=== PATIENT | male | born 1965 | race American Indian/Alaskan Native ===

== ENCOUNTER 2021-08-15 01:29 | Inpatient (IN) | payer SELFPAY ==
[2021-08-15] MEDS ORDERED: ASPIRIN 325 MG TAB PO ONE (03:58)
[2021-08-15 04:14] LABS: Platelet Count 115 K/mm3 (140-440)
--- NOTE | 2021-08-15 04:17 | XRay Report ---
CHEST 1 VIEW INDICATION / CLINICAL INFORMATION: Dyspnea. COMPARISON: None available. FINDINGS: SUPPORT DEVICES: None. HEART / MEDIASTINUM: Cardiac size is upper limits of normal to slightly enlarged. LUNGS / PLEURA: Probable mild interstitial pulmonary edema. No focal consolidation or significant ple ural effusion noted. No pneumothorax. ADDITIONAL FINDINGS: No significant additional findings. IMPRESSION: 1. Borderline to mild cardiomegaly with probable mild interstitial pulmonary edema. Signer Name: Whitney Rios MD Signed: 08/15/2021 4:13 AM Workstation Name: [id number]
[2021-08-15 04:23] LABS: Eosinophils % (Auto) 0.2 % (0.0-4.3); INR 1.59 (0.87-1.13); Mean Corpuscular HGB Conc 31 % (32-34); Monocytes % (Auto) 8.3 % (0.0-7.3); Red Blood Count 0.84 M/mm3 (3.65-5.03)
[2021-08-15 04:34] LABS: Hematocrit 11.3 % (35.5-45.6); Hemoglobin 3.5 gm/dl (11.8-15.2); Mean Corpuscular Volume 134 fl (84-94); Red Cell Distribution Width 30.4 % (13.2-15.2)
[2021-08-15 04:53] LABS: Albumin 3.7 g/dL (3.9-5); Blood Urea Nitrogen 40 mg/dL (9-20); Calcium 8.6 mg/dL (8.4-10.2); Hemolysis Index 19
[2021-08-15 04:55] LABS: BUN/Creatinine Ratio 57
[2021-08-15 05:06] LABS: Band Neutrophils # (Manual) 1.7 K/mm3; Basophils % (Manual) 0 % (0.0-1.8); Eosinophils % (Manual) 0 % (0.0-4.3); Monocytes % (Manual) 8.5 % (0.0-7.3); Total Cells Counted 200
[2021-08-15 05:07] LABS: Anisocytosis 3+; Hypochromasia 3+; Ovalocytes Few; Poikilocytosis Few; Stomatocytes Few
[2021-08-15 05:08] LABS: Platelet Estimate Appears Decreased
[2021-08-15 05:10] LABS: Alanine Aminotransferase 1615 units/L (7-56)
[2021-08-15] MEDS ORDERED: SODIUM CHLORIDE 0.9% 500 ML 500 ML IV ONE (05:19)
--- NOTE | 2021-08-15 05:43 | Emergency Department Report ---
ED Shortness of Breath HPI - General Chief Complaint: Dyspnea/Respdistress Stated Complaint: glen Time Seen by Provider: 08/15/21 02:43 Source: patient, EMS Mode of arrival: Stretcher Limitations: No Limitations - History of Present Illness Initial Comments: This patient presented to the emergency department for evaluation of shortness of breath which has been worsening over the past 3 to 4 weeks the patient denies a history of congestive heart failure or COPD states she does not smoke. The patient admits to slight lightheadedness and denies any episodes of syncope. He denies any vomiting or diarrhea and has not noticed any blood in his stool. The patient currently denies fever or chills and also denies cough. MD Complaint: shortness of breath, chest pain, pain with inspiration -: week(s) (3) Consistency: intermittent Improves With: rest, other ( ) Worsens With: exertion, movement, other (Talking) Associated Symptoms: chest pain, pain with inspiration, other (Jaundice and dark urine) Treatments Prior to Arrival: none - Related Data Home Oxygen Therapy: No Previous Rx's Medication Instructions Recorded Last Taken Type Cyclobenzaprine [Flexeril] 10 mg PO TID PRN #15 tablet 01/04/16 Unknown Rx Ibuprofen [Motrin 800 MG tab] 800 mg PO Q8HR PRN #30 tablet 01/04/16 Unknown Rx Allergies Allergy/AdvReac Type Severity Reaction Status Date / Time atenolol Allergy Unknown Verified 08/15/21 01:34 quetiapine fumarate AdvReac Unknown Verified 08/15/21 01:33 [From Seroquel] ED Review of Systems ROS: Stated complaint: glen Other details as noted in HPI Comment: All other systems reviewed and negative Constitutional: denies: chills, fever Eyes: other (Jaundice) ENT: denies: ear pain, throat pain Respiratory: SOB with exertion, SOB at rest Cardiovascular: chest pain (On deep breathing), edema (Bilateral lower extremities which is new) Endocrine: no symptoms reported Genitourinary: other (Dark urine). denies: urgency, dysuria Musculoskeletal: denies: back pain, joint swelling, arthralgia Skin: denies: rash, lesions Psychiatric: denies: anxiety, depression Hematological/Lymphatic: denies: easy bleeding, easy bruising ED Past Medical Hx - Past Medical History Previous Medical History?: Yes Hx Hypertension: Yes (no meds) Hx GERD: Yes Hx Psychiatric Treatment: Yes (depression) - Surgical History Past Surgical History?: Yes Additional Surgical History: hernia - Social History Smoking Status: Never Smoker Substance Use Type: None - Medications Home Medications: Home Medications Medication Instructions Recorded Confirmed Last Taken Type Cyclobenzaprine [Flexeril] 10 mg PO TID PRN #15 tablet 01/04/16 Unknown Rx Ibuprofen [Motrin 800 MG tab] 800 mg PO Q8HR PRN #30 tablet 01/04/16 Unknown Rx ED Physical Exam - General Limitations: No Limitations General appearance: alert, in distress - Head Head exam: Present: atraumatic, normocephalic - Eye Eye exam: Present: PERRL, scleral icterus - ENT ENT exam: Present: mucous membranes moist - Neck Neck exam: Present: normal inspection - Respiratory Respiratory exam: Present: normal lung sounds bilaterally. Absent: respiratory distress - Cardiovascular Cardiovascular Exam: Present: tachycardia - GI/Abdominal GI/Abdominal exam: Present: soft. Absent: distended, tenderness - Rectal Rectal exam: Present: other (The patient still appears to be normal in color however the sample was sent to the lab for evaluation) ED Course Vital Signs 08/15/21 08/15/21 08/15/21 01:50 02:00 02:15 Temperature Pulse Rate 103 H Respiratory 37 H Rate Blood Pressure 115/64 Blood Pressure [Right] O2 Sat by Pulse 99 95 96 Oximetry 08/15/21 08/15/21 08/15/21 02:17 02:31 02:45 Temperature 98.7 F Pulse Rate 102 H 94 H 96 H Respiratory 29 H 26 H 25 H Rate Blood Pressure 138/69 134/67 134/67 Blood Pressure 138/69 [Right] O2 Sat by Pulse 97 97 98 Oximetry 08/15/21 08/15/21 08/15/21 03:00 03:01 03:15 Temperature Pulse Rate 96 H 96 H 98 H Respiratory 26 H 26 H 24 Rate Blood Pressure 130/62 130/62 Blood Pressure 130/62 [Right] O2 Sat by Pulse 99 99 99 Oximetry 08/15/21 08/15/21 08/15/21 03:31 03:45 04:01 Temperature Pulse Rate 96 H 101 H 109 H Respiratory 24 31 H 40 H Rate Blood Pressure 138/62 138/62 146/54 Blood Pressure [Right] O2 Sat by Pulse 100 99 97 Oximetry 08/15/21 08/15/21 08/15/21 04:15 04:31 04:45 Temperature Pulse Rate 111 H 107 H 98 H Respiratory 41 H 30 H 26 H Rate Blood Pressure 146/54 120/65 120/65 Blood Pressure 146/54 [Right] O2 Sat by Pulse 96 100 96 Oximetry 08/15/21 08/15/21 08/15/21 05:08 05:16 05:30 Temperature Pulse Rate 98 H 105 H 109 H Respiratory 26 H 38 H 44 H Rate Blood Pressure 145/58 118/79 Blood Pressure 120/65 [Right] O2 Sat by Pulse 96 94 Oximetry 08/15/21 08/15/21 05:46 06:03 Temperature Pulse Rate 101 H 99 H Respiratory 37 H 33 H Rate Blood Pressure 118/79 Blood Pressure 140/64 [Right] O2 Sat by Pulse 99 Oximetry ED Medical Decision Making - Lab Data Result diagrams: 08/15/21 04:01 08/15/21 04:01 - EKG Data -: EKG Interpreted by Tn EKG shows normal: sinus rhythm, axis (Normal), QRS complexes (Normal) Rate: tachycardia - Radiology Data Radiology results: report reviewed Per the radiologic interpretation the patient was noted to have a normal heart size with no obvious evidence of pulmonary edema or pneumonia - Medical Decision Making On review of the patient's labs his H&H were noted to be significantly low with a hemoglobin of 3.5. He was subsequently typed and crossed for 2 units of packed red blood cells. Review of his liver functions showed marked elevation of his AST and ALT as well as bilirubin. The current plan is to transfuse the patient as soon as the blood becomes available. I spoke with the hospitalist who agreed to admit the patient for further work-up of his liver issues. Critical Care Time: Yes Critical care time in (mins) excluding proc time.: 48 Critical care attestation.: If time is entered above; I have spent that time in minutes in the direct care of this critically ill patient, excluding procedure time. ED Disposition Condition: Stable
[2021-08-15] MEDS ORDERED: ONDANSETRON 4 MG/2 ML INJ IV PRN (06:09)
[2021-08-15] MEDS ORDERED: ACETAMINOPHEN 650 MG RECT SUPP PR PRN (06:09)
[2021-08-15] MEDS ORDERED: MORPHINE 4 MG/1 ML INJ IV PRN (06:09)
--- NOTE | 2021-08-15 06:28 | History and Physical Report ---
History of Present Illness Date of examination: 08/15/21 Date of admission: 08/15/2021 Chief complaint: Shortness of breath Chest pain History of present illness: 55-year-old -[place]ian male with known history of hypertension and rheumatoid arthritis presenting to the emergency room today complaining of shortness of breath and chest pain. Symptoms has been ongoing for the past 3 weeks. Patient has been having increasing shortness of breath especially on minimal exertion. He also indicates that he has been having pleuritic chest pain. He denies any fever or chills, no headache, no nausea or vomiting and no abdominal pain. He however has noticed occasional distention of his abdomen, jaundice and unusually darker urine lately. Patient denies any sick contacts and no recent travel. Denies any contact with anyone with COVID-19. He states that he had a fall few days ago because he felt very weak and felt dizzy. On his forehead during the fall. He denies any loss of consciousness. Upon arrival in the emergency room, patient was quite tachypneic and tachycardic with an O2 saturation of 96% on room air. Work-up in the emergency room today, lab reveals significant for leukocytosis of 34.5, hemoglobin of 3.5 and hematocrit of 11.3. MCV of 134 and platelet count is 115. INR 1.59, PT 30.9, D-dimer greater than 234. Total bilirubin of 13.4, AST 1665, ALT 1615, alkaline phos 99 Chest x-ray shows borderline to mild cardiomegaly with probable mild interstitial pulmonary edema. Past History Past Medical History: arthritis (Rheumatoid arthritis), GERD, hypertension, other (Depression, hernia) Past Surgical History: No surgical history Social history: no significant social history Family history: no significant family history Medications and Allergies Allergies Allergy/AdvReac Type Severity Reaction Status Date / Time atenolol Allergy Unknown Verified 08/15/21 01:34 quetiapine fumarate AdvReac Unknown Verified 08/15/21 01:33 [From SeroColor Promosl] Home Medications Medication Instructions Recorded Confirmed Last Taken Type Esomeprazole Magnesium [Nexium 20 mg PO DAILY 08/15/21 08/15/21 Unknown History 24Hr] Sulindac 200 mg PO BID 08/15/21 08/15/21 08/14/21 History predniSONE [Deltasone] 5 mg PO TID 08/15/21 08/15/21 08/14/21 History 5 mg Active Meds: Active Medications Acetaminophen (Acetaminophen 650 Mg Rect Supp) 650 mg OR Q4H PRN PRN Reason: Pain MILD(1-3)/Fever >100.5/STEPHENSON Furosemide (Furosemide 40 Mg/4 Ml Inj) 40 mg IV ONCE ONE Stop: 08/15/21 06:20 Magnesium Hydroxide (Magnesium Hydroxide (Mom) Oral Liqd Udc) 30 ml PO Q4H PRN PRN Reason: Constipation Morphine Sulfate (Morphine 2 Mg/1 Ml Inj) 2 mg IV Q4H PRN PRN Reason: Pain, Moderate (4-6) Morphine Sulfate (Morphine 4 Mg/1 Ml Inj) 4 mg IV Q4H PRN PRN Reason: Pain , Severe (7-10) Ondansetron HCl (Ondansetron 4 Mg/2 Ml Inj) 4 mg IV Q8H PRN PRN Reason: Nausea And Vomiting Sodium Chloride (Sodium Chloride 0.9% 10 Ml Flush Syringe) 10 ml IV BID ROSINA Sodium Chloride (Sodium Chloride 0.9% 10 Ml Flush Syringe) 10 ml IV PRN PRN PRN Reason: LINE FLUSH Review of Systems Constitutional: fatigue, weakness, no fever, no chills Ears, nose, mouth and throat: no nasal congestion, no sore throat Cardiovascular: chest pain, palpitations, dyspnea on exertion Respiratory: cough, shortness of breath, no wheezing Gastrointestinal: jaundice, no abdominal pain, no nausea, no vomiting, no diarrhea, no BRBPR, no melena Genitourinary Male: no dysuria, no hematuria, no flank pain, no urinary frequency, no nocturia Musculoskeletal: no neck pain, no low back pain Integumentary: no rash, no pruritis Neurological: no headaches, no confusion Psychiatric: depression (History of depression), no anxiety Endocrine: no polyphagia, no polydipsia, no polyuria, no nocturia Exam - Constitutional Vitals: Temp Pulse Resp BP Pulse Ox 98.7 F 99 H 33 H 140/64 99 08/15/21 02:17 08/15/21 06:03 08/15/21 06:03 08/15/21 06:03 08/15/21 06:03 General appearance: Present: mild distress, well-nourished, other (Bruises on left side of forehead) - EENT Eyes: Present: PERRL, EOM intact, scleral icterus ENT: hearing intact, clear oral mucosa, dentition normal - Neck Neck: Present: supple, normal ROM - Respiratory Respiratory effort: labored Respiratory: bilateral: rales (Few rales in lung bases) - Cardiovascular Rhythm: regular Heart Sounds: Present: S1 & S2. Absent: systolic murmur, diastolic murmur, rub, click - Extremities Extremities: no ischemia, pulses intact, normal temperature, normal color, Full ROM Extremity abnormal: edema (1+ bilateral ankle edema) Peripheral Pulses: within normal limits - Abdominal General gastrointestinal: Present: soft, non-tender, distended (Mildly distended), normal bowel sounds. Absent: hepatomegaly, splenomegaly, mass - Integumentary Integumentary: Present: clear, warm, dry, normal turgor. Absent: rash - Musculoskeletal Musculoskeletal: strength equal bilaterally - Psychiatric Psychiatric: appropriate mood/affect, intact judgment & insight, memory intact, cooperative - Neurologic Neurologic: CNII-XII intact, no focal deficits, moves all extremities HEART Score - HEART Score Troponin: Troponin T < 0.010 ng/mL (0.00-0.029) 08/15/21 04:01 Results - Labs CBC & Chem 7: 08/15/21 04:01 08/15/21 04:01 Labs: Abnormal lab results 08/15/21 08/15/21 08/15/21 Range/Units 04:01 04:01 04:01 WBC 34.5 H (4.5-11.0) K/mm3 RBC 0.84 L (3.65-5.03) M/mm3 Hgb 3.5 L* (11.8-15.2) gm/dl Hct 11.3 L* (35.5-45.6) % MCV 134 H (84-94) fl MCH 41 H (28-32) pg MCHC 31 L (32-34) % RDW 30.4 H (13.2-15.2) % Plt Count 115 L (140-440) K/mm3 Newton % (Auto) 8.3 H (0.0-7.3) % Seg Neutrophils % 77.5 H (40.0-70.0) % Monocytes % (Manual) 8.5 H (0.0-7.3) % Nucleated RBC % 55.0 H (0.0-0.9) % Seg Neutrophils # Man 20.2 H (1.8-7.7) K/mm3 Lymphocytes # (Manual) 9.1 H (1.2-5.4) K/mm3 Monocytes # (Manual) 2.9 H (0.0-0.8) K/mm3 PT 20.9 H (12.2-14.9) Sec. INR 1.59 H (0.87-1.13) D-Dimer > 234 H (0-234) ng/mlDDU Carbon Dioxide 17 L (22-30) mmol/L BUN 40 H (9-20) mg/dL Creatinine 0.7 L (0.8-1.3) mg/dL Glucose 145 H (75-100) mg/dL Total Bilirubin 13.40 H (0.1-1.2) mg/dL AST 1665 H (5-40) units/L ALT 1615 H (7-56) units/L Total Protein 8.4 H (6.3-8.2) g/dL Albumin 3.7 L (3.9-5) g/dL Crossmatch 08/15/21 Range/Units 05:37 WBC (4.5-11.0) K/mm3 RBC (3.65-5.03) M/mm3 Hgb (11.8-15.2) gm/dl Hct (35.5-45.6) % MCV (84-94) fl MCH (28-32) pg MCHC (32-34) % RDW (13.2-15.2) % Plt Count (140-440) K/mm3 Newton % (Auto) (0.0-7.3) % Seg Neutrophils % (40.0-70.0) % Monocytes % (Manual) (0.0-7.3) % Nucleated RBC % (0.0-0.9) % Seg Neutrophils # Man (1.8-7.7) K/mm3 Lymphocytes # (Manual) (1.2-5.4) K/mm3 Monocytes # (Manual) (0.0-0.8) K/mm3 PT (12.2-14.9) Sec. INR (0.87-1.13) D-Dimer (0-234) ng/mlDDU Carbon Dioxide (22-30) mmol/L BUN (9-20) mg/dL Creatinine (0.8-1.3) mg/dL Glucose (75-100) mg/dL Total Bilirubin (0.1-1.2) mg/dL AST (5-40) units/L ALT (7-56) units/L Total Protein (6.3-8.2) g/dL Albumin (3.9-5) g/dL Crossmatch See Detail Assessment and Plan - Patient Problems (1) Symptomatic anemia Current Visit: Yes Status: Acute Plan to address problem: Etiology is unclear. Will rule out hemolysis versus malignancy. Patient being prepared for blood transfusion. Consult will be placed to yard hand/oncologist for evaluation and recommendation. (2) Pleuritic chest pain Current Visit: Yes Status: Acute Plan to address problem: Etiology unclear. Possibly related to the pulmonary edema. We will schedule for CT angiogram to rule out pulmonary embolism (3) Jaundice Current Visit: Yes Status: Acute Plan to address problem: We will check acute hepatitis profile. We will also check acetaminophen level We will monitor liver enzymes. Consult placed to gastroenterology for evaluation and recommendation. (4) History of rheumatoid arthritis Current Visit: Yes Status: Acute Plan to address problem: Patient has been on prednisone and sulindac at home. (5) History of depression Current Visit: Yes Status: Acute Plan to address problem: We will resume routine home medications. (6) Hypertension Current Visit: Yes Status: Acute Plan to address problem: Blood pressure stable. (7) DVT prophylaxis Current Visit: Yes Status: Acute Plan to address problem: Patient placed on sequential compression device. (8) Full code status Current Visit: Yes Status: Acute Plan to address problem: Patient is full code.
[2021-08-15] MEDS ORDERED: FUROSEMIDE 40 MG/4 ML INJ IV ONE (07:19)
[2021-08-15 07:33] LABS: Hepatitis B Surface Antigen Non-Reactive (Negative); Hepatitis C Virus Antibody Non-Reactive (NonReactive)
--- NOTE | 2021-08-15 08:39 | Cat Scan Report ---
CTA CHEST WITH CONTRAST INDICATION / CLINICAL INFORMATION: ABDOMINAL DISTENSION,ELEVATED LFT,JAUNDICE. TECHNIQUE: Axial CT images were obtained through the chest after injection of 95 mL's of Omnipaque 35 0 IV contrast. 3 plane MIP and/or 3D reconstructions were produced. All CT scans at this location are performed using CT dose reduction for ALARA by means of automated exposure control. COMPARISON: None available. FINDINGS: PULMONARY ARTERIES: No central pulmonary emboli. THORACIC AORTA: No significant abnormality. HEART: No significant abnormality. CORONARY ARTERY CALCIFICATION: None. MEDIASTINUM / FORTINO: No significant abnormality. PLEURA: No pleural effusion. No pneumothorax. LUNGS: No acute air space or interstitial disease. ADDITIONAL FINDINGS: None. SKELETAL STRUCTURES: No significant osseous abnormality. IMPRESSION: 1. No CT evidence for central pulmonary embolism. 2. No acute findings. CT ABDOMEN AND PELVIS WITH CONTRAST INDICATION / CLINICAL INFORMATION: ABDOMINAL DISTENSION,ELEVATED LFT,JAUNDICE. TECHNIQUE: Axial CT images were obtained through the abdomen and pelvis after 95 cc of Omnipaque [address] scans at this location are performed using CT dose reduction for ALARA by means of automated exposure control. COMPARISON: None available. FINDINGS: LOWER CHEST: No significant abnormality. AORTA / ARTERIES: No significant abnormality. IVC / VEINS: No significant abnormality. LYMPH NODES: No significant adenopathy. COLON: No significant abnormality. APPENDIX: No significant abnormality. STOMACH / SMALL BOWEL: No significant abnormality. PERITONEUM: No free fluid. No free air. No fluid collection. LIVER: No significant abnormality. GALLBLADDER: No significant abnormality. BILE DUCTS: No significant abnormality. PANCREAS: No significant abnormality. SPLEEN: No significant abnormality. ADRENALS: No significant abnormality. RIGHT KIDNEY / URETER: No significant abnormality. LEFT KIDNEY / URETER: No significant abnormality. URINARY BLADDER: No significant abnormality. REPRODUCTIVE ORGANS: No significant abnormality. SKELETAL SYSTEM: Increased trabeculation of the left iliac bone suggesting Paget's disease versus seq uela of prior trauma. ADDITIONAL FINDINGS: None. IMPRESSION: 1. No acute intra-abdominal or intrapelvic pathology. 2. Increased trabeculation of the left iliac bone suggesting Paget's disease versus sequela of prior trauma. Signer Name: Luis F Pandey DO Signed: 08/15/2021 8:35 AM Workstation Name: [id number]
[2021-08-15] MEDS ORDERED: LORazepam 2 MG/ML VIAL IV SCH ×2 (09:00→23:00)
[2021-08-15] MEDS ORDERED: SODIUM CHLORIDE 0.9% 500 ML 500 ML IV SCH (09:00)
[2021-08-15] MEDS: PANTOPRAZOLE 40 MG INJ IV SCH ×2 (09:22→22:35)
--- NOTE | 2021-08-15 09:55 | Gastroenterology Consultation ---
History of Present Illness - Reason for Consult Consult date: 08/15/21 abnormal liver enzymes/jaundice Requesting physician: SUSHIL AMARAL - History of Present Illness The patient is a 55 yo aam with h/o RA on prednisone, who presented with 3-4 weeks of progressive sob/fatigues and recent falls. Pt found to have severe leukocytosis, macrocytic anemia, and abnormal liver enzymes/jaundice on admission. He denies known h/o liver disease. denies alcohol intake. denies abd pain or new recent meds. he had a fall last week with head wound/bruise. tachypneic on exam. awake and alert. ct scan without acute findings or obvious liver abnormalities. tylenol level of 5, last known intake was a few weeks ago per pt. no known h/o cardiac issues. Past History Past Medical History: arthritis (Rheumatoid arthritis), GERD, hypertension, other (Depression, hernia) Past Surgical History: No surgical history Social history: no significant social history Family history: no significant family history Medications and Allergies Allergies Allergy/AdvReac Type Severity Reaction Status Date / Time atenolol Allergy Unknown Verified 08/15/21 01:34 quetiapine fumarate AdvReac Unknown Verified 08/15/21 01:33 [From Seroquel] Home Medications Medication Instructions Recorded Confirmed Last Taken Type Cyclobenzaprine [Flexeril] 10 mg PO TID PRN #15 tablet 01/04/16 Unknown Rx Ibuprofen [Motrin 800 MG tab] 800 mg PO Q8HR PRN #30 tablet 01/04/16 Unknown Rx Active Meds: Active Medications Sodium Chloride (Nacl 0.9% 500 Ml) 500 mls @ 0 mls/hr IV ONCE@0900 [facility] Stop: 08/15/21 19:00 Lorazepam (Lorazepam 2 Mg/Ml Vial) 2 mg IV ONCE@0900 [facility] Stop: 08/15/21 13:00 Magnesium Hydroxide (Magnesium Hydroxide (Mom) Oral Liqd Udc) 30 ml PO Q4H PRN PRN Reason: Constipation Morphine Sulfate (Morphine 2 Mg/1 Ml Inj) 2 mg IV Q4H PRN PRN Reason: Pain, Moderate (4-6) Morphine Sulfate (Morphine 4 Mg/1 Ml Inj) 4 mg IV Q4H PRN PRN Reason: Pain , Severe (7-10) Ondansetron HCl (Ondansetron 4 Mg/2 Ml Inj) 4 mg IV Q8H PRN PRN Reason: Nausea And Vomiting Pantoprazole Sodium (Pantoprazole 40 Mg Inj) 40 mg IV BID [facility] Last Admin: 08/15/21 09:22 Dose: 40 mg Sodium Chloride (Sodium Chloride 0.9% 10 Ml Flush Syringe) 10 ml IV BID [facility] Last Admin: 08/15/21 09:23 Dose: 10 ml Sodium Chloride (Sodium Chloride 0.9% 10 Ml Flush Syringe) 10 ml IV PRN PRN PRN Reason: LINE FLUSH Reviewed/updated patient's home and current medications Review of Systems - Review of Systems All systems: negative (per HPI, jaundice) Exam - Constitutional Vital Signs: Temp Pulse Resp BP Pulse Ox 98.7 F 99 H 28 H 140/64 97 08/15/21 09:00 08/15/21 08:29 08/15/21 08:29 08/15/21 08:29 08/15/21 09:36 General appearance: no acute distress, obese, other (convservational dyspnea) - EENT Eyes: scleral icterus - Respiratory Respiratory effort: labored Respiratory: bilateral: diminished - Cardiovascular Rhythm: regular Heart Sounds: Present: S1 & S2 - Gastrointestinal General gastrointestinal: Present: soft, non-distended - Musculoskeletal Musculoskeletal: deferred - Neurologic Neurological: alert and oriented x3 - Psychiatric Psychiatric: appropriate mood/affect - Labs CBC & Chem 7: 08/15/21 04:01 08/15/21 04:01 Lab Results: Laboratory Results - last 24 hr 08/15/21 08/15/21 08/15/21 04:01 04:01 04:01 WBC 34.5 H RBC 0.84 L Hgb 3.5 L* Hct 11.3 L* MCV 134 H MCH 41 H MCHC 31 L RDW 30.4 H Plt Count 115 L [place] % (Auto) 8.3 H Eos % (Auto) 0.2 Lymph # (Auto) Pediatric Assistant Add Manual Diff Complete Total Counted 200 Seg Neutrophils % 77.5 H Seg Neuts % (Manual) 58.5 Band Neutrophils % 5.0 Lymphocytes % (Manual) 26.5 Reactive Lymphs % (Man) 1.0 Monocytes % (Manual) 8.5 H Eosinophils % (Manual) 0 Basophils % (Manual) 0 Metamyelocytes % 0.5 Myelocytes % 0 Promyelocytes % 0 Blast Cells % 0 Nucleated RBC % 55.0 H Seg Neutrophils # Man 20.2 H Band Neutrophils # 1.7 Lymphocytes # (Manual) 9.1 H Abs React Lymphs (Man) 0.3 Monocytes # (Manual) 2.9 H Eosinophils # (Manual) 0.0 Basophils # (Manual) 0.0 Metamyelocytes # 0.2 Myelocytes # 0.0 Promyelocytes # 0.0 Blast Cells # 0.0 Hypersegmented Neuts Not Reportable Hyposegmented Neuts Not Reportable Hypogranular Neuts Not Reportable Smudge Cells Not Reportable Toxic Granulation Not Reportable Toxic Vacuolation Not Reportable Dohle Bodies Not Reportable Pelger-Huet Anomaly Not Reportable Elise Rods Not Reportable Platelet Estimate Appears decreased Clumped Platelets Not Reportable Plt Clumps, EDTA Not Reportable Large Platelets Not Reportable Giant Platelets Not Reportable Platelet Satelliting Not Reportable Plt Morphology Comment Not Reportable RBC Morphology Not Reportable Dimorphic RBCs Not Reportable Polychromasia Few Hypochromasia 3+ Poikilocytosis Few Anisocytosis 3+ Microcytosis 3+ Macrocytosis Few Spherocytes Rare Pappenheimer Bodies Not Reportable Sickle Cells Not Reportable Target Cells Not Reportable Tear Drop Cells Not Reportable Ovalocytes Few Stomatocytes Few Helmet Cells Not Reportable [place] Bodies Not Reportable [place] Rings Not Reportable [place] Cells Not Reportable Bite Cells Not Reportable Crenated Cell Not Reportable Elliptocytes Not Reportable Acanthocytes (Spur) Not Reportable Rouleaux Not Reportable Hemoglobin C Crystals Not Reportable Schistocytes Not Reportable Malaria parasites Not Reportable Yassine Bodies Not Reportable Hem Pathologist Commnt Sent to pathology PT 20.9 H INR 1.59 H D-Dimer > 234 H Sodium 141 Potassium 4.1 Chloride 103.1 Carbon Dioxide 17 L Anion Gap 25 BUN 40 H Creatinine 0.7 L Estimated GFR > 60 BUN/Creatinine Ratio 57 Glucose 145 H POC Glucose Lactic Acid Calcium 8.6 Total Bilirubin 13.40 H AST 1665 H ALT 1615 H Alkaline Phosphatase 99 Lactate Dehydrogenase Troponin T Total Protein 8.4 H Albumin 3.7 L Albumin/Globulin Ratio 0.8 Acetaminophen Hepatitis A IgM Ab Hep Bs Antigen Hep B Core IgM Ab Hepatitis C Antibody Blood Type Antibody Screen PARRISH Antibody Screen Crossmatch 0308/15/21 08/15/21 04:01 04:11 05:37 WBC RBC Hgb Hct MCV MCH MCHC RDW Plt Count [place] % (Auto) Eos % (Auto) Lymph # (Auto) Add Manual Diff Total Counted Seg Neutrophils % Seg Neuts % (Manual) Band Neutrophils % Lymphocytes % (Manual) Reactive Lymphs % (Man) Monocytes % (Manual) Eosinophils % (Manual) Basophils % (Manual) Metamyelocytes % Myelocytes % Promyelocytes % Blast Cells % Nucleated RBC % Seg Neutrophils # Man Band Neutrophils # Lymphocytes # (Manual) Abs React Lymphs (Man) Monocytes # (Manual) Eosinophils # (Manual) Basophils # (Manual) Metamyelocytes # Myelocytes # Promyelocytes # Blast Cells # Hypersegmented Neuts Hyposegmented Neuts Hypogranular Neuts Smudge Cells Toxic Granulation Toxic Vacuolation Dohle Bodies Pelger-Huet Anomaly Elise Rods Platelet Estimate Clumped Platelets Plt Clumps, EDTA Large Platelets Giant Platelets Platelet Satelliting Plt Morphology Comment RBC Morphology Dimorphic RBCs Polychromasia Hypochromasia Poikilocytosis Anisocytosis Microcytosis Macrocytosis Spherocytes Pappenheimer Bodies Sickle Cells Target Cells Tear Drop Cells Ovalocytes Stomatocytes Helmet Cells [place] Bodies [place] Rings [place] Cells Bite Cells Crenated Cell Elliptocytes Acanthocytes (Spur) Rouleaux Hemoglobin C Crystals Schistocytes Malaria parasites Yassine Bodies Hem Pathologist Commnt PT INR D-Dimer Sodium Potassium Chloride Carbon Dioxide Anion Gap BUN Creatinine Estimated GFR BUN/Creatinine Ratio Glucose POC Glucose 104 Lactic Acid Calcium Total Bilirubin AST ALT Alkaline Phosphatase Lactate Dehydrogenase Troponin T < 0.010 Total Protein Albumin Albumin/Globulin Ratio Acetaminophen Hepatitis A IgM Ab Hep Bs Antigen Hep B Core IgM Ab Hepatitis C Antibody Blood Type O POSITIVE Antibody Screen TNR PARRISH Antibody Screen Negative Crossmatch See Detail 08/15/21 08/15/21 08/15/21 06:00 06:44 06:44 WBC RBC Hgb Hct MCV MCH MCHC RDW Plt Count [place] % (Auto) Eos % (Auto) Lymph # (Auto) Add Manual Diff Total Counted Seg Neutrophils % Seg Neuts % (Manual) Band Neutrophils % Lymphocytes % (Manual) Reactive Lymphs % (Man) Monocytes % (Manual) Eosinophils % (Manual) Basophils % (Manual) Metamyelocytes % Myelocytes % Promyelocytes % Blast Cells % Nucleated RBC % Seg Neutrophils # Man Band Neutrophils # Lymphocytes # (Manual) Abs React Lymphs (Man) Monocytes # (Manual) Eosinophils # (Manual) Basophils # (Manual) Metamyelocytes # Myelocytes # Promyelocytes # Blast Cells # Hypersegmented Neuts Hyposegmented Neuts Hypogranular Neuts Smudge Cells Toxic Granulation Toxic Vacuolation Dohle Bodies Pelger-Huet Anomaly Elise Rods Platelet Estimate Clumped Platelets Plt Clumps, EDTA Large Platelets Giant Platelets Platelet Satelliting Plt Morphology Comment RBC Morphology Dimorphic RBCs Polychromasia Hypochromasia Poikilocytosis Anisocytosis Microcytosis Macrocytosis Spherocytes Pappenheimer Bodies Sickle Cells Target Cells Tear Drop Cells Ovalocytes Stomatocytes Helmet Cells [place] Bodies [place] Rings [place] Cells Bite Cells Crenated Cell Elliptocytes Acanthocytes (Spur) Rouleaux Hemoglobin C Crystals Schistocytes Malaria parasites Yassine Bodies Hem Pathologist Commnt PT INR D-Dimer Sodium Potassium Chloride Carbon Dioxide Anion Gap BUN Creatinine Estimated GFR BUN/Creatinine Ratio Glucose POC Glucose Lactic Acid 7.30 H* Calcium Total Bilirubin AST ALT Alkaline Phosphatase Lactate Dehydrogenase Troponin T 0.016 Total Protein Albumin Albumin/Globulin Ratio Acetaminophen Hepatitis A IgM Ab Non-reactive Hep Bs Antigen Non-reactive Hep B Core IgM Ab Non-reactive Hepatitis C Antibody Non-reactive Blood Type Antibody Screen PARRISH Antibody Screen Crossmatch 08/15/21 08/15/21 06:44 07:00 WBC RBC Hgb Hct MCV MCH MCHC RDW Plt Count [place] % (Auto) Eos % (Auto) Lymph # (Auto) Add Manual Diff Total Counted Seg Neutrophils % Seg Neuts % (Manual) Band Neutrophils % Lymphocytes % (Manual) Reactive Lymphs % (Man) Monocytes % (Manual) Eosinophils % (Manual) Basophils % (Manual) Metamyelocytes % Myelocytes % Promyelocytes % Blast Cells % Nucleated RBC % Seg Neutrophils # Man Band Neutrophils # Lymphocytes # (Manual) Abs React Lymphs (Man) Monocytes # (Manual) Eosinophils # (Manual) Basophils # (Manual) Metamyelocytes # Myelocytes # Promyelocytes # Blast Cells # Hypersegmented Neuts Hyposegmented Neuts Hypogranular Neuts Smudge Cells Toxic Granulation Toxic Vacuolation Dohle Bodies Pelger-Huet Anomaly Elise Rods Platelet Estimate Clumped Platelets Plt Clumps, EDTA Large Platelets Giant Platelets Platelet Satelliting Plt Morphology Comment RBC Morphology Dimorphic RBCs Polychromasia Hypochromasia Poikilocytosis Anisocytosis Microcytosis Macrocytosis Spherocytes Pappenheimer Bodies Sickle Cells Target Cells Tear Drop Cells Ovalocytes Stomatocytes Helmet Cells [place] Bodies [place] Rings [place] Cells Bite Cells Crenated Cell Elliptocytes Acanthocytes (Spur) Rouleaux Hemoglobin C Crystals Schistocytes Malaria parasites Yassine Bodies Hem Pathologist Commnt PT INR D-Dimer Sodium Potassium Chloride Carbon Dioxide Anion Gap BUN Creatinine Estimated GFR BUN/Creatinine Ratio Glucose POC Glucose Lactic Acid Calcium Total Bilirubin AST ALT Alkaline Phosphatase Lactate Dehydrogenase 4126 H Troponin T Total Protein Albumin Albumin/Globulin Ratio Acetaminophen 5.0 L Hepatitis A IgM Ab Hep Bs Antigen Hep B Core IgM Ab Hepatitis C Antibody Blood Type Antibody Screen PARRISH Antibody Screen Crossmatch - Imaging CT Scan: report reviewed Assessment and Plan 1. Acute liver injury - unclear etiology, mixed pattern of elevation, ddx includies ischemic hepatitis/shock liver, DILI, AIH, sepsis, etc. no overt HE. trend liver enzymes/coags closely. will obtain US with doppler. consider starting NAC (detectable tylenol level, although low but last known intake per pt was weeks ago??). 2. Severe macrocytic anemia - denies overt gi bleeding. monitor/trend levels, further work-up per primary
--- NOTE | 2021-08-15 11:18 | Consultation ---
History of Present Illness - Reason for Consult Consult date: 08/15/21 SIRS/lactic acidosis Requesting physician: SUSHIL AMARAL - History of Present Illness The patient is a 54-year-old female with hypertension, rheumatoid arthritis, GERD was admitted with shortness of breath and chest pain. Upon work-up, found to have significant leukocytosis and severe anemia. WBC was 34.5, hemoglobin 3.5. Also found to have lactic acidosis and elevated LFTs. Bilirubin 13.4, AST 1665, ALT 1615. LDH 4126. CT chest revealed no PE, no evidence of pneumonia. CT abdomen and pelvis revealed no acute intra-abdominal or intrapelvic pathology. Review of Systems: Per HPI Past History Past Medical History: arthritis (Rheumatoid arthritis), GERD, hypertension, other (Depression, hernia) Past Surgical History: No surgical history Social history: no significant social history Family history: no significant family history Medications and Allergies Allergies Allergy/AdvReac Type Severity Reaction Status Date / Time atenolol Allergy Unknown Verified 08/15/21 01:34 quetiapine fumarate AdvReac Unknown Verified 08/15/21 01:33 [From Seroquel] Home Medications Medication Instructions Recorded Confirmed Last Taken Type Esomeprazole Magnesium [Nexium 20 mg PO DAILY 08/15/21 08/15/21 Unknown History 24Hr] Sulindac 200 mg PO BID 08/15/21 08/15/21 08/14/21 History predniSONE [Deltasone] 5 mg PO TID 08/15/21 08/15/21 08/14/21 History 5 mg Active Meds: Active Medications Sodium Chloride (Nacl 0.9% 500 Ml) 500 mls @ 0 mls/hr IV ONCE@0900 [facility] Stop: 08/15/21 19:00 Last Admin: 08/15/21 10:54 Dose: 20 mls/hr Lorazepam (Lorazepam 2 Mg/Ml Vial) 2 mg IV ONCE@0900 [facility] Stop: 08/15/21 13:00 Magnesium Hydroxide (Magnesium Hydroxide (Mom) Oral Liqd Udc) 30 ml PO Q4H PRN PRN Reason: Constipation Morphine Sulfate (Morphine 2 Mg/1 Ml Inj) 2 mg IV Q4H PRN PRN Reason: Pain, Moderate (4-6) Morphine Sulfate (Morphine 4 Mg/1 Ml Inj) 4 mg IV Q4H PRN PRN Reason: Pain , Severe (7-10) Ondansetron HCl (Ondansetron 4 Mg/2 Ml Inj) 4 mg IV Q8H PRN PRN Reason: Nausea And Vomiting Pantoprazole Sodium (Pantoprazole 40 Mg Inj) 40 mg IV BID [facility] Last Admin: 08/15/21 09:22 Dose: 40 mg Sodium Chloride (Sodium Chloride 0.9% 10 Ml Flush Syringe) 10 ml IV BID [facility] Last Admin: 08/15/21 09:23 Dose: 10 ml Sodium Chloride (Sodium Chloride 0.9% 10 Ml Flush Syringe) 10 ml IV PRN PRN PRN Reason: LINE FLUSH Physical Examination - Physical Exam Narrative exam: Physical Exam: Constitutional: Alert, cooperative. No acute distress Head, Ears, Nose: Normocephalic, atraumatic. External ears, nose normal Eyes: Conjunctivae/corneas clear. + icterus. No ptosis. Neck: Supple, no meningeal signs Cardiovascular: S1, S2 + Respiratory: Good air entry, clear to auscultation bilaterally GI: Soft, non-tender; bowel sounds normal. No peritoneal signs Musculoskeletal: No pedal edema, no cyanosis. Skin: No rash or abscess Hem/Lymphatic: No palpable cervical or supraclavicular nodes. No lymphangitis Psych: Mood ok. Affect normal Neurological: Awake, alert, oriented. No gross abnormality - Constitutional Vitals: Vital Signs Temp Pulse Resp BP Pulse Ox 97.9 F 95 H 38 H 122/51 100 08/15/21 11:02 08/15/21 11:02 08/15/21 11:02 08/15/21 11:02 08/15/21 11:02 Temperature -Last 24 Hours Temperature 97.9 F Temperature 97.6 F Temperature 97.6 F Temperature 98.7 F Temperature 98.1 F Temperature 98.7 F Temperature 98.7 F Results - Labs CBC & Chem 7: 08/15/21 04:01 08/15/21 04:01 Labs: Abnormal lab results 08/15/21 08/15/21 08/15/21 Range/Units 04:01 04:01 04:01 WBC 34.5 H (4.5-11.0) K/mm3 RBC 0.84 L (3.65-5.03) M/mm3 Hgb 3.5 L* (11.8-15.2) gm/dl Hct 11.3 L* (35.5-45.6) % MCV 134 H (84-94) fl MCH 41 H (28-32) pg MCHC 31 L (32-34) % RDW 30.4 H (13.2-15.2) % Plt Count 115 L (140-440) K/mm3 [place] % (Auto) 8.3 H (0.0-7.3) % Seg Neutrophils % 77.5 H (40.0-70.0) % Monocytes % (Manual) 8.5 H (0.0-7.3) % Nucleated RBC % 55.0 H (0.0-0.9) % Seg Neutrophils # Man 20.2 H (1.8-7.7) K/mm3 Lymphocytes # (Manual) 9.1 H (1.2-5.4) K/mm3 Monocytes # (Manual) 2.9 H (0.0-0.8) K/mm3 PT 20.9 H (12.2-14.9) Sec. INR 1.59 H (0.87-1.13) D-Dimer > 234 H (0-234) ng/mlDDU Carbon Dioxide 17 L (22-30) mmol/L BUN 40 H (9-20) mg/dL Creatinine 0.7 L (0.8-1.3) mg/dL Glucose 145 H (75-100) mg/dL Lactic Acid (0.7-2.0) mmol/L Total Bilirubin 13.40 H (0.1-1.2) mg/dL AST 1665 H (5-40) units/L ALT 1615 H (7-56) units/L Lactate Dehydrogenase (91-180) units/L Total Protein 8.4 H (6.3-8.2) g/dL Albumin 3.7 L (3.9-5) g/dL Acetaminophen (10.0-30.0) ug/mL Crossmatch 08/15/21 08/15/21 08/15/21 Range/Units 05:37 06:44 06:44 WBC (4.5-11.0) K/mm3 RBC (3.65-5.03) M/mm3 Hgb (11.8-15.2) gm/dl Hct (35.5-45.6) % MCV (84-94) fl MCH (28-32) pg MCHC (32-34) % RDW (13.2-15.2) % Plt Count (140-440) K/mm3 [place] % (Auto) (0.0-7.3) % Seg Neutrophils % (40.0-70.0) % Monocytes % (Manual) (0.0-7.3) % Nucleated RBC % (0.0-0.9) % Seg Neutrophils # Man (1.8-7.7) K/mm3 Lymphocytes # (Manual) (1.2-5.4) K/mm3 Monocytes # (Manual) (0.0-0.8) K/mm3 PT (12.2-14.9) Sec. INR (0.87-1.13) D-Dimer (0-234) ng/mlDDU Carbon Dioxide (22-30) mmol/L BUN (9-20) mg/dL Creatinine (0.8-1.3) mg/dL Glucose (75-100) mg/dL Lactic Acid 7.30 H* (0.7-2.0) mmol/L Total Bilirubin (0.1-1.2) mg/dL AST (5-40) units/L ALT (7-56) units/L Lactate Dehydrogenase 4126 H (91-180) units/L Total Protein (6.3-8.2) g/dL Albumin (3.9-5) g/dL Acetaminophen (10.0-30.0) ug/mL Crossmatch See Detail 08/15/21 08/15/21 Range/Units 07:00 09:29 WBC (4.5-11.0) K/mm3 RBC (3.65-5.03) M/mm3 Hgb (11.8-15.2) gm/dl Hct (35.5-45.6) % MCV (84-94) fl MCH (28-32) pg MCHC (32-34) % RDW (13.2-15.2) % Plt Count (140-440) K/mm3 [place] % (Auto) (0.0-7.3) % Seg Neutrophils % (40.0-70.0) % Monocytes % (Manual) (0.0-7.3) % Nucleated RBC % (0.0-0.9) % Seg Neutrophils # Man (1.8-7.7) K/mm3 Lymphocytes # (Manual) (1.2-5.4) K/mm3 Monocytes # (Manual) (0.0-0.8) K/mm3 PT (12.2-14.9) Sec. INR (0.87-1.13) D-Dimer (0-234) ng/mlDDU Carbon Dioxide (22-30) mmol/L BUN (9-20) mg/dL Creatinine (0.8-1.3) mg/dL Glucose (75-100) mg/dL Lactic Acid 8.70 H* (0.7-2.0) mmol/L Total Bilirubin (0.1-1.2) mg/dL AST (5-40) units/L ALT (7-56) units/L Lactate Dehydrogenase (91-180) units/L Total Protein (6.3-8.2) g/dL Albumin (3.9-5) g/dL Acetaminophen 5.0 L (10.0-30.0) ug/mL Crossmatch - Imaging and Cardiology Chest x-ray: report reviewed, image reviewed (no pneumonia. ) CT scan - abdomen: report reviewed CT scan - chest: report reviewed, image reviewed Assessment and Plan Cultures: Acute hepatitis panel negative A/P: 54-year-old female with hypertension, rheumatoid arthritis, GERD was admitted with shortness of breath and chest pain. Upon work-up, found to have significant leukocytosis and severe anemia: #Leukemoid reaction, severe anemia: suspect underlying hematologic disorder, ?m alignancy. LDH also high. CT chest revealed no PE, no evidence of pneumonia. CT abdomen and pelvis revealed no acute intra-abdominal or intrapelvic pathology. Afebrile. #Elevated LFTs: CT abdomen without any acute abnormality. Acute hepatitis panel negative. ?Toxin/medication related versus autoimmune. Denies alcohol intake. GI on board #Lactic acidosis #Rheumatoid arthritis: Patient takes prednisone 5 mg 3 times daily. Denies being on any methotrexate or other immunosuppression. He follows up with rheumatology via telemedicine. Recs: -Acute bacterial infection seems less likely at this time, hold off on antibiotics -Follow-up hematology consultation Alejandra Pop MD, FACP, [facility] O: [phone] F: [phone] C: [phone]
--- NOTE | 2021-08-15 12:53 | Consultation ---
History of Present Illness Consult date: 08/15/21 Requesting physician: SUSHIL AMARAL History of present illness: This is a 55-year-old AA male with known past medical history of HTN, GERD, and RA on prednisone at home admitted for severe anemia, leukocytosis, and acute liver injury Hospital Course to Date: 08/15: Patient is on HHFL 40%, 25L. SPO2 above 95. With severe anemia, no s/s of any acute bleeding, administered 2units of PRBCs for now, serial H&H ordered. HEME/ONC consult pending. Worsening lactic acid noted most likely due to acute liver disease, Acetylcysteine gtt intiated per GI recommendation. Will continue to monitor LFTs and coags. Patient remains afebrile and hemodynamically stable. per ID leukocytosi is unlikely related to an infectious process and IV abx were discontinued Review of Systems Constitutional: fatigue, weakness, no fever, no chills Ears, nose, mouth and throat: no nasal congestion, no sore throat Cardiovascular: chest pain, palpitations, dyspnea on exertion Respiratory: cough, shortness of breath, no wheezing Gastrointestinal: jaundice, no abdominal pain, no nausea, no vomiting, no diarrhea, no BRBPR, no melena Genitourinary Male: no dysuria, no hematuria, no flank pain, no urinary frequency, no nocturia Musculoskeletal: no neck pain, no low back pain Integumentary: no rash, no pruritis Neurological: no headaches, no confusion Psychiatric: depression (History of depression), no anxiety Endocrine: no polyphagia, no polydipsia, no polyuria, no nocturia Past History Past Medical History: arthritis (Rheumatoid arthritis), GERD, hypertension, other (Depression, hernia) Past Surgical History: No surgical history Social history: no significant social history Family history: no significant family history Medications and Allergies Allergies Allergy/AdvReac Type Severity Reaction Status Date / Time atenolol Allergy Unknown Verified 08/15/21 01:34 quetiapine fumarate AdvReac Unknown Verified 08/15/21 01:33 [From Seroquel] Home Medications Medication Instructions Recorded Confirmed Last Taken Type Esomeprazole Magnesium [Nexium 20 mg PO DAILY 08/15/21 08/15/21 Unknown History 24Hr] Sulindac 200 mg PO BID 08/15/21 08/15/21 08/14/21 History predniSONE [Deltasone] 5 mg PO TID 08/15/21 08/15/21 08/14/21 History 5 mg Active Meds: Active Medications Sodium Chloride (Nacl 0.9% 500 Ml) 500 mls @ 0 mls/hr IV ONCE@0900 REPLACED BY [facility] Stop: 08/15/21 19:00 Last Admin: 08/15/21 10:54 Dose: 20 mls/hr Lorazepam (Lorazepam 2 Mg/Ml Vial) 2 mg IV ONCE@0900 REPLACED BY [facility] Stop: 08/15/21 13:00 Magnesium Hydroxide (Magnesium Hydroxide (Mom) Oral Liqd Udc) 30 ml PO Q4H PRN PRN Reason: Constipation Morphine Sulfate (Morphine 2 Mg/1 Ml Inj) 2 mg IV Q4H PRN PRN Reason: Pain, Moderate (4-6) Morphine Sulfate (Morphine 4 Mg/1 Ml Inj) 4 mg IV Q4H PRN PRN Reason: Pain , Severe (7-10) Ondansetron HCl (Ondansetron 4 Mg/2 Ml Inj) 4 mg IV Q8H PRN PRN Reason: Nausea And Vomiting Pantoprazole Sodium (Pantoprazole 40 Mg Inj) 40 mg IV BID REPLACED BY [facility] Last Admin: 08/15/21 09:22 Dose: 40 mg Sodium Chloride (Sodium Chloride 0.9% 10 Ml Flush Syringe) 10 ml IV BID REPLACED BY [facility] Last Admin: 08/15/21 09:23 Dose: 10 ml Sodium Chloride (Sodium Chloride 0.9% 10 Ml Flush Syringe) 10 ml IV PRN PRN PRN Reason: LINE FLUSH Physical Examination Vital signs: Vital Signs Pulse Ox 99 08/15/21 01:50 General appearance: Present: no acute distress, chronically ill looking, icteric, obese - EENT Eyes: Present: PERRL, EOM intact ENT: hearing intact - Neck Neck: Present: normal ROM - Respiratory Respiratory effort: normal Respiratory: bilateral: diminished - Cardiovascular Rhythm: regular Heart Sounds: Present: S1 & S2 - Extremities Extremities: no ischemia, pulses intact, pulses symmetrical Extremity abnormal: edema - Peripheral Assessment Generalized Edema Type: Non-pitting Edema Degree: 3+ Capillary Refill: < 3 seconds Skin Temperature: Warm Peripheral Pulses: within normal limits - Abdominal General gastrointestinal: soft, non-distended, normal bowel sounds - Integumentary Integumentary: Present: warm, dry - Psychiatric Psychiatric: appropriate mood/affect, cooperative - Neurologic Neurologic: CNII-XII intact, moves all extremities Results - Laboratory Findings CBC and BMP: 08/23/21 05:00 08/23/21 05:00 PT/INR, D-dimer PT 20.9 Sec. (12.2-14.9) H 08/15/21 04:01 INR 1.59 (0.87-1.13) H 08/15/21 04:01 D-Dimer > 234 ng/mlDDU (0-234) H 08/15/21 04:01 Abnormal lab findings: Abnormal Labs 08/15/21 08/15/21 08/15/21 04:01 04:01 04:01 WBC 34.5 H RBC 0.84 L Hgb 3.5 L* Hct 11.3 L* MCV 134 H MCH 41 H MCHC 31 L RDW 30.4 H Plt Count 115 L Cameron % (Auto) 8.3 H Seg Neutrophils % 77.5 H Monocytes % (Manual) 8.5 H Nucleated RBC % 55.0 H Seg Neutrophils # Man 20.2 H Lymphocytes # (Manual) 9.1 H Monocytes # (Manual) 2.9 H PT 20.9 H INR 1.59 H D-Dimer > 234 H Carbon Dioxide 17 L BUN 40 H Creatinine 0.7 L Glucose 145 H Lactic Acid Total Bilirubin 13.40 H AST 1665 H ALT 1615 H Lactate Dehydrogenase Total Protein 8.4 H Albumin 3.7 L Acetaminophen Crossmatch 08/15/21 08/15/21 08/15/21 05:37 06:44 06:44 WBC RBC Hgb Hct MCV MCH MCHC RDW Plt Count Cameron % (Auto) Seg Neutrophils % Monocytes % (Manual) Nucleated RBC % Seg Neutrophils # Man Lymphocytes # (Manual) Monocytes # (Manual) PT INR D-Dimer Carbon Dioxide BUN Creatinine Glucose Lactic Acid 7.30 H* Total Bilirubin AST ALT Lactate Dehydrogenase 4126 H Total Protein Albumin Acetaminophen Crossmatch See Detail 08/15/21 08/15/21 07:00 09:29 WBC RBC Hgb Hct MCV MCH MCHC RDW Plt Count Cameron % (Auto) Seg Neutrophils % Monocytes % (Manual) Nucleated RBC % Seg Neutrophils # Man Lymphocytes # (Manual) Monocytes # (Manual) PT INR D-Dimer Carbon Dioxide BUN Creatinine Glucose Lactic Acid 8.70 H* Total Bilirubin AST ALT Lactate Dehydrogenase Total Protein Albumin Acetaminophen 5.0 L Crossmatch Assessment and Plan #Acute Liver Injury #Jaundice - Presented with elevated LFTs and jaundice in appearance - No history of ETOH abuse, hepatic panel unremarkable - Tylenol level is 5 - Acetylcysteine gtt intiated per GI - Continue to trend LFTs and coags - Check UDS and alcohol level #Severe Macrocytic Anemia - Presented with hgb of 3.5 - Possible hemolysis versus malignancy - no s/s of any active bleeding - Plan to administer 2units of PRBCs - Serial H&H ordered - Check Vitamin B12 and Folate - Transfuse for hgb less than 7 #Acute Hypoxemic Respiratory Failure 2/ #Pulmonary Edema - Per patient he does not use any O2 at home - Currently on HHFL at 40%, 25L, SPO2 above 95% - Patient remains with significant dyspnea - Chest x-ray shows probable mild interstitial pulmonary edema - CT chest revealed no PE, no evidence of pneumonia. - Continue Nebs per CCM - Aspiration precaution HOB above 30 - Continue O2 supplementation and wean as tolerated - Continue SPO2 monitoring for SPO2 goal above 92% #Leukocytosis #Lactic Acidosis - Presented with tachycardia, leukocytosis, and elevated lactic - Possible hemolysis versus malignancy - remains afebrile - CT chest revealed no PE, no evidence of pneumonia. - CT abdomen and pelvis revealed no acute intra-abdominal or intrapelvic pathol ogy - Blood culture pending, HIV testing - ID Consulted, appreciate recommendations - Per ID- bacterial infection is unlikely - Empiric IV Abx discontinued #Hypertension - BP stable - Continue Blood pressure monitor per protocol - Maintain SBP less than 160 #History of Rheumatoid Arthritis - denied any pain at this time - Continue supportive care - Patient has been on prednisone and sulindac at home. The high probability of a clinically significant, sudden or life threatening deterioration of the [multiple] system(s) required my full and direct attention, intervention and personal management. The aggregate critical care time was [33] minutes. This time is in addition to time spent performing reported procedures but includes the following: [x] Data Review and interpretation [x] Patient assessment and monitoring of vital signs [x] Documentation [x] Medication orders and management
--- NOTE | 2021-08-15 13:50 | Progress Note ---
<EDGAR VIVAS - Last Filed: 08/15/21 18:53> Assessment and Plan Assessment and plan: This is a 55-year-old AA male with known past medical history of HTN, GERD, and RA on prednisone at home admitted for severe anemia, leukocytosis, and acute liver injury Hospital Course to Date: 08/15: Patient is on HHFL 40%, 25L. SPO2 above 95. With severe anemia, no s/s of any acute bleeding, administered 2units of PRBCs for now, serial H&H ordered. HEME/ONC consult pending. Worsening lactic acid noted most likely due to acute liver disease, Acetylcysteine gtt intiated per GI recommendation. Will continue to monitor LFTs and coags. Orders placed for UDS and alcohol leve;. Will also check Vitamin B12, folate, and HIV. Patient remains afebrile and hemodynamically stable. per ID leukocytosi is unlikely related to an infectious process and IV abx were discontinued. Assessment and Plan #Acute Liver Injury #Jaundice - Presented with elevated LFTs and jaundice in appearance - No history of ETOH abuse, hepatic panel unremarkable - Tylenol level is 5 - GI consulted, appreciate recommendations - Acetylcysteine gtt intiated per GI - Continue to trend LFTs and coags - Check UDS and alcohol level #Severe Macrocytic Anemia - Presented with hgb of 3.5 - Possible hemolysis versus malignancy - no s/s of any active bleeding - Plan to administer 2units of PRBCs - Serial H&H ordered - Check Vitamin B12 and Folate - Transfuse for hgb less than 7 - HEME/ONC consulted #Acute Hypoxemic Respiratory Failure 2/ #Pulmonary Edema - Per patient he does not use any O2 at home - Currently on HHFL at 40%, 25L, SPO2 above 95% - Patient remains with significant dyspnea - Chest x-ray shows probable mild interstitial pulmonary edema - CT chest revealed no PE, no evidence of pneumonia. - CCM consulted, appreciate recommendations - Continue Nebs per CCM - Aspiration precaution HOB above 30 - Continue O2 supplementation and wean as tolerated - Continue SPO2 monitoring for SPO2 goal above 92% #Leukocytosis #Lactic Acidosis - Presented with tachycardia, leukocytosis, and elevated lactic - Possible hemolysis versus malignancy - remains afebrile - CT chest revealed no PE, no evidence of pneumonia. - CT abdomen and pelvis revealed no acute intra-abdominal or intrapelvic pathology - Blood culture pending, HIV testing - ID Consulted, appreciate recommendations - Per ID- bacterial infection is unlikely - Emperic IV Abx discontinued #Hypertension - BP stable - Continue Blood pressure monitor per protocol - Maintain SBP less than 160 #History of Rheumatoid Arthritis - denied any pain at this time - Continue supportive care - Patient has been on prednisone and sulindac at home. #GI/DVT prophylaxis - PPI- Protonix - SCDs to bilateral lower extremities while in bed History Interval history: patient seen and examined at the bedside. Fully AAO, on HHFL at 40% and 25L with significant dyspnea. Patient is jaundice in appearance. C/o of felling fatique, tired, and uncomfortable but denied any pain. Hospitalist Physical - Constitutional Vitals: Temp Pulse Resp BP Pulse Ox 97.9 F 86 24 121/62 99 08/15/21 12:47 08/15/21 13:00 08/15/21 13:00 08/15/21 13:00 08/15/21 13:00 General appearance: Present: mild distress, well-nourished, other (Bruises on left side of forehead) HEART Score - HEART Score Troponin: Troponin T 0.016 ng/mL (0.00-0.029) 08/15/21 06:00 Results - Labs CBC & Chem 7: 08/15/21 04:01 08/15/21 04:01 Labs: Laboratory Last Values WBC 34.5 K/mm3 (4.5-11.0) H 08/15/21 04:01 RBC 0.84 M/mm3 (3.65-5.03) L 08/15/21 04:01 Hgb 3.5 gm/dl (11.8-15.2) L* 08/15/21 04:01 Hct 11.3 % (35.5-45.6) L* 08/15/21 04:01 MCV 134 fl (84-94) H 08/15/21 04:01 MCH 41 pg (28-32) H 08/15/21 04:01 MCHC 31 % (32-34) L 08/15/21 04:01 RDW 30.4 % (13.2-15.2) H 08/15/21 04:01 Plt Count 115 K/mm3 (140-440) L 08/15/21 04:01 [place] % (Auto) 8.3 % (0.0-7.3) H 08/15/21 04:01 Eos % (Auto) 0.2 % (0.0-4.3) 08/15/21 04:01 Lymph # (Auto) Jd Edwards Developer 08/15/21 04:01 Add Manual Diff Complete 08/15/21 04:01 Total Counted 200 08/15/21 04:01 Seg Neutrophils % 77.5 % (40.0-70.0) H 08/15/21 04:01 Seg Neuts % (Manual) 58.5 % (40.0-70.0) 08/15/21 04:01 Band Neutrophils % 5.0 % 08/15/21 04:01 Lymphocytes % (Manual) 26.5 % (13.4-35.0) 08/15/21 04:01 Reactive Lymphs % (Man) 1.0 % 08/15/21 04:01 Monocytes % (Manual) 8.5 % (0.0-7.3) H 08/15/21 04:01 Eosinophils % (Manual) 0 % (0.0-4.3) 08/15/21 04:01 Basophils % (Manual) 0 % (0.0-1.8) 08/15/21 04:01 Metamyelocytes % 0.5 % 08/15/21 04:01 Myelocytes % 0 % 08/15/21 04:01 Promyelocytes % 0 % 08/15/21 04:01 Blast Cells % 0 % 08/15/21 04:01 Nucleated RBC % 55.0 % (0.0-0.9) H 08/15/21 04:01 Seg Neutrophils # Man 20.2 K/mm3 (1.8-7.7) H 08/15/21 04:01 Band Neutrophils # 1.7 K/mm3 08/15/21 04:01 Lymphocytes # (Manual) 9.1 K/mm3 (1.2-5.4) H 08/15/21 04:01 Abs React Lymphs (Man) 0.3 K/mm3 08/15/21 04:01 Monocytes # (Manual) 2.9 K/mm3 (0.0-0.8) H 08/15/21 04:01 Eosinophils # (Manual) 0.0 K/mm3 (0.0-0.4) 08/15/21 04:01 Basophils # (Manual) 0.0 K/mm3 (0.0-0.1) 08/15/21 04:01 Metamyelocytes # 0.2 K/mm3 08/15/21 04:01 Myelocytes # 0.0 K/mm3 08/15/21 04:01 Promyelocytes # 0.0 K/mm3 08/15/21 04:01 Blast Cells # 0.0 K/mm3 08/15/21 04:01 Hypersegmented Neuts Not Reportable 08/15/21 04:01 Hyposegmented Neuts Not Reportable 08/15/21 04:01 Hypogranular Neuts Not Reportable 08/15/21 04:01 Smudge Cells Not Reportable 08/15/21 04:01 Toxic Granulation Not Reportable 08/15/21 04:01 Toxic Vacuolation Not Reportable 08/15/21 04:01 Dohle Bodies Not Reportable 08/15/21 04:01 Pelger-Huet Anomaly Not Reportable 08/15/21 04:01 Elise Rods Not Reportable 08/15/21 04:01 Platelet Estimate Appears decreased 08/15/21 04:01 Clumped Platelets Not Reportable 08/15/21 04:01 Plt Clumps, EDTA Not Reportable 08/15/21 04:01 Large Platelets Not Reportable 08/15/21 04:01 Giant Platelets Not Reportable 08/15/21 04:01 Platelet Satelliting Not Reportable 08/15/21 04:01 Plt Morphology Comment Not Reportable 08/15/21 04:01 RBC Morphology Not Reportable 08/15/21 04:01 Dimorphic RBCs Not Reportable 08/15/21 04:01 Polychromasia Few 08/15/21 04:01 Hypochromasia 3+ 08/15/21 04:01 Poikilocytosis Few 08/15/21 04:01 Anisocytosis 3+ 08/15/21 04:01 Microcytosis 3+ 08/15/21 04:01 Macrocytosis Few 08/15/21 04:01 Spherocytes Rare 08/15/21 04:01 Pappenheimer Bodies Not Reportable 08/15/21 04:01 Sickle Cells Not Reportable 08/15/21 04:01 Target Cells Not Reportable 08/15/21 04:01 Tear Drop Cells Not Reportable 08/15/21 04:01 Ovalocytes Few 08/15/21 04:01 Stomatocytes Few 08/15/21 04:01 Helmet Cells Not Reportable 08/15/21 04:01 [place] Bodies Not Reportable 08/15/21 04:01 [place] Rings Not Reportable 08/15/21 04:01 [place] Cells Not Reportable 08/15/21 04:01 Bite Cells Not Reportable 08/15/21 04:01 Crenated Cell Not Reportable 08/15/21 04:01 Elliptocytes Not Reportable 08/15/21 04:01 Acanthocytes (Spur) Not Reportable 08/15/21 04:01 Rouleaux Not Reportable 08/15/21 04:01 Hemoglobin C Crystals Not Reportable 08/15/21 04:01 Schistocytes Not Reportable 08/15/21 04:01 Malaria parasites Not Reportable 08/15/21 04:01 Yassine Bodies Not Reportable 08/15/21 04:01 Hem Pathologist Commnt Sent to pathology 08/15/21 04:01 PT 20.9 Sec. (12.2-14.9) H 08/15/21 04:01 INR 1.59 (0.87-1.13) H 08/15/21 04:01 D-Dimer > 234 ng/mlDDU (0-234) H 08/15/21 04:01 Sodium 141 mmol/L (137-145) 08/15/21 04:01 Potassium 4.1 mmol/L (3.6-5.0) 08/15/21 04:01 Chloride 103.1 mmol/L (98-107) 08/15/21 04:01 Carbon Dioxide 17 mmol/L (22-30) L 08/15/21 04:01 Anion Gap 25 mmol/L 08/15/21 04:01 BUN 40 mg/dL (9-20) H 08/15/21 04:01 Creatinine 0.7 mg/dL (0.8-1.3) L 08/15/21 04:01 Estimated GFR > 60 ml/min 08/15/21 04:01 BUN/Creatinine Ratio 57 % 08/15/21 04:01 Glucose 145 mg/dL (75-100) H 08/15/21 04:01 POC Glucose 104 mg/dL (70-105) 08/15/21 04:11 Lactic Acid 8.70 mmol/L (0.7-2.0) H* 08/15/21 09:29 Calcium 8.6 mg/dL (8.4-10.2) 08/15/21 04:01 Total Bilirubin 13.40 mg/dL (0.1-1.2) H 08/15/21 04:01 AST 1665 units/L (5-40) H 08/15/21 04:01 ALT 1615 units/L (7-56) H 08/15/21 04:01 Alkaline Phosphatase 99 units/L (35-129) 08/15/21 04:01 Lactate Dehydrogenase 4126 units/L (91-180) H 08/15/21 06:44 Troponin T 0.016 ng/mL (0.00-0.029) 08/15/21 06:00 Total Protein 8.4 g/dL (6.3-8.2) H 08/15/21 04:01 Albumin 3.7 g/dL (3.9-5) L 08/15/21 04:01 Albumin/Globulin Ratio 0.8 % 08/15/21 04:01 Acetaminophen 5.0 ug/mL (10.0-30.0) L 08/15/21 07:00 Hepatitis A IgM Ab Non-reactive (NonReactive) 08/15/21 06:44 Hep Bs Antigen Non-reactive (Negative) 08/15/21 06:44 Hep B Core IgM Ab Non-reactive (NonReactive) 08/15/21 06:44 Hepatitis C Antibody Non-reactive (NonReactive) 08/15/21 06:44 Blood Type O POSITIVE 08/15/21 05:37 Antibody Screen TNR 08/15/21 05:37 PARRISH Antibody Screen Negative 08/15/21 05:37 Crossmatch See Detail 08/15/21 05:37 Microbiology: Microbiology 08/15/21 Unknown Stool Stool Occult Blood (RAMILA) - Final Active Medications - Current Medications Current Medications: Generic Name Dose Route Start Last Admin Trade Name Freq PRN Reason Stop Dose Admin Sodium Chloride 500 mls @ 0 mls/hr 08/15/21 09:00 08/15/21 10:54 Nacl 0.9% 500 Ml IV 08/15/21 19:00 20 mls/hr ONCE@0900 ROSINA Administration As Directed Acetylcysteine 15,000 mg/ 275 mls @ 200 mls/hr 08/15/21 14:00 Dextrose IV 08/15/21 15:00 ONCE@1400 ROSINA Acetylcysteine 5,000 mg/ 525 mls @ 125 mls/hr 08/15/21 15:30 Dextrose IV 08/15/21 19:30 ONCE@1530 ROSINA Acetylcysteine 10,000 mg/ 1,050 mls @ 62.5 mls/hr 08/15/21 20:00 Dextrose IV 08/16/21 12:47 ONCE@2000 ROSINA Magnesium Hydroxide 30 ml 08/15/21 06:09 Magnesium Hydroxide (Mom) Oral Liqd Udc PO Q4H PRN Constipation Morphine Sulfate 2 mg 08/15/21 06:09 Morphine 2 Mg/1 Ml Inj IV Q4H PRN Pain, Moderate (4-6) Morphine Sulfate 4 mg 08/15/21 06:09 Morphine 4 Mg/1 Ml Inj IV Q4H PRN Pain , Severe (7-10) Ondansetron HCl 4 mg 08/15/21 06:09 Ondansetron 4 Mg/2 Ml Inj IV Q8H PRN Nausea And Vomiting Pantoprazole Sodium 40 mg 08/15/21 10:00 08/15/21 09:22 Pantoprazole 40 Mg Inj IV 40 mg BID ROSINA Administration Sodium Chloride 10 ml 08/15/21 10:00 08/15/21 09:23 Sodium Chloride 0.9% 10 Ml Flush Syringe IV 10 ml BID ROSINA Administration Sodium Chloride 10 ml 08/15/21 06:09 Sodium Chloride 0.9% 10 Ml Flush Syringe IV PRN PRN LINE FLUSH <SUSHIL AMARAL - Last Filed: 08/16/21 07:04> Assessment and Plan Assessment and plan: I saw and evaluated the patient. I agree with the findings and the plan of care as documented in the Nurse Practitioner's~note, with the following corrections and additions. Hospitalist Physical - Constitutional Vitals: Temp Pulse Resp BP Pulse Ox 98.1 F 99 H 24 159/95 97 08/16/21 05:27 08/16/21 06:00 08/16/21 06:00 08/16/21 06:00 08/16/21 07:00 HEART Score - HEART Score Troponin: Troponin T 0.016 ng/mL (0.00-0.029) 08/15/21 06:00 Results - Labs CBC & Chem 7: 08/16/21 04:30 08/16/21 04:30 Labs: Laboratory Last Values WBC 30.7 K/mm3 (4.5-11.0) H 08/16/21 04:30 RBC 1.86 M/mm3 (3.65-5.03) L 08/16/21 04:30 Hgb 6.3 gm/dl (11.8-15.2) L 08/16/21 04:30 Hct 19.2 % (35.5-45.6) L* 08/16/21 04:30 MCV 103 fl (84-94) H 08/16/21 04:30 MCH 34 pg (28-32) H 08/16/21 04:30 MCHC 33 % (32-34) 08/16/21 04:30 RDW 24.8 % (13.2-15.2) H 08/16/21 04:30 Plt Count 77 K/mm3 (140-440) L 08/16/21 04:30 [place] % (Auto) 8.3 % (0.0-7.3) H 08/15/21 04:01 Eos % (Auto) 0.2 % (0.0-4.3) 08/15/21 04:01 Lymph # (Auto) Jd Edwards Developer 08/15/21 04:01 Add Manual Diff Complete 08/15/21 04:01 Total Counted 200 08/15/21 04:01 Seg Neutrophils % 77.5 % (40.0-70.0) H 08/15/21 04:01 Seg Neuts % (Manual) 58.5 % (40.0-70.0) 08/15/21 04:01 Band Neutrophils % 5.0 % 08/15/21 04:01 Lymphocytes % (Manual) 26.5 % (13.4-35.0) 08/15/21 04:01 Reactive Lymphs % (Man) 1.0 % 08/15/21 04:01 Monocytes % (Manual) 8.5 % (0.0-7.3) H 08/15/21 04:01 Eosinophils % (Manual) 0 % (0.0-4.3) 08/15/21 04:01 Basophils % (Manual) 0 % (0.0-1.8) 08/15/21 04:01 Metamyelocytes % 0.5 % 08/15/21 04:01 Myelocytes % 0 % 08/15/21 04:01 Promyelocytes % 0 % 08/15/21 04:01 Blast Cells % 0 % 08/15/21 04:01 Nucleated RBC % 55.0 % (0.0-0.9) H 08/15/21 04:01 Seg Neutrophils # Man 20.2 K/mm3 (1.8-7.7) H 08/15/21 04:01 Band Neutrophils # 1.7 K/mm3 08/15/21 04:01 Lymphocytes # (Manual) 9.1 K/mm3 (1.2-5.4) H 08/15/21 04:01 Abs React Lymphs (Man) 0.3 K/mm3 08/15/21 04:01 Monocytes # (Manual) 2.9 K/mm3 (0.0-0.8) H 08/15/21 04:01 Eosinophils # (Manual) 0.0 K/mm3 (0.0-0.4) 08/15/21 04:01 Basophils # (Manual) 0.0 K/mm3 (0.0-0.1) 08/15/21 04:01 Metamyelocytes # 0.2 K/mm3 08/15/21 04:01 Myelocytes # 0.0 K/mm3 08/15/21 04:01 Promyelocytes # 0.0 K/mm3 08/15/21 04:01 Blast Cells # 0.0 K/mm3 08/15/21 04:01 Hypersegmented Neuts Not Reportable 08/15/21 04:01 Hyposegmented Neuts Not Reportable 08/15/21 04:01 Hypogranular Neuts Not Reportable 08/15/21 04:01 Smudge Cells Not Reportable 08/15/21 04:01 Toxic Granulation Not Reportable 08/15/21 04:01 Toxic Vacuolation Not Reportable 08/15/21 04:01 Dohle Bodies Not Reportable 08/15/21 04:01 [place] Anomaly Not Reportable 08/15/21 04:01 Elise Rods Not Reportable 08/15/21 04:01 Platelet Estimate Appears decreased 08/15/21 04:01 Clumped Platelets Not Reportable 08/15/21 04:01 Plt Clumps, EDTA Not Reportable 08/15/21 04:01 Large Platelets Not Reportable 08/15/21 04:01 Giant Platelets Not Reportable 08/15/21 04:01 Platelet Satelliting Not Reportable 08/15/21 04:01 Plt Morphology Comment Not Reportable 08/15/21 04:01 RBC Morphology Not Reportable 08/15/21 04:01 Dimorphic RBCs Not Reportable 08/15/21 04:01 Polychromasia Few 08/15/21 04:01 Hypochromasia 3+ 08/15/21 04:01 Poikilocytosis Few 08/15/21 04:01 Anisocytosis 3+ 08/15/21 04:01 Microcytosis 3+ 08/15/21 04:01 Macrocytosis Few 08/15/21 04:01 Spherocytes Rare 08/15/21 04:01 Pappenheimer Bodies Not Reportable 08/15/21 04:01 Sickle Cells Not Reportable 08/15/21 04:01 Target Cells Not Reportable 08/15/21 04:01 Tear Drop Cells Not Reportable 08/15/21 04:01 Ovalocytes Few 08/15/21 04:01 Stomatocytes Few 08/15/21 04:01 Helmet Cells Not Reportable 08/15/21 04:01 [place] Bodies Not Reportable 08/15/21 04:01 [place] Rings Not Reportable 08/15/21 04:01 [place] Cells Not Reportable 08/15/21 04:01 Bite Cells Not Reportable 08/15/21 04:01 Crenated Cell Not Reportable 08/15/21 04:01 Elliptocytes Not Reportable 08/15/21 04:01 Acanthocytes (Spur) Not Reportable 08/15/21 04:01 Rouleaux Not Reportable 08/15/21 04:01 Hemoglobin C Crystals Not Reportable 08/15/21 04:01 Schistocytes Not Reportable 08/15/21 04:01 [place] parasites Not Reportable 08/15/21 04:01 Yassine Bodies Not Reportable 08/15/21 04:01 Hem Pathologist Commnt Sent to pathology 08/15/21 04:01 PT 19.5 Sec. (12.2-14.9) H 08/16/21 04:30 INR 1.46 (0.87-1.13) H 08/16/21 04:30 APTT 27.3 Sec. (24.2-36.6) 08/16/21 04:30 D-Dimer > 234 ng/mlDDU (0-234) H 08/15/21 04:01 Sodium 137 mmol/L (137-145) 08/16/21 04:30 Potassium 3.0 mmol/L (3.6-5.0) L D 08/16/21 04:30 Chloride 100.2 mmol/L (98-107) 08/16/21 04:30 Carbon Dioxide 19 mmol/L (22-30) L 08/16/21 04:30 Anion Gap 21 mmol/L 08/16/21 04:30 BUN 55 mg/dL (9-20) H 08/16/21 04:30 Creatinine 1.0 mg/dL (0.8-1.3) 08/16/21 04:30 Estimated GFR > 60 ml/min 08/16/21 04:30 BUN/Creatinine Ratio 55 % 08/16/21 04:30 Glucose 167 mg/dL (75-100) H 08/16/21 04:30 POC Glucose 144 mg/dL (70-105) H 08/16/21 00:08 Lactic Acid 2.10 mmol/L (0.7-2.0) H* 08/16/21 04:30 Calcium 8.1 mg/dL (8.4-10.2) L 08/16/21 04:30 Total Bilirubin 10.20 mg/dL (0.1-1.2) H 08/16/21 04:30 Direct Bilirubin 2.6 mg/dL (0-0.2) H 08/16/21 04:30 Indirect Bilirubin 7.6 mg/dL 08/16/21 04:30 AST 958 units/L (5-40) H 08/16/21 04:30 ALT 1328 units/L (7-56) H 08/16/21 04:30 Alkaline Phosphatase 99 units/L (35-129) 08/16/21 04:30 Lactate Dehydrogenase 4126 units/L (91-180) H 08/15/21 06:44 Troponin T 0.016 ng/mL (0.00-0.029) 08/15/21 06:00 Total Protein 7.6 g/dL (6.3-8.2) 08/16/21 04:30 Albumin 3.3 g/dL (3.9-5) L 08/16/21 04:30 Albumin/Globulin Ratio 0.8 % 08/16/21 04:30 Vitamin B12 > 2000 pg/mL (211-911) H 08/15/21 22:34 Folate 17.11 ng/mL (7.3-26.0) 08/15/21 22:34 Urine Opiates Screen Negative 08/15/21 12:30 Urine Methadone Screen Negative 08/15/21 12:30 Acetaminophen 5.0 ug/mL (10.0-30.0) L 08/15/21 07:00 Ur Barbiturates Screen Negative 08/15/21 12:30 Ur Phencyclidine Scrn Negative 08/15/21 12:30 Ur Amphetamines Screen Negative 08/15/21 12:30 U Benzodiazepines Scrn Negative 08/15/21 12:30 Urine Cocaine Screen Negative 08/15/21 12:30 U Marijuana (THC) Screen Negative 08/15/21 12:30 Drugs of Abuse Note Disclamer 08/15/21 12:30 Plasma/Serum Alcohol < 0.01 % (0-0.07) 08/15/21 22:34 Coronavirus (PCR) Negative (Negative) 08/15/21 Unknown Hepatitis A IgM Ab Non-reactive (NonReactive) 08/15/21 06:44 Hep Bs Antigen Non-reactive (Negative) 08/15/21 06:44 Hep B Core IgM Ab Non-reactive (NonReactive) 08/15/21 06:44 Hepatitis C Antibody Non-reactive (NonReactive) 08/15/21 06:44 HIV 1&2 Antibody Rapid Non react (Non React) 08/15/21 22:34 HIV P24 Antigen Non react (Non React) 08/15/21 22:34 Blood Type O POSITIVE 08/15/21 05:37 Antibody Screen TNR 08/15/21 05:37 PARRISH Antibody Screen Negative 08/15/21 05:37 Crossmatch See Detail 08/15/21 05:37 Microbiology: Microbiology 08/15/21 09:29 Peripheral/Venous Blood Culture - Preliminary Culture in Progress 08/15/21 09:29 Peripheral/Venous Blood Culture - Preliminary Culture in Progress 08/15/21 Unknown Stool Stool Occult Blood (RAMILA) - Final Active Medications - Current Medications Current Medications: Generic Name Dose Route Start Last Admin Trade Name Freq PRN Reason Stop Dose Admin Acetylcysteine 10,000 mg/ 1,050 mls @ 62.5 mls/hr 08/15/21 20:00 08/15/21 21:31 Dextrose IV 08/16/21 12:47 62.5 mls/hr ONCE@2000 ROSINA Administration Sodium Chloride 500 mls @ 5 mls/hr 08/16/21 04:39 Nacl 0.9% 500 Ml IV 08/20/21 08:38 ONCE ONE Lorazepam 2 mg 08/15/21 23:00 08/15/21 23:02 Lorazepam 2 Mg/Ml Vial IV 2 mg ONCE@0900 ROSINA Administration Magnesium Hydroxide 30 ml 08/15/21 06:09 Magnesium Hydroxide (Mom) Oral Liqd Udc PO Q4H PRN Constipation Morphine Sulfate 2 mg 08/15/21 06:09 Morphine 2 Mg/1 Ml Inj IV Q4H PRN Pain, Moderate (4-6) Morphine Sulfate 4 mg 08/15/21 06:09 Morphine 4 Mg/1 Ml Inj IV Q4H PRN Pain , Severe (7-10) Ondansetron HCl 4 mg 08/15/21 06:09 Ondansetron 4 Mg/2 Ml Inj IV Q8H PRN Nausea And Vomiting Pantoprazole Sodium 40 mg 08/15/21 10:00 08/15/21 22:35 Pantoprazole 40 Mg Inj IV 40 mg BID ROSINA Administration Sodium Chloride 10 ml 08/15/21 10:00 08/15/21 22:35 Sodium Chloride 0.9% 10 Ml Flush Syringe IV 10 ml BID ROSINA Administration Sodium Chloride 10 ml 08/15/21 06:09 Sodium Chloride 0.9% 10 Ml Flush Syringe IV PRN PRN LINE FLUSH
[2021-08-15 13:51] LABS: Amphetamine Screen,Urine Negative; Benzodiazepines Screen,Urine Negative; Cannabinoid Screen,Urine Negative; Cocaine Screen,Urine Negative; Methadone Screen,Urine Negative; Opiate Screen,Urine Negative
[2021-08-15] MEDS ORDERED: ACETADOTE (ACETYLCYSTEINE IV) 15,000 MG in DEXTROSE 5% IN WATER 200 ML IV SCH (14:00)
[2021-08-15] MEDS ORDERED: ACETADOTE(ACETYLCYSTEINE IV) 5,000 MG in DEXTROSE 5% IN WATER 500 ML IV SCH (15:30)
--- NOTE | 2021-08-15 16:33 | Ultrasound Report ---
ULTRASOUND ABDOMEN, COMPLETE INDICATION: liver failure. COMPARISON: No relevant prior imaging study available. FINDINGS: Pancreas: Poorly visualized from overlying bowel gas. Abdominal Aorta: No significant abnormality. IVC: No significant abnormality. Liver: Heterogeneous in echogenicity.. Normal hepatopedal blood flow in the main portal vein. Gallbladder: No significant abnormality. Bile ducts: No significant abnormality. Common bile duct measures 5 mm. Kidneys: Right: No significant abnormality. Left: No significant abnormality. Spleen: No significant abnormality. Free fluid: None. Additional Findings: None. IMPRESSION: Heterogeneous echogenicity of the liver which is difficult to penetrate which can sometimes be seen w ith hepatitis or severe fatty liver disease. Signer Name: Tai Chambers MD Signed: 08/15/2021 4:29 PM Workstation Name: [id number]
[2021-08-15] MEDS ORDERED: ACETADOTE(ACETYLCYSTEINE IV) 10,000 MG in DEXTROSE 5% IN WATER 1,000 ML IV SCH (20:00)
[2021-08-15 23:54] LABS: Hematocrit 17.3 % (35.5-45.6)
[2021-08-16] MEDS ORDERED: SODIUM CHLORIDE 0.9% 500 ML 500 ML ONE (02:00)
[2021-08-16] MEDS ORDERED: SODIUM CHLORIDE 0.9% 500 ML 500 ML IV ONE (04:39)
[2021-08-16 04:52] LABS: Hemoglobin 6.3 gm/dl (11.8-15.2); Mean Corpuscular HGB Conc 33 % (32-34); Mean Corpuscular Volume 103 fl (84-94); Red Blood Count 1.86 M/mm3 (3.65-5.03)
[2021-08-16 04:57] LABS: Platelet Count 77 K/mm3 (140-440); Red Cell Distribution Width 24.8 % (13.2-15.2)
[2021-08-16 05:00] LABS: Hematocrit 19.2 % (35.5-45.6)
[2021-08-16 05:02] LABS: INR 1.46 (0.87-1.13); Partial Thromboplastin Time 27.3 Sec. (24.2-36.6)
[2021-08-16 05:10] LABS: BUN/Creatinine Ratio 55; Blood Urea Nitrogen 55 mg/dL (9-20); Calcium 8.1 mg/dL (8.4-10.2); Hemolysis Index 18
[2021-08-16 05:12] LABS: Albumin 3.3 g/dL (3.9-5); Bilirubin,Direct 2.6 mg/dL (0-0.2)
[2021-08-16] MEDS ORDERED: POTASSIUM CHLORIDE ER 20 MEQ TAB PO SCH (09:00)
[2021-08-16] MEDS ORDERED: SODIUM CHLORIDE 0.9% 500 ML 500 ML IV SCH (09:00)
--- NOTE | 2021-08-16 09:46 | XRay Report ---
A CHEST 1 VIEW INDICATION / CLINICAL INFORMATION: Dyspnea. FINDINGS: SUPPORT DEVICES: None. HEART / MEDIASTINUM: No significant abnormality. LUNGS / PLEURA: No significant pulmonary or pleural abnormality. No pneumothorax. ADDITIONAL FINDINGS: No significant additional findings. IMPRESSION: 1. No acute findings. Signer Name: Tai Chambers MD Signed: 08/16/2021 9:42 AM Workstation Name: [id number]
[2021-08-16] MEDS: PANTOPRAZOLE 40 MG INJ IV SCH (09:53)
--- NOTE | 2021-08-16 11:26 | Progress Note ---
<EDGAR VIVAS - Last Filed: 08/16/21 19:14> Assessment and Plan Assessment and plan: This is a 55-year-old AA male with known past medical history of HTN, GERD, and RA on prednisone at home admitted for severe anemia, leukocytosis, and acute liver injury Hospital Course to Date: 08/15: Patient is on HHFL 40%, 25L. SPO2 above 95. With severe anemia, no s/s of any acute bleeding, administered 2units of PRBCs for now, serial H&H ordered. HEME/ONC consult pending. Worsening lactic acid noted most likely due to acute liver disease, Acetylcysteine gtt intiated per GI recommendation. Will continue to monitor LFTs and coags. Orders placed for UDS and alcohol leve;. Will also check Vitamin B12, folate, and HIV. Patient remains afebrile and hemodynamically stable. per ID leukocytosi is unlikely related to an infectious process and IV abx were discontinued. 08/16: Patient is doing much better this am. Stable on 3L NC this am, no respiratory distress noted, this am CXR improved. LFTs with mild improvement this am, d/w GI give another dose off Acetylcysteine. S/p 4units of PRBCs repeat CBC pending, transfuse if hbg less than 7. Continue to trend LFTs, electrolytes repleted. Assessment and Plan #Acute Liver Injury #Jaundice - Presented with elevated LFTs and jaundice in appearance - No history of ETOH abuse, hepatic panel unremarkable - Tylenol level is 5 - UDS and alcohol level are unremarkable - GI consulted, appreciate recommendations - Continue Acetylcysteine per GI - Continue to trend LFTs and coags #Severe Macrocytic Anemia #Thrombocytopenia - Presented with hgb of 3.5 - Possible hemolysis versus malignancy - Vitamin B12 high and Folate is normal - HEME/ONC consulted - no s/s of any active bleeding - s/p 4units of PRBCS - Serial H&H ordered - Transfuse for hgb less than 7 #Acute Hypoxemic Respiratory Failure 2/2 #Pulmonary Edema - Per patient he does not use any O2 at home - initial Chest x-ray shows probable mild interstitial pulmonary edema - CT chest revealed no PE, no evidence of pneumonia. - s/p X1 dose IV lasix, This am CXR improved - Weaned down to 3L NC - CCM consulted, appreciate recommendations - Continue Nebs per CCM - Aspiration precaution HOB above 30 - Continue O2 supplementation and wean as tolerated - Continue SPO2 monitoring for SPO2 goal above 92% #Hypokalemia - K repleted - Monitor and replace electrolytes as needed - Trend BMP, mag and phosp ordered #Leukocytosis #Lactic Acidosis-improving - Presented with tachycardia, leukocytosis, and elevated lactic - Possible hemolysis versus malignancy - remains afebrile - CT chest revealed no PE, no evidence of pneumonia. - CT abdomen and pelvis revealed no acute intra-abdominal or intrapelvic pathology - Blood culture NGTD, HIV not detected - ID Consulted, appreciate recommendations - Per ID- bacterial infection is unlikely - Emperic IV Abx discontinued #Hypertension - BP stable - Continue Blood pressure monitor per protocol - Maintain SBP less than 160 #History of Rheumatoid Arthritis - denied any pain at this time - Continue supportive care - Patient has been on prednisone and sulindac at home. #GI/DVT prophylaxis - PPI- Protonix - SCDs to bilateral lower extremities while in bed The high probability of a clinically significant, sudden or life threatening deterioration of the [multiple] system(s) required my full and direct attention, intervention and personal management. The aggregate critical care time was [60] minutes. This time is in addition to time spent performing reported procedures but includes the following: [x] Data Review and interpretation [x] Patient assessment and monitoring of vital signs [x] Documentation [x] Medication orders and management Disposition Plan: ICU Total Time Spent with Patient (Minutes): 60 History Interval history: patient seen and examined at the bedside. Appear a lot better this am. Patient denied any SOB nor any discomfort at this time. Was weaned down to 3L NC, SPO2 at 100%. DAMIEN overnight. Hospitalist Physical - Constitutional Vitals: Temp Pulse Resp BP Pulse Ox 98.3 F 102 H 22 131/82 94 08/16/21 08:00 08/16/21 10:00 08/16/21 10:00 08/16/21 10:00 08/16/21 08:46 General appearance: Present: no acute distress, well-nourished, obese - EENT Eyes: Present: PERRL, EOM intact ENT: hearing intact - Neck Neck: Present: normal ROM - Respiratory Respiratory effort: normal Respiratory: bilateral: diminished - Cardiovascular Rhythm: regular Heart Sounds: Present: S1 & S2 - Extremities Extremities: no ischemia, pulses intact, pulses symmetrical Extremity abnormal: edema - Peripheral Assessment Generalized Edema Type: Non-pitting Edema Degree: 3+ Capillary Refill: < 3 seconds Skin Temperature: Warm Peripheral Pulses: within normal limits - Abdominal General gastrointestinal: soft, non-distended, normal bowel sounds - Integumentary Integumentary: Present: warm, dry - Psychiatric Psychiatric: appropriate mood/affect, cooperative - Neurologic Neurologic: CNII-XII intact, moves all extremities - Allied Health Allied health notes reviewed: nursing HEART Score - HEART Score Troponin: Troponin T 0.016 ng/mL (0.00-0.029) 08/15/21 06:00 Results - Labs CBC & Chem 7: 08/16/21 04:30 08/16/21 04:30 Labs: Laboratory Last Values WBC 30.7 K/mm3 (4.5-11.0) H 08/16/21 04:30 RBC 1.86 M/mm3 (3.65-5.03) L 08/16/21 04:30 Hgb 6.3 gm/dl (11.8-15.2) L 08/16/21 04:30 Hct 19.2 % (35.5-45.6) L* 08/16/21 04:30 MCV 103 fl (84-94) H 08/16/21 04:30 MCH 34 pg (28-32) H 08/16/21 04:30 MCHC 33 % (32-34) 08/16/21 04:30 RDW 24.8 % (13.2-15.2) H 08/16/21 04:30 Plt Count 77 K/mm3 (140-440) L 08/16/21 04:30 [place] % (Auto) 8.3 % (0.0-7.3) H 08/15/21 04:01 Eos % (Auto) 0.2 % (0.0-4.3) 08/15/21 04:01 Lymph # (Auto) Organ Tuner Electronic 08/15/21 04:01 Add Manual Diff Complete 08/15/21 04:01 Total Counted 200 08/15/21 04:01 Seg Neutrophils % 77.5 % (40.0-70.0) H 08/15/21 04:01 Seg Neuts % (Manual) 58.5 % (40.0-70.0) 08/15/21 04:01 Band Neutrophils % 5.0 % 08/15/21 04:01 Lymphocytes % (Manual) 26.5 % (13.4-35.0) 08/15/21 04:01 Reactive Lymphs % (Man) 1.0 % 08/15/21 04:01 Monocytes % (Manual) 8.5 % (0.0-7.3) H 08/15/21 04:01 Eosinophils % (Manual) 0 % (0.0-4.3) 08/15/21 04:01 Basophils % (Manual) 0 % (0.0-1.8) 08/15/21 04:01 Metamyelocytes % 0.5 % 08/15/21 04:01 Myelocytes % 0 % 08/15/21 04:01 Promyelocytes % 0 % 08/15/21 04:01 Blast Cells % 0 % 08/15/21 04:01 Nucleated RBC % 55.0 % (0.0-0.9) H 08/15/21 04:01 Seg Neutrophils # Man 20.2 K/mm3 (1.8-7.7) H 08/15/21 04:01 Band Neutrophils # 1.7 K/mm3 08/15/21 04:01 Lymphocytes # (Manual) 9.1 K/mm3 (1.2-5.4) H 08/15/21 04:01 Abs React Lymphs (Man) 0.3 K/mm3 08/15/21 04:01 Monocytes # (Manual) 2.9 K/mm3 (0.0-0.8) H 08/15/21 04:01 Eosinophils # (Manual) 0.0 K/mm3 (0.0-0.4) 08/15/21 04:01 Basophils # (Manual) 0.0 K/mm3 (0.0-0.1) 08/15/21 04:01 Metamyelocytes # 0.2 K/mm3 08/15/21 04:01 Myelocytes # 0.0 K/mm3 08/15/21 04:01 Promyelocytes # 0.0 K/mm3 08/15/21 04:01 Blast Cells # 0.0 K/mm3 08/15/21 04:01 Hypersegmented Neuts Not Reportable 08/15/21 04:01 Hyposegmented Neuts Not Reportable 08/15/21 04:01 Hypogranular Neuts Not Reportable 08/15/21 04:01 Smudge Cells Not Reportable 08/15/21 04:01 Toxic Granulation Not Reportable 08/15/21 04:01 Toxic Vacuolation Not Reportable 08/15/21 04:01 Dohle Bodies Not Reportable 08/15/21 04:01 Pelger-Huet Anomaly Not Reportable 08/15/21 04:01 Elise Rods Not Reportable 08/15/21 04:01 Platelet Estimate Appears decreased 08/15/21 04:01 Clumped Platelets Not Reportable 08/15/21 04:01 Plt Clumps, EDTA Not Reportable 08/15/21 04:01 Large Platelets Not Reportable 08/15/21 04:01 Giant Platelets Not Reportable 08/15/21 04:01 Platelet Satelliting Not Reportable 08/15/21 04:01 Plt Morphology Comment Not Reportable 08/15/21 04:01 RBC Morphology Not Reportable 08/15/21 04:01 Dimorphic RBCs Not Reportable 08/15/21 04:01 Polychromasia Few 08/15/21 04:01 Hypochromasia 3+ 08/15/21 04:01 Poikilocytosis Few 08/15/21 04:01 Anisocytosis 3+ 08/15/21 04:01 Microcytosis 3+ 08/15/21 04:01 Macrocytosis Few 08/15/21 04:01 Spherocytes Rare 08/15/21 04:01 Pappenheimer Bodies Not Reportable 08/15/21 04:01 Sickle Cells Not Reportable 08/15/21 04:01 Target Cells Not Reportable 08/15/21 04:01 Tear Drop Cells Not Reportable 08/15/21 04:01 Ovalocytes Few 08/15/21 04:01 Stomatocytes Few 08/15/21 04:01 Helmet Cells Not Reportable 08/15/21 04:01 [place] Bodies Not Reportable 08/15/21 04:01 [place] Rings Not Reportable 08/15/21 04:01 [place] Cells Not Reportable 08/15/21 04:01 Bite Cells Not Reportable 08/15/21 04:01 Crenated Cell Not Reportable 08/15/21 04:01 Elliptocytes Not Reportable 08/15/21 04:01 Acanthocytes (Spur) Not Reportable 08/15/21 04:01 Rouleaux Not Reportable 08/15/21 04:01 Hemoglobin C Crystals Not Reportable 08/15/21 04:01 Schistocytes Not Reportable 08/15/21 04:01 Malaria parasites Not Reportable 08/15/21 04:01 Yassine Bodies Not Reportable 08/15/21 04:01 Hem Pathologist Commnt Sent to pathology 08/15/21 04:01 PT 19.5 Sec. (12.2-14.9) H 08/16/21 04:30 INR 1.46 (0.87-1.13) H 08/16/21 04:30 APTT 27.3 Sec. (24.2-36.6) 08/16/21 04:30 D-Dimer > 234 ng/mlDDU (0-234) H 08/15/21 04:01 Sodium 137 mmol/L (137-145) 08/16/21 04:30 Potassium 3.0 mmol/L (3.6-5.0) L D 08/16/21 04:30 Chloride 100.2 mmol/L (98-107) 08/16/21 04:30 Carbon Dioxide 19 mmol/L (22-30) L 08/16/21 04:30 Anion Gap 21 mmol/L 08/16/21 04:30 BUN 55 mg/dL (9-20) H 08/16/21 04:30 Creatinine 1.0 mg/dL (0.8-1.3) 08/16/21 04:30 Estimated GFR > 60 ml/min 08/16/21 04:30 BUN/Creatinine Ratio 55 % 08/16/21 04:30 Glucose 167 mg/dL (75-100) H 08/16/21 04:30 POC Glucose 144 mg/dL (70-105) H 08/16/21 00:08 Lactic Acid 2.10 mmol/L (0.7-2.0) H* 08/16/21 04:30 Calcium 8.1 mg/dL (8.4-10.2) L 08/16/21 04:30 Total Bilirubin 10.20 mg/dL (0.1-1.2) H 08/16/21 04:30 Direct Bilirubin 2.6 mg/dL (0-0.2) H 08/16/21 04:30 Indirect Bilirubin 7.6 mg/dL 08/16/21 04:30 AST 958 units/L (5-40) H 08/16/21 04:30 ALT 1328 units/L (7-56) H 08/16/21 04:30 Alkaline Phosphatase 99 units/L (35-129) 08/16/21 04:30 Lactate Dehydrogenase 4126 units/L (91-180) H 08/15/21 06:44 Troponin T 0.016 ng/mL (0.00-0.029) 08/15/21 06:00 Total Protein 7.6 g/dL (6.3-8.2) 08/16/21 04:30 Albumin 3.3 g/dL (3.9-5) L 08/16/21 04:30 Albumin/Globulin Ratio 0.8 % 08/16/21 04:30 Vitamin B12 > 2000 pg/mL (211-911) H 08/15/21 22:34 Folate 17.11 ng/mL (7.3-26.0) 08/15/21 22:34 Urine Opiates Screen Negative 08/15/21 12:30 Urine Methadone Screen Negative 08/15/21 12:30 Acetaminophen 5.0 ug/mL (10.0-30.0) L 08/15/21 07:00 Ur Barbiturates Screen Negative 08/15/21 12:30 Ur Phencyclidine Scrn Negative 08/15/21 12:30 Ur Amphetamines Screen Negative 08/15/21 12:30 U Benzodiazepines Scrn Negative 08/15/21 12:30 Urine Cocaine Screen Negative 08/15/21 12:30 U Marijuana (THC) Screen Negative 08/15/21 12:30 Drugs of Abuse Note Disclamer 08/15/21 12:30 Plasma/Serum Alcohol < 0.01 % (0-0.07) 08/15/21 22:34 Coronavirus (PCR) Negative (Negative) 08/15/21 Unknown Hepatitis A IgM Ab Non-reactive (NonReactive) 08/15/21 06:44 Hep Bs Antigen Non-reactive (Negative) 08/15/21 06:44 Hep B Core IgM Ab Non-reactive (NonReactive) 08/15/21 06:44 Hepatitis C Antibody Non-reactive (NonReactive) 08/15/21 06:44 HIV 1&2 Antibody Rapid Non react (Non React) 08/15/21 22:34 HIV P24 Antigen Non react (Non React) 08/15/21 22:34 Blood Type O POSITIVE 08/15/21 05:37 Antibody Screen TNR 08/15/21 05:37 PARRISH Antibody Screen Negative 08/15/21 05:37 Crossmatch See Detail 08/15/21 05:37 Microbiology: Microbiology 08/15/21 09:29 Peripheral/Venous Blood Culture - Preliminary Culture in Progress 08/15/21 09:29 Peripheral/Venous Blood Culture - Preliminary Culture in Progress Active Medications - Current Medications Current Medications: Generic Name Dose Route Start Last Admin Trade Name Freq PRN Reason Stop Dose Admin Acetylcysteine 10,000 mg/ 1,050 mls @ 62.5 mls/hr 08/15/21 20:00 08/15/21 21:31 Dextrose IV 08/16/21 12:47 62.5 mls/hr ONCE@2000 ROSINA Administration Sodium Chloride 500 mls @ 5 mls/hr 08/16/21 04:39 Nacl 0.9% 500 Ml IV 08/20/21 08:38 ONCE ONE Sodium Chloride 500 mls @ 0 mls/hr 08/16/21 09:00 Nacl 0.9% 500 Ml IV 08/16/21 19:00 ONCE@0900 ROSINA As Directed Acetylcysteine 10,000 mg/ 1,050 mls @ 62.5 mls/hr 08/16/21 12:00 Dextrose IV 08/17/21 04:47 ONCE@1200 ROSINA Magnesium Hydroxide 30 ml 08/15/21 06:09 Magnesium Hydroxide (Mom) Oral Liqd Udc PO Q4H PRN Constipation Morphine Sulfate 2 mg 08/15/21 06:09 Morphine 2 Mg/1 Ml Inj IV Q4H PRN Pain, Moderate (4-6) Morphine Sulfate 4 mg 08/15/21 06:09 Morphine 4 Mg/1 Ml Inj IV Q4H PRN Pain , Severe (7-10) Ondansetron HCl 4 mg 08/15/21 06:09 Ondansetron 4 Mg/2 Ml Inj IV Q8H PRN Nausea And Vomiting Pantoprazole Sodium 40 mg 08/16/21 10:00 08/16/21 09:53 Pantoprazole 40 Mg Inj IV 40 mg QDAY ROSINA Administration Potassium Chloride 40 meq 08/16/21 09:00 08/16/21 09:54 Potassium Chloride Er 20 Meq Tab PO 08/16/21 13:00 40 meq ONCE@0900 ROSINA Administration Sodium Chloride 10 ml 08/15/21 10:00 08/16/21 09:54 Sodium Chloride 0.9% 10 Ml Flush Syringe IV 10 ml BID ROSINA Administration Sodium Chloride 10 ml 08/15/21 06:09 Sodium Chloride 0.9% 10 Ml Flush Syringe IV PRN PRN LINE FLUSH <SUSHIL AMARAL - Last Filed: 08/17/21 07:26> Assessment and Plan Assessment and plan: I saw and evaluated the patient. I agree with the findings and the plan of care as documented in the Nurse Practitioner's~note, with the following corrections and additions. Hospitalist Physical - Constitutional Vitals: Temp Pulse Resp BP Pulse Ox 100.6 F H 86 20 127/79 97 08/17/21 04:00 08/17/21 06:31 08/17/21 06:31 08/17/21 06:31 08/17/21 06:31 HEART Score - HEART Score Troponin: Troponin T 0.016 ng/mL (0.00-0.029) 08/15/21 06:00 Results - Labs CBC & Chem 7: 08/17/21 04:47 08/17/21 04:47 Labs: Laboratory Last Values WBC 24.3 K/mm3 (4.5-11.0) H 08/17/21 04:47 RBC 2.05 M/mm3 (3.65-5.03) L 08/17/21 04:47 Hgb 6.6 gm/dl (11.8-15.2) L 08/17/21 04:47 Hct 20.5 % (35.5-45.6) L 08/17/21 04:47 MCV 100 fl (84-94) H 08/17/21 04:47 MCH 32 pg (28-32) 08/17/21 04:47 MCHC 32 % (32-34) 08/17/21 04:47 RDW 22.8 % (13.2-15.2) H 08/17/21 04:47 Plt Count 46 K/mm3 (140-440) L 08/17/21 04:47 [place] % (Auto) 8.3 % (0.0-7.3) H 08/15/21 04:01 Eos % (Auto) 0.2 % (0.0-4.3) 08/15/21 04:01 Lymph # (Auto) Organ Tuner Electronic 08/15/21 04:01 Add Manual Diff Complete 08/15/21 04:01 Total Counted 200 08/15/21 04:01 Seg Neutrophils % 77.5 % (40.0-70.0) H 08/15/21 04:01 Seg Neuts % (Manual) 58.5 % (40.0-70.0) 08/15/21 04:01 Band Neutrophils % 5.0 % 08/15/21 04:01 Lymphocytes % (Manual) 26.5 % (13.4-35.0) 08/15/21 04:01 Reactive Lymphs % (Man) 1.0 % 08/15/21 04:01 Monocytes % (Manual) 8.5 % (0.0-7.3) H 08/15/21 04:01 Eosinophils % (Manual) 0 % (0.0-4.3) 08/15/21 04:01 Basophils % (Manual) 0 % (0.0-1.8) 08/15/21 04:01 Metamyelocytes % 0.5 % 08/15/21 04:01 Myelocytes % 0 % 08/15/21 04:01 Promyelocytes % 0 % 08/15/21 04:01 Blast Cells % 0 % 08/15/21 04:01 Nucleated RBC % 55.0 % (0.0-0.9) H 08/15/21 04:01 Seg Neutrophils # Man 20.2 K/mm3 (1.8-7.7) H 08/15/21 04:01 Band Neutrophils # 1.7 K/mm3 08/15/21 04:01 Lymphocytes # (Manual) 9.1 K/mm3 (1.2-5.4) H 08/15/21 04:01 Abs React Lymphs (Man) 0.3 K/mm3 08/15/21 04:01 Monocytes # (Manual) 2.9 K/mm3 (0.0-0.8) H 08/15/21 04:01 Eosinophils # (Manual) 0.0 K/mm3 (0.0-0.4) 08/15/21 04:01 Basophils # (Manual) 0.0 K/mm3 (0.0-0.1) 08/15/21 04:01 Metamyelocytes # 0.2 K/mm3 08/15/21 04:01 Myelocytes # 0.0 K/mm3 08/15/21 04:01 Promyelocytes # 0.0 K/mm3 08/15/21 04:01 Blast Cells # 0.0 K/mm3 08/15/21 04:01 Hypersegmented Neuts Not Reportable 08/15/21 04:01 Hyposegmented Neuts Not Reportable 08/15/21 04:01 Hypogranular Neuts Not Reportable 08/15/21 04:01 Smudge Cells Not Reportable 08/15/21 04:01 Toxic Granulation Not Reportable 08/15/21 04:01 Toxic Vacuolation Not Reportable 08/15/21 04:01 Dohle Bodies Not Reportable 08/15/21 04:01 Pelger-Huet Anomaly Not Reportable 08/15/21 04:01 Elise Rods Not Reportable 08/15/21 04:01 Platelet Estimate Appears decreased 08/15/21 04:01 Clumped Platelets Not Reportable 08/15/21 04:01 Plt Clumps, EDTA Not Reportable 08/15/21 04:01 Large Platelets Not Reportable 08/15/21 04:01 Giant Platelets Not Reportable 08/15/21 04:01 Platelet Satelliting Not Reportable 08/15/21 04:01 Plt Morphology Comment Not Reportable 08/15/21 04:01 RBC Morphology Not Reportable 08/15/21 04:01 Dimorphic RBCs Not Reportable 08/15/21 04:01 Polychromasia Few 08/15/21 04:01 Hypochromasia 3+ 08/15/21 04:01 Poikilocytosis Few 08/15/21 04:01 Anisocytosis 3+ 08/15/21 04:01 Microcytosis 3+ 08/15/21 04:01 Macrocytosis Few 08/15/21 04:01 Spherocytes Rare 08/15/21 04:01 Pappenheimer Bodies Not Reportable 08/15/21 04:01 Sickle Cells Not Reportable 08/15/21 04:01 Target Cells Not Reportable 08/15/21 04:01 Tear Drop Cells Not Reportable 08/15/21 04:01 Ovalocytes Few 08/15/21 04:01 Stomatocytes Few 08/15/21 04:01 Helmet Cells Not Reportable 08/15/21 04:01 [place] Bodies Not Reportable 08/15/21 04:01 [place] Rings Not Reportable 08/15/21 04:01 [place] Cells Not Reportable 08/15/21 04:01 Bite Cells Not Reportable 08/15/21 04:01 Crenated Cell Not Reportable 08/15/21 04:01 Elliptocytes Not Reportable 08/15/21 04:01 Acanthocytes (Spur) Not Reportable 08/15/21 04:01 Rouleaux Not Reportable 08/15/21 04:01 Hemoglobin C Crystals Not Reportable 08/15/21 04:01 Schistocytes Not Reportable 08/15/21 04:01 Malaria parasites Not Reportable 08/15/21 04:01 Yassine Bodies Not Reportable 08/15/21 04:01 Hem Pathologist Commnt Sent to pathology 08/15/21 04:01 PT 17.8 Sec. (12.2-14.9) H 08/17/21 04:47 INR 1.31 (0.87-1.13) H 08/17/21 04:47 APTT 27.6 Sec. (24.2-36.6) 08/17/21 04:47 D-Dimer > 234 ng/mlDDU (0-234) H 08/15/21 04:01 Sodium 138 mmol/L (137-145) 08/17/21 04:47 Potassium 3.4 mmol/L (3.6-5.0) L 08/17/21 04:47 Chloride 106.4 mmol/L (98-107) 08/17/21 04:47 Carbon Dioxide 18 mmol/L (22-30) L 08/17/21 04:47 Anion Gap 17 mmol/L 08/17/21 04:47 BUN 32 mg/dL (9-20) H 08/17/21 04:47 Creatinine 0.7 mg/dL (0.8-1.3) L 08/17/21 04:47 Estimated GFR > 60 ml/min 08/17/21 04:47 BUN/Creatinine Ratio 46 % 08/17/21 04:47 Glucose 150 mg/dL (75-100) H 08/17/21 04:47 POC Glucose 127 mg/dL (70-105) H 08/17/21 00:06 Lactic Acid 2.10 mmol/L (0.7-2.0) H* 08/16/21 12:09 Calcium 7.8 mg/dL (8.4-10.2) L 08/17/21 04:47 Phosphorus 3.00 mg/dL (2.5-4.5) 08/17/21 04:47 Magnesium 3.10 mg/dL (1.7-2.3) H 08/17/21 04:47 Total Bilirubin 7.70 mg/dL (0.1-1.2) H 08/17/21 04:47 Direct Bilirubin 1.9 mg/dL (0-0.2) H 08/17/21 04:47 Indirect Bilirubin 5.8 mg/dL 08/17/21 04:47 AST 410 units/L (5-40) H 08/17/21 04:47 ALT 937 units/L (7-56) H 08/17/21 04:47 Alkaline Phosphatase 91 units/L (35-129) 08/17/21 04:47 Lactate Dehydrogenase 4126 units/L (91-180) H 08/15/21 06:44 Troponin T 0.016 ng/mL (0.00-0.029) 08/15/21 06:00 Total Protein 7.4 g/dL (6.3-8.2) 08/17/21 04:47 Albumin 3.1 g/dL (3.9-5) L 08/17/21 04:47 Albumin/Globulin Ratio 0.7 % 08/17/21 04:47 Vitamin B12 > 2000 pg/mL (211-911) H 08/15/21 22:34 Folate 17.11 ng/mL (7.3-26.0) 08/15/21 22:34 Urine Opiates Screen Negative 08/15/21 12:30 Urine Methadone Screen Negative 08/15/21 12:30 Acetaminophen 5.0 ug/mL (10.0-30.0) L 08/15/21 07:00 Ur Barbiturates Screen Negative 08/15/21 12:30 Ur Phencyclidine Scrn Negative 08/15/21 12:30 Ur Amphetamines Screen Negative 08/15/21 12:30 U Benzodiazepines Scrn Negative 08/15/21 12:30 Urine Cocaine Screen Negative 08/15/21 12:30 U Marijuana (THC) Screen Negative 08/15/21 12:30 Drugs of Abuse Note Disclamer 08/15/21 12:30 Plasma/Serum Alcohol < 0.01 % (0-0.07) 08/15/21 22:34 Coronavirus (PCR) Negative (Negative) 08/15/21 Unknown Hepatitis A IgM Ab Non-reactive (NonReactive) 08/15/21 06:44 Hep Bs Antigen Non-reactive (Negative) 08/15/21 06:44 Hep B Core IgM Ab Non-reactive (NonReactive) 08/15/21 06:44 Hepatitis C Antibody Non-reactive (NonReactive) 08/15/21 06:44 HIV 1&2 Antibody Rapid Non react (Non React) 08/15/21 22:34 HIV P24 Antigen Non react (Non React) 08/15/21 22:34 Blood Type O POSITIVE 08/15/21 05:37 Antibody Screen TNR 08/15/21 05:37 PARRISH Antibody Screen Negative 08/15/21 05:37 Crossmatch See Detail 08/15/21 05:37 Microbiology: Microbiology 08/15/21 09:29 Peripheral/Venous Blood Culture - Preliminary NO GROWTH AFTER 24 HOURS 08/15/21 09:29 Peripheral/Venous Blood Culture - Preliminary NO GROWTH AFTER 24 HOURS Active Medications - Current Medications Current Medications: Generic Name Dose Route Start Last Admin Trade Name Freq PRN Reason Stop Dose Admin Sodium Chloride 500 mls @ 5 mls/hr 08/16/21 04:39 08/16/21 19:37 Nacl 0.9% 500 Ml IV 08/20/21 08:38 Not Given ONCE ONE Magnesium Hydroxide 30 ml 08/15/21 06:09 Magnesium Hydroxide (Mom) Oral Liqd Udc PO Q4H PRN Constipation Morphine Sulfate 2 mg 08/15/21 06:09 08/17/21 05:34 Morphine 2 Mg/1 Ml Inj IV 2 mg Q4H PRN Administration Pain, Moderate (4-6) Morphine Sulfate 4 mg 08/15/21 06:09 Morphine 4 Mg/1 Ml Inj IV Q4H PRN Pain , Severe (7-10) Ondansetron HCl 4 mg 08/15/21 06:09 Ondansetron 4 Mg/2 Ml Inj IV Q8H PRN Nausea And Vomiting Pantoprazole Sodium 40 mg 08/16/21 10:00 08/16/21 09:53 Pantoprazole 40 Mg Inj IV 40 mg QDAY ROSINA Administration Sodium Chloride 10 ml 08/15/21 10:00 08/16/21 21:38 Sodium Chloride 0.9% 10 Ml Flush Syringe IV 10 ml BID ROSINA Administration Sodium Chloride 10 ml 08/15/21 06:09 Sodium Chloride 0.9% 10 Ml Flush Syringe IV PRN PRN LINE FLUSH
[2021-08-16] MEDS ORDERED: ACETADOTE(ACETYLCYSTEINE IV) 10,000 MG in DEXTROSE 5% IN WATER 1,000 ML IV SCH (12:00)
[2021-08-16 12:58] LABS: Hematocrit 21.8 % (35.5-45.6); Hemoglobin 7.1 gm/dl (11.8-15.2); Mean Corpuscular HGB Conc 33 % (32-34); Mean Corpuscular Volume 103 fl (84-94); Red Blood Count 2.11 M/mm3 (3.65-5.03)
[2021-08-16 13:22] LABS: Platelet Count 66 K/mm3 (140-440); Red Cell Distribution Width 22.9 % (13.2-15.2)
[2021-08-16] MEDS ORDERED: hydrALAZINE 20 MG/1 ML INJ IV PRN (13:24)
--- NOTE | 2021-08-16 16:57 | Progress Note ---
Assessment and Plan Acute Liver Injury (? Tylenol OD vs AIH vs Ischemic Hepatitis) Jaundice Acute DVT Severe Macrocytic Anemia Thrombocytopenia Acute Hypoxemic Respiratory Failure Acute Pulmonary Edema vs Aspiration Pneumonia Hypokalemia Leukocytosis Lactic Acidosis Hypertension History of Rheumatoid Arthritis - replace electrolytes as clinically indicated - DVT treatment per hematology team (Hold full anticoagulation in light of Anemia and thrombocytopenia) - follow autoimmune serologies re: AIH - PRBC transfusions, to keep HgB >7g/dL - empiric Mucomyst course for possible tylenol OD, complete course - continue accuchecks with glycemic control per SSI (While critically ill target blood glucose of 140-180 mg/dL; avoid hypoglycemia) - avoid nephrotoxins, renally dose all medications - avoid benzodiazepines, reduce the possibility of delirium - continue to monitor off antibiotics, trend temperature and WBC - prn analgesia per pain score - Maintenance of sleep-wake cycle, avoid delirium - G.I. & VTE prophylaxis (Pantoprazole and SCDs) - PT/OT/ROM exercises - off loading, frequent turning and off loading per facility protocol to prevent presure ulcers - Monitor hemodynamics closely - continue other care per attending / other consultants - discharge planning ongoing concurrently CONDITION: CRITICAL PROGNOSIS: GUARDED CODE STATUS: FULL CODE The high probability of a clinically significant, sudden or life-threatening deterioration of the [respiratory, cardiovascular, GI & neurologic] system(s) required my full and direct attention, intervention and personal management. The aggregate critical care time was [34] minutes without overlap. Time includes spent on; [x] Data Review and interpretation [x] Patient assessment and monitoring of vital signs [x] Documentation [x] Medication orders and management Subjective Date of service: 08/16/21 Interval history: Patient is seen today for: Acute Liver Injury; Jaundice; Anemia; Thrombocyt openia; Acute Hypoxemic Respiratory Failure; Pulm Edema vs Aspiration Pneumonia; Lactic Acidosis; Hypertension; History of Rheumatoid Arthritis Seen and examined at bedside; 24hour events reviewed; nursing and respiratory care staff consulted; no adverse overnight events reported to me; resting in bed;s/p PRBC , feels a little better but still weak all over; denies N/V/F/C; denies gross bleeding; His brother is visiting Objective - Exam Narrative Exam: General appearance: Present: no acute distress, chronically ill looking, icteric, obese - EENT Eyes: Present: PERRL, EOM intact ENT: hearing intact - Neck Neck: Present: normal ROM - Respiratory Respiratory effort: normal Respiratory: bilateral: CTA, diminished - Cardiovascular Rhythm: regular Heart Sounds: Present: S1 & S2. Absent: systolic murmur, diastolic murmur - Extremities Extremities: no ischemia, pulses intact, pulses symmetrical, No edema, normal temperature, normal color Peripheral Pulses: within normal limits - Abdominal General gastrointestinal: soft, non-tender, non-distended, normal bowel sounds - Integumentary Integumentary: Present: warm, dry - Psychiatric Psychiatric: cooperative - Neurologic Neurologic: CNII-XII intact, moves all extremities - Allied Health Allied health notes reviewed: nursing, Vital Signs - 12hr 08/16/21 08/16/21 08/16/21 05:00 05:10 05:20 Temperature Pulse Rate 101 H 101 H 99 H Respiratory 22 22 21 Rate Blood Pressure 147/87 147/87 147/87 O2 Sat by Pulse 96 98 98 Oximetry 08/16/21 08/16/21 08/16/21 05:27 06:00 07:00 Temperature 98.1 F 98 F Pulse Rate 88 99 H 100 H Respiratory 21 24 23 Rate Blood Pressure 147/87 159/95 153/93 O2 Sat by Pulse 98 88 97 Oximetry 08/16/21 08/16/21 08/16/21 08:00 08:20 08:46 Temperature 98.3 F Pulse Rate 101 H Respiratory 26 H Rate Blood Pressure 167/74 O2 Sat by Pulse 100 98 94 Oximetry 08/16/21 08/16/21 08/16/21 09:00 10:00 11:00 Temperature Pulse Rate 98 H 102 H 100 H Respiratory 25 H 22 22 Rate Blood Pressure 131/82 131/82 143/87 O2 Sat by Pulse 100 Oximetry 08/16/21 08/16/21 08/16/21 12:00 12:05 13:00 Temperature Pulse Rate 105 H 98 H Respiratory 30 H 23 Rate Blood Pressure 152/86 171/101 O2 Sat by Pulse 99 96 Oximetry 08/16/21 13:35 Temperature 97.7 F Pulse Rate Respiratory Rate Blood Pressure O2 Sat by Pulse Oximetry CBC and BMP: 08/23/21 05:00 08/23/21 05:00 ABG, PT/INR, D-dimer: PT/INR, D-dimer PT 19.5 Sec. (12.2-14.9) H 08/16/21 04:30 INR 1.46 (0.87-1.13) H 08/16/21 04:30 D-Dimer > 234 ng/mlDDU (0-234) H 08/15/21 04:01 Abnormal lab findings: Abnormal Labs 08/15/21 08/15/21 08/15/21 04:01 04:01 04:01 WBC 34.5 H RBC 0.84 L Hgb 3.5 L* Hct 11.3 L* MCV 134 H MCH 41 H MCHC 31 L RDW 30.4 H Plt Count 115 L [place] % (Auto) 8.3 H Seg Neutrophils % 77.5 H Monocytes % (Manual) 8.5 H Nucleated RBC % 55.0 H Seg Neutrophils # Man 20.2 H Lymphocytes # (Manual) 9.1 H Monocytes # (Manual) 2.9 H PT 20.9 H INR 1.59 H D-Dimer > 234 H Potassium Carbon Dioxide 17 L BUN 40 H Creatinine 0.7 L Glucose 145 H POC Glucose Lactic Acid Calcium Total Bilirubin 13.40 H Direct Bilirubin AST 1665 H ALT 1615 H Lactate Dehydrogenase Total Protein 8.4 H Albumin 3.7 L Vitamin B12 Acetaminophen Crossmatch 08/15/21 08/15/21 08/15/21 05:37 06:44 06:44 WBC RBC Hgb Hct MCV MCH MCHC RDW Plt Count [place] % (Auto) Seg Neutrophils % Monocytes % (Manual) Nucleated RBC % Seg Neutrophils # Man Lymphocytes # (Manual) Monocytes # (Manual) PT INR D-Dimer Potassium Carbon Dioxide BUN Creatinine Glucose POC Glucose Lactic Acid 7.30 H* Calcium Total Bilirubin Direct Bilirubin AST ALT Lactate Dehydrogenase 4126 H Total Protein Albumin Vitamin B12 Acetaminophen Crossmatch See Detail 08/15/21 08/15/21 08/15/21 07:00 09:29 22:34 WBC RBC Hgb Hct MCV MCH MCHC RDW Plt Count [place] % (Auto) Seg Neutrophils % Monocytes % (Manual) Nucleated RBC % Seg Neutrophils # Man Lymphocytes # (Manual) Monocytes # (Manual) PT INR D-Dimer Potassium Carbon Dioxide BUN Creatinine Glucose POC Glucose Lactic Acid 8.70 H* 2.30 H* Calcium Total Bilirubin Direct Bilirubin AST ALT Lactate Dehydrogenase Total Protein Albumin Vitamin B12 Acetaminophen 5.0 L Crossmatch 08/15/21 08/15/21 08/16/21 22:34 22:34 00:08 WBC RBC Hgb 6.0 L Hct 17.3 L* D MCV MCH MCHC RDW Plt Count [place] % (Auto) Seg Neutrophils % Monocytes % (Manual) Nucleated RBC % Seg Neutrophils # Man Lymphocytes # (Manual) Monocytes # (Manual) PT INR D-Dimer Potassium Carbon Dioxide BUN Creatinine Glucose POC Glucose 144 H Lactic Acid Calcium Total Bilirubin Direct Bilirubin AST ALT Lactate Dehydrogenase Total Protein Albumin Vitamin B12 > 2000 H Acetaminophen Crossmatch 08/16/21 08/16/21 08/16/21 04:30 04:30 04:30 WBC 30.7 H RBC 1.86 L Hgb 6.3 L Hct 19.2 L* MCV 103 H MCH 34 H MCHC RDW 24.8 H Plt Count 77 L [place] % (Auto) Seg Neutrophils % Monocytes % (Manual) Nucleated RBC % Seg Neutrophils # Man Lymphocytes # (Manual) Monocytes # (Manual) PT INR D-Dimer Potassium 3.0 L D Carbon Dioxide 19 L BUN 55 H Creatinine Glucose 167 H POC Glucose Lactic Acid Calcium 8.1 L Total Bilirubin 10.20 H Direct Bilirubin 2.6 H AST 958 H ALT 1328 H Lactate Dehydrogenase Total Protein Albumin 3.3 L Vitamin B12 Acetaminophen Crossmatch 08/16/21 08/16/21 08/16/21 04:30 04:30 12:09 WBC RBC Hgb Hct MCV MCH MCHC RDW Plt Count [place] % (Auto) Seg Neutrophils % Monocytes % (Manual) Nucleated RBC % Seg Neutrophils # Man Lymphocytes # (Manual) Monocytes # (Manual) PT 19.5 H INR 1.46 H D-Dimer Potassium Carbon Dioxide BUN Creatinine Glucose POC Glucose Lactic Acid 2.10 H* 2.10 H* Calcium Total Bilirubin Direct Bilirubin AST ALT Lactate Dehydrogenase Total Protein Albumin Vitamin B12 Acetaminophen Crossmatch 08/16/21 08/16/21 12:09 14:49 WBC 26.2 H RBC 2.11 L Hgb 7.1 L Hct 21.8 L MCV 103 H MCH 34 H MCHC RDW 22.9 H Plt Count 66 L [place] % (Auto) Seg Neutrophils % Monocytes % (Manual) Nucleated RBC % Seg Neutrophils # Man Lymphocytes # (Manual) Monocytes # (Manual) PT INR D-Dimer Potassium 3.4 L Carbon Dioxide BUN Creatinine Glucose POC Glucose Lactic Acid Calcium Total Bilirubin Direct Bilirubin AST ALT Lactate Dehydrogenase Total Protein Albumin Vitamin B12 Acetaminophen Crossmatch
--- NOTE | 2021-08-16 19:40 | Gastroenterology Progress Note ---
Assessment and Plan 1. Acute liver injury - coags and mental status remains stable. acute viral hep negative. ddx includes AIH (h/o RA, checking serologies), ischemic hepatitis, DILI, etc. cont to trend levels, monitor coags and f/u serologies Subjective Date of service: 08/16/21 Principal diagnosis: acute liver injury Interval history: appears more comfortable today. denies abd pain. complains of weakness Objective - Constitutional Vitals: Temp Pulse Resp BP Pulse Ox 97.8 F 102 H 26 H 139/79 95 08/16/21 16:00 08/16/21 17:01 08/16/21 17:01 08/16/21 18:01 08/16/21 16:15 General appearance: no acute distress, obese - EENT Eyes: scleral icterus - Respiratory Respiratory effort: normal Respiratory: bilateral: CTA - Gastrointestinal General gastrointestinal: Present: soft, non-tender - Neurologic Neurological: alert and oriented x3 - Labs CBC & Chem 7: 08/16/21 12:09 08/16/21 14:49 Labs: Laboratory Results - last 24 hr 08/15/21 08/15/21 08/15/21 05:37 22:34 22:34 WBC RBC Hgb Hct MCV MCH MCHC RDW Plt Count PT INR APTT Sodium Potassium Chloride Carbon Dioxide Anion Gap BUN Creatinine Estimated GFR BUN/Creatinine Ratio Glucose POC Glucose Lactic Acid 2.30 H* Calcium Total Bilirubin Direct Bilirubin Indirect Bilirubin AST ALT Alkaline Phosphatase Total Protein Albumin Albumin/Globulin Ratio Vitamin B12 Folate Plasma/Serum Alcohol < 0.01 HIV 1&2 Antibody Rapid HIV P24 Antigen Blood Type O POSITIVE Antibody Screen TNR PARRISH Antibody Screen Negative Crossmatch See Detail 08/15/21 08/15/21 08/15/21 22:34 22:34 22:34 WBC RBC Hgb Hct MCV MCH MCHC RDW Plt Count PT INR APTT Sodium Potassium Chloride Carbon Dioxide Anion Gap BUN Creatinine Estimated GFR BUN/Creatinine Ratio Glucose POC Glucose Lactic Acid Calcium Total Bilirubin Direct Bilirubin Indirect Bilirubin AST ALT Alkaline Phosphatase Total Protein Albumin Albumin/Globulin Ratio Vitamin B12 > 2000 H Folate 17.11 Plasma/Serum Alcohol HIV 1&2 Antibody Rapid Non react HIV P24 Antigen Non react Blood Type Antibody Screen PARRISH Antibody Screen Crossmatch 08/15/21 08/16/21 08/16/21 22:34 00:08 04:30 WBC RBC Hgb 6.0 L Hct 17.3 L* D MCV MCH MCHC RDW Plt Count PT INR APTT Sodium 137 Potassium 3.0 L D Chloride 100.2 Carbon Dioxide 19 L Anion Gap 21 BUN 55 H Creatinine 1.0 Estimated GFR > 60 BUN/Creatinine Ratio 55 Glucose 167 H POC Glucose 144 H Lactic Acid Calcium 8.1 L Total Bilirubin Direct Bilirubin Indirect Bilirubin AST ALT Alkaline Phosphatase Total Protein Albumin Albumin/Globulin Ratio Vitamin B12 Folate Plasma/Serum Alcohol HIV 1&2 Antibody Rapid HIV P24 Antigen Blood Type Antibody Screen PARRISH Antibody Screen Crossmatch 08/16/21 08/16/21 08/16/21 04:30 04:30 04:30 WBC 30.7 H RBC 1.86 L Hgb 6.3 L Hct 19.2 L* MCV 103 H MCH 34 H MCHC 33 RDW 24.8 H Plt Count 77 L PT 19.5 H INR 1.46 H APTT 27.3 Sodium Potassium Chloride Carbon Dioxide Anion Gap BUN Creatinine Estimated GFR BUN/Creatinine Ratio Glucose POC Glucose Lactic Acid Calcium Total Bilirubin 10.20 H Direct Bilirubin 2.6 H Indirect Bilirubin 7.6 AST 958 H ALT 1328 H Alkaline Phosphatase 99 Total Protein 7.6 Albumin 3.3 L Albumin/Globulin Ratio 0.8 Vitamin B12 Folate Plasma/Serum Alcohol HIV 1&2 Antibody Rapid HIV P24 Antigen Blood Type Antibody Screen PARRISH Antibody Screen Crossmatch 08/16/21 08/16/21 08/16/21 04:30 12:09 12:09 WBC 26.2 H RBC 2.11 L Hgb 7.1 L Hct 21.8 L MCV 103 H MCH 34 H MCHC 33 RDW 22.9 H Plt Count 66 L PT INR APTT Sodium Potassium Chloride Carbon Dioxide Anion Gap BUN Creatinine Estimated GFR BUN/Creatinine Ratio Glucose POC Glucose Lactic Acid 2.10 H* 2.10 H* Calcium Total Bilirubin Direct Bilirubin Indirect Bilirubin AST ALT Alkaline Phosphatase Total Protein Albumin Albumin/Globulin Ratio Vitamin B12 Folate Plasma/Serum Alcohol HIV 1&2 Antibody Rapid HIV P24 Antigen Blood Type Antibody Screen PARRISH Antibody Screen Crossmatch 08/16/21 14:49 WBC RBC Hgb Hct MCV MCH MCHC RDW Plt Count PT INR APTT Sodium Potassium 3.4 L Chloride Carbon Dioxide Anion Gap BUN Creatinine Estimated GFR BUN/Creatinine Ratio Glucose POC Glucose Lactic Acid Calcium Total Bilirubin Direct Bilirubin Indirect Bilirubin AST ALT Alkaline Phosphatase Total Protein Albumin Albumin/Globulin Ratio Vitamin B12 Folate Plasma/Serum Alcohol HIV 1&2 Antibody Rapid HIV P24 Antigen Blood Type Antibody Screen PARRISH Antibody Screen Crossmatch
[2021-08-16] MEDS ORDERED: POTASSIUM CHLORIDE ER 20 MEQ TAB PO ONE (20:00)
[2021-08-16 21:12] LABS: Hematocrit 20.2 % (35.5-45.6); Hemoglobin 6.6 gm/dl (11.8-15.2)
[2021-08-17 05:29] LABS: Hematocrit 20.5 % (35.5-45.6); Hemoglobin 6.6 gm/dl (11.8-15.2); Mean Corpuscular HGB Conc 32 % (32-34); Mean Corpuscular Volume 100 fl (84-94); Red Blood Count 2.05 M/mm3 (3.65-5.03)
[2021-08-17 05:31] LABS: Platelet Count 46 K/mm3 (140-440); Red Cell Distribution Width 22.8 % (13.2-15.2)
[2021-08-17 05:32] LABS: INR 1.31 (0.87-1.13); Partial Thromboplastin Time 27.6 Sec. (24.2-36.6)
[2021-08-17] MEDS: MORPHINE 2 MG/1 ML INJ IV PRN (05:34)
[2021-08-17] MEDS ORDERED: SODIUM CHLORIDE 0.9% 500 ML 500 ML IV ONE (05:41)
[2021-08-17 05:48] LABS: Albumin 3.1 g/dL (3.9-5); Bilirubin,Direct 1.9 mg/dL (0-0.2); Blood Urea Nitrogen 32 mg/dL (9-20); Calcium 7.8 mg/dL (8.4-10.2); Hemolysis Index 14
[2021-08-17 05:54] LABS: BUN/Creatinine Ratio 46
[2021-08-17 06:06] LABS: Alanine Aminotransferase 937 units/L (7-56)
[2021-08-17] MEDS ORDERED: POTASSIUM CHLORIDE ER 20 MEQ TAB PO ONE (07:14)
--- NOTE | 2021-08-17 08:53 | Electrocardiograph Report ---
[facility] Test Date: 2021-08-15 Test Time: 04:32:34 Pat Name: MING MCGEE Department: Room: A262 Gender: M Insole Beveler: EDMOND : 1965 Requested By: LAYNE CONTI Order Number: [id number] Reading MD: Sylvia Shukla Measurements Intervals [place] Rate: 103 P: 59 [place]: 135 QRS: 42 QRSD: 88 T: 20 QT: 353 QTc: 464 Interpretive Statements Sinus tachycardia No previous ECG available for comparison Electronically Signed On 08-17-2021 8:53:46 EDT by Sylvia Shukla
[2021-08-17] MEDS: PANTOPRAZOLE 40 MG INJ IV SCH (09:15)
--- NOTE | 2021-08-17 09:18 | Gastroenterology Progress Note ---
Assessment and Plan 1. Acute liver injury - improving enzymes last couple days. suspect ischemic hepatitis vs AIH vs DILI. autoimmune serologies pending. trend liver enzymes and coagns, and cont supportive care -worsening thrombocytopenia as well. consider hematology consult. will follow Subjective Date of service: 08/17/21 Principal diagnosis: acute liver injury Interval history: pt sleeping/arousable, no new gi complaints Objective - Constitutional Vitals: Temp Pulse Resp BP Pulse Ox 100.6 F H 93 H 26 H 137/88 93 08/17/21 08:00 08/17/21 08:00 08/17/21 08:00 08/17/21 08:00 08/17/21 08:00 General appearance: no acute distress, obese - EENT Eyes: scleral icterus - Respiratory Respiratory effort: normal Respiratory: bilateral: CTA - Cardiovascular Rhythm: regular Heart Sounds: Present: S1 & S2 - Gastrointestinal General gastrointestinal: Present: soft, non-tender - Neurologic Neurological: alert and oriented x3 - Labs CBC & Chem 7: 08/17/21 04:47 08/17/21 04:47 Labs: Laboratory Results - last 24 hr 08/15/21 08/16/21 08/16/21 05:37 12:09 12:09 WBC 26.2 H RBC 2.11 L Hgb 7.1 L Hct 21.8 L MCV 103 H MCH 34 H MCHC 33 RDW 22.9 H Plt Count 66 L PT INR APTT Sodium Potassium Chloride Carbon Dioxide Anion Gap BUN Creatinine Estimated GFR BUN/Creatinine Ratio Glucose POC Glucose Lactic Acid 2.10 H* Calcium Phosphorus Magnesium Total Bilirubin Direct Bilirubin Indirect Bilirubin AST ALT Alkaline Phosphatase Total Protein Albumin Albumin/Globulin Ratio Blood Type O POSITIVE Antibody Screen TNR PARRISH Antibody Screen Negative Crossmatch See Detail 08/16/21 08/16/21 08/17/21 14:49 20:10 00:06 WBC RBC Hgb 6.6 L Hct 20.2 L MCV MCH MCHC RDW Plt Count PT INR APTT Sodium Potassium 3.4 L Chloride Carbon Dioxide Anion Gap BUN Creatinine Estimated GFR BUN/Creatinine Ratio Glucose POC Glucose 127 H Lactic Acid Calcium Phosphorus Magnesium Total Bilirubin Direct Bilirubin Indirect Bilirubin AST ALT Alkaline Phosphatase Total Protein Albumin Albumin/Globulin Ratio Blood Type Antibody Screen PARRISH Antibody Screen Crossmatch 08/17/21 08/17/21 08/17/21 04:47 04:47 04:47 WBC 24.3 H RBC 2.05 L Hgb 6.6 L Hct 20.5 L MCV 100 H MCH 32 MCHC 32 RDW 22.8 H Plt Count 46 L PT 17.8 H INR 1.31 H APTT 27.6 Sodium 138 Potassium 3.4 L Chloride 106.4 Carbon Dioxide 18 L Anion Gap 17 BUN 32 H Creatinine 0.7 L Estimated GFR > 60 BUN/Creatinine Ratio 46 Glucose 150 H POC Glucose Lactic Acid Calcium 7.8 L Phosphorus 3.00 Magnesium 3.10 H Total Bilirubin 7.70 H Direct Bilirubin 1.9 H Indirect Bilirubin 5.8 AST 410 H ALT 937 H Alkaline Phosphatase 91 Total Protein 7.4 Albumin 3.1 L Albumin/Globulin Ratio 0.7 Blood Type Antibody Screen PARRISH Antibody Screen Crossmatch 08/17/21 05:50 WBC RBC Hgb Hct MCV MCH MCHC RDW Plt Count PT INR APTT Sodium Potassium Chloride Carbon Dioxide Anion Gap BUN Creatinine Estimated GFR BUN/Creatinine Ratio Glucose POC Glucose 90 Lactic Acid Calcium Phosphorus Magnesium Total Bilirubin Direct Bilirubin Indirect Bilirubin AST ALT Alkaline Phosphatase Total Protein Albumin Albumin/Globulin Ratio Blood Type Antibody Screen PARRISH Antibody Screen Crossmatch
[2021-08-17] MEDS ORDERED: ALBUTEROL 2.5 MG/3 ML NEBU IH PRN (09:42)
--- NOTE | 2021-08-17 10:36 | Hem/Onc Consultation ---
History of Present Illness - Reason for Consult Consult date: 08/17/21 Anemia - History of Present Illness Heme consult note Televisit via [facility] CPT 60825 Dx Anemia This is a 55yo AA male with past medical h/o of hypertension and rheumatoid arthritis presenting to the emergency room with complaints of shortness of breath and chest pain x 3 weeks. He also indicates that he has been having pleuritic chest pain --> chest CTA negative for PE Distention of his abdomen, jaundice and unusually darker urine lately He states that he had a fall few days ago because he felt very weak and felt dizzy. Hit his forehead during the fall. He denies any loss of consciousness. Work-up in the emergency room, lab reveals significant for leukocytosis of 34.5, hemoglobin of 3.5 and hematocrit of 11.3. MCV of 134 and platelet count is 115. INR 1.59, PT 30.9, D-dimer greater than 234. Total bilirubin of 13.4, AST 1665, ALT 1615, alkaline phos 99 Chest x-ray shows borderline to mild cardiomegaly with probable mild interstitial pulmonary edema Abd u/s consistent with hepatitis vs fatty liver Reports at home Prednisone and Sulindac use for RA DATA REVIEW BELOW Hct 20.5 Plts 46 LDH 4126 IMP: Autoimmune hemolytic anemia is presumed Elevated LDH, likely related to liver injury Heme malignancy is possible with low plt count/high LDH PLAN: BM biopsy due to low plt, high LDH Labs to include LDH, retic, SPEP, electrophoresis, fibrinogen, donovan If donovan positive, then plan for solumedrol 1mg/kg BID If donovan negative then anemia likely related to cirrhosis Transfuse 1 unit RBC whenever hct<23 Laboratory Last Values WBC 24.3 K/mm3 (4.5-11.0) H 08/17/21 04:47 RBC 2.05 M/mm3 (3.65-5.03) L 08/17/21 04:47 Hgb 6.6 gm/dl (11.8-15.2) L 08/17/21 04:47 Hct 20.5 % (35.5-45.6) L 08/17/21 04:47 MCV 100 fl (84-94) H 08/17/21 04:47 MCH 32 pg (28-32) 08/17/21 04:47 MCHC 32 % (32-34) 08/17/21 04:47 RDW 22.8 % (13.2-15.2) H 08/17/21 04:47 Plt Count 46 K/mm3 (140-440) L 08/17/21 04:47 [place] % (Auto) 8.3 % (0.0-7.3) H 08/15/21 04:01 Eos % (Auto) 0.2 % (0.0-4.3) 08/15/21 04:01 Lymph # (Auto) Form Tamper 08/15/21 04:01 Add Manual Diff Complete 08/15/21 04:01 Total Counted 200 08/15/21 04:01 Seg Neutrophils % 77.5 % (40.0-70.0) H 08/15/21 04:01 Seg Neuts % (Manual) 58.5 % (40.0-70.0) 08/15/21 04:01 Band Neutrophils % 5.0 % 08/15/21 04:01 Lymphocytes % (Manual) 26.5 % (13.4-35.0) 08/15/21 04:01 Reactive Lymphs % (Man) 1.0 % 08/15/21 04:01 Monocytes % (Manual) 8.5 % (0.0-7.3) H 08/15/21 04:01 Eosinophils % (Manual) 0 % (0.0-4.3) 08/15/21 04:01 Basophils % (Manual) 0 % (0.0-1.8) 08/15/21 04:01 Metamyelocytes % 0.5 % 08/15/21 04:01 Myelocytes % 0 % 08/15/21 04:01 Promyelocytes % 0 % 08/15/21 04:01 Blast Cells % 0 % 08/15/21 04:01 Nucleated RBC % 55.0 % (0.0-0.9) H 08/15/21 04:01 Seg Neutrophils # Man 20.2 K/mm3 (1.8-7.7) H 08/15/21 04:01 Band Neutrophils # 1.7 K/mm3 08/15/21 04:01 Lymphocytes # (Manual) 9.1 K/mm3 (1.2-5.4) H 08/15/21 04:01 Abs React Lymphs (Man) 0.3 K/mm3 08/15/21 04:01 Monocytes # (Manual) 2.9 K/mm3 (0.0-0.8) H 08/15/21 04:01 Eosinophils # (Manual) 0.0 K/mm3 (0.0-0.4) 08/15/21 04:01 Basophils # (Manual) 0.0 K/mm3 (0.0-0.1) 08/15/21 04:01 Metamyelocytes # 0.2 K/mm3 08/15/21 04:01 Myelocytes # 0.0 K/mm3 08/15/21 04:01 Promyelocytes # 0.0 K/mm3 08/15/21 04:01 Blast Cells # 0.0 K/mm3 08/15/21 04:01 Hypersegmented Neuts Not Reportable 08/15/21 04:01 Hyposegmented Neuts Not Reportable 08/15/21 04:01 Hypogranular Neuts Not Reportable 08/15/21 04:01 Smudge Cells Not Reportable 08/15/21 04:01 Toxic Granulation Not Reportable 08/15/21 04:01 Toxic Vacuolation Not Reportable 08/15/21 04:01 Dohle Bodies Not Reportable 08/15/21 04:01 Pelger-Huet Anomaly Not Reportable 08/15/21 04:01 Elise Rods Not Reportable 08/15/21 04:01 Platelet Estimate Appears decreased 08/15/21 04:01 Clumped Platelets Not Reportable 08/15/21 04:01 Plt Clumps, EDTA Not Reportable 08/15/21 04:01 Large Platelets Not Reportable 08/15/21 04:01 Giant Platelets Not Reportable 08/15/21 04:01 Platelet Satelliting Not Reportable 08/15/21 04:01 Plt Morphology Comment Not Reportable 08/15/21 04:01 RBC Morphology Not Reportable 08/15/21 04:01 Dimorphic RBCs Not Reportable 08/15/21 04:01 Polychromasia Few 08/15/21 04:01 Hypochromasia 3+ 08/15/21 04:01 Poikilocytosis Few 08/15/21 04:01 Anisocytosis 3+ 08/15/21 04:01 Microcytosis 3+ 08/15/21 04:01 Macrocytosis Few 08/15/21 04:01 Spherocytes Rare 08/15/21 04:01 Pappenheimer Bodies Not Reportable 08/15/21 04:01 Sickle Cells Not Reportable 08/15/21 04:01 Target Cells Not Reportable 08/15/21 04:01 Tear Drop Cells Not Reportable 08/15/21 04:01 Ovalocytes Few 08/15/21 04:01 Stomatocytes Few 08/15/21 04:01 Helmet Cells Not Reportable 08/15/21 04:01 [place] Bodies Not Reportable 08/15/21 04:01 [place] Rings Not Reportable 08/15/21 04:01 [place] Cells Not Reportable 08/15/21 04:01 Bite Cells Not Reportable 08/15/21 04:01 Crenated Cell Not Reportable 08/15/21 04:01 Elliptocytes Not Reportable 08/15/21 04:01 Acanthocytes (Spur) Not Reportable 08/15/21 04:01 Rouleaux Not Reportable 08/15/21 04:01 Hemoglobin C Crystals Not Reportable 08/15/21 04:01 Schistocytes Not Reportable 08/15/21 04:01 Malaria parasites Not Reportable 08/15/21 04:01 Yassine Bodies Not Reportable 08/15/21 04:01 Hem Pathologist Commnt Sent to pathology 08/15/21 04:01 PT 17.8 Sec. (12.2-14.9) H 08/17/21 04:47 INR 1.31 (0.87-1.13) H 08/17/21 04:47 APTT 27.6 Sec. (24.2-36.6) 08/17/21 04:47 D-Dimer > 234 ng/mlDDU (0-234) H 08/15/21 04:01 Sodium 138 mmol/L (137-145) 08/17/21 04:47 Potassium 3.4 mmol/L (3.6-5.0) L 08/17/21 04:47 Chloride 106.4 mmol/L (98-107) 08/17/21 04:47 Carbon Dioxide 18 mmol/L (22-30) L 08/17/21 04:47 Anion Gap 17 mmol/L 08/17/21 04:47 BUN 32 mg/dL (9-20) H 08/17/21 04:47 Creatinine 0.7 mg/dL (0.8-1.3) L 08/17/21 04:47 Estimated GFR > 60 ml/min 08/17/21 04:47 BUN/Creatinine Ratio 46 % 08/17/21 04:47 Glucose 150 mg/dL (75-100) H 08/17/21 04:47 POC Glucose 90 mg/dL (70-105) 08/17/21 05:50 Lactic Acid 2.10 mmol/L (0.7-2.0) H* 08/16/21 12:09 Calcium 7.8 mg/dL (8.4-10.2) L 08/17/21 04:47 Phosphorus 3.00 mg/dL (2.5-4.5) 08/17/21 04:47 Magnesium 3.10 mg/dL (1.7-2.3) H 08/17/21 04:47 Total Bilirubin 7.70 mg/dL (0.1-1.2) H 08/17/21 04:47 Direct Bilirubin 1.9 mg/dL (0-0.2) H 08/17/21 04:47 Indirect Bilirubin 5.8 mg/dL 08/17/21 04:47 AST 410 units/L (5-40) H 08/17/21 04:47 ALT 937 units/L (7-56) H 08/17/21 04:47 Alkaline Phosphatase 91 units/L (35-129) 08/17/21 04:47 Lactate Dehydrogenase 4126 units/L (91-180) H 08/15/21 06:44 Troponin T 0.016 ng/mL (0.00-0.029) 08/15/21 06:00 Total Protein 7.4 g/dL (6.3-8.2) 08/17/21 04:47 Albumin 3.1 g/dL (3.9-5) L 08/17/21 04:47 Albumin/Globulin Ratio 0.7 % 08/17/21 04:47 Vitamin B12 > 2000 pg/mL (211-911) H 08/15/21 22:34 Folate 17.11 ng/mL (7.3-26.0) 08/15/21 22:34 Urine Opiates Screen Negative 08/15/21 12:30 Urine Methadone Screen Negative 08/15/21 12:30 Acetaminophen 5.0 ug/mL (10.0-30.0) L 08/15/21 07:00 Ur Barbiturates Screen Negative 08/15/21 12:30 Ur Phencyclidine Scrn Negative 08/15/21 12:30 Ur Amphetamines Screen Negative 08/15/21 12:30 U Benzodiazepines Scrn Negative 08/15/21 12:30 Urine Cocaine Screen Negative 08/15/21 12:30 U Marijuana (THC) Screen Negative 08/15/21 12:30 Drugs of Abuse Note Disclamer 08/15/21 12:30 Plasma/Serum Alcohol < 0.01 % (0-0.07) 08/15/21 22:34 Coronavirus (PCR) Negative (Negative) 08/15/21 Unknown Hepatitis A IgM Ab Non-reactive (NonReactive) 08/15/21 06:44 Hep Bs Antigen Non-reactive (Negative) 08/15/21 06:44 Hep B Core IgM Ab Non-reactive (NonReactive) 08/15/21 06:44 Hepatitis C Antibody Non-reactive (NonReactive) 08/15/21 06:44 HIV 1&2 Antibody Rapid Non react (Non React) 08/15/21 22:34 HIV P24 Antigen Non react (Non React) 08/15/21 22:34 Blood Type O POSITIVE 08/15/21 05:37 Antibody Screen TNR 08/15/21 05:37 PARRISH Antibody Screen Negative 08/15/21 05:37 Crossmatch See Detail 08/15/21 05:37 Past History Past Medical History: arthritis (Rheumatoid arthritis), GERD, hypertension, other (Depression, hernia) Past Surgical History: No surgical history Social history: no significant social history Family history: no significant family history Medications and Allergies Allergies Allergy/AdvReac Type Severity Reaction Status Date / Time atenolol Allergy Unknown Verified 08/15/21 01:34 quetiapine fumarate AdvReac Unknown Verified 08/15/21 01:33 [From Seroquel] Home Medications Medication Instructions Recorded Confirmed Last Taken Type Esomeprazole Magnesium [Nexium 20 mg PO DAILY 08/15/21 08/15/21 Unknown History 24Hr] Sulindac 200 mg PO BID 08/15/21 08/15/21 08/14/21 History predniSONE [Deltasone] 5 mg PO TID 08/15/21 08/15/21 08/14/21 History 5 mg Active Meds: Active Medications Albuterol (Albuterol 2.5 Mg/3 Ml Nebu) 2.5 mg IH Q4HRT PRN PRN Reason: Shortness Of Breath Last Admin: 08/17/21 10:06 Dose: 2.5 mg Sodium Chloride (Nacl 0.9% 500 Ml) 500 mls @ 5 mls/hr IV ONCE ONE Stop: 08/20/21 08:38 Last Admin: 08/16/21 19:37 Dose: Not Given Magnesium Hydroxide (Magnesium Hydroxide (Mom) Oral Liqd Udc) 30 ml PO Q4H PRN PRN Reason: Constipation Morphine Sulfate (Morphine 2 Mg/1 Ml Inj) 2 mg IV Q4H PRN PRN Reason: Pain, Moderate (4-6) Last Admin: 08/17/21 05:34 Dose: 2 mg Morphine Sulfate (Morphine 4 Mg/1 Ml Inj) 4 mg IV Q4H PRN PRN Reason: Pain , Severe (7-10) Ondansetron HCl (Ondansetron 4 Mg/2 Ml Inj) 4 mg IV Q8H PRN PRN Reason: Nausea And Vomiting Pantoprazole Sodium (Pantoprazole 40 Mg Tab) 40 mg PO QDAC ROSINA Sodium Chloride (Sodium Chloride 0.9% 10 Ml Flush Syringe) 10 ml IV BID ROSINA Last Admin: 08/17/21 09:16 Dose: 10 ml Sodium Chloride (Sodium Chloride 0.9% 10 Ml Flush Syringe) 10 ml IV PRN PRN PRN Reason: LINE FLUSH Exam - Constitutional Vitals: Last Vital Signs Temp 100.6 F H 08/17/21 08:00 Pulse 89 08/17/21 10:06 Resp 18 08/17/21 10:06 BP 142/87 08/17/21 09:00 Pulse Ox 93 08/17/21 08:00 Results - Labs lab Results: Laboratory Results - last 24 hr 08/15/21 08/16/21 08/16/21 05:37 12:09 12:09 WBC 26.2 H RBC 2.11 L Hgb 7.1 L Hct 21.8 L MCV 103 H MCH 34 H MCHC 33 RDW 22.9 H Plt Count 66 L PT INR APTT Sodium Potassium Chloride Carbon Dioxide Anion Gap BUN Creatinine Estimated GFR BUN/Creatinine Ratio Glucose POC Glucose Lactic Acid 2.10 H* Calcium Phosphorus Magnesium Total Bilirubin Direct Bilirubin Indirect Bilirubin AST ALT Alkaline Phosphatase Total Protein Albumin Albumin/Globulin Ratio Blood Type O POSITIVE Antibody Screen TNR PARRISH Antibody Screen Negative Crossmatch See Detail 08/16/21 08/16/21 08/17/21 14:49 20:10 00:06 WBC RBC Hgb 6.6 L Hct 20.2 L MCV MCH MCHC RDW Plt Count PT INR APTT Sodium Potassium 3.4 L Chloride Carbon Dioxide Anion Gap BUN Creatinine Estimated GFR BUN/Creatinine Ratio Glucose POC Glucose 127 H Lactic Acid Calcium Phosphorus Magnesium Total Bilirubin Direct Bilirubin Indirect Bilirubin AST ALT Alkaline Phosphatase Total Protein Albumin Albumin/Globulin Ratio Blood Type Antibody Screen PARRISH Antibody Screen Crossmatch 08/17/21 08/17/21 08/17/21 04:47 04:47 04:47 WBC 24.3 H RBC 2.05 L Hgb 6.6 L Hct 20.5 L MCV 100 H MCH 32 MCHC 32 RDW 22.8 H Plt Count 46 L PT 17.8 H INR 1.31 H APTT 27.6 Sodium 138 Potassium 3.4 L Chloride 106.4 Carbon Dioxide 18 L Anion Gap 17 BUN 32 H Creatinine 0.7 L Estimated GFR > 60 BUN/Creatinine Ratio 46 Glucose 150 H POC Glucose Lactic Acid Calcium 7.8 L Phosphorus 3.00 Magnesium 3.10 H Total Bilirubin 7.70 H Direct Bilirubin 1.9 H Indirect Bilirubin 5.8 AST 410 H ALT 937 H Alkaline Phosphatase 91 Total Protein 7.4 Albumin 3.1 L Albumin/Globulin Ratio 0.7 Blood Type Antibody Screen PARRISH Antibody Screen Crossmatch 08/17/21 05:50 WBC RBC Hgb Hct MCV MCH MCHC RDW Plt Count PT INR APTT Sodium Potassium Chloride Carbon Dioxide Anion Gap BUN Creatinine Estimated GFR BUN/Creatinine Ratio Glucose POC Glucose 90 Lactic Acid Calcium Phosphorus Magnesium Total Bilirubin Direct Bilirubin Indirect Bilirubin AST ALT Alkaline Phosphatase Total Protein Albumin Albumin/Globulin Ratio Blood Type Antibody Screen PARRISH Antibody Screen Crossmatch
[2021-08-17 11:14] LABS: Macrocytosis 3+
[2021-08-17 11:15] LABS: Spherocytes 3+
--- NOTE | 2021-08-17 11:17 | Progress Note ---
Assessment and Plan Cultures: Acute hepatitis panel negative 08/15/2021 Blood culture: no growth A/P: 54-year-old female with hypertension, rheumatoid arthritis, GERD was admitted with shortness of breath and chest pain. Upon work-up, found to have significant leukocytosis and severe anemia: #Leukemoid reaction, severe anemia: suspected underlying hematologic disorder, Hematology on board. ?hemolytic anemia. LDH also high. CT chest revealed no PE, no evidence of pneumonia. CT abdomen and pelvis revealed no acute intra- abdominal or intrapelvic pathology. #Acute thrombocytopenia #Elevated LFTs: CT abdomen without any acute abnormality. Acute hepatitis panel negative. ?Toxin/medication related versus autoimmune. Denies alcohol intake. GI on board. Also indirect hyperbilirubinemia. #Lactic acidosis #Rheumatoid arthritis: Patient takes prednisone 5 mg 3 times daily. Denies being on any methotrexate or other immunosuppression. He follows up with rheumatology via telemedicine. Recs: -continue off abx at this time Alejandra Pop MD, FACP, [facility] O: [phone] F: [phone] C: [phone] Subjective Date of service: 08/17/21 Principal diagnosis: acute liver injury Interval history: Low grade temps +. States he is feeling well. Breathing is fair. Complains of b/l leg pain. Objective - Exam Narrative Exam: Physical Exam: Constitutional: Alert, cooperative. No acute distress Head, Ears, Nose: Normocephalic, atraumatic. External ears, nose normal Eyes: Conjunctivae/corneas clear. + icterus. No ptosis. Neck: Supple, no meningeal signs Cardiovascular: S1, S2 + Respiratory: Good air entry, clear to auscultation bilaterally GI: Soft, non-tender; bowel sounds normal. No peritoneal signs Musculoskeletal: + pedal edema, no cyanosis. Skin: No rash or abscess Hem/Lymphatic: No palpable cervical or supraclavicular nodes. No lymphangitis Psych: Mood ok. Affect normal Neurological: Awake, alert, oriented. No gross abnormality - Constitutional Vitals: Vital Signs Temp Pulse Resp BP Pulse Ox 100.6 F H 89 18 144/81 100 08/17/21 08:00 08/17/21 10:06 08/17/21 10:06 08/17/21 10:00 08/17/21 10:00 Temperature -Last 24 Hours Temperature 100.6 F Temperature 100.6 F Temperature 98.8 F Temperature 100.3 F Temperature 97.8 F Temperature 97.7 F - Labs CBC & Chem 7: 08/17/21 04:47 08/17/21 04:47 Labs: Abnormal lab results 08/15/21 08/16/21 08/16/21 Range/Units 05:37 12:09 12:09 WBC 26.2 H (4.5-11.0) K/mm3 RBC 2.11 L (3.65-5.03) M/mm3 Hgb 7.1 L (11.8-15.2) gm/dl Hct 21.8 L (35.5-45.6) % MCV 103 H (84-94) fl MCH 34 H (28-32) pg RDW 22.9 H (13.2-15.2) % Plt Count 66 L (140-440) K/mm3 PT (12.2-14.9) Sec. INR (0.87-1.13) Potassium (3.6-5.0) mmol/L Carbon Dioxide (22-30) mmol/L BUN (9-20) mg/dL Creatinine (0.8-1.3) mg/dL Glucose (75-100) mg/dL POC Glucose (70-105) mg/dL Lactic Acid 2.10 H* (0.7-2.0) mmol/L Calcium (8.4-10.2) mg/dL Magnesium (1.7-2.3) mg/dL Total Bilirubin (0.1-1.2) mg/dL Direct Bilirubin (0-0.2) mg/dL AST (5-40) units/L ALT (7-56) units/L Albumin (3.9-5) g/dL Crossmatch See Detail 08/16/21 08/16/21 08/17/21 Range/Units 14:49 20:10 00:06 WBC (4.5-11.0) K/mm3 RBC (3.65-5.03) M/mm3 Hgb 6.6 L (11.8-15.2) gm/dl Hct 20.2 L (35.5-45.6) % MCV (84-94) fl MCH (28-32) pg RDW (13.2-15.2) % Plt Count (140-440) K/mm3 PT (12.2-14.9) Sec. INR (0.87-1.13) Potassium 3.4 L (3.6-5.0) mmol/L Carbon Dioxide (22-30) mmol/L BUN (9-20) mg/dL Creatinine (0.8-1.3) mg/dL Glucose (75-100) mg/dL POC Glucose 127 H (70-105) mg/dL Lactic Acid (0.7-2.0) mmol/L Calcium (8.4-10.2) mg/dL Magnesium (1.7-2.3) mg/dL Total Bilirubin (0.1-1.2) mg/dL Direct Bilirubin (0-0.2) mg/dL AST (5-40) units/L ALT (7-56) units/L Albumin (3.9-5) g/dL Crossmatch 08/17/21 08/17/21 08/17/21 Range/Units 04:47 04:47 04:47 WBC 24.3 H (4.5-11.0) K/mm3 RBC 2.05 L (3.65-5.03) M/mm3 Hgb 6.6 L (11.8-15.2) gm/dl Hct 20.5 L (35.5-45.6) % MCV 100 H (84-94) fl MCH (28-32) pg RDW 22.8 H (13.2-15.2) % Plt Count 46 L (140-440) K/mm3 PT 17.8 H (12.2-14.9) Sec. INR 1.31 H (0.87-1.13) Potassium 3.4 L (3.6-5.0) mmol/L Carbon Dioxide 18 L (22-30) mmol/L BUN 32 H (9-20) mg/dL Creatinine 0.7 L (0.8-1.3) mg/dL Glucose 150 H (75-100) mg/dL POC Glucose (70-105) mg/dL Lactic Acid (0.7-2.0) mmol/L Calcium 7.8 L (8.4-10.2) mg/dL Magnesium 3.10 H (1.7-2.3) mg/dL Total Bilirubin 7.70 H (0.1-1.2) mg/dL Direct Bilirubin 1.9 H (0-0.2) mg/dL AST 410 H (5-40) units/L ALT 937 H (7-56) units/L Albumin 3.1 L (3.9-5) g/dL Crossmatch
[2021-08-17] MEDS ORDERED: HYDROmorphone 1 MG/1 ML INJ IV PRN (11:47)
[2021-08-17 12:34] LABS: Hematocrit 22.8 % (35.5-45.6); Hemoglobin 7.4 gm/dl (11.8-15.2)
--- NOTE | 2021-08-17 12:36 | Progress Note ---
Assessment and Plan Acute Liver Injury (? Tylenol OD vs AIH vs Ischemic Hepatitis) Jaundice Acute DVT Severe Macrocytic Anemia Thrombocytopenia Acute Hypoxemic Respiratory Failure Acute Pulmonary Edema vs Aspiration Pneumonia Hypokalemia Leukocytosis Lactic Acidosis Hypertension History of Rheumatoid Arthritis - replace electrolytes - begin Solumedrol re: thrombocytopenia (1mg/kg q12h) - get baseline Procalcitonin level in lieu of tentative leucocytosis - DVT treatment per hematology team (Hold full anticoagulation in light of Anemia and thrombocytopenia) - follow autoimmune serologies re: AIH - PRBC transfusion for serum Hb of 6.6 - Hematology input appreciated - s/p empiric Mucomyst course for possible tylenol OD - continue accuchecks with glycemic control per SSI (While critically ill target blood glucose of 140-180 mg/dL; avoid hypoglycemia) - supplemental oxygen for target O2 sat's > 90% acutely - Aspiration precautions - bronchodilators with pulmonary hygiene per RT - fall precautions - avoid nephrotoxins, renally dose all medications - avoid benzodiazepine's, reduce the possibility of delirium - AB's per ID rec's (none acutely and follow clinically / WBC) - prn analgesia per pain score - Maintenance of sleep-wake cycle, avoid delirium - G.I. & VTE prophylaxis (Pantoprazole and SCD's) - PT/OT/ROM exercises - continue mobility protocols for pressure ulcer prophylaxis - Monitor hemodynamics closely - continue other care per attending / other consultants - discharge planning ongoing concurrently COVID SPECIFIC INTERVENTIONS - COVID-19 PCR negative .... Re-evaluate in am & prn CONDITION: CRITICAL PROGNOSIS: GUARDED CODE STATUS: FULL CODE The high probability of a clinically significant, sudden or life-threatening deterioration of the [respiratory, cardiovascular, GI & neurologic] system(s) required my full and direct attention, intervention and personal management. The aggregate critical care time was [34] minutes without overlap. Time includes spent on; [x] Data Review and interpretation [x] Patient assessment and monitoring of vital signs [x] Documentation [x] Medication orders and management Subjective Date of service: 08/17/21 Principal diagnosis: Ac. Liver Injury; Anemia; Thrombocytopenia; AHRF; Pulm Edema; Met. Acidosis Interval history: Patient is seen today for: Acute Liver Injury; Jaundice; Anemia; Thrombocytopenia; Acute Hypoxemic Respiratory Failure; Pulm Edema vs Aspiration Pneumonia; Lactic Acidosis; Hypertension; History of Rheumatoid Arthritis Seen and examined at bedside; 24hour events reviewed; nursing and respiratory care staff consulted; no adverse overnight events reported to me; resting in bed; feels a little better but still weak all over; denies N/V/F/C; denies gross bleeding; thrombocytopenia is worse Objective Vital Signs - 12hr 08/17/21 08/17/21 08/17/21 01:00 02:00 03:00 Temperature Pulse Rate 96 H 95 H 95 H Pulse Rate [ Anterior Bilateral] Pulse Rate [ From Monitor] Respiratory 26 H 25 H 26 H Rate Respiratory Rate [Anterior Bilateral] Blood Pressure 156/96 140/76 164/91 O2 Sat by Pulse 93 95 Oximetry 08/17/21 08/17/21 08/17/21 04:00 05:01 05:11 Temperature 100.6 F H Pulse Rate 95 H 95 H 89 Pulse Rate [ Anterior Bilateral] Pulse Rate [ From Monitor] Respiratory 26 H 20 24 Rate Respiratory Rate [Anterior Bilateral] Blood Pressure 177/87 128/68 128/68 O2 Sat by Pulse 95 Oximetry 08/17/21 08/17/21 08/17/21 05:21 05:31 05:41 Temperature Pulse Rate 92 H 93 H 91 H Pulse Rate [ Anterior Bilateral] Pulse Rate [ From Monitor] Respiratory 24 16 27 H Rate Respiratory Rate [Anterior Bilateral] Blood Pressure 128/68 128/68 128/68 O2 Sat by Pulse Oximetry 08/17/21 08/17/21 08/17/21 05:51 06:00 06:11 Temperature Pulse Rate 92 H 92 H 87 Pulse Rate [ Anterior Bilateral] Pulse Rate [ From Monitor] Respiratory 25 H 20 20 Rate Respiratory Rate [Anterior Bilateral] Blood Pressure 128/68 127/79 127/79 O2 Sat by Pulse Oximetry 08/17/21 08/17/21 08/17/21 06:21 06:31 07:00 Temperature Pulse Rate 89 86 84 Pulse Rate [ Anterior Bilateral] Pulse Rate [ From Monitor] Respiratory 20 20 18 Rate Respiratory Rate [Anterior Bilateral] Blood Pressure 127/79 127/79 129/81 O2 Sat by Pulse 97 Oximetry 08/17/21 08/17/21 08/17/21 07:39 08:00 09:00 Temperature 100.6 F H Pulse Rate 93 H 94 H Pulse Rate [ Anterior Bilateral] Pulse Rate [ 99 H From Monitor] Respiratory 26 H 17 Rate Respiratory Rate [Anterior Bilateral] Blood Pressure 137/88 142/87 O2 Sat by Pulse 96 95 Oximetry 08/17/21 08/17/21 08/17/21 10:00 10:06 11:00 Temperature Pulse Rate 89 96 H Pulse Rate [ 89 Anterior Bilateral] Pulse Rate [ From Monitor] Respiratory 21 21 Rate Respiratory 18 Rate [Anterior Bilateral] Blood Pressure 144/81 159/80 O2 Sat by Pulse 100 96 Oximetry 08/17/21 08/17/21 12:00 12:01 Temperature 100.9 F H Pulse Rate 95 H Pulse Rate [ Anterior Bilateral] Pulse Rate [ From Monitor] Respiratory 15 Rate Respiratory Rate [Anterior Bilateral] Blood Pressure 164/92 O2 Sat by Pulse 82 L Oximetry Constitutional: no acute distress, appears uncomfortable Eyes: non-icteric ENT: oropharynx moist Neck: supple, other (large circumference) Effort: mildly labored Ascultation: Bilateral: clear, diminished breath sounds Percussion: Bilateral: not dull Cardiovascular: regular rate and rhythm Gastrointestinal: normoactive bowel sounds, soft, non-tender, non-distended (protuberant) Integumentary: normal, other (no ecchymosis noted) Extremities: no cyanosis, no edema, pulses normal, no ischemia or petechiae Neurologic: non-focal exam (grossly), pupils equal and round, CN II-XII normal, motor strength normal and Psychiatric: mood appropriate, anxious (somewhat) CBC and BMP: 08/17/21 11:57 08/17/21 04:47 ABG, PT/INR, D-dimer: PT/INR, D-dimer PT 17.8 Sec. (12.2-14.9) H 08/17/21 04:47 INR 1.31 (0.87-1.13) H 08/17/21 04:47 D-Dimer > 234 ng/mlDDU (0-234) H 08/15/21 04:01 Abnormal lab findings: Abnormal Labs 08/15/21 08/15/21 08/15/21 04:01 04:01 04:01 WBC 34.5 H RBC 0.84 L Hgb 3.5 L* Hct 11.3 L* MCV 134 H MCH 41 H MCHC 31 L RDW 30.4 H Plt Count 115 L Calloway % (Auto) 8.3 H Seg Neutrophils % 77.5 H Monocytes % (Manual) 8.5 H Nucleated RBC % 55.0 H Seg Neutrophils # Man 20.2 H Lymphocytes # (Manual) 9.1 H Monocytes # (Manual) 2.9 H PT 20.9 H INR 1.59 H D-Dimer > 234 H Potassium Carbon Dioxide 17 L BUN 40 H Creatinine 0.7 L Glucose 145 H POC Glucose Lactic Acid Calcium Magnesium Total Bilirubin 13.40 H Direct Bilirubin AST 1665 H ALT 1615 H Lactate Dehydrogenase Total Protein 8.4 H Albumin 3.7 L Vitamin B12 Acetaminophen Crossmatch 08/15/21 08/15/21 08/15/21 05:37 06:44 06:44 WBC RBC Hgb Hct MCV MCH MCHC RDW Plt Count [place] % (Auto) Seg Neutrophils % Monocytes % (Manual) Nucleated RBC % Seg Neutrophils # Man Lymphocytes # (Manual) Monocytes # (Manual) PT INR D-Dimer Potassium Carbon Dioxide BUN Creatinine Glucose POC Glucose Lactic Acid 7.30 H* Calcium Magnesium Total Bilirubin Direct Bilirubin AST ALT Lactate Dehydrogenase 4126 H Total Protein Albumin Vitamin B12 Acetaminophen Crossmatch See Detail 08/15/21 08/15/21 08/15/21 07:00 09:29 22:34 WBC RBC Hgb Hct MCV MCH MCHC RDW Plt Count [place] % (Auto) Seg Neutrophils % Monocytes % (Manual) Nucleated RBC % Seg Neutrophils # Man Lymphocytes # (Manual) Monocytes # (Manual) PT INR D-Dimer Potassium Carbon Dioxide BUN Creatinine Glucose POC Glucose Lactic Acid 8.70 H* 2.30 H* Calcium Magnesium Total Bilirubin Direct Bilirubin AST ALT Lactate Dehydrogenase Total Protein Albumin Vitamin B12 Acetaminophen 5.0 L Crossmatch 08/15/21 08/15/21 08/16/21 22:34 22:34 00:08 WBC RBC Hgb 6.0 L Hct 17.3 L* D MCV MCH MCHC RDW Plt Count [place] % (Auto) Seg Neutrophils % Monocytes % (Manual) Nucleated RBC % Seg Neutrophils # Man Lymphocytes # (Manual) Monocytes # (Manual) PT INR D-Dimer Potassium Carbon Dioxide BUN Creatinine Glucose POC Glucose 144 H Lactic Acid Calcium Magnesium Total Bilirubin Direct Bilirubin AST ALT Lactate Dehydrogenase Total Protein Albumin Vitamin B12 > 2000 H Acetaminophen Crossmatch 08/16/21 08/16/21 08/16/21 04:30 04:30 04:30 WBC 30.7 H RBC 1.86 L Hgb 6.3 L Hct 19.2 L* MCV 103 H MCH 34 H MCHC RDW 24.8 H Plt Count 77 L C[place] % (Auto) Seg Neutrophils % Monocytes % (Manual) Nucleated RBC % Seg Neutrophils # Man Lymphocytes # (Manual) Monocytes # (Manual) PT INR D-Dimer Potassium 3.0 L D Carbon Dioxide 19 L BUN 55 H Creatinine Glucose 167 H POC Glucose Lactic Acid Calcium 8.1 L Magnesium Total Bilirubin 10.20 H Direct Bilirubin 2.6 H AST 958 H ALT 1328 H Lactate Dehydrogenase Total Protein Albumin 3.3 L Vitamin B12 Acetaminophen Crossmatch 08/16/21 08/16/21 08/16/21 04:30 04:30 12:09 WBC RBC Hgb Hct MCV MCH MCHC RDW Plt Count [place] % (Auto) Seg Neutrophils % Monocytes % (Manual) Nucleated RBC % Seg Neutrophils # Man Lymphocytes # (Manual) Monocytes # (Manual) PT 19.5 H INR 1.46 H D-Dimer Potassium Carbon Dioxide BUN Creatinine Glucose POC Glucose Lactic Acid 2.10 H* 2.10 H* Calcium Magnesium Total Bilirubin Direct Bilirubin AST ALT Lactate Dehydrogenase Total Protein Albumin Vitamin B12 Acetaminophen Crossmatch 08/16/21 08/16/21 08/16/21 12:09 14:49 20:10 WBC 26.2 H RBC 2.11 L Hgb 7.1 L 6.6 L Hct 21.8 L 20.2 L MCV 103 H MCH 34 H MCHC RDW 22.9 H Plt Count 66 L [place] % (Auto) Seg Neutrophils % Monocytes % (Manual) Nucleated RBC % Seg Neutrophils # Man Lymphocytes # (Manual) Monocytes # (Manual) PT INR D-Dimer Potassium 3.4 L Carbon Dioxide BUN Creatinine Glucose POC Glucose Lactic Acid Calcium Magnesium Total Bilirubin Direct Bilirubin AST ALT Lactate Dehydrogenase Total Protein Albumin Vitamin B12 Acetaminophen Crossmatch 08/17/21 08/17/21 08/17/21 00:06 04:47 04:47 WBC RBC Hgb Hct MCV MCH MCHC RDW Plt Count [place] % (Auto) Seg Neutrophils % Monocytes % (Manual) Nucleated RBC % Seg Neutrophils # Man Lymphocytes # (Manual) Monocytes # (Manual) PT 17.8 H INR 1.31 H D-Dimer Potassium 3.4 L Carbon Dioxide 18 L BUN 32 H Creatinine 0.7 L Glucose 150 H POC Glucose 127 H Lactic Acid Calcium 7.8 L Magnesium 3.10 H Total Bilirubin 7.70 H Direct Bilirubin 1.9 H AST 410 H ALT 937 H Lactate Dehydrogenase Total Protein Albumin 3.1 L Vitamin B12 Acetaminophen Crossmatch 08/17/21 04:47 WBC 24.3 H RBC 2.05 L Hgb 6.6 L Hct 20.5 L MCV 100 H MCH MCHC RDW 22.8 H Plt Count 46 L [place] % (Auto) Seg Neutrophils % Monocytes % (Manual) Nucleated RBC % Seg Neutrophils # Man Lymphocytes # (Manual) Monocytes # (Manual) PT INR D-Dimer Potassium Carbon Dioxide BUN Creatinine Glucose POC Glucose Lactic Acid Calcium Magnesium Total Bilirubin Direct Bilirubin AST ALT Lactate Dehydrogenase Total Protein Albumin Vitamin B12 Acetaminophen Crossmatch Allied health notes reviewed: nursing
[2021-08-17] MEDS ORDERED: ONDANSETRON 4 MG/2 ML INJ IV SCH (13:00)
--- NOTE | 2021-08-17 13:03 | Vascular Lab Report ---
DUPLEX DOPPLER LOWER EXTREMITY VEINS, BILATERAL INDICATION / CLINICAL INFORMATION: calf pain. TECHNIQUE: Duplex doppler imaging was performed through the veins of both lower extremities using venous kenyetta clyde and other maneuvers. COMPARISON: None available. FINDINGS: RIGHT COMMON FEMORAL VEIN: Negative. RIGHT FEMORAL VEIN: Negative. RIGHT POPLITEAL VEIN: Negative. RIGHT CALF VEINS: Negative. LEFT COMMON FEMORAL VEIN: Negative. LEFT FEMORAL VEIN: Negative. LEFT POPLITEAL VEIN: Negative. LEFT CALF VEINS: Acute thrombus. ADDITIONAL FINDINGS: None. IMPRESSION: 1. Acute DVT within the left peroneal vein. Signer Name: Robert Galeano MD Signed: 08/17/2021 12:59 PM Workstation Name: [id number]
[2021-08-17] MEDS ORDERED: POTASSIUM CHLORIDE ER 20 MEQ TAB PO SCH (14:00)
--- NOTE | 2021-08-17 14:09 | Cat Scan Report ---
CT-GUIDED BONE MARROW ASPIRATION AND BIOPSY INDICATION : Lymphoma, rule out malignancy PROCEDURE: The risks (including but not limited to bleeding and infection) and benefits were explain ed to the patient and informed consent was obtained. All CT examinations performed at this facility utilize dose modulation, iterative reconstruction or weight-based dosing, when appropriate, to reduce radiation dose to as low as reasonably achievable. A time out procedure was performed. The procedu re site was prepped and draped in the usual sterile fashion and lidocaine was used for local anesthes ia. Under CT guidance, the right posterior iliac wing was selected for biopsy. An 11 gauge needle was ad vanced to the posterior margin of the iliac wing, cortex breached, and 4.5 mL bone marrow aspirate ob tained. The needle was then advanced and a bone marrow biopsy was obtained. Samples were given dire ctly to the water supply technician who was present during the exam. The patient tolerated the procedure well with no complications. IMPRESSION: Technically successful bone marrow aspirate and biopsy. Signer Name: Venancio Werner Jr, MD Signed: 08/17/2021 2:05 PM Workstation Name: [id number]
[2021-08-17] MEDS: methylPREDNISolone Sod Succinate 125 MG/2 ML INJ IV SCH ×2 (14:13→21:14)
[2021-08-17 16:57] LABS: Basophils % (Manual) 0 % (0.0-1.8); Eosinophils % (Manual) 0 % (0.0-4.3); Myelocytes # (Manual) 0.5 K/mm3; Total Cells Counted 100
[2021-08-17 16:58] LABS: Large Platelets Few
[2021-08-17 17:00] LABS: Anisocytosis 1+
--- NOTE | 2021-08-17 17:43 | Progress Note ---
<INDIGO ALARCONMary - Last Filed: 08/17/21 17:43> Assessment and Plan Assessment and plan: This is a 55-year-old male with HTN, RA, GERD, depression, hernia admitted with severe anemia, leukocytosis and acute liver injury Neuro: NAD, h/o depression -Avoid delirium -Reorientation as needed -Maintain sleep-wake cycle -No antidepressants noted on home medication profile -As needed analgesia Cardiac: h/o HTN -Cardiology consulted, appreciate recommendations -Blood pressure monitoring per protocol Respiratory: Acute hypoxic/hypercapnic respiratory failure -CCM consulted, appreciate recommendations -Vent Settings: -See RT notes for titration -A.m. ABG and CXR noted -VAP bundle -SPO2 monitoring GI: Acute liver injury, h/o GERD -Presented with transaminitis and jaundice -GI consulted, appreciate recommendations -Per GI: Suspect ischemic hepatitis versus AIH versus Dili -CT abdomen without any acute abnormality -Hepatic panel negative -24 hours -840 mL -Protonix -S/p acetylcysteine -Trend LFTs -cardiac diet : Hypokalemia -Strict intake and output -Renally dose medications -Avoid nephrotoxic medications -Replete potassium -Trend BMP ID: Leukemoid reaction, lactic acidosis -Infectious disease consulted, appreciate recommendation -COVID-19 PCR negative -f/u blood culture -Monitor WBC and temperature curve -CT chest revealed no PE, no evidence of pneumonia. -CT abdomen and pelvis revealed no acute intra-abdominal or intrapelvic pathology. Endo: NAD -Avoid hypoglycemia Heme: Severe microcytic anemia, thrombocytopenia, left lower extremity peroneal DVT, autoimmune hemolytic anemia, leukocytosis -Presented with a hemoglobin of 3.5 -Vitamin B12 high, folate normal -Otology/oncology consulted -Positive Briseida test -Solu-Medrol 1 mg/kg twice daily -Trend CBC -S/p 6 units PRBC -Transfuse hemoglobin less than 7 -Serial H/H -Bone marrow biopsy -Monitor for signs of bleeding -SCDs to BLE while in bed -Hemoccult positive -Avoid chemical anticoagulation in setting of severe anemia -CT chest revealed no PE, no evidence of pneumonia. -CT abdomen and pelvis revealed no acute intra-abdominal or intrapelvic pathology. The high probability of a clinically significant, sudden or life threatening deterioration of the [multiple] system(s) required my full and direct attention, intervention and personal management. The aggregate critical care time was [60] minutes. This time is in addition to time spent performing reported procedures but includes the following: [x] Data Review and interpretation [x] Patient assessment and monitoring of vital signs [x] Documentation [x] Medication orders and management Disposition Plan: icu Total Time Spent with Patient (Minutes): 60 History Interval history: This is a 55-year-old male with HTN, rheumatoid arthritis, GERD, depression, and hernia who presented to emergency department on 08/15 with complaints of shortness of breath and chest pain with symptoms ongoing for the past 3 weeks, increasing shortness of breath with exertion and pleuritic chest pain, occasional distention of the abdomen, jaundice and dark urine. Patient stated that he had a fall on his forehead a few days prior to admission feeling weak and dizzy however did not lose consciousness. Upon arrival to the emergency department patient was tachypneic and tachycardic oxygen saturation of 96% on room air. Work-up in the emergency department revealed leukocytosis, severe anemia with a H/H of 3.5/11.3, thrombocytopenia, elevated INR and transaminitis. CXR showed borderline cardiomegaly with possible interstitial pulmonary edema. Patient was admitted to the hospitalist service with severe anemia, leukocytosis and acute liver injury with consults to GI, ID and pulmonology. Hospital Course to Date: 08/15: Patient is on HHFL 40%, 25L. SPO2 above 95. With severe anemia, no s/s of any acute bleeding, administered 2units of PRBCs for now, serial H&H ordered. HEME/ONC consult pending. Worsening lactic acid noted most likely due to acute liver disease, Acetylcysteine gtt intiated per GI recommendation. Will continue to monitor LFTs and coags. Orders placed for UDS and alcohol leve;. Will also check Vitamin B12, folate, and HIV. Patient remains afebrile and hemodynamically stable. per ID leukocytosi is unlikely related to an infectious process and IV abx were discontinued. 08/16: Patient is doing much better this am. Stable on 3L NC this am, no respiratory distress noted, this am CXR improved. LFTs with mild improvement this am, d/w GI give another dose off Acetylcysteine. S/p 4units of PRBCs repeat CBC pending, transfuse if hbg less than 7. Continue to trend LFTs, electrolytes repleted. 08/17: Patient started on Solu-Medrol as his Briseida test was positive, patient complaining of calf pain which is bilateral feet warm to touch and Doppler ultrasound was ordered which revealed acute peroneal DVT. Hypokalemia repleted. Hospitalist Physical - Constitutional Vitals: Temp Pulse Resp BP Pulse Ox 100.3 F H 95 H 19 110/83 100 08/17/21 16:11 08/17/21 15:00 08/17/21 15:00 08/17/21 15:00 08/17/21 15:00 General appearance: Present: no acute distress, well-nourished, obese - EENT Eyes: Present: PERRL, EOM intact ENT: hearing intact, clear oral mucosa, dentition normal - Neck Neck: Present: normal ROM - Respiratory Respiratory effort: normal Respiratory: bilateral: diminished - Cardiovascular Rhythm: regular Heart Sounds: Present: S1 & S2. Absent: systolic murmur, diastolic murmur - Extremities Extremities: no ischemia, pulses intact, pulses symmetrical, No edema, normal temperature, normal color Peripheral Pulses: within normal limits - Abdominal General gastrointestinal: soft, non-tender, non-distended, normal bowel sounds - Integumentary Integumentary: Present: warm, dry - Psychiatric Psychiatric: cooperative - Neurologic Neurologic: CNII-XII intact, no focal deficits, moves all extremities - Allied Health Allied health notes reviewed: nursing, RT, social work HEART Score - HEART Score Troponin: Troponin T 0.016 ng/mL (0.00-0.029) 08/15/21 06:00 Results - Labs CBC & Chem 7: 08/17/21 11:57 08/17/21 04:47 Labs: Laboratory Last Values WBC 24.3 K/mm3 (4.5-11.0) H 08/17/21 04:47 RBC 2.05 M/mm3 (3.65-5.03) L 08/17/21 04:47 Hgb 7.4 gm/dl (11.8-15.2) L 08/17/21 11:57 Hct 22.8 % (35.5-45.6) L 08/17/21 11:57 MCV 100 fl (84-94) H 08/17/21 04:47 MCH 32 pg (28-32) 08/17/21 04:47 MCHC 32 % (32-34) 08/17/21 04:47 RDW 22.8 % (13.2-15.2) H 08/17/21 04:47 Plt Count 46 K/mm3 (140-440) L 08/17/21 04:47 [place] % (Auto) 8.3 % (0.0-7.3) H 08/15/21 04:01 Eos % (Auto) 0.2 % (0.0-4.3) 08/15/21 04:01 Lymph # (Auto) Variety Saw Operator 08/15/21 04:01 Add Manual Diff Complete 08/15/21 04:01 Total Counted 100 08/17/21 04:47 Seg Neutrophils % 77.5 % (40.0-70.0) H 08/15/21 04:01 Seg Neuts % (Manual) 62.0 % (40.0-70.0) 08/17/21 04:47 Band Neutrophils % 0 % 08/17/21 04:47 Lymphocytes % (Manual) 25.0 % (13.4-35.0) 08/17/21 04:47 Reactive Lymphs % (Man) 0 % 08/17/21 04:47 Monocytes % (Manual) 8.0 % (0.0-7.3) H 08/17/21 04:47 Eosinophils % (Manual) 0 % (0.0-4.3) 08/17/21 04:47 Basophils % (Manual) 0 % (0.0-1.8) 08/17/21 04:47 Metamyelocytes % 3.0 % 08/17/21 04:47 Myelocytes % 2.0 % 08/17/21 04:47 Promyelocytes % 0 % 08/17/21 04:47 Blast Cells % 0 % 08/17/21 04:47 Nucleated RBC % 136.0 % (0.0-0.9) H 08/17/21 04:47 Seg Neutrophils # Man 15.1 K/mm3 (1.8-7.7) H 08/17/21 04:47 Band Neutrophils # 0.0 K/mm3 08/17/21 04:47 Lymphocytes # (Manual) 6.1 K/mm3 (1.2-5.4) H 08/17/21 04:47 Abs React Lymphs (Man) 0.0 K/mm3 08/17/21 04:47 Monocytes # (Manual) 1.9 K/mm3 (0.0-0.8) H 08/17/21 04:47 Eosinophils # (Manual) 0.0 K/mm3 (0.0-0.4) 08/17/21 04:47 Basophils # (Manual) 0.0 K/mm3 (0.0-0.1) 08/17/21 04:47 Metamyelocytes # 0.7 K/mm3 08/17/21 04:47 Myelocytes # 0.5 K/mm3 08/17/21 04:47 Promyelocytes # 0.0 K/mm3 08/17/21 04:47 Blast Cells # 0.0 K/mm3 08/17/21 04:47 Pathologist Review 08/15/21 04:01 WBC Morphology Not Reportable 08/17/21 04:47 Hypersegmented Neuts Not Reportable 08/17/21 04:47 Hyposegmented Neuts Not Reportable 08/17/21 04:47 Hypogranular Neuts Not Reportable 08/17/21 04:47 Smudge Cells Not Reportable 08/17/21 04:47 Toxic Granulation Not Reportable 08/17/21 04:47 Toxic Vacuolation Not Reportable 08/17/21 04:47 Dohle Bodies Not Reportable 08/17/21 04:47 Pelger-Huet Anomaly Not Reportable 08/17/21 04:47 Elise Rods Not Reportable 08/17/21 04:47 Platelet Estimate Appears normal 08/17/21 04:47 Clumped Platelets Not Reportable 08/17/21 04:47 Plt Clumps, EDTA Not Reportable 08/17/21 04:47 Large Platelets Few 08/17/21 04:47 Giant Platelets Not Reportable 08/17/21 04:47 Platelet Satelliting Not Reportable 08/17/21 04:47 Plt Morphology Comment Not Reportable 08/17/21 04:47 RBC Morphology Not Reportable 08/17/21 04:47 Dimorphic RBCs Not Reportable 08/17/21 04:47 Polychromasia 1+ 08/17/21 04:47 Hypochromasia Not Reportable 08/17/21 04:47 Poikilocytosis Not Reportable 08/17/21 04:47 Anisocytosis 1+ 08/17/21 04:47 Microcytosis Not Reportable 08/17/21 04:47 Macrocytosis Not Reportable 08/17/21 04:47 Spherocytes Not Reportable 08/17/21 04:47 Pappenheimer Bodies Not Reportable 08/17/21 04:47 Sickle Cells Not Reportable 08/17/21 04:47 Target Cells Not Reportable 08/17/21 04:47 Tear Drop Cells Not Reportable 08/17/21 04:47 Ovalocytes Not Reportable 08/17/21 04:47 Stomatocytes Few 08/15/21 04:01 Helmet Cells Not Reportable 08/17/21 04:47 [place] Bodies Not Reportable 08/17/21 04:47 [place] Rings Not Reportable 08/17/21 04:47 [place] Cells Not Reportable 08/17/21 04:47 Bite Cells Not Reportable 08/17/21 04:47 Crenated Cell Not Reportable 08/17/21 04:47 Elliptocytes Not Reportable 08/17/21 04:47 Acanthocytes (Spur) Not Reportable 08/17/21 04:47 Rouleaux Not Reportable 08/17/21 04:47 Hemoglobin C Crystals Not Reportable 08/17/21 04:47 Schistocytes Not Reportable 08/17/21 04:47 Malaria parasites Not Reportable 08/17/21 04:47 Yassine Bodies Not Reportable 08/17/21 04:47 Hem Pathologist Commnt No 08/17/21 04:47 PT 17.8 Sec. (12.2-14.9) H 08/17/21 04:47 INR 1.31 (0.87-1.13) H 08/17/21 04:47 APTT 27.6 Sec. (24.2-36.6) 08/17/21 04:47 D-Dimer > 234 ng/mlDDU (0-234) H 08/15/21 04:01 Sodium 138 mmol/L (137-145) 08/17/21 04:47 Potassium 3.4 mmol/L (3.6-5.0) L 08/17/21 04:47 Chloride 106.4 mmol/L (98-107) 08/17/21 04:47 Carbon Dioxide 18 mmol/L (22-30) L 08/17/21 04:47 Anion Gap 17 mmol/L 08/17/21 04:47 BUN 32 mg/dL (9-20) H 08/17/21 04:47 Creatinine 0.7 mg/dL (0.8-1.3) L 08/17/21 04:47 Estimated GFR > 60 ml/min 08/17/21 04:47 BUN/Creatinine Ratio 46 % 08/17/21 04:47 Glucose 150 mg/dL (75-100) H 08/17/21 04:47 POC Glucose 101 mg/dL (70-105) 08/17/21 11:38 Lactic Acid 2.10 mmol/L (0.7-2.0) H* 08/16/21 12:09 Calcium 7.8 mg/dL (8.4-10.2) L 08/17/21 04:47 Phosphorus 3.00 mg/dL (2.5-4.5) 08/17/21 04:47 Magnesium 3.10 mg/dL (1.7-2.3) H 08/17/21 04:47 Total Bilirubin 7.70 mg/dL (0.1-1.2) H 08/17/21 04:47 Direct Bilirubin 1.9 mg/dL (0-0.2) H 08/17/21 04:47 Indirect Bilirubin 5.8 mg/dL 08/17/21 04:47 AST 410 units/L (5-40) H 08/17/21 04:47 ALT 937 units/L (7-56) H 08/17/21 04:47 Alkaline Phosphatase 91 units/L (35-129) 08/17/21 04:47 Lactate Dehydrogenase 4126 units/L (91-180) H 08/15/21 06:44 Troponin T 0.016 ng/mL (0.00-0.029) 08/15/21 06:00 Total Protein 7.4 g/dL (6.3-8.2) 08/17/21 04:47 Albumin 3.1 g/dL (3.9-5) L 08/17/21 04:47 Albumin/Globulin Ratio 0.7 % 08/17/21 04:47 Vitamin B12 > 2000 pg/mL (211-911) H 08/15/21 22:34 Folate 17.11 ng/mL (7.3-26.0) 08/15/21 22:34 Urine Opiates Screen Negative 08/15/21 12:30 Urine Methadone Screen Negative 08/15/21 12:30 Acetaminophen 5.0 ug/mL (10.0-30.0) L 08/15/21 07:00 Ur Barbiturates Screen Negative 08/15/21 12:30 Ur Phencyclidine Scrn Negative 08/15/21 12:30 Ur Amphetamines Screen Negative 08/15/21 12:30 U Benzodiazepines Scrn Negative 08/15/21 12:30 Urine Cocaine Screen Negative 08/15/21 12:30 U Marijuana (THC) Screen Negative 08/15/21 12:30 Drugs of Abuse Note Disclamer 08/15/21 12:30 Plasma/Serum Alcohol < 0.01 % (0-0.07) 08/15/21 22:34 Coronavirus (PCR) Negative (Negative) 08/15/21 Unknown Hepatitis A IgM Ab Non-reactive (NonReactive) 08/15/21 06:44 Hep Bs Antigen Non-reactive (Negative) 08/15/21 06:44 Hep B Core IgM Ab Non-reactive (NonReactive) 08/15/21 06:44 Hepatitis C Antibody Non-reactive (NonReactive) 08/15/21 06:44 HIV 1&2 Antibody Rapid Non react (Non React) 08/15/21 22:34 HIV P24 Antigen Non react (Non React) 08/15/21 22:34 Blood Type O POSITIVE 08/15/21 05:37 Antibody Screen TNR 08/15/21 05:37 PARRISH Antibody Screen Negative 08/15/21 05:37 Direct Antiglob Test Positive 08/17/21 12:00 GIO (IgG-AHG) Positive 08/17/21 12:00 GIO, Poly Interpret Positive 08/17/21 12:00 GIO, Anti-C3 Negative 08/17/21 12:00 Crossmatch See Detail 08/15/21 05:37 Microbiology: Microbiology 08/15/21 09:29 Peripheral/Venous Blood Culture - Preliminary NO GROWTH AFTER 48 HOURS 08/15/21 09:29 Peripheral/Venous Blood Culture - Preliminary NO GROWTH AFTER 48 HOURS Active Medications - Current Medications Current Medications: Generic Name Dose Route Start Last Admin Trade Name Freq PRN Reason Stop Dose Admin Albuterol 2.5 mg 08/17/21 09:42 08/17/21 10:06 Albuterol 2.5 Mg/3 Ml Nebu IH 2.5 mg Q4HRT PRN Administration Shortness Of Breath Hydromorphone HCl 1 mg 08/17/21 11:47 08/17/21 13:00 Hydromorphone 1 Mg/1 Ml Inj IV 1 mg Q2H PRN Administration Pain , Severe (7-10) Sodium Chloride 500 mls @ 5 mls/hr 08/16/21 04:39 08/16/21 19:37 Nacl 0.9% 500 Ml IV 08/20/21 08:38 Not Given ONCE ONE Magnesium Hydroxide 30 ml 08/15/21 06:09 Magnesium Hydroxide (Mom) Oral Liqd Udc PO Q4H PRN Constipation Methylprednisolone Sodium Succinate 125 mg 08/17/21 14:00 08/17/21 14:13 Methylprednisolone Sod Succinate 125 Mg/2 Ml Inj IV 125 mg Q12HR ROSINA Administration Morphine Sulfate 2 mg 08/15/21 06:09 08/17/21 05:34 Morphine 2 Mg/1 Ml Inj IV 2 mg Q4H PRN Administration Pain, Moderate (4-6) Morphine Sulfate 4 mg 08/15/21 06:09 Morphine 4 Mg/1 Ml Inj IV Q4H PRN Pain , Severe (7-10) Ondansetron HCl 4 mg 08/15/21 06:09 Ondansetron 4 Mg/2 Ml Inj IV Q8H PRN Nausea And Vomiting Ondansetron HCl 4 mg 08/17/21 13:00 08/17/21 13:00 Ondansetron 4 Mg/2 Ml Inj IV 08/17/21 23:59 2 mg ONCE ROSINA Administration Pantoprazole Sodium 40 mg 08/18/21 07:30 Pantoprazole 40 Mg Tab PO QDAC ROSINA Sodium Chloride 10 ml 08/15/21 10:00 08/17/21 09:16 Sodium Chloride 0.9% 10 Ml Flush Syringe IV 10 ml BID ROSINA Administration Sodium Chloride 10 ml 08/15/21 06:09 Sodium Chloride 0.9% 10 Ml Flush Syringe IV PRN PRN LINE FLUSH <SUSHIL AMARAL - Last Filed: 08/18/21 08:15> Assessment and Plan Assessment and plan: I saw and evaluated the patient. I agree with the findings and the plan of care as documented in the Nurse Practitioner's~note, with the following corrections and additions. Hospitalist Physical - Constitutional Vitals: Temp Pulse Resp BP Pulse Ox 100.0 F H 87 21 115/67 97 08/18/21 08:08 08/18/21 06:00 08/18/21 06:00 08/18/21 06:00 08/18/21 04:00 HEART Score - HEART Score Troponin: Troponin T 0.016 ng/mL (0.00-0.029) 08/15/21 06:00 Results - Labs CBC & Chem 7: 08/18/21 04:20 08/18/21 04:20 Labs: Laboratory Last Values WBC 23.6 K/mm3 (4.5-11.0) H 08/18/21 04:20 RBC 2.21 M/mm3 (3.65-5.03) L 08/18/21 04:20 Hgb 7.1 gm/dl (11.8-15.2) L 08/18/21 04:20 Hct 22.0 % (35.5-45.6) L 08/18/21 04:20 MCV 100 fl (84-94) H 08/18/21 04:20 MCH 32 pg (28-32) 08/18/21 04:20 MCHC 32 % (32-34) 08/18/21 04:20 RDW 19.3 % (13.2-15.2) H 08/18/21 04:20 Plt Count 44 K/mm3 (140-440) L 08/18/21 04:20 [place] % (Auto) 8.3 % (0.0-7.3) H 08/15/21 04:01 Eos % (Auto) 0.2 % (0.0-4.3) 08/15/21 04:01 Lymph # (Auto) Variety Saw Operator 08/15/21 04:01 Add Manual Diff Complete 08/18/21 04:20 Total Counted 100 08/18/21 04:20 Seg Neutrophils % 77.5 % (40.0-70.0) H 08/15/21 04:01 Seg Neuts % (Manual) 74.0 % (40.0-70.0) H 08/18/21 04:20 Band Neutrophils % 2.0 % 08/18/21 04:20 Lymphocytes % (Manual) 17.0 % (13.4-35.0) 08/18/21 04:20 Reactive Lymphs % (Man) 0 % 08/18/21 04:20 Monocytes % (Manual) 7.0 % (0.0-7.3) 08/18/21 04:20 Eosinophils % (Manual) 0 % (0.0-4.3) 08/18/21 04:20 Basophils % (Manual) 0 % (0.0-1.8) 08/18/21 04:20 Metamyelocytes % 0 % 08/18/21 04:20 Myelocytes % 0 % 08/18/21 04:20 Promyelocytes % 0 % 08/18/21 04:20 Blast Cells % 0 % 08/18/21 04:20 Nucleated RBC % 237.0 % (0.0-0.9) H 08/18/21 04:20 Seg Neutrophils # Man 17.5 K/mm3 (1.8-7.7) H 08/18/21 04:20 Band Neutrophils # 0.5 K/mm3 08/18/21 04:20 Lymphocytes # (Manual) 4.0 K/mm3 (1.2-5.4) 08/18/21 04:20 Abs React Lymphs (Man) 0.0 K/mm3 08/18/21 04:20 Monocytes # (Manual) 1.7 K/mm3 (0.0-0.8) H 08/18/21 04:20 Eosinophils # (Manual) 0.0 K/mm3 (0.0-0.4) 08/18/21 04:20 Basophils # (Manual) 0.0 K/mm3 (0.0-0.1) 08/18/21 04:20 Metamyelocytes # 0.0 K/mm3 08/18/21 04:20 Myelocytes # 0.0 K/mm3 08/18/21 04:20 Promyelocytes # 0.0 K/mm3 08/18/21 04:20 Blast Cells # 0.0 K/mm3 08/18/21 04:20 Pathologist Review 08/15/21 04:01 WBC Morphology Not Reportable 08/18/21 04:20 Hypersegmented Neuts Not Reportable 08/18/21 04:20 Hyposegmented Neuts Not Reportable 08/18/21 04:20 Hypogranular Neuts Not Reportable 08/18/21 04:20 Smudge Cells Not Reportable 08/18/21 04:20 Toxic Granulation Not Reportable 08/18/21 04:20 Toxic Vacuolation Not Reportable 08/18/21 04:20 Dohle Bodies Not Reportable 08/18/21 04:20 [place] Anomaly Not Reportable 08/18/21 04:20 Elise Rods Not Reportable 08/18/21 04:20 Platelet Estimate Appears decreased 08/18/21 04:20 Clumped Platelets Not Reportable 08/18/21 04:20 Plt Clumps, EDTA Not Reportable 08/18/21 04:20 Large Platelets Not Reportable 08/18/21 04:20 Giant Platelets Not Reportable 08/18/21 04:20 Platelet Satelliting Not Reportable 08/18/21 04:20 Plt Morphology Comment Not Reportable 08/18/21 04:20 RBC Morphology Not Reportable 08/18/21 04:20 Dimorphic RBCs Not Reportable 08/18/21 04:20 Polychromasia 1+ 08/18/21 04:20 Hypochromasia Not Reportable 08/18/21 04:20 Poikilocytosis Not Reportable 08/18/21 04:20 Anisocytosis 1+ 08/18/21 04:20 Microcytosis Not Reportable 08/18/21 04:20 Macrocytosis Few 08/18/21 04:20 Spherocytes Not Reportable 08/18/21 04:20 Pappenheimer Bodies Not Reportable 08/18/21 04:20 Sickle Cells Not Reportable 08/18/21 04:20 Target Cells Not Reportable 08/18/21 04:20 Tear Drop Cells Not Reportable 08/18/21 04:20 Ovalocytes Not Reportable 08/18/21 04:20 Stomatocytes Few 08/15/21 04:01 Helmet Cells Not Reportable 08/18/21 04:20 [place] Bodies Not Reportable 08/18/21 04:20 [place] Rings Not Reportable 08/18/21 04:20 [place] Cells Not Reportable 08/18/21 04:20 Bite Cells Not Reportable 08/18/21 04:20 Crenated Cell Not Reportable 08/18/21 04:20 Elliptocytes Not Reportable 08/18/21 04:20 Acanthocytes (Spur) Not Reportable 08/18/21 04:20 Rouleaux Not Reportable 08/18/21 04:20 Hemoglobin C Crystals Not Reportable 08/18/21 04:20 Schistocytes Not Reportable 08/18/21 04:20 [place]aria parasites Not Reportable 08/18/21 04:20 Percent Retic 9.38 % (0.78-2.58) H 08/18/21 04:20 Yassine Bodies Not Reportable 08/18/21 04:20 Hem Pathologist Commnt No 08/18/21 04:20 PT 17.8 Sec. (12.2-14.9) H 08/17/21 04:47 INR 1.31 (0.87-1.13) H 08/17/21 04:47 APTT 27.6 Sec. (24.2-36.6) 08/17/21 04:47 Fibrinogen 446 mg/dl (211-480) 08/18/21 04:20 D-Dimer > 234 ng/mlDDU (0-234) H 08/15/21 04:01 Sodium 137 mmol/L (137-145) 08/18/21 04:20 Potassium 4.7 mmol/L (3.6-5.0) D 08/18/21 04:20 Chloride 105.2 mmol/L (98-107) 08/18/21 04:20 Carbon Dioxide 19 mmol/L (22-30) L 08/18/21 04:20 Anion Gap 18 mmol/L 08/18/21 04:20 BUN 26 mg/dL (9-20) H 08/18/21 04:20 Creatinine 0.7 mg/dL (0.8-1.3) L 08/18/21 04:20 Estimated GFR > 60 ml/min 08/18/21 04:20 BUN/Creatinine Ratio 37 % 08/18/21 04:20 Glucose 141 mg/dL (75-100) H 08/18/21 04:20 POC Glucose 214 mg/dL (70-105) H 08/17/21 23:22 Lactic Acid 2.10 mmol/L (0.7-2.0) H* 08/16/21 12:09 Calcium 8.1 mg/dL (8.4-10.2) L 08/18/21 04:20 Phosphorus 3.00 mg/dL (2.5-4.5) 08/17/21 04:47 Magnesium 3.10 mg/dL (1.7-2.3) H 08/17/21 04:47 Total Bilirubin 7.50 mg/dL (0.1-1.2) H 08/18/21 04:20 Direct Bilirubin 2.3 mg/dL (0-0.2) H 08/18/21 04:20 Indirect Bilirubin 5.2 mg/dL 08/18/21 04:20 AST 216 units/L (5-40) H 08/18/21 04:20 ALT 685 units/L (7-56) H 08/18/21 04:20 Alkaline Phosphatase 85 units/L (35-129) 08/18/21 04:20 Lactate Dehydrogenase 3057 units/L (91-180) H 08/18/21 04:20 Troponin T 0.016 ng/mL (0.00-0.029) 08/15/21 06:00 Total Protein 7.8 g/dL (6.3-8.2) 08/18/21 04:20 Albumin 3.3 g/dL (3.9-5) L 08/18/21 04:20 Albumin/Globulin Ratio 0.7 % 08/18/21 04:20 Vitamin B12 > 2000 pg/mL (211-911) H 08/15/21 22:34 Folate 17.11 ng/mL (7.3-26.0) 08/15/21 22:34 Urine Opiates Screen Negative 08/15/21 12:30 Urine Methadone Screen Negative 08/15/21 12:30 Acetaminophen 5.0 ug/mL (10.0-30.0) L 08/15/21 07:00 Ur Barbiturates Screen Negative 08/15/21 12:30 Ur Phencyclidine Scrn Negative 08/15/21 12:30 Ur Amphetamines Screen Negative 08/15/21 12:30 U Benzodiazepines Scrn Negative 08/15/21 12:30 Urine Cocaine Screen Negative 08/15/21 12:30 U Marijuana (THC) Screen Negative 08/15/21 12:30 Drugs of Abuse Note Disclamer 08/15/21 12:30 Plasma/Serum Alcohol < 0.01 % (0-0.07) 08/15/21 22:34 Coronavirus (PCR) Negative (Negative) 08/15/21 Unknown Hepatitis A IgM Ab Non-reactive (NonReactive) 08/15/21 06:44 Hep Bs Antigen Non-reactive (Negative) 08/15/21 06:44 Hep B Core IgM Ab Non-reactive (NonReactive) 08/15/21 06:44 Hepatitis C Antibody Non-reactive (NonReactive) 08/15/21 06:44 HIV 1&2 Antibody Rapid Non react (Non React) 08/15/21 22:34 HIV P24 Antigen Non react (Non React) 08/15/21 22:34 Blood Type O POSITIVE 08/15/21 05:37 Antibody Screen TNR 08/15/21 05:37 PARRISH Antibody Screen Negative 08/15/21 05:37 Direct Antiglob Test Positive 08/17/21 12:00 GIO (IgG-AHG) Positive 08/17/21 12:00 GIO, Poly Interpret Positive 08/17/21 12:00 GIO, Anti-C3 Negative 08/17/21 12:00 Crossmatch See Detail 08/15/21 05:37 Microbiology: Microbiology 08/15/21 09:29 Peripheral/Venous Blood Culture - Preliminary NO GROWTH AFTER 48 HOURS 08/15/21 09:29 Peripheral/Venous Blood Culture - Preliminary NO GROWTH AFTER 48 HOURS Active Medications - Current Medications Current Medications: Generic Name Dose Route Start Last Admin Trade Name Freq PRN Reason Stop Dose Admin Albuterol 2.5 mg 08/17/21 09:42 08/17/21 10:06 Albuterol 2.5 Mg/3 Ml Nebu IH 2.5 mg Q4HRT PRN Administration Shortness Of Breath Hydromorphone HCl 1 mg 08/17/21 11:47 08/17/21 13:00 Hydromorphone 1 Mg/1 Ml Inj IV 1 mg Q2H PRN Administration Pain , Severe (7-10) Sodium Chloride 500 mls @ 5 mls/hr 08/16/21 04:39 08/16/21 19:37 Nacl 0.9% 500 Ml IV 08/20/21 08:38 Not Given ONCE ONE Magnesium Hydroxide 30 ml 08/15/21 06:09 Magnesium Hydroxide (Mom) Oral Liqd Udc PO Q4H PRN Constipation Methylprednisolone Sodium Succinate 125 mg 08/17/21 14:00 08/17/21 21:14 Methylprednisolone Sod Succinate 125 Mg/2 Ml Inj IV 125 mg Q12HR ROSINA Administration Morphine Sulfate 2 mg 08/15/21 06:09 08/17/21 05:34 Morphine 2 Mg/1 Ml Inj IV 2 mg Q4H PRN Administration Pain, Moderate (4-6) Morphine Sulfate 4 mg 08/15/21 06:09 Morphine 4 Mg/1 Ml Inj IV Q4H PRN Pain , Severe (7-10) Ondansetron HCl 4 mg 08/15/21 06:09 Ondansetron 4 Mg/2 Ml Inj IV Q8H PRN Nausea And Vomiting Pantoprazole Sodium 40 mg 08/18/21 07:30 Pantoprazole 40 Mg Tab PO QDAC ROSINA Sodium Chloride 10 ml 08/15/21 10:00 08/17/21 21:13 Sodium Chloride 0.9% 10 Ml Flush Syringe IV 10 ml BID ROSINA Administration Sodium Chloride 10 ml 08/15/21 06:09 Sodium Chloride 0.9% 10 Ml Flush Syringe IV PRN PRN LINE FLUSH
[2021-08-18 04:44] LABS: Hemoglobin 7.1 gm/dl (11.8-15.2); Mean Corpuscular HGB Conc 32 % (32-34); Mean Corpuscular Volume 100 fl (84-94); Red Blood Count 2.21 M/mm3 (3.65-5.03); Red Cell Distribution Width 19.3 % (13.2-15.2)
[2021-08-18 04:45] LABS: Platelet Count 44 K/mm3 (140-440)
[2021-08-18 05:06] LABS: Alanine Aminotransferase 685 units/L (7-56); Albumin 3.3 g/dL (3.9-5); Bilirubin,Direct 2.3 mg/dL (0-0.2); Blood Urea Nitrogen 26 mg/dL (9-20); Calcium 8.1 mg/dL (8.4-10.2); Hemolysis Index 4
[2021-08-18 05:17] LABS: BUN/Creatinine Ratio 37
[2021-08-18 05:31] LABS: Band Neutrophils # (Manual) 0.5 K/mm3; Basophils % (Manual) 0 % (0.0-1.8); Eosinophils % (Manual) 0 % (0.0-4.3); Total Cells Counted 100
[2021-08-18 05:32] LABS: Anisocytosis 1+; Macrocytosis Few; Platelet Estimate Appears Decreased
[2021-08-18] MEDS: PANTOPRAZOLE 40 MG TAB PO SCH (09:28)
[2021-08-18] MEDS: methylPREDNISolone Sod Succinate 125 MG/2 ML INJ IV SCH ×2 (09:28→21:01)
--- NOTE | 2021-08-18 10:46 | Progress Note ---
Assessment and Plan Cultures: Acute hepatitis panel negative HIV negative 08/15/2021 Blood culture: no growth A/P: 54-year-old female with hypertension, rheumatoid arthritis, GERD was admitted with shortness of breath and chest pain. Upon work-up, found to have significant leukocytosis and severe anemia: #Leukemoid reaction, severe anemia: suspected underlying hematologic disorder, Hematology on board. ?hemolytic anemia. LDH also high. CT chest revealed no PE, no evidence of pneumonia. CT abdomen and pelvis revealed no acute intra- abdominal or intrapelvic pathology. #Acute anemia: hemolytic anemia, Briseida positive, on steroids. Hematology following. S/P bone marrow biopsy. #Acute DVT in the left peroneal vein #Acute thrombocytopenia #Elevated LFTs: CT abdomen without any acute abnormality. Acute hepatitis panel negative. ?Toxin/medication related versus autoimmune. Denies alcohol intake. GI on board. Also indirect hyperbilirubinemia. #Lactic acidosis #Rheumatoid arthritis: Patient takes prednisone 5 mg 3 times daily. Denies being on any methotrexate or other immunosuppression. He follows up with rheumatology via telemedicine. Recs: -low grade fever could be from DVT -now on steroids for hemolytic anemia -remains off abx ID will sign off. Please call with questions. Alejandra Pop MD, FACP, [facility] ([facility] O: [phone] F: [phone] C: [phone] Subjective Date of service: 08/18/21 Principal diagnosis: Ac. Liver Injury; Anemia; Thrombocytopenia; AHRF; Pulm Edema; Met. Acidosis Interval history: Low-grade fevers. Was found to have a DVT in the left peroneal vein. Patient denies any complaints apart from pain in his feet. Underwent bone marrow biopsy yesterday. Objective - Exam Narrative Exam: Physical Exam: Constitutional: Alert, cooperative. No acute distress Head, Ears, Nose: Normocephalic, atraumatic. External ears, nose normal Eyes: Conjunctivae/corneas clear. + icterus. No ptosis. Neck: Supple, no meningeal signs Cardiovascular: S1, S2 + Respiratory: Good air entry, clear to auscultation bilaterally GI: Soft, non-tender; bowel sounds normal. No peritoneal signs Musculoskeletal: + pedal edema, no cyanosis. Skin: No rash or abscess Hem/Lymphatic: No palpable cervical or supraclavicular nodes. No lymphangitis Psych: Mood ok. Affect normal Neurological: Awake, alert, oriented. No gross abnormality - Constitutional Vitals: Vital Signs Temp Pulse Resp BP Pulse Ox 100.0 F H 89 22 101/65 99 08/18/21 08:08 08/18/21 09:00 08/18/21 09:00 08/18/21 09:00 08/18/21 08:44 Temperature -Last 24 Hours Temperature 100.0 F Temperature 100.3 F Temperature 100.4 F Temperature 98.8 F Temperature 100.3 F Temperature 100.9 F - Labs CBC & Chem 7: 08/18/21 04:20 08/18/21 04:20 Labs: Abnormal lab results 08/15/21 08/17/21 08/17/21 Range/Units 05:37 04:47 11:57 WBC 24.3 H (4.5-11.0) K/mm3 RBC 2.05 L (3.65-5.03) M/mm3 Hgb 6.6 L 7.4 L (11.8-15.2) gm/dl Hct 20.5 L 22.8 L (35.5-45.6) % MCV 100 H (84-94) fl RDW 22.8 H (13.2-15.2) % Plt Count 46 L (140-440) K/mm3 Seg Neuts % (Manual) (40.0-70.0) % Monocytes % (Manual) 8.0 H (0.0-7.3) % Nucleated RBC % 136.0 H (0.0-0.9) % Seg Neutrophils # Man 15.1 H (1.8-7.7) K/mm3 Lymphocytes # (Manual) 6.1 H (1.2-5.4) K/mm3 Monocytes # (Manual) 1.9 H (0.0-0.8) K/mm3 Percent Retic (0.78-2.58) % Carbon Dioxide (22-30) mmol/L BUN (9-20) mg/dL Creatinine (0.8-1.3) mg/dL Glucose (75-100) mg/dL POC Glucose (70-105) mg/dL Calcium (8.4-10.2) mg/dL Total Bilirubin (0.1-1.2) mg/dL Direct Bilirubin (0-0.2) mg/dL AST (5-40) units/L ALT (7-56) units/L Lactate Dehydrogenase (91-180) units/L Albumin (3.9-5) g/dL Crossmatch See Detail 08/17/21 08/17/21 08/18/21 Range/Units 17:15 23:22 04:20 WBC (4.5-11.0) K/mm3 RBC (3.65-5.03) M/mm3 Hgb (11.8-15.2) gm/dl Hct (35.5-45.6) % MCV (84-94) fl RDW (13.2-15.2) % Plt Count (140-440) K/mm3 Seg Neuts % (Manual) (40.0-70.0) % Monocytes % (Manual) (0.0-7.3) % Nucleated RBC % (0.0-0.9) % Seg Neutrophils # Man (1.8-7.7) K/mm3 Lymphocytes # (Manual) (1.2-5.4) K/mm3 Monocytes # (Manual) (0.0-0.8) K/mm3 Percent Retic (0.78-2.58) % Carbon Dioxide 19 L (22-30) mmol/L BUN 26 H (9-20) mg/dL Creatinine 0.7 L (0.8-1.3) mg/dL Glucose 141 H (75-100) mg/dL POC Glucose 275 H 214 H (70-105) mg/dL Calcium 8.1 L (8.4-10.2) mg/dL Total Bilirubin 7.50 H (0.1-1.2) mg/dL Direct Bilirubin 2.3 H (0-0.2) mg/dL AST 216 H (5-40) units/L ALT 685 H (7-56) units/L Lactate Dehydrogenase (91-180) units/L Albumin 3.3 L (3.9-5) g/dL Crossmatch 08/18/21 08/18/21 Range/Units 04:20 04:20 WBC 23.6 H (4.5-11.0) K/mm3 RBC 2.21 L (3.65-5.03) M/mm3 Hgb 7.1 L (11.8-15.2) gm/dl Hct 22.0 L (35.5-45.6) % MCV 100 H (84-94) fl RDW 19.3 H (13.2-15.2) % Plt Count 44 L (140-440) K/mm3 Seg Neuts % (Manual) 74.0 H (40.0-70.0) % Monocytes % (Manual) (0.0-7.3) % Nucleated RBC % 237.0 H (0.0-0.9) % Seg Neutrophils # Man 17.5 H (1.8-7.7) K/mm3 Lymphocytes # (Manual) (1.2-5.4) K/mm3 Monocytes # (Manual) 1.7 H (0.0-0.8) K/mm3 Percent Retic 9.38 H (0.78-2.58) % Carbon Dioxide (22-30) mmol/L BUN (9-20) mg/dL Creatinine (0.8-1.3) mg/dL Glucose (75-100) mg/dL POC Glucose (70-105) mg/dL Calcium (8.4-10.2) mg/dL Total Bilirubin (0.1-1.2) mg/dL Direct Bilirubin (0-0.2) mg/dL AST (5-40) units/L ALT (7-56) units/L Lactate Dehydrogenase 3057 H (91-180) units/L Albumin (3.9-5) g/dL Crossmatch
--- NOTE | 2021-08-18 11:48 | Progress Note ---
Assessment and Plan Acute Liver Injury (? Tylenol OD vs AIH vs Ischemic Hepatitis) Jaundice Acute DVT Severe Macrocytic Anemia Thrombocytopenia Acute Hypoxemic Respiratory Failure Acute Pulmonary Edema vs Aspiration Pneumonia Hypokalemia Leukocytosis Lactic Acidosis Hypertension History of Rheumatoid Arthritis - follow bone marrow aspirate Pathology - Vascular surgery consult re: Left Peroneal vein DVT - follow Procalcitonin level - to receive 1 unit PRBC re: Hct < 23 and sub-optimal rise in serum Hb post transfusion yesterday - continue Solumedrol re: thrombocytopenia - continue care as below otherwise; - DVT treatment per vascular / hematology team (Holding full anticoagulation in light of Anemia and thrombocytopenia / coagulopathy) - follow autoimmune serologies re: AIH - s/p empiric Mucomyst course for possible tylenol OD - continue accuchecks with glycemic control per SSI for target blood glucose < 180 mg/dL - supplemental oxygen for target O2 sat's > 90% acutely - Aspiration precautions - bronchodilators with pulmonary hygiene per RT - fall precautions - avoid nephrotoxins, renally dose all medications - avoid benzodiazepine's, reduce the possibility of delirium - AB's per ID rec's (none acutely and follow clinically / WBC) - prn analgesia per pain score - Maintenance of sleep-wake cycle, avoid delirium - G.I. & VTE prophylaxis (Pantoprazole and SCD's) - PT/OT/ROM exercises - continue mobility protocols for pressure ulcer prophylaxis - Monitor hemodynamics closely - continue other care per attending / other consultants - discharge planning ongoing concurrently COVID SPECIFIC INTERVENTIONS - COVID-19 PCR negative .... Re-evaluate in am & prn ...... transfer to telemetry floor Subjective Date of service: 08/18/21 Principal diagnosis: Ac. Liver Injury; Anemia; Thrombocytopenia; AHRF; Pulm Edema; Met. Acidosis Interval history: Patient is seen today for: Acute Liver Injury; Jaundice; Anemia; Thrombocytopenia; Acute Hypoxemic Respiratory Failure; Pulm Edema vs Aspiration Pneumonia; Lactic Acidosis; Hypertension; History of Rheumatoid Arthritis Seen and examined at bedside; 24hour events reviewed; nursing and respiratory care staff consulted; no adverse overnight events reported to me; resting in bed; deniesd gross bleeding or melena; no chest pain or palpitations; feels a little better Objective Vital Signs - 12hr 08/18/21 08/18/21 08/18/21 00:00 00:08 01:00 Temperature Pulse Rate 97 H 96 H 90 Pulse Rate [ From Monitor] Respiratory 21 24 21 Rate Blood Pressure 134/78 134/78 134/78 O2 Sat by Pulse 97 Oximetry 08/18/21 08/18/21 08/18/21 02:00 03:00 04:00 Temperature Pulse Rate 90 88 95 H Pulse Rate [ From Monitor] Respiratory 32 H 29 H 16 Rate Blood Pressure 119/50 129/51 133/53 O2 Sat by Pulse 97 Oximetry 08/18/21 08/18/21 08/18/21 04:21 05:00 06:00 Temperature 100.3 F H Pulse Rate 75 87 Pulse Rate [ From Monitor] Respiratory 26 H 21 Rate Blood Pressure 133/53 115/67 O2 Sat by Pulse Oximetry 08/18/21 08/18/21 08/18/21 07:00 08:00 08:08 Temperature 100.0 F H Pulse Rate 74 82 Pulse Rate [ 74 From Monitor] Respiratory 23 20 Rate Blood Pressure 109/69 101/65 O2 Sat by Pulse 99 97 Oximetry 08/18/21 08/18/21 08:44 09:00 Temperature Pulse Rate 89 Pulse Rate [ From Monitor] Respiratory 22 Rate Blood Pressure 101/65 O2 Sat by Pulse 99 Oximetry Constitutional: no acute distress, other (middle aged obese male with normal respiratory effort at rest) Eyes: non-icteric ENT: oropharynx moist Neck: supple, other (large circumference) Effort: normal Ascultation: Bilateral: clear, diminished breath sounds Percussion: Bilateral: not dull Cardiovascular: regular rate and rhythm Gastrointestinal: normoactive bowel sounds, soft, non-tender, non-distended (protuberant) Integumentary: normal, other (no ecchymosis noted) Extremities: no cyanosis, no edema, pulses normal, no ischemia or petechiae Neurologic: non-focal exam (grossly), pupils equal and round, CN II-XII normal, motor strength normal and Psychiatric: mood appropriate, affect normal CBC and BMP: 08/18/21 04:20 08/18/21 04:20 ABG, PT/INR, D-dimer: PT/INR, D-dimer PT 17.8 Sec. (12.2-14.9) H 08/17/21 04:47 INR 1.31 (0.87-1.13) H 08/17/21 04:47 D-Dimer > 234 ng/mlDDU (0-234) H 08/15/21 04:01 Abnormal lab findings: Abnormal Labs 08/15/21 08/15/21 08/15/21 04:01 04:01 04:01 WBC 34.5 H RBC 0.84 L Hgb 3.5 L* Hct 11.3 L* MCV 134 H MCH 41 H MCHC 31 L RDW 30.4 H Plt Count 115 L [place] % (Auto) 8.3 H Seg Neutrophils % 77.5 H Seg Neuts % (Manual) Monocytes % (Manual) 8.5 H Nucleated RBC % 55.0 H Seg Neutrophils # Man 20.2 H Lymphocytes # (Manual) 9.1 H Monocytes # (Manual) 2.9 H Percent Retic PT 20.9 H INR 1.59 H D-Dimer > 234 H Potassium Carbon Dioxide 17 L BUN 40 H Creatinine 0.7 L Glucose 145 H POC Glucose Lactic Acid Calcium Magnesium Total Bilirubin 13.40 H Direct Bilirubin AST 1665 H ALT 1615 H Lactate Dehydrogenase Total Protein 8.4 H Albumin 3.7 L Vitamin B12 Acetaminophen Crossmatch 08/15/21 08/15/21 08/15/21 05:37 06:44 06:44 WBC RBC Hgb Hct MCV MCH MCHC RDW Plt Count [place] % (Auto) Seg Neutrophils % Seg Neuts % (Manual) Monocytes % (Manual) Nucleated RBC % Seg Neutrophils # Man Lymphocytes # (Manual) Monocytes # (Manual) Percent Retic PT INR D-Dimer Potassium Carbon Dioxide BUN Creatinine Glucose POC Glucose Lactic Acid 7.30 H* Calcium Magnesium Total Bilirubin Direct Bilirubin AST ALT Lactate Dehydrogenase 4126 H Total Protein Albumin Vitamin B12 Acetaminophen Crossmatch See Detail 08/15/21 08/15/21 08/15/21 07:00 09:29 22:34 WBC RBC Hgb Hct MCV MCH MCHC RDW Plt Count [place] % (Auto) Seg Neutrophils % Seg Neuts % (Manual) Monocytes % (Manual) Nucleated RBC % Seg Neutrophils # Man Lymphocytes # (Manual) Monocytes # (Manual) Percent Retic PT INR D-Dimer Potassium Carbon Dioxide BUN Creatinine Glucose POC Glucose Lactic Acid 8.70 H* 2.30 H* Calcium Magnesium Total Bilirubin Direct Bilirubin AST ALT Lactate Dehydrogenase Total Protein Albumin Vitamin B12 Acetaminophen 5.0 L Crossmatch 08/15/21 08/15/21 08/16/21 22:34 22:34 00:08 WBC RBC Hgb 6.0 L Hct 17.3 L* D MCV MCH MCHC RDW Plt Count [place] % (Auto) Seg Neutrophils % Seg Neuts % (Manual) Monocytes % (Manual) Nucleated RBC % Seg Neutrophils # Man Lymphocytes # (Manual) Monocytes # (Manual) Percent Retic PT INR D-Dimer Potassium Carbon Dioxide BUN Creatinine Glucose POC Glucose 144 H Lactic Acid Calcium Magnesium Total Bilirubin Direct Bilirubin AST ALT Lactate Dehydrogenase Total Protein Albumin Vitamin B12 > 2000 H Acetaminophen Crossmatch 08/16/21 08/16/21 08/16/21 04:30 04:30 04:30 WBC 30.7 H RBC 1.86 L Hgb 6.3 L Hct 19.2 L* MCV 103 H MCH 34 H MCHC RDW 24.8 H Plt Count 77 L [place] % (Auto) Seg Neutrophils % Seg Neuts % (Manual) Monocytes % (Manual) Nucleated RBC % Seg Neutrophils # Man Lymphocytes # (Manual) Monocytes # (Manual) Percent Retic PT INR D-Dimer Potassium 3.0 L D Carbon Dioxide 19 L BUN 55 H Creatinine Glucose 167 H POC Glucose Lactic Acid Calcium 8.1 L Magnesium Total Bilirubin 10.20 H Direct Bilirubin 2.6 H AST 958 H ALT 1328 H Lactate Dehydrogenase Total Protein Albumin 3.3 L Vitamin B12 Acetaminophen Crossmatch 08/16/21 08/16/21 08/16/21 04:30 04:30 12:09 WBC RBC Hgb Hct MCV MCH MCHC RDW Plt Count [place] % (Auto) Seg Neutrophils % Seg Neuts % (Manual) Monocytes % (Manual) Nucleated RBC % Seg Neutrophils # Man Lymphocytes # (Manual) Monocytes # (Manual) Percent Retic PT 19.5 H INR 1.46 H D-Dimer Potassium Carbon Dioxide BUN Creatinine Glucose POC Glucose Lactic Acid 2.10 H* 2.10 H* Calcium Magnesium Total Bilirubin Direct Bilirubin AST ALT Lactate Dehydrogenase Total Protein Albumin Vitamin B12 Acetaminophen Crossmatch 08/16/21 08/16/21 08/16/21 12:09 14:49 20:10 WBC 26.2 H RBC 2.11 L Hgb 7.1 L 6.6 L Hct 21.8 L 20.2 L MCV 103 H MCH 34 H MCHC RDW 22.9 H Plt Count 66 L [place] % (Auto) Seg Neutrophils % Seg Neuts % (Manual) Monocytes % (Manual) Nucleated RBC % Seg Neutrophils # Man Lymphocytes # (Manual) Monocytes # (Manual) Percent Retic PT INR D-Dimer Potassium 3.4 L Carbon Dioxide BUN Creatinine Glucose POC Glucose Lactic Acid Calcium Magnesium Total Bilirubin Direct Bilirubin AST ALT Lactate Dehydrogenase Total Protein Albumin Vitamin B12 Acetaminophen Crossmatch 08/17/21 08/17/21 08/17/21 00:06 04:47 04:47 WBC RBC Hgb Hct MCV MCH MCHC RDW Plt Count [place] % (Auto) Seg Neutrophils % Seg Neuts % (Manual) Monocytes % (Manual) Nucleated RBC % Seg Neutrophils # Man Lymphocytes # (Manual) Monocytes # (Manual) Percent Retic PT 17.8 H INR 1.31 H D-Dimer Potassium 3.4 L Carbon Dioxide 18 L BUN 32 H Creatinine 0.7 L Glucose 150 H POC Glucose 127 H Lactic Acid Calcium 7.8 L Magnesium 3.10 H Total Bilirubin 7.70 H Direct Bilirubin 1.9 H AST 410 H ALT 937 H Lactate Dehydrogenase Total Protein Albumin 3.1 L Vitamin B12 Acetaminophen Crossmatch 08/17/21 08/17/21 08/17/21 04:47 11:57 17:15 WBC 24.3 H RBC 2.05 L Hgb 6.6 L 7.4 L Hct 20.5 L 22.8 L MCV 100 H MCH MCHC RDW 22.8 H Plt Count 46 L [place] % (Auto) Seg Neutrophils % Seg Neuts % (Manual) Monocytes % (Manual) 8.0 H Nucleated RBC % 136.0 H Seg Neutrophils # Man 15.1 H Lymphocytes # (Manual) 6.1 H Monocytes # (Manual) 1.9 H Percent Retic PT INR D-Dimer Potassium Carbon Dioxide BUN Creatinine Glucose POC Glucose 275 H Lactic Acid Calcium Magnesium Total Bilirubin Direct Bilirubin AST ALT Lactate Dehydrogenase Total Protein Albumin Vitamin B12 Acetaminophen Crossmatch 08/17/21 08/18/21 08/18/21 23:22 04:20 04:20 WBC 23.6 H RBC 2.21 L Hgb 7.1 L Hct 22.0 L MCV 100 H MCH MCHC RDW 19.3 H Plt Count 44 L [place] % (Auto) Seg Neutrophils % Seg Neuts % (Manual) 74.0 H Monocytes % (Manual) Nucleated RBC % 237.0 H Seg Neutrophils # Man 17.5 H Lymphocytes # (Manual) Monocytes # (Manual) 1.7 H Percent Retic 9.38 H PT INR D-Dimer Potassium Carbon Dioxide 19 L BUN 26 H Creatinine 0.7 L Glucose 141 H POC Glucose 214 H Lactic Acid Calcium 8.1 L Magnesium Total Bilirubin 7.50 H Direct Bilirubin 2.3 H AST 216 H ALT 685 H Lactate Dehydrogenase Total Protein Albumin 3.3 L Vitamin B12 Acetaminophen Crossmatch 08/18/21 04:20 WBC RBC Hgb Hct MCV MCH MCHC RDW Plt Count [place] % (Auto) Seg Neutrophils % Seg Neuts % (Manual) Monocytes % (Manual) Nucleated RBC % Seg Neutrophils # Man Lymphocytes # (Manual) Monocytes # (Manual) Percent Retic PT INR D-Dimer Potassium Carbon Dioxide BUN Creatinine Glucose POC Glucose Lactic Acid Calcium Magnesium Total Bilirubin Direct Bilirubin AST ALT Lactate Dehydrogenase 3057 H Total Protein Albumin Vitamin B12 Acetaminophen Crossmatch Allied health notes reviewed: nursing
--- NOTE | 2021-08-18 13:53 | Event Note ---
Date: 08/18/21 55-year-old male with acute liver injury who was found to have left peroneal vein DVT with inability to anticoagulate. Since this is an infrapopliteal DVT, recommend JUAN hose, and SCD placement while resting in bed. Recommend patient walk at least 3 times a day if possible. Ordered close interval surveillance with q. weekly DVT studies x2. If there is propagation and patient cannot be anticoagulated at that time, then IVC filter would be appropriate. We will see patient later.
[2021-08-18] MEDS ORDERED: SODIUM CHLORIDE 0.9% 500 ML 500 ML IV SCH (14:00)
--- NOTE | 2021-08-18 15:43 | Hem/Onc Progress Note ---
Subjective Date of service: 08/18/21 Interval history: Heme progress note Televisit via [facility] CPT 87086 Dx Anemia Abdominal distention, jaundice and unusually darker urine Abd u/s consistent with hepatitis vs fatty liver Continues with bilateral lower extremity pain --> Positive DVT BMBx completed yesterday 08/17 Denies bleeding, no overt bleeding noted. Reports feeling better today DATA REVIEW BELOW IMP: AIHA, donovan positive Elevated LDH, likely related to liver injury Heme malignancy is possible with low plt count/high LDH Thrombocytopenia, likely ITP vs liver dysfunction DVT, clotting tendency PLAN: Continue solumedrol 1mg/kg IV BID Monitor CBC daily No AC due to tpenia and anemia Pending bmbx results Follow SPEP, electrophoresis Transfuse 1 unit RBC whenever hct<23 Laboratory Last Values WBC 23.6 K/mm3 (4.5-11.0) H 08/18/21 04:20 RBC 2.21 M/mm3 (3.65-5.03) L 08/18/21 04:20 Hgb 7.1 gm/dl (11.8-15.2) L 08/18/21 04:20 Hct 22.0 % (35.5-45.6) L 08/18/21 04:20 MCV 100 fl (84-94) H 08/18/21 04:20 MCH 32 pg (28-32) 08/18/21 04:20 MCHC 32 % (32-34) 08/18/21 04:20 RDW 19.3 % (13.2-15.2) H 08/18/21 04:20 Plt Count 44 K/mm3 (140-440) L 08/18/21 04:20 [place] % (Auto) 8.3 % (0.0-7.3) H 08/15/21 04:01 Eos % (Auto) 0.2 % (0.0-4.3) 08/15/21 04:01 Lymph # (Auto) Design Dra[employer] Chief 08/15/21 04:01 Add Manual Diff Complete 08/18/21 04:20 Total Counted 100 08/18/21 04:20 Seg Neutrophils % 77.5 % (40.0-70.0) H 08/15/21 04:01 Seg Neuts % (Manual) 74.0 % (40.0-70.0) H 08/18/21 04:20 Band Neutrophils % 2.0 % 08/18/21 04:20 Lymphocytes % (Manual) 17.0 % (13.4-35.0) 08/18/21 04:20 Reactive Lymphs % (Man) 0 % 08/18/21 04:20 Monocytes % (Manual) 7.0 % (0.0-7.3) 08/18/21 04:20 Eosinophils % (Manual) 0 % (0.0-4.3) 08/18/21 04:20 Basophils % (Manual) 0 % (0.0-1.8) 08/18/21 04:20 Metamyelocytes % 0 % 08/18/21 04:20 Myelocytes % 0 % 08/18/21 04:20 Promyelocytes % 0 % 08/18/21 04:20 Blast Cells % 0 % 08/18/21 04:20 Nucleated RBC % 237.0 % (0.0-0.9) H 08/18/21 04:20 Seg Neutrophils # Man 17.5 K/mm3 (1.8-7.7) H 08/18/21 04:20 Band Neutrophils # 0.5 K/mm3 08/18/21 04:20 Lymphocytes # (Manual) 4.0 K/mm3 (1.2-5.4) 08/18/21 04:20 Abs React Lymphs (Man) 0.0 K/mm3 08/18/21 04:20 Monocytes # (Manual) 1.7 K/mm3 (0.0-0.8) H 08/18/21 04:20 Eosinophils # (Manual) 0.0 K/mm3 (0.0-0.4) 08/18/21 04:20 Basophils # (Manual) 0.0 K/mm3 (0.0-0.1) 08/18/21 04:20 Metamyelocytes # 0.0 K/mm3 08/18/21 04:20 Myelocytes # 0.0 K/mm3 08/18/21 04:20 Promyelocytes # 0.0 K/mm3 08/18/21 04:20 Blast Cells # 0.0 K/mm3 08/18/21 04:20 Pathologist Review 08/15/21 04:01 WBC Morphology Not Reportable 08/18/21 04:20 Hypersegmented Neuts Not Reportable 08/18/21 04:20 Hyposegmented Neuts Not Reportable 08/18/21 04:20 Hypogranular Neuts Not Reportable 08/18/21 04:20 Smudge Cells Not Reportable 08/18/21 04:20 Toxic Granulation Not Reportable 08/18/21 04:20 Toxic Vacuolation Not Reportable 08/18/21 04:20 Dohle Bodies Not Reportable 08/18/21 04:20 Pelger-Huet Anomaly Not Reportable 08/18/21 04:20 Elise Rods Not Reportable 08/18/21 04:20 Platelet Estimate Appears decreased 08/18/21 04:20 Clumped Platelets Not Reportable 08/18/21 04:20 Plt Clumps, EDTA Not Reportable 08/18/21 04:20 Large Platelets Not Reportable 08/18/21 04:20 Giant Platelets Not Reportable 08/18/21 04:20 Platelet Satelliting Not Reportable 08/18/21 04:20 Plt Morphology Comment Not Reportable 08/18/21 04:20 RBC Morphology Not Reportable 08/18/21 04:20 Dimorphic RBCs Not Reportable 08/18/21 04:20 Polychromasia 1+ 08/18/21 04:20 Hypochromasia Not Reportable 08/18/21 04:20 Poikilocytosis Not Reportable 08/18/21 04:20 Anisocytosis 1+ 08/18/21 04:20 Microcytosis Not Reportable 08/18/21 04:20 Macrocytosis Few 08/18/21 04:20 Spherocytes Not Reportable 08/18/21 04:20 Pappenheimer Bodies Not Reportable 08/18/21 04:20 Sickle Cells Not Reportable 08/18/21 04:20 Target Cells Not Reportable 08/18/21 04:20 Tear Drop Cells Not Reportable 08/18/21 04:20 Ovalocytes Not Reportable 08/18/21 04:20 Stomatocytes Few 08/15/21 04:01 Helmet Cells Not Reportable 08/18/21 04:20 [place] Bodies Not Reportable 08/18/21 04:20 [place] Rings Not Reportable 08/18/21 04:20 [place] Cells Not Reportable 08/18/21 04:20 Bite Cells Not Reportable 08/18/21 04:20 Crenated Cell Not Reportable 08/18/21 04:20 Elliptocytes Not Reportable 08/18/21 04:20 Acanthocytes (Spur) Not Reportable 08/18/21 04:20 Rouleaux Not Reportable 08/18/21 04:20 Hemoglobin C Crystals Not Reportable 08/18/21 04:20 Schistocytes Not Reportable 08/18/21 04:20 Malaria parasites Not Reportable 08/18/21 04:20 Percent Retic 9.38 % (0.78-2.58) H 08/18/21 04:20 Yassine Bodies Not Reportable 08/18/21 04:20 Hem Pathologist Commnt No 08/18/21 04:20 PT 17.8 Sec. (12.2-14.9) H 08/17/21 04:47 INR 1.31 (0.87-1.13) H 08/17/21 04:47 APTT 27.6 Sec. (24.2-36.6) 08/17/21 04:47 Fibrinogen 446 mg/dl (211-480) 08/18/21 04:20 D-Dimer > 234 ng/mlDDU (0-234) H 08/15/21 04:01 Sodium 137 mmol/L (137-145) 08/18/21 04:20 Potassium 4.7 mmol/L (3.6-5.0) D 08/18/21 04:20 Chloride 105.2 mmol/L (98-107) 08/18/21 04:20 Carbon Dioxide 19 mmol/L (22-30) L 08/18/21 04:20 Anion Gap 18 mmol/L 08/18/21 04:20 BUN 26 mg/dL (9-20) H 08/18/21 04:20 Creatinine 0.7 mg/dL (0.8-1.3) L 08/18/21 04:20 Estimated GFR > 60 ml/min 08/18/21 04:20 BUN/Creatinine Ratio 37 % 08/18/21 04:20 Glucose 141 mg/dL (75-100) H 08/18/21 04:20 POC Glucose 210 mg/dL (70-105) H 08/18/21 12:11 Lactic Acid 3.60 mmol/L (0.7-2.0) H* 08/18/21 12:49 Calcium 8.1 mg/dL (8.4-10.2) L 08/18/21 04:20 Phosphorus 3.00 mg/dL (2.5-4.5) 08/17/21 04:47 Magnesium 3.10 mg/dL (1.7-2.3) H 08/17/21 04:47 Total Bilirubin 7.50 mg/dL (0.1-1.2) H 08/18/21 04:20 Direct Bilirubin 2.3 mg/dL (0-0.2) H 08/18/21 04:20 Indirect Bilirubin 5.2 mg/dL 08/18/21 04:20 AST 216 units/L (5-40) H 08/18/21 04:20 ALT 685 units/L (7-56) H 08/18/21 04:20 Alkaline Phosphatase 85 units/L (35-129) 08/18/21 04:20 Lactate Dehydrogenase 3057 units/L (91-180) H 08/18/21 04:20 Troponin T 0.016 ng/mL (0.00-0.029) 08/15/21 06:00 Total Protein 7.8 g/dL (6.3-8.2) 08/18/21 04:20 Albumin 3.3 g/dL (3.9-5) L 08/18/21 04:20 Albumin/Globulin Ratio 0.7 % 08/18/21 04:20 Vitamin B12 > 2000 pg/mL (211-911) H 08/15/21 22:34 Folate 17.11 ng/mL (7.3-26.0) 08/15/21 22:34 Urine Opiates Screen Negative 08/15/21 12:30 Urine Methadone Screen Negative 08/15/21 12:30 Acetaminophen 5.0 ug/mL (10.0-30.0) L 08/15/21 07:00 Ur Barbiturates Screen Negative 08/15/21 12:30 Ur Phencyclidine Scrn Negative 08/15/21 12:30 Ur Amphetamines Screen Negative 08/15/21 12:30 U Benzodiazepines Scrn Negative 08/15/21 12:30 Urine Cocaine Screen Negative 08/15/21 12:30 U Marijuana (THC) Screen Negative 08/15/21 12:30 Drugs of Abuse Note Disclamer 08/15/21 12:30 Plasma/Serum Alcohol < 0.01 % (0-0.07) 08/15/21 22:34 Coronavirus (PCR) Negative (Negative) 08/15/21 Unknown Hepatitis A IgM Ab Non-reactive (NonReactive) 08/15/21 06:44 Hep Bs Antigen Non-reactive (Negative) 08/15/21 06:44 Hep B Core IgM Ab Non-reactive (NonReactive) 08/15/21 06:44 Hepatitis C Antibody Non-reactive (NonReactive) 08/15/21 06:44 HIV 1&2 Antibody Rapid Non react (Non React) 08/15/21 22:34 HIV P24 Antigen Non react (Non React) 08/15/21 22:34 Blood Type O POSITIVE 08/18/21 13:06 Antibody Screen Negative 08/18/21 13:06 PARRISH Antibody Screen Negative 08/15/21 05:37 Direct Antiglob Test Positive 08/17/21 12:00 GIO (IgG-AHG) Positive 08/17/21 12:00 GIO, Poly Interpret Positive 08/17/21 12:00 GIO, Anti-C3 Negative 08/17/21 12:00 Crossmatch See Detail 08/18/21 13:06 Objective - Constitutional Vitals: Last Vital Signs Temp 98.2 F 08/18/21 15:34 Pulse 93 H 08/18/21 15:34 Resp 28 H 08/18/21 15:34 BP 119/69 08/18/21 15:34 Pulse Ox 100 08/18/21 15:34 - Labs Lab Results: Laboratory Results - last 24 hr 08/15/21 08/17/21 08/17/21 05:37 04:47 17:15 WBC RBC Hgb Hct MCV MCH MCHC RDW Plt Count Add Manual Diff Total Counted 100 Seg Neuts % (Manual) 62.0 Band Neutrophils % 0 Lymphocytes % (Manual) 25.0 Reactive Lymphs % (Man) 0 Monocytes % (Manual) 8.0 H Eosinophils % (Manual) 0 Basophils % (Manual) 0 Metamyelocytes % 3.0 Myelocytes % 2.0 Promyelocytes % 0 Blast Cells % 0 Nucleated RBC % 136.0 H Seg Neutrophils # Man 15.1 H Band Neutrophils # 0.0 Lymphocytes # (Manual) 6.1 H Abs React Lymphs (Man) 0.0 Monocytes # (Manual) 1.9 H Eosinophils # (Manual) 0.0 Basophils # (Manual) 0.0 Metamyelocytes # 0.7 Myelocytes # 0.5 Promyelocytes # 0.0 Blast Cells # 0.0 WBC Morphology Not Reportable Hypersegmented Neuts Not Reportable Hyposegmented Neuts Not Reportable Hypogranular Neuts Not Reportable Smudge Cells Not Reportable Toxic Granulation Not Reportable Toxic Vacuolation Not Reportable Dohle Bodies Not Reportable Pelger-Huet Anomaly Not Reportable Elise Rods Not Reportable Platelet Estimate Appears normal Clumped Platelets Not Reportable Plt Clumps, EDTA Not Reportable Large Platelets Few Giant Platelets Not Reportable Platelet Satelliting Not Reportable Plt Morphology Comment Not Reportable RBC Morphology Not Reportable Dimorphic RBCs Not Reportable Polychromasia 1+ Hypochromasia Not Reportable Poikilocytosis Not Reportable Anisocytosis 1+ Microcytosis Not Reportable Macrocytosis Not Reportable Spherocytes Not Reportable Pappenheimer Bodies Not Reportable Sickle Cells Not Reportable Target Cells Not Reportable Tear Drop Cells Not Reportable Ovalocytes Not Reportable Helmet Cells Not Reportable [place] Bodies Not Reportable [place] Rings Not Reportable [place] Cells Not Reportable Bite Cells Not Reportable Crenated Cell Not Reportable Elliptocytes Not Reportable Acanthocytes (Spur) Not Reportable Rouleaux Not Reportable Hemoglobin C Crystals Not Reportable Schistocytes Not Reportable Malaria parasites Not Reportable Percent Retic Yassine Bodies Not Reportable Hem Pathologist Commnt No Fibrinogen Sodium Potassium Chloride Carbon Dioxide Anion Gap BUN Creatinine Estimated GFR BUN/Creatinine Ratio Glucose POC Glucose 275 H Lactic Acid Calcium Total Bilirubin Direct Bilirubin Indirect Bilirubin AST ALT Alkaline Phosphatase Lactate Dehydrogenase Total Protein Albumin Albumin/Globulin Ratio Blood Type Antibody Screen Crossmatch See Detail 08/17/21 08/18/21 08/18/21 23:22 04:20 04:20 WBC 23.6 H RBC 2.21 L Hgb 7.1 L Hct 22.0 L MCV 100 H MCH 32 MCHC 32 RDW 19.3 H Plt Count 44 L Add Manual Diff Complete Total Counted 100 Seg Neuts % (Manual) 74.0 H Band Neutrophils % 2.0 Lymphocytes % (Manual) 17.0 Reactive Lymphs % (Man) 0 Monocytes % (Manual) 7.0 Eosinophils % (Manual) 0 Basophils % (Manual) 0 Metamyelocytes % 0 Myelocytes % 0 Promyelocytes % 0 Blast Cells % 0 Nucleated RBC % 237.0 H Seg Neutrophils # Man 17.5 H Band Neutrophils # 0.5 Lymphocytes # (Manual) 4.0 Abs React Lymphs (Man) 0.0 Monocytes # (Manual) 1.7 H Eosinophils # (Manual) 0.0 Basophils # (Manual) 0.0 Metamyelocytes # 0.0 Myelocytes # 0.0 Promyelocytes # 0.0 Blast Cells # 0.0 WBC Morphology Not Reportable Hypersegmented Neuts Not Reportable Hyposegmented Neuts Not Reportable Hypogranular Neuts Not Reportable Smudge Cells Not Reportable Toxic Granulation Not Reportable Toxic Vacuolation Not Reportable Dohle Bodies Not Reportable Pelger-Huet Anomaly Not Reportable Elise Rods Not Reportable Platelet Estimate Appears decreased Clumped Platelets Not Reportable Plt Clumps, EDTA Not Reportable Large Platelets Not Reportable Giant Platelets Not Reportable Platelet Satelliting Not Reportable Plt Morphology Comment Not Reportable RBC Morphology Not Reportable Dimorphic RBCs Not Reportable Polychromasia 1+ Hypochromasia Not Reportable Poikilocytosis Not Reportable Anisocytosis 1+ Microcytosis Not Reportable Macrocytosis Few Spherocytes Not Reportable Pappenheimer Bodies Not Reportable Sickle Cells Not Reportable Target Cells Not Reportable Tear Drop Cells Not Reportable Ovalocytes Not Reportable Helmet Cells Not Reportable [place] Bodies Not Reportable [place] Rings Not Reportable [place] Cells Not Reportable Bite Cells Not Reportable Crenated Cell Not Reportable Elliptocytes Not Reportable Acanthocytes (Spur) Not Reportable Rouleaux Not Reportable Hemoglobin C Crystals Not Reportable Schistocytes Not Reportable Malaria parasites Not Reportable Percent Retic 9.38 H Yassine Bodies Not Reportable Hem Pathologist Commnt No Fibrinogen Sodium 137 Potassium 4.7 D Chloride 105.2 Carbon Dioxide 19 L Anion Gap 18 BUN 26 H Creatinine 0.7 L Estimated GFR > 60 BUN/Creatinine Ratio 37 Glucose 141 H POC Glucose 214 H Lactic Acid Calcium 8.1 L Total Bilirubin 7.50 H Direct Bilirubin 2.3 H Indirect Bilirubin 5.2 AST 216 H ALT 685 H Alkaline Phosphatase 85 Lactate Dehydrogenase Total Protein 7.8 Albumin 3.3 L Albumin/Globulin Ratio 0.7 Blood Type Antibody Screen Crossmatch 08/18/21 08/18/21 08/18/21 04:20 04:20 05:54 WBC RBC Hgb Hct MCV MCH MCHC RDW Plt Count Add Manual Diff Total Counted Seg Neuts % (Manual) Band Neutrophils % Lymphocytes % (Manual) Reactive Lymphs % (Man) Monocytes % (Manual) Eosinophils % (Manual) Basophils % (Manual) Metamyelocytes % Myelocytes % Promyelocytes % Blast Cells % Nucleated RBC % Seg Neutrophils # Man Band Neutrophils # Lymphocytes # (Manual) Abs React Lymphs (Man) Monocytes # (Manual) Eosinophils # (Manual) Basophils # (Manual) Metamyelocytes # Myelocytes # Promyelocytes # Blast Cells # WBC Morphology Hypersegmented Neuts Hyposegmented Neuts Hypogranular Neuts Smudge Cells Toxic Granulation Toxic Vacuolation Dohle Bodies Pelger-Huet Anomaly Elise Rods Platelet Estimate Clumped Platelets Plt Clumps, EDTA Large Platelets Giant Platelets Platelet Satelliting Plt Morphology Comment RBC Morphology Dimorphic RBCs Polychromasia Hypochromasia Poikilocytosis Anisocytosis Microcytosis Macrocytosis Spherocytes Pappenheimer Bodies Sickle Cells Target Cells Tear Drop Cells Ovalocytes Helmet Cells [place] Bodies [place] Cells Bite Cells Crenated Cell Elliptocytes Acanthocytes (Spur) Rouleaux Hemoglobin C Crystals Schistocytes Malaria parasites Percent Retic Yassine Bodies Hem Pathologist Commnt Fibrinogen 446 Sodium Potassium Chloride Carbon Dioxide Anion Gap BUN Creatinine Estimated GFR BUN/Creatinine Ratio Glucose POC Glucose 158 H Lactic Acid Calcium Total Bilirubin Direct Bilirubin Indirect Bilirubin AST ALT Alkaline Phosphatase Lactate Dehydrogenase 3057 H Total Protein Albumin Albumin/Globulin Ratio Blood Type Antibody Screen Crossmatch 08/18/21 08/18/21 08/18/21 12:11 12:49 13:06 WBC RBC Hgb Hct MCV MCH MCHC RDW Plt Count Add Manual Diff Total Counted Seg Neuts % (Manual) Band Neutrophils % Lymphocytes % (Manual) Reactive Lymphs % (Man) Monocytes % (Manual) Eosinophils % (Manual) Basophils % (Manual) Metamyelocytes % Myelocytes % Promyelocytes % Blast Cells % Nucleated RBC % Seg Neutrophils # Man Band Neutrophils # Lymphocytes # (Manual) Abs React Lymphs (Man) Monocytes # (Manual) Eosinophils # (Manual) Basophils # (Manual) Metamyelocytes # Myelocytes # Promyelocytes # Blast Cells # WBC Morphology Hypersegmented Neuts Hyposegmented Neuts Hypogranular Neuts Smudge Cells Toxic Granulation Toxic Vacuolation Dohle Bodies Pelger-Huet Anomaly Elise Rods Platelet Estimate Clumped Platelets Plt Clumps, EDTA Large Platelets Giant Platelets Platelet Satelliting Plt Morphology Comment RBC Morphology Dimorphic RBCs Polychromasia Hypochromasia Poikilocytosis Anisocytosis Microcytosis Macrocytosis Spherocytes Pappenheimer Bodies Sickle Cells Target Cells Tear Drop Cells Ovalocytes Helmet Cells [place] Bodies [place] Rings [place] Cells Bite Cells Crenated Cell Elliptocytes Acanthocytes (Spur) Rouleaux Hemoglobin C Crystals Schistocytes [place] parasites Percent Retic Yassine Bodies Hem Pathologist Commnt Fibrinogen Sodium Potassium Chloride Carbon Dioxide Anion Gap BUN Creatinine Estimated GFR BUN/Creatinine Ratio Glucose POC Glucose 210 H Lactic Acid 3.60 H* Calcium Total Bilirubin Direct Bilirubin Indirect Bilirubin AST ALT Alkaline Phosphatase Lactate Dehydrogenase Total Protein Albumin Albumin/Globulin Ratio Blood Type O POSITIVE Antibody Screen Negative Crossmatch See Detail Medications & Allergies - Medications Allergies/Adverse Reactions: Allergies atenolol Allergy (Verified 08/15/21 01:34) Unknown quetiapine fumarate [From Seroquel] Adverse Reaction (Verified 08/15/21 01:33) Unknown Home Medications: Home Medications Medication Instructions Recorded Confirmed Last Taken Type Esomeprazole Magnesium [Nexium 20 mg PO DAILY 08/15/21 08/15/21 Unknown History 24Hr] Sulindac 200 mg PO BID 08/15/21 08/15/21 08/14/21 History predniSONE [Deltasone] 5 mg PO TID 08/15/21 08/15/21 08/14/21 History 5 mg Active Medications: Generic Name Dose Route Start Last Admin Trade Name Liangq PRN Reason Stop Dose Admin Albuterol 2.5 mg 08/17/21 09:42 08/17/21 10:06 Albuterol 2.5 Mg/3 Ml Nebu IH 2.5 mg Q4HRT PRN Administration Shortness Of Breath Sodium Chloride 500 mls @ 5 mls/hr 08/16/21 04:39 08/16/21 19:37 Nacl 0.9% 500 Ml IV 08/20/21 08:38 Not Given ONCE ONE Sodium Chloride 500 mls @ 0 mls/hr 08/18/21 14:00 Nacl 0.9% 500 Ml IV 08/18/21 23:59 ONCE ROSINA As Directed Magnesium Hydroxide 30 ml 08/15/21 06:09 Magnesium Hydroxide (Mom) Oral Liqd Udc PO Q4H PRN Constipation Methylprednisolone Sodium Succinate 125 mg 08/17/21 14:00 08/18/21 09:28 Methylprednisolone Sod Succinate 125 Mg/2 Ml Inj IV 125 mg Q12HR ROSINA Administration Morphine Sulfate 2 mg 08/15/21 06:09 08/17/21 05:34 Morphine 2 Mg/1 Ml Inj IV 2 mg Q4H PRN Administration Pain, Moderate (4-6) Morphine Sulfate 4 mg 08/15/21 06:09 Morphine 4 Mg/1 Ml Inj IV Q4H PRN Pain , Severe (7-10) Ondansetron HCl 4 mg 08/15/21 06:09 Ondansetron 4 Mg/2 Ml Inj IV Q8H PRN Nausea And Vomiting Pantoprazole Sodium 40 mg 08/18/21 07:30 08/18/21 09:28 Pantoprazole 40 Mg Tab PO 40 mg QDAC ROSINA Administration Sodium Chloride 10 ml 08/15/21 10:00 08/18/21 09:28 Sodium Chloride 0.9% 10 Ml Flush Syringe IV 10 ml BID ROSINA Administration Sodium Chloride 10 ml 08/15/21 06:09 Sodium Chloride 0.9% 10 Ml Flush Syringe IV PRN PRN LINE FLUSH
--- NOTE | 2021-08-18 17:44 | Gastroenterology Progress Note ---
Assessment and Plan 1. acute liver injury - labs improving, no overt HE, suspect ischemic hepatitis given degree of elevation and quick improvement. cont trend liver enzymes. noted pt also dx with AIHA and on solumedrol, heme following Subjective Date of service: 08/18/21 Principal diagnosis: Ac. Liver Injury; Anemia; Thrombocytopenia; AHRF; Pulm Edema; Met. Acidosis Interval history: pt sitting in chair at bedside, no events overnight Objective - Constitutional Vitals: Temp Pulse Resp BP Pulse Ox 98.2 F 74 25 H 119/69 97 08/18/21 15:34 08/18/21 16:00 08/18/21 16:00 08/18/21 16:00 08/18/21 16:00 General appearance: no acute distress - Respiratory Respiratory effort: normal Respiratory: bilateral: CTA - Cardiovascular Rhythm: regular Heart Sounds: Present: S1 & S2 - Gastrointestinal General gastrointestinal: Present: soft, non-tender - Labs CBC & Chem 7: 08/18/21 04:20 08/18/21 04:20 Labs: Laboratory Results - last 24 hr 08/15/21 08/17/21 08/17/21 05:37 17:15 23:22 WBC RBC Hgb Hct MCV MCH MCHC RDW Plt Count Add Manual Diff Total Counted Seg Neuts % (Manual) Band Neutrophils % Lymphocytes % (Manual) Reactive Lymphs % (Man) Monocytes % (Manual) Eosinophils % (Manual) Basophils % (Manual) Metamyelocytes % Myelocytes % Promyelocytes % Blast Cells % Nucleated RBC % Seg Neutrophils # Man Band Neutrophils # Lymphocytes # (Manual) Abs React Lymphs (Man) Monocytes # (Manual) Eosinophils # (Manual) Basophils # (Manual) Metamyelocytes # Myelocytes # Promyelocytes # Blast Cells # WBC Morphology Hypersegmented Neuts Hyposegmented Neuts Hypogranular Neuts Smudge Cells Toxic Granulation Toxic Vacuolation Dohle Bodies Pelger-Huet Anomaly Elise Rods Platelet Estimate Clumped Platelets Plt Clumps, EDTA Large Platelets Giant Platelets Platelet Satelliting Plt Morphology Comment RBC Morphology Dimorphic RBCs Polychromasia Hypochromasia Poikilocytosis Anisocytosis Microcytosis Macrocytosis Spherocytes Pappenheimer Bodies Sickle Cells Target Cells Tear Drop Cells Ovalocytes Helmet Cells [place] Bodies [place] Rings [place] Cells Bite Cells Crenated Cell Elliptocytes Acanthocytes (Spur) Rouleaux Hemoglobin C Crystals Schistocytes Malaria parasites Percent Retic Yassine Bodies Hem Pathologist Commnt Fibrinogen Sodium Potassium Chloride Carbon Dioxide Anion Gap BUN Creatinine Estimated GFR BUN/Creatinine Ratio Glucose POC Glucose 275 H 214 H Lactic Acid Calcium Total Bilirubin Direct Bilirubin Indirect Bilirubin AST ALT Alkaline Phosphatase Lactate Dehydrogenase Total Protein Albumin Albumin/Globulin Ratio Procalcitonin Blood Type Antibody Screen Crossmatch See Detail 08/18/21 08/18/21 08/18/21 04:20 04:20 04:20 WBC 23.6 H RBC 2.21 L Hgb 7.1 L Hct 22.0 L MCV 100 H MCH 32 MCHC 32 RDW 19.3 H Plt Count 44 L Add Manual Diff Complete Total Counted 100 Seg Neuts % (Manual) 74.0 H Band Neutrophils % 2.0 Lymphocytes % (Manual) 17.0 Reactive Lymphs % (Man) 0 Monocytes % (Manual) 7.0 Eosinophils % (Manual) 0 Basophils % (Manual) 0 Metamyelocytes % 0 Myelocytes % 0 Promyelocytes % 0 Blast Cells % 0 Nucleated RBC % 237.0 H Seg Neutrophils # Man 17.5 H Band Neutrophils # 0.5 Lymphocytes # (Manual) 4.0 Abs React Lymphs (Man) 0.0 Monocytes # (Manual) 1.7 H Eosinophils # (Manual) 0.0 Basophils # (Manual) 0.0 Metamyelocytes # 0.0 Myelocytes # 0.0 Promyelocytes # 0.0 Blast Cells # 0.0 WBC Morphology Not Reportable Hypersegmented Neuts Not Reportable Hyposegmented Neuts Not Reportable Hypogranular Neuts Not Reportable Smudge Cells Not Reportable Toxic Granulation Not Reportable Toxic Vacuolation Not Reportable Dohle Bodies Not Reportable Pelger-Huet Anomaly Not Reportable Elise Rods Not Reportable Platelet Estimate Appears decreased Clumped Platelets Not Reportable Plt Clumps, EDTA Not Reportable Large Platelets Not Reportable Giant Platelets Not Reportable Platelet Satelliting Not Reportable Plt Morphology Comment Not Reportable RBC Morphology Not Reportable Dimorphic RBCs Not Reportable Polychromasia 1+ Hypochromasia Not Reportable Poikilocytosis Not Reportable Anisocytosis 1+ Microcytosis Not Reportable Macrocytosis Few Spherocytes Not Reportable Pappenheimer Bodies Not Reportable Sickle Cells Not Reportable Target Cells Not Reportable Tear Drop Cells Not Reportable Ovalocytes Not Reportable Helmet Cells Not Reportable [place] Bodies Not Reportable [place] Rings Not Reportable [place] Cells Not Reportable Bite Cells Not Reportable Crenated Cell Not Reportable Elliptocytes Not Reportable Acanthocytes (Spur) Not Reportable Rouleaux Not Reportable Hemoglobin C Crystals Not Reportable Schistocytes Not Reportable Malaria parasites Not Reportable Percent Retic 9.38 H Yassine Bodies Not Reportable Hem Pathologist Commnt No Fibrinogen 446 Sodium 137 Potassium 4.7 D Chloride 105.2 Carbon Dioxide 19 L Anion Gap 18 BUN 26 H Creatinine 0.7 L Estimated GFR > 60 BUN/Creatinine Ratio 37 Glucose 141 H POC Glucose Lactic Acid Calcium 8.1 L Total Bilirubin 7.50 H Direct Bilirubin 2.3 H Indirect Bilirubin 5.2 AST 216 H ALT 685 H Alkaline Phosphatase 85 Lactate Dehydrogenase Total Protein 7.8 Albumin 3.3 L Albumin/Globulin Ratio 0.7 Procalcitonin Blood Type Antibody Screen Crossmatch 08/18/21 08/18/21 08/18/21 04:20 05:54 12:11 WBC RBC Hgb Hct MCV MCH MCHC RDW Plt Count Add Manual Diff Total Counted Seg Neuts % (Manual) Band Neutrophils % Lymphocytes % (Manual) Reactive Lymphs % (Man) Monocytes % (Manual) Eosinophils % (Manual) Basophils % (Manual) Metamyelocytes % Myelocytes % Promyelocytes % Blast Cells % Nucleated RBC % Seg Neutrophils # Man Band Neutrophils # Lymphocytes # (Manual) Abs React Lymphs (Man) Monocytes # (Manual) Eosinophils # (Manual) Basophils # (Manual) Metamyelocytes # Myelocytes # Promyelocytes # Blast Cells # WBC Morphology Hypersegmented Neuts Hyposegmented Neuts Hypogranular Neuts Smudge Cells Toxic Granulation Toxic Vacuolation Dohle Bodies Pelger-Huet Anomaly Elise Rods Platelet Estimate Clumped Platelets Plt Clumps, EDTA Large Platelets Giant Platelets Platelet Satelliting Plt Morphology Comment RBC Morphology Dimorphic RBCs Polychromasia Hypochromasia Poikilocytosis Anisocytosis Microcytosis Macrocytosis Spherocytes Pappenheimer Bodies Sickle Cells Target Cells Tear Drop Cells Ovalocytes Helmet Cells [place] Bodies [place] Cells Bite Cells Crenated Cell Elliptocytes Acanthocytes (Spur) Rouleaux Hemoglobin C Crystals Schistocytes Malaria parasites Percent Retic Yassine Bodies Hem Pathologist Commnt Fibrinogen Sodium Potassium Chloride Carbon Dioxide Anion Gap BUN Creatinine Estimated GFR BUN/Creatinine Ratio Glucose POC Glucose 158 H 210 H Lactic Acid Calcium Total Bilirubin Direct Bilirubin Indirect Bilirubin AST ALT Alkaline Phosphatase Lactate Dehydrogenase 3057 H Total Protein Albumin Albumin/Globulin Ratio Procalcitonin Blood Type Antibody Screen Crossmatch 08/18/21 08/18/21 08/18/21 12:49 12:49 13:06 WBC RBC Hgb Hct MCV MCH MCHC RDW Plt Count Add Manual Diff Total Counted Seg Neuts % (Manual) Band Neutrophils % Lymphocytes % (Manual) Reactive Lymphs % (Man) Monocytes % (Manual) Eosinophils % (Manual) Basophils % (Manual) Metamyelocytes % Myelocytes % Promyelocytes % Blast Cells % Nucleated RBC % Seg Neutrophils # Man Band Neutrophils # Lymphocytes # (Manual) Abs React Lymphs (Man) Monocytes # (Manual) Eosinophils # (Manual) Basophils # (Manual) Metamyelocytes # Myelocytes # Promyelocytes # Blast Cells # WBC Morphology Hypersegmented Neuts Hyposegmented Neuts Hypogranular Neuts Smudge Cells Toxic Granulation Toxic Vacuolation Dohle Bodies Pelger-Huet Anomaly Elise Rods Platelet Estimate Clumped Platelets Plt Clumps, EDTA Large Platelets Giant Platelets Platelet Satelliting Plt Morphology Comment RBC Morphology Dimorphic RBCs Polychromasia Hypochromasia Poikilocytosis Anisocytosis Microcytosis Macrocytosis Spherocytes Pappenheimer Bodies Sickle Cells Target Cells Tear Drop Cells Ovalocytes Helmet Cells [place] Bodies [place] Rings [place] Cells Bite Cells Crenated Cell Elliptocytes Acanthocytes (Spur) Rouleaux Hemoglobin C Crystals Schistocytes Malaria parasites Percent Retic Yassine Bodies Hem Pathologist Commnt Fibrinogen Sodium Potassium Chloride Carbon Dioxide Anion Gap BUN Creatinine Estimated GFR BUN/Creatinine Ratio Glucose POC Glucose Lactic Acid 3.60 H* Calcium Total Bilirubin Direct Bilirubin Indirect Bilirubin AST ALT Alkaline Phosphatase Lactate Dehydrogenase Total Protein Albumin Albumin/Globulin Ratio Procalcitonin 1.15 Blood Type O POSITIVE Antibody Screen Negative Crossmatch See Detail 08/18/21 17:03 WBC RBC Hgb Hct MCV MCH MCHC RDW Plt Count Add Manual Diff Total Counted Seg Neuts % (Manual) Band Neutrophils % Lymphocytes % (Manual) Reactive Lymphs % (Man) Monocytes % (Manual) Eosinophils % (Manual) Basophils % (Manual) Metamyelocytes % Myelocytes % Promyelocytes % Blast Cells % Nucleated RBC % Seg Neutrophils # Man Band Neutrophils # Lymphocytes # (Manual) Abs React Lymphs (Man) Monocytes # (Manual) Eosinophils # (Manual) Basophils # (Manual) Metamyelocytes # Myelocytes # Promyelocytes # Blast Cells # WBC Morphology Hypersegmented Neuts Hyposegmented Neuts Hypogranular Neuts Smudge Cells Toxic Granulation Toxic Vacuolation Dohle Bodies Pelger-Huet Anomaly Elise Rods Platelet Estimate Clumped Platelets Plt Clumps, EDTA Large Platelets Giant Platelets Platelet Satelliting Plt Morphology Comment RBC Morphology Dimorphic RBCs Polychromasia Hypochromasia Poikilocytosis Anisocytosis Microcytosis Macrocytosis Spherocytes Pappenheimer Bodies Sickle Cells Target Cells Tear Drop Cells Ovalocytes Helmet Cells [place] Bodies [place] Rings [place] Cells Bite Cells Crenated Cell Elliptocytes Acanthocytes (Spur) Rouleaux Hemoglobin C Crystals Schistocytes Malaria parasites Percent Retic Yassine Bodies Hem Pathologist Commnt Fibrinogen Sodium Potassium Chloride Carbon Dioxide Anion Gap BUN Creatinine Estimated GFR BUN/Creatinine Ratio Glucose POC Glucose 200 H Lactic Acid Calcium Total Bilirubin Direct Bilirubin Indirect Bilirubin AST ALT Alkaline Phosphatase Lactate Dehydrogenase Total Protein Albumin Albumin/Globulin Ratio Procalcitonin Blood Type Antibody Screen Crossmatch
--- NOTE | 2021-08-18 17:55 | Progress Note ---
Assessment and Plan Assessment and plan: This is a 55-year-old male with HTN, RA, GERD, depression, hernia admitted with severe anemia, leukocytosis and acute liver injury Neuro: NAD, h/o depression -Avoid delirium -Reorientation as needed -Maintain sleep-wake cycle -No antidepressants noted on home medication profile -As needed analgesia Cardiac: h/o HTN -Cardiology consulted, appreciate recommendations -Blood pressure monitoring per protocol Respiratory: Acute hypoxic respiratory failure -Supplemental oxygen as needed -SPO2 monitoring -Pulmonary hygiene GI: Acute liver injury, h/o GERD -Presented with transaminitis and jaundice -GI consulted, appreciate recommendations -Per GI: suspect ischemic hepatitis given degree of elevation and quick improvement -CCM consulted, appreciate recommendations -CT abdomen without any acute abnormality -Hepatic panel negative -24 hours -840 mL -Protonix -S/p acetylcysteine -Trend LFTs -cardiac diet : Hypokalemia -Strict intake and output -Renally dose medications -Avoid nephrotoxic medications -Replete potassium -Trend BMP ID: Leukemoid reaction, lactic acidosis -Infectious disease consulted, appreciate recommendation -COVID-19 PCR negative -f/u blood culture -Monitor WBC and temperature curve -CT chest revealed no PE, no evidence of pneumonia. -CT abdomen and pelvis revealed no acute intra-abdominal or intrapelvic pathology. -monitor off abx Endo: NAD -Avoid hypoglycemia Heme: Severe microcytic anemia, thrombocytopenia, left lower extremity peroneal DVT, autoimmune hemolytic anemia, leukocytosis -Presented with a hemoglobin of 3.5 -Vitamin B12 high, folate normal -Otology/oncology consulted -Positive Briseida test -Solu-Medrol 1 mg/kg twice daily -Trend CBC -S/p 6 units PRBC -Transfuse hemoglobin less than 7 -hct < 23->one unit prbc given today -Bone marrow biopsy -Monitor for signs of bleeding -SCDs to BLE while in bed -Hemoccult positive -Avoid chemical anticoagulation in setting of severe anemia -CT chest revealed no PE, no evidence of pneumonia. -CT abdomen and pelvis revealed no acute intra-abdominal or intrapelvic pathology. -Per vascular surgery: JUAN/SCD with weekly dopplar The high probability of a clinically significant, sudden or life threatening deterioration of the [multiple] system(s) required my full and direct attention, intervention and personal management. The aggregate critical care time was [60] minutes. This time is in addition to time spent performing reported procedures but includes the following: [x] Data Review and interpretation [x] Patient assessment and monitoring of vital signs [x] Documentation [x] Medication orders and management Disposition Plan: icu Total Time Spent with Patient (Minutes): 60 History Interval history: This is a 55-year-old male with HTN, rheumatoid arthritis, GERD, depression, and hernia who presented to emergency department on 08/15 with complaints of shortness of breath and chest pain with symptoms ongoing for the past 3 weeks, increasing shortness of breath with exertion and pleuritic chest pain, occasional distention of the abdomen, jaundice and dark urine. Patient stated that he had a fall on his forehead a few days prior to admission feeling weak and dizzy however did not lose consciousness. Upon arrival to the emergency department patient was tachypneic and tachycardic oxygen saturation of 96% on room air. Work-up in the emergency department revealed leukocytosis, severe an emia with a H/H of 3.5/11.3, thrombocytopenia, elevated INR and transaminitis. CXR showed borderline cardiomegaly with possible interstitial pulmonary edema. Patient was admitted to the hospitalist service with severe anemia, leukocytosis and acute liver injury with consults to GI, ID and pulmonology. Hospital Course to Date: 08/15: Patient is on HHFL 40%, 25L. SPO2 above 95. With severe anemia, no s/s of any acute bleeding, administered 2units of PRBCs for now, serial H&H ordered. HEME/ONC consult pending. Worsening lactic acid noted most likely due to acute liver disease, Acetylcysteine gtt intiated per GI recommendation. Will continue to monitor LFTs and coags. Orders placed for UDS and alcohol leve;. Will also check Vitamin B12, folate, and HIV. Patient remains afebrile and hemodynamically stable. per ID leukocytosi is unlikely related to an infectious process and IV abx were discontinued. 08/16: Patient is doing much better this am. Stable on 3L NC this am, no respiratory distress noted, this am CXR improved. LFTs with mild improvement this am, d/w GI give another dose off Acetylcysteine. S/p 4units of PRBCs repeat CBC pending, transfuse if hbg less than 7. Continue to trend LFTs, electrolytes repleted. 08/17: Patient started on Solu-Medrol as his Briseida test was positive, patient complaining of calf pain which is bilateral feet warm to touch and Doppler ultrasound was ordered which revealed acute peroneal DVT. Hypokalemia repleted. 08/24: We will transfuse 1 unit PRBC per heme-onc orders as hematocrit is less than 23. LFTs have much improved. will transfer to the floor. Dr. Bird placed orders re juan hose and scd. will perform weekly surveillance US Hospitalist Physical - Constitutional Vitals: Temp Pulse Resp BP Pulse Ox 98.2 F 74 25 H 119/69 97 08/18/21 15:34 08/18/21 16:00 08/18/21 16:00 08/18/21 16:00 08/18/21 16:00 General appearance: Present: no acute distress, well-nourished, obese - EENT Eyes: Present: PERRL, EOM intact ENT: hearing intact - Neck Neck: Present: normal ROM - Respiratory Respiratory effort: normal Respiratory: bilateral: CTA, diminished - Cardiovascular Rhythm: regular Heart Sounds: Present: S1 & S2. Absent: systolic murmur, diastolic murmur - Extremities Extremities: no ischemia, pulses intact, pulses symmetrical, No edema, normal temperature, normal color Peripheral Pulses: within normal limits - Abdominal General gastrointestinal: soft, non-tender, non-distended, normal bowel sounds - Integumentary Integumentary: Present: warm, dry - Psychiatric Psychiatric: cooperative - Neurologic Neurologic: CNII-XII intact, moves all extremities - Allied Health Allied health notes reviewed: nursing, RT HEART Score - HEART Score Troponin: Troponin T 0.016 ng/mL (0.00-0.029) 08/15/21 06:00 Results - Labs CBC & Chem 7: 08/18/21 04:20 08/18/21 04:20 Labs: Laboratory Last Values WBC 23.6 K/mm3 (4.5-11.0) H 08/18/21 04:20 RBC 2.21 M/mm3 (3.65-5.03) L 08/18/21 04:20 Hgb 7.1 gm/dl (11.8-15.2) L 08/18/21 04:20 Hct 22.0 % (35.5-45.6) L 08/18/21 04:20 MCV 100 fl (84-94) H 08/18/21 04:20 MCH 32 pg (28-32) 08/18/21 04:20 MCHC 32 % (32-34) 08/18/21 04:20 RDW 19.3 % (13.2-15.2) H 08/18/21 04:20 Plt Count 44 K/mm3 (140-440) L 08/18/21 04:20 Faulk % (Auto) 8.3 % (0.0-7.3) H 08/15/21 04:01 Eos % (Auto) 0.2 % (0.0-4.3) 08/15/21 04:01 Lymph # (Auto) Production Cost Estimator 08/15/21 04:01 Add Manual Diff Complete 08/18/21 04:20 Total Counted 100 08/18/21 04:20 Seg Neutrophils % 77.5 % (40.0-70.0) H 08/15/21 04:01 Seg Neuts % (Manual) 74.0 % (40.0-70.0) H 08/18/21 04:20 Band Neutrophils % 2.0 % 08/18/21 04:20 Lymphocytes % (Manual) 17.0 % (13.4-35.0) 08/18/21 04:20 Reactive Lymphs % (Man) 0 % 08/18/21 04:20 Monocytes % (Manual) 7.0 % (0.0-7.3) 08/18/21 04:20 Eosinophils % (Manual) 0 % (0.0-4.3) 08/18/21 04:20 Basophils % (Manual) 0 % (0.0-1.8) 08/18/21 04:20 Metamyelocytes % 0 % 08/18/21 04:20 Myelocytes % 0 % 08/18/21 04:20 Promyelocytes % 0 % 08/18/21 04:20 Blast Cells % 0 % 08/18/21 04:20 Nucleated RBC % 237.0 % (0.0-0.9) H 08/18/21 04:20 Seg Neutrophils # Man 17.5 K/mm3 (1.8-7.7) H 08/18/21 04:20 Band Neutrophils # 0.5 K/mm3 08/18/21 04:20 Lymphocytes # (Manual) 4.0 K/mm3 (1.2-5.4) 08/18/21 04:20 Abs React Lymphs (Man) 0.0 K/mm3 08/18/21 04:20 Monocytes # (Manual) 1.7 K/mm3 (0.0-0.8) H 08/18/21 04:20 Eosinophils # (Manual) 0.0 K/mm3 (0.0-0.4) 08/18/21 04:20 Basophils # (Manual) 0.0 K/mm3 (0.0-0.1) 08/18/21 04:20 Metamyelocytes # 0.0 K/mm3 08/18/21 04:20 Myelocytes # 0.0 K/mm3 08/18/21 04:20 Promyelocytes # 0.0 K/mm3 08/18/21 04:20 Blast Cells # 0.0 K/mm3 08/18/21 04:20 Pathologist Review 08/15/21 04:01 WBC Morphology Not Reportable 08/18/21 04:20 Hypersegmented Neuts Not Reportable 08/18/21 04:20 Hyposegmented Neuts Not Reportable 08/18/21 04:20 Hypogranular Neuts Not Reportable 08/18/21 04:20 Smudge Cells Not Reportable 08/18/21 04:20 Toxic Granulation Not Reportable 08/18/21 04:20 Toxic Vacuolation Not Reportable 08/18/21 04:20 Dohle Bodies Not Reportable 08/18/21 04:20 Pelger-Huet Anomaly Not Reportable 08/18/21 04:20 Elise Rods Not Reportable 08/18/21 04:20 Platelet Estimate Appears decreased 08/18/21 04:20 Clumped Platelets Not Reportable 08/18/21 04:20 Plt Clumps, EDTA Not Reportable 08/18/21 04:20 Large Platelets Not Reportable 08/18/21 04:20 Giant Platelets Not Reportable 08/18/21 04:20 Platelet Satelliting Not Reportable 08/18/21 04:20 Plt Morphology Comment Not Reportable 08/18/21 04:20 RBC Morphology Not Reportable 08/18/21 04:20 Dimorphic RBCs Not Reportable 08/18/21 04:20 Polychromasia 1+ 08/18/21 04:20 Hypochromasia Not Reportable 08/18/21 04:20 Poikilocytosis Not Reportable 08/18/21 04:20 Anisocytosis 1+ 08/18/21 04:20 Microcytosis Not Reportable 08/18/21 04:20 Macrocytosis Few 08/18/21 04:20 Spherocytes Not Reportable 08/18/21 04:20 Pappenheimer Bodies Not Reportable 08/18/21 04:20 Sickle Cells Not Reportable 08/18/21 04:20 Target Cells Not Reportable 08/18/21 04:20 Tear Drop Cells Not Reportable 08/18/21 04:20 Ovalocytes Not Reportable 08/18/21 04:20 Stomatocytes Few 08/15/21 04:01 Helmet Cells Not Reportable 08/18/21 04:20 [place] Bodies Not Reportable 08/18/21 04:20 [place] Rings Not Reportable 08/18/21 04:20 [place] Cells Not Reportable 08/18/21 04:20 Bite Cells Not Reportable 08/18/21 04:20 Crenated Cell Not Reportable 08/18/21 04:20 Elliptocytes Not Reportable 08/18/21 04:20 Acanthocytes (Spur) Not Reportable 08/18/21 04:20 Rouleaux Not Reportable 08/18/21 04:20 Hemoglobin C Crystals Not Reportable 08/18/21 04:20 Schistocytes Not Reportable 08/18/21 04:20 Malaria parasites Not Reportable 08/18/21 04:20 Percent Retic 9.38 % (0.78-2.58) H 08/18/21 04:20 Yassine Bodies Not Reportable 08/18/21 04:20 Hem Pathologist Commnt No 08/18/21 04:20 PT 17.8 Sec. (12.2-14.9) H 08/17/21 04:47 INR 1.31 (0.87-1.13) H 08/17/21 04:47 APTT 27.6 Sec. (24.2-36.6) 08/17/21 04:47 Fibrinogen 446 mg/dl (211-480) 08/18/21 04:20 D-Dimer > 234 ng/mlDDU (0-234) H 08/15/21 04:01 Sodium 137 mmol/L (137-145) 08/18/21 04:20 Potassium 4.7 mmol/L (3.6-5.0) D 08/18/21 04:20 Chloride 105.2 mmol/L (98-107) 08/18/21 04:20 Carbon Dioxide 19 mmol/L (22-30) L 08/18/21 04:20 Anion Gap 18 mmol/L 08/18/21 04:20 BUN 26 mg/dL (9-20) H 08/18/21 04:20 Creatinine 0.7 mg/dL (0.8-1.3) L 08/18/21 04:20 Estimated GFR > 60 ml/min 08/18/21 04:20 BUN/Creatinine Ratio 37 % 08/18/21 04:20 Glucose 141 mg/dL (75-100) H 08/18/21 04:20 POC Glucose 200 mg/dL (70-105) H 08/18/21 17:03 Lactic Acid 3.60 mmol/L (0.7-2.0) H* 08/18/21 12:49 Calcium 8.1 mg/dL (8.4-10.2) L 08/18/21 04:20 Phosphorus 3.00 mg/dL (2.5-4.5) 08/17/21 04:47 Magnesium 3.10 mg/dL (1.7-2.3) H 08/17/21 04:47 Total Bilirubin 7.50 mg/dL (0.1-1.2) H 08/18/21 04:20 Direct Bilirubin 2.3 mg/dL (0-0.2) H 08/18/21 04:20 Indirect Bilirubin 5.2 mg/dL 08/18/21 04:20 AST 216 units/L (5-40) H 08/18/21 04:20 ALT 685 units/L (7-56) H 08/18/21 04:20 Alkaline Phosphatase 85 units/L (35-129) 08/18/21 04:20 Lactate Dehydrogenase 3057 units/L (91-180) H 08/18/21 04:20 Troponin T 0.016 ng/mL (0.00-0.029) 08/15/21 06:00 Total Protein 7.8 g/dL (6.3-8.2) 08/18/21 04:20 Albumin 3.3 g/dL (3.9-5) L 08/18/21 04:20 Albumin/Globulin Ratio 0.7 % 08/18/21 04:20 Vitamin B12 > 2000 pg/mL (211-911) H 08/15/21 22:34 Folate 17.11 ng/mL (7.3-26.0) 08/15/21 22:34 Procalcitonin 1.15 ng/mL (<0.15) 08/18/21 12:49 Urine Opiates Screen Negative 08/15/21 12:30 Urine Methadone Screen Negative 08/15/21 12:30 Acetaminophen 5.0 ug/mL (10.0-30.0) L 08/15/21 07:00 Ur Barbiturates Screen Negative 08/15/21 12:30 Ur Phencyclidine Scrn Negative 08/15/21 12:30 Ur Amphetamines Screen Negative 08/15/21 12:30 U Benzodiazepines Scrn Negative 08/15/21 12:30 Urine Cocaine Screen Negative 08/15/21 12:30 U Marijuana (THC) Screen Negative 08/15/21 12:30 Drugs of Abuse Note Disclamer 08/15/21 12:30 Plasma/Serum Alcohol < 0.01 % (0-0.07) 08/15/21 22:34 Coronavirus (PCR) Negative (Negative) 08/15/21 Unknown Hepatitis A IgM Ab Non-reactive (NonReactive) 08/15/21 06:44 Hep Bs Antigen Non-reactive (Negative) 08/15/21 06:44 Hep B Core IgM Ab Non-reactive (NonReactive) 08/15/21 06:44 Hepatitis C Antibody Non-reactive (NonReactive) 08/15/21 06:44 HIV 1&2 Antibody Rapid Non react (Non React) 08/15/21 22:34 HIV P24 Antigen Non react (Non React) 08/15/21 22:34 Blood Type O POSITIVE 08/18/21 13:06 Antibody Screen Negative 08/18/21 13:06 PARRISH Antibody Screen Negative 08/15/21 05:37 Direct Antiglob Test Positive 08/17/21 12:00 GIO (IgG-AHG) Positive 08/17/21 12:00 GIO, Poly Interpret Positive 08/17/21 12:00 GIO, Anti-C3 Negative 08/17/21 12:00 Crossmatch See Detail 08/18/21 13:06 Microbiology: Microbiology 08/15/21 09:29 Peripheral/Venous Blood Culture - Preliminary NO GROWTH AFTER 72 HOURS 08/15/21 09:29 Peripheral/Venous Blood Culture - Preliminary NO GROWTH AFTER 72 HOURS Active Medications - Current Medications Current Medications: Generic Name Dose Route Start Last Admin Trade Name Freq PRN Reason Stop Dose Admin Albuterol 2.5 mg 08/17/21 09:42 08/17/21 10:06 Albuterol 2.5 Mg/3 Ml Nebu IH 2.5 mg Q4HRT PRN Administration Shortness Of Breath Sodium Chloride 500 mls @ 5 mls/hr 08/16/21 04:39 08/16/21 19:37 Nacl 0.9% 500 Ml IV 08/20/21 08:38 Not Given ONCE ONE Sodium Chloride 500 mls @ 0 mls/hr 08/18/21 14:00 Nacl 0.9% 500 Ml IV 08/18/21 23:59 ONCE ROSINA As Directed Magnesium Hydroxide 30 ml 08/15/21 06:09 Magnesium Hydroxide (Mom) Oral Liqd Udc PO Q4H PRN Constipation Methylprednisolone Sodium Succinate 125 mg 08/17/21 14:00 08/18/21 09:28 Methylprednisolone Sod Succinate 125 Mg/2 Ml Inj IV 125 mg Q12HR ROSINA Administration Morphine Sulfate 2 mg 08/15/21 06:09 08/17/21 05:34 Morphine 2 Mg/1 Ml Inj IV 2 mg Q4H PRN Administration Pain, Moderate (4-6) Morphine Sulfate 4 mg 08/15/21 06:09 Morphine 4 Mg/1 Ml Inj IV Q4H PRN Pain , Severe (7-10) Ondansetron HCl 4 mg 08/15/21 06:09 Ondansetron 4 Mg/2 Ml Inj IV Q8H PRN Nausea And Vomiting Pantoprazole Sodium 40 mg 08/18/21 07:30 08/18/21 09:28 Pantoprazole 40 Mg Tab PO 40 mg QDAC ROSINA Administration Sodium Chloride 10 ml 08/15/21 10:00 08/18/21 09:28 Sodium Chloride 0.9% 10 Ml Flush Syringe IV 10 ml BID ROSINA Administration Sodium Chloride 10 ml 08/15/21 06:09 Sodium Chloride 0.9% 10 Ml Flush Syringe IV PRN PRN LINE FLUSH
[2021-08-18] MEDS ORDERED: DEXTROSE 50% IN WATER (25GM) 50 ML SYRINGE IV PRN (18:18)
[2021-08-18] MEDS: INSULIN LISPRO 100 UNIT/ML SUB-Q SCH (21:37)
[2021-08-19 08:03] LABS: Hematocrit 23.9 % (35.5-45.6); Mean Corpuscular HGB Conc 33 % (32-34); Mean Corpuscular Volume 96 fl (84-94); Platelet Count 66 K/mm3 (140-440); Red Blood Count 2.48 M/mm3 (3.65-5.03)
--- NOTE | 2021-08-19 08:06 | Progress Note ---
Assessment and Plan Assessment and plan: History Interval history: This is a 55-year-old male with HTN, rheumatoid arthritis, GERD, depression, and hernia who presented to emergency department on 08/15 with complaints of shortness of breath and chest pain with symptoms ongoing for the past 3 weeks, increasing shortness of breath with exertion and pleuritic chest pain, occasional distention of the abdomen, jaundice and dark urine. Patient stated that he had a fall on his forehead a few days prior to admission feeling weak and dizzy however did not lose consciousness. Upon arrival to the emergency department patient was tachypneic and tachycardic oxygen saturation of 96% on room air. Work-up in the emergency department revealed leukocytosis, severe anemia with a H/H of 3.5/11.3, thrombocytopenia, elevated INR and transaminitis. CXR showed borderline cardiomegaly with possible interstitial pulmonary edema. Patient was admitted to the hospitalist service with severe anemia, leukocytosis and acute liver injury with consults to GI, ID and pulmonology. Hospital Course to Date: 08/15: Patient is on HHFL 40%, 25L. SPO2 above 95. With severe anemia, no s/s of any acute bleeding, administered 2units of PRBCs for now, serial H&H ordered. HEME/ONC consult pending. Worsening lactic acid noted most likely due to acute liver disease, Acetylcysteine gtt intiated per GI recommendation. Will continue to monitor LFTs and coags. Orders placed for UDS and alcohol leve;. Will also check Vitamin B12, folate, and HIV. Patient remains afebrile and hemodynamically stable. per ID leukocytosi is unlikely related to an infectious process and IV abx were discontinued. 08/16: Patient is doing much better this am. Stable on 3L NC this am, no respiratory distress noted, this am CXR improved. LFTs with mild improvement this am, d/w GI give another dose off Acetylcysteine. S/p 4units of PRBCs repeat CBC pending, transfuse if hbg less than 7. Continue to trend LFTs, electrolytes repleted. 08/17: Patient started on Solu-Medrol as his Briseida test was positive, patient complaining of calf pain which is bilateral feet warm to touch and Doppler ultrasound was ordered which revealed acute peroneal DVT. Hypokalemia repleted. 08/24: We will transfuse 1 unit PRBC per heme-onc orders as hematocrit is less than 23. LFTs have much improved. will transfer to the floor. Dr. Bird placed orders re juan archibald and scd. will perform weekly surveillance US 08/25: H/H stable, improvement in symptomology this AM. AOx3. F/u bm aspirate pathology. Heme recs noted will continue solumedrol 1mg/kg bid. Vascular recommendations noted re: peroneal dvt. JUAN cristela/scd for now, Will continue to monitor with serial US qweekly for dvt propagation. Assessment and plan: This is a 55-year-old male with HTN, RA, GERD, depression, hernia admitted with severe anemia, leukocytosis and acute liver injury Neuro: NAD, h/o depression -Avoid delirium -Reorientation as needed -Maintain sleep-wake cycle -No antidepressants noted on home medication profile -As needed analgesia Cardiac: h/o HTN -Cardiology consulted, appreciate recommendations -Blood pressure monitoring per protocol Respiratory: Acute hypoxic respiratory failure -Supplemental oxygen as needed -SPO2 monitoring -Pulmonary hygiene GI: Acute liver injury, h/o GERD -Presented with transaminitis and jaundice -GI consulted, appreciate recommendations -Per GI: suspect ischemic hepatitis given degree of elevation and quick improvement -CCM consulted, appreciate recommendations -CT abdomen without any acute abnormality -Hepatic panel negative -24 hours -840 mL -Protonix -S/p acetylcysteine -Trend LFTs -cardiac diet : Hypokalemia -Strict intake and output -Renally dose medications -Avoid nephrotoxic medications -Replete potassium -Trend BMP ID: Leukemoid reaction, lactic acidosis -Infectious disease consulted, appreciate recommendation -COVID-19 PCR negative -f/u blood culture -Monitor WBC and temperature curve -CT chest revealed no PE, no evidence of pneumonia. -CT abdomen and pelvis revealed no acute intra-abdominal or intrapelvic pathology. -monitor off abx Endo: NAD -Avoid hypoglycemia Heme: Severe microcytic anemia, thrombocytopenia, left lower extremity peroneal DVT, autoimmune hemolytic anemia, leukocytosis -Presented with a hemoglobin of 3.5 -Vitamin B12 high, folate normal -Otology/oncology consulted -Positive Briseida test -Solu-Medrol 1 mg/kg twice daily -Trend CBC -S/p 6 units PRBC -Transfuse hemoglobin less than 7 -hct < 23->one unit prbc given today -Bone marrow biopsy -Monitor for signs of bleeding -SCDs to BLE while in bed -Hemoccult positive -Avoid chemical anticoagulation in setting of severe anemia -CT chest revealed no PE, no evidence of pneumonia. -CT abdomen and pelvis revealed no acute intra-abdominal or intrapelvic pathology. -Per vascular surgery: JUAN/SCD with weekly dopplar History Interval history: Patient seen and examined. No acute complaints on encounter. All questions answered to patient satisfaction. Hospitalist Physical - Physical exam Narrative exam: General appearance: Present: no acute distress, well-nourished, obese - EENT Eyes: Present: PERRL, EOM intact ENT: hearing intact - Neck Neck: Present: normal ROM - Respiratory Respiratory effort: normal Respiratory: bilateral: CTA, diminished - Cardiovascular Rhythm: regular Heart Sounds: Present: S1 & S2. Absent: systolic murmur, diastolic murmur - Extremities Extremities: no ischemia, pulses intact, pulses symmetrical, No edema, normal temperature, normal color Peripheral Pulses: within normal limits - Abdominal General gastrointestinal: soft, non-tender, non-distended, normal bowel sounds - Integumentary Integumentary: Present: warm, dry - Psychiatric Psychiatric: cooperative - Neurologic Neurologic: CNII-XII intact, moves all extremities - Allied Health Allied health notes reviewed: nursing, RT - Constitutional Vitals: Temp Pulse Resp BP Pulse Ox 97.9 F 84 19 141/79 96 08/19/21 04:07 08/19/21 04:07 08/19/21 04:07 08/19/21 04:07 08/19/21 04:08 General appearance: Present: no acute distress, well-nourished, obese HEART Score - HEART Score Troponin: Troponin T 0.016 ng/mL (0.00-0.029) 08/15/21 06:00 Results - Labs CBC & Chem 7: 08/19/21 07:19 08/19/21 07:19 Labs: Laboratory Last Values WBC 22.3 K/mm3 (4.5-11.0) H 08/19/21 07:19 RBC 2.48 M/mm3 (3.65-5.03) L 08/19/21 07:19 Hgb 8.0 gm/dl (11.8-15.2) L 08/19/21 07:19 Hct 23.9 % (35.5-45.6) L 08/19/21 07:19 MCV 96 fl (84-94) H 08/19/21 07:19 MCH 32 pg (28-32) 08/19/21 07:19 MCHC 33 % (32-34) 08/19/21 07:19 RDW 18.0 % (13.2-15.2) H 08/19/21 07:19 Plt Count 66 K/mm3 (140-440) L 08/19/21 07:19 [place] % (Auto) 8.3 % (0.0-7.3) H 08/15/21 04:01 Eos % (Auto) 0.2 % (0.0-4.3) 08/15/21 04:01 Lymph # (Auto) B2B Account Executive 08/15/21 04:01 Add Manual Diff Complete 08/18/21 04:20 Total Counted 100 08/18/21 04:20 Seg Neutrophils % 77.5 % (40.0-70.0) H 08/15/21 04:01 Seg Neuts % (Manual) 74.0 % (40.0-70.0) H 08/18/21 04:20 Band Neutrophils % 2.0 % 08/18/21 04:20 Lymphocytes % (Manual) 17.0 % (13.4-35.0) 08/18/21 04:20 Reactive Lymphs % (Man) 0 % 08/18/21 04:20 Monocytes % (Manual) 7.0 % (0.0-7.3) 08/18/21 04:20 Eosinophils % (Manual) 0 % (0.0-4.3) 08/18/21 04:20 Basophils % (Manual) 0 % (0.0-1.8) 08/18/21 04:20 Metamyelocytes % 0 % 08/18/21 04:20 Myelocytes % 0 % 08/18/21 04:20 Promyelocytes % 0 % 08/18/21 04:20 Blast Cells % 0 % 08/18/21 04:20 Nucleated RBC % 237.0 % (0.0-0.9) H 08/18/21 04:20 Seg Neutrophils # Man 17.5 K/mm3 (1.8-7.7) H 08/18/21 04:20 Band Neutrophils # 0.5 K/mm3 08/18/21 04:20 Lymphocytes # (Manual) 4.0 K/mm3 (1.2-5.4) 08/18/21 04:20 Abs React Lymphs (Man) 0.0 K/mm3 08/18/21 04:20 Monocytes # (Manual) 1.7 K/mm3 (0.0-0.8) H 08/18/21 04:20 Eosinophils # (Manual) 0.0 K/mm3 (0.0-0.4) 08/18/21 04:20 Basophils # (Manual) 0.0 K/mm3 (0.0-0.1) 08/18/21 04:20 Metamyelocytes # 0.0 K/mm3 08/18/21 04:20 Myelocytes # 0.0 K/mm3 08/18/21 04:20 Promyelocytes # 0.0 K/mm3 08/18/21 04:20 Blast Cells # 0.0 K/mm3 08/18/21 04:20 Pathologist Review 08/15/21 04:01 WBC Morphology Not Reportable 08/18/21 04:20 Hypersegmented Neuts Not Reportable 08/18/21 04:20 Hyposegmented Neuts Not Reportable 08/18/21 04:20 Hypogranular Neuts Not Reportable 08/18/21 04:20 Smudge Cells Not Reportable 08/18/21 04:20 Toxic Granulation Not Reportable 08/18/21 04:20 Toxic Vacuolation Not Reportable 08/18/21 04:20 Dohle Bodies Not Reportable 08/18/21 04:20 Pelger-Huet Anomaly Not Reportable 08/18/21 04:20 Elise Rods Not Reportable 08/18/21 04:20 Platelet Estimate Appears decreased 08/18/21 04:20 Clumped Platelets Not Reportable 08/18/21 04:20 Plt Clumps, EDTA Not Reportable 08/18/21 04:20 Large Platelets Not Reportable 08/18/21 04:20 Giant Platelets Not Reportable 08/18/21 04:20 Platelet Satelliting Not Reportable 08/18/21 04:20 Plt Morphology Comment Not Reportable 08/18/21 04:20 RBC Morphology Not Reportable 08/18/21 04:20 Dimorphic RBCs Not Reportable 08/18/21 04:20 Polychromasia 1+ 08/18/21 04:20 Hypochromasia Not Reportable 08/18/21 04:20 Poikilocytosis Not Reportable 08/18/21 04:20 Anisocytosis 1+ 08/18/21 04:20 Microcytosis Not Reportable 08/18/21 04:20 Macrocytosis Few 08/18/21 04:20 Spherocytes Not Reportable 08/18/21 04:20 Pappenheimer Bodies Not Reportable 08/18/21 04:20 Sickle Cells Not Reportable 08/18/21 04:20 Target Cells Not Reportable 08/18/21 04:20 Tear Drop Cells Not Reportable 08/18/21 04:20 Ovalocytes Not Reportable 08/18/21 04:20 Stomatocytes Few 08/15/21 04:01 Helmet Cells Not Reportable 08/18/21 04:20 [place] Bodies Not Reportable 08/18/21 04:20 Sunspot Rings Not Reportable 08/18/21 04:20 [place] Cells Not Reportable 08/18/21 04:20 Bite Cells Not Reportable 08/18/21 04:20 Crenated Cell Not Reportable 08/18/21 04:20 Elliptocytes Not Reportable 08/18/21 04:20 Acanthocytes (Spur) Not Reportable 08/18/21 04:20 Rouleaux Not Reportable 08/18/21 04:20 Hemoglobin C Crystals Not Reportable 08/18/21 04:20 Schistocytes Not Reportable 08/18/21 04:20 Malaria parasites Not Reportable 08/18/21 04:20 Percent Retic 9.38 % (0.78-2.58) H 08/18/21 04:20 Yassine Bodies Not Reportable 08/18/21 04:20 Hem Pathologist Commnt No 08/18/21 04:20 PT 17.8 Sec. (12.2-14.9) H 08/17/21 04:47 INR 1.31 (0.87-1.13) H 08/17/21 04:47 APTT 27.6 Sec. (24.2-36.6) 08/17/21 04:47 Fibrinogen 446 mg/dl (211-480) 08/18/21 04:20 D-Dimer > 234 ng/mlDDU (0-234) H 08/15/21 04:01 Sodium 137 mmol/L (137-145) 08/18/21 04:20 Potassium 4.7 mmol/L (3.6-5.0) D 08/18/21 04:20 Chloride 105.2 mmol/L (98-107) 08/18/21 04:20 Carbon Dioxide 19 mmol/L (22-30) L 08/18/21 04:20 Anion Gap 18 mmol/L 08/18/21 04:20 BUN 26 mg/dL (9-20) H 08/18/21 04:20 Creatinine 0.7 mg/dL (0.8-1.3) L 08/18/21 04:20 Estimated GFR > 60 ml/min 08/18/21 04:20 BUN/Creatinine Ratio 37 % 08/18/21 04:20 Glucose 141 mg/dL (75-100) H 08/18/21 04:20 POC Glucose 125 mg/dL (70-105) H 08/19/21 07:22 Lactic Acid 2.60 mmol/L (0.7-2.0) H* 08/18/21 23:06 Calcium 8.1 mg/dL (8.4-10.2) L 08/18/21 04:20 Phosphorus 3.00 mg/dL (2.5-4.5) 08/17/21 04:47 Magnesium 3.10 mg/dL (1.7-2.3) H 08/17/21 04:47 Total Bilirubin 7.50 mg/dL (0.1-1.2) H 08/18/21 04:20 Direct Bilirubin 2.3 mg/dL (0-0.2) H 08/18/21 04:20 Indirect Bilirubin 5.2 mg/dL 08/18/21 04:20 AST 216 units/L (5-40) H 08/18/21 04:20 ALT 685 units/L (7-56) H 08/18/21 04:20 Alkaline Phosphatase 85 units/L (35-129) 08/18/21 04:20 Lactate Dehydrogenase 3057 units/L (91-180) H 08/18/21 04:20 Troponin T 0.016 ng/mL (0.00-0.029) 08/15/21 06:00 Total Protein 7.8 g/dL (6.3-8.2) 08/18/21 04:20 Albumin 3.3 g/dL (3.9-5) L 08/18/21 04:20 Albumin/Globulin Ratio 0.7 % 08/18/21 04:20 Vitamin B12 > 2000 pg/mL (211-911) H 08/15/21 22:34 Folate 17.11 ng/mL (7.3-26.0) 08/15/21 22:34 Procalcitonin 1.15 ng/mL (<0.15) 08/18/21 12:49 Urine Opiates Screen Negative 08/15/21 12:30 Urine Methadone Screen Negative 08/15/21 12:30 Acetaminophen 5.0 ug/mL (10.0-30.0) L 08/15/21 07:00 Ur Barbiturates Screen Negative 08/15/21 12:30 Ur Phencyclidine Scrn Negative 08/15/21 12:30 Ur Amphetamines Screen Negative 08/15/21 12:30 U Benzodiazepines Scrn Negative 08/15/21 12:30 Urine Cocaine Screen Negative 08/15/21 12:30 U Marijuana (THC) Screen Negative 08/15/21 12:30 Drugs of Abuse Note Disclamer 08/15/21 12:30 Plasma/Serum Alcohol < 0.01 % (0-0.07) 08/15/21 22:34 Coronavirus (PCR) Negative (Negative) 08/15/21 Unknown Hepatitis A IgM Ab Non-reactive (NonReactive) 08/15/21 06:44 Hep Bs Antigen Non-reactive (Negative) 08/15/21 06:44 Hep B Core IgM Ab Non-reactive (NonReactive) 08/15/21 06:44 Hepatitis C Antibody Non-reactive (NonReactive) 08/15/21 06:44 HIV 1&2 Antibody Rapid Non react (Non React) 08/15/21 22:34 HIV P24 Antigen Non react (Non React) 08/15/21 22:34 Blood Type O POSITIVE 08/18/21 13:06 Antibody Screen Negative 08/18/21 13:06 PARRISH Antibody Screen Negative 08/15/21 05:37 Direct Antiglob Test Positive 08/17/21 12:00 GIO (IgG-AHG) Positive 08/17/21 12:00 GIO, Poly Interpret Positive 08/17/21 12:00 GIO, Anti-C3 Negative 08/17/21 12:00 Crossmatch See Detail 08/18/21 13:06 Microbiology: Microbiology 08/15/21 09:29 Peripheral/Venous Blood Culture - Preliminary NO GROWTH AFTER 72 HOURS 08/15/21 09:29 Peripheral/Venous Blood Culture - Preliminary NO GROWTH AFTER 72 HOURS Active Medications - Current Medications Current Medications: Generic Name Dose Route Start Last Admin Trade Name Freq PRN Reason Stop Dose Admin Albuterol 2.5 mg 08/17/21 09:42 08/17/21 10:06 Albuterol 2.5 Mg/3 Ml Nebu IH 2.5 mg Q4HRT PRN Administration Shortness Of Breath Amlodipine Besylate 10 mg 08/19/21 10:00 Amlodipine 10 Mg Tab PO QDAY ROSINA Dextrose 50 ml 08/18/21 18:18 Dextrose 50% In Water (25gm) 50 Ml Syringe IV Q30MIN PRN Hypoglycemia Protocol Sodium Chloride 500 mls @ 5 mls/hr 08/16/21 04:39 08/16/21 19:37 Nacl 0.9% 500 Ml IV 08/20/21 08:38 Not Given ONCE ONE Insulin Human Lispro 0 unit 08/18/21 22:00 08/18/21 21:37 Insulin Lispro 100 Unit/Ml SUB-Q 2 unit ACHS ROSINA Administration Protocol Magnesium Hydroxide 30 ml 08/15/21 06:09 Magnesium Hydroxide (Mom) Oral Liqd Udc PO Q4H PRN Constipation Methylprednisolone Sodium Succinate 125 mg 08/17/21 14:00 08/18/21 21:01 Methylprednisolone Sod Succinate 125 Mg/2 Ml Inj IV 125 mg Q12HR ROSINA Administration Morphine Sulfate 2 mg 08/15/21 06:09 08/17/21 05:34 Morphine 2 Mg/1 Ml Inj IV 2 mg Q4H PRN Administration Pain, Moderate (4-6) Morphine Sulfate 4 mg 08/15/21 06:09 Morphine 4 Mg/1 Ml Inj IV Q4H PRN Pain , Severe (7-10) Ondansetron HCl 4 mg 08/15/21 06:09 Ondansetron 4 Mg/2 Ml Inj IV Q8H PRN Nausea And Vomiting Pantoprazole Sodium 40 mg 08/18/21 07:30 08/18/21 09:28 Pantoprazole 40 Mg Tab PO 40 mg QDAC ROSINA Administration Sodium Chloride 10 ml 08/15/21 10:00 08/18/21 21:01 Sodium Chloride 0.9% 10 Ml Flush Syringe IV 10 ml BID ROSINA Administration Sodium Chloride 10 ml 08/15/21 06:09 Sodium Chloride 0.9% 10 Ml Flush Syringe IV PRN PRN LINE FLUSH
[2021-08-19 08:24] LABS: Alanine Aminotransferase 475 units/L (7-56); Albumin 3.4 g/dL (3.9-5); Blood Urea Nitrogen 27 mg/dL (9-20); Calcium 8.3 mg/dL (8.4-10.2); Hemolysis Index 4
[2021-08-19 08:46] LABS: BUN/Creatinine Ratio 39
--- NOTE | 2021-08-19 09:21 | Hem/Onc Progress Note ---
Subjective Date of service: 08/19/21 Interval history: Heme progress note Televisit via [facility] CPT 91239 Dx Anemia Abdominal distention, jaundice and unusually darker urine Abd u/s consistent with hepatitis vs fatty liver Continues with bilateral lower extremity pain --> Positive DVT BMBx completed 08/17 Denies bleeding, no overt bleeding noted. Reports feeling better today Reporting pain in lower extremities DATA REVIEW BELOW IMP: AIHA, donovan positive Elevated LDH, likely related to liver injury Heme malignancy is possible with low plt count/high LDH Thrombocytopenia, likely ITP vs liver dysfunction DVT, clotting tendency PLAN: No RBC transfusion today Continue solumedrol 1mg/kg IV BID Monitor CBC daily Pending bmbx results Follow SPEP, electrophoresis Transfuse 1 unit RBC whenever hct<23 Laboratory Last Values WBC 22.3 K/mm3 (4.5-11.0) H 08/19/21 07:19 RBC 2.48 M/mm3 (3.65-5.03) L 08/19/21 07:19 Hgb 8.0 gm/dl (11.8-15.2) L 08/19/21 07:19 Hct 23.9 % (35.5-45.6) L 08/19/21 07:19 MCV 96 fl (84-94) H 08/19/21 07:19 MCH 32 pg (28-32) 08/19/21 07:19 MCHC 33 % (32-34) 08/19/21 07:19 RDW 18.0 % (13.2-15.2) H 08/19/21 07:19 Plt Count 66 K/mm3 (140-440) L 08/19/21 07:19 [place] % (Auto) 8.3 % (0.0-7.3) H 08/15/21 04:01 Eos % (Auto) 0.2 % (0.0-4.3) 08/15/21 04:01 Lymph # (Auto) Ict Quality Assurance Engineer 08/15/21 04:01 Add Manual Diff Complete 08/18/21 04:20 Total Counted 100 08/18/21 04:20 Seg Neutrophils % 77.5 % (40.0-70.0) H 08/15/21 04:01 Seg Neuts % (Manual) 74.0 % (40.0-70.0) H 08/18/21 04:20 Band Neutrophils % 2.0 % 08/18/21 04:20 Lymphocytes % (Manual) 17.0 % (13.4-35.0) 08/18/21 04:20 Reactive Lymphs % (Man) 0 % 08/18/21 04:20 Monocytes % (Manual) 7.0 % (0.0-7.3) 08/18/21 04:20 Eosinophils % (Manual) 0 % (0.0-4.3) 08/18/21 04:20 Basophils % (Manual) 0 % (0.0-1.8) 08/18/21 04:20 Metamyelocytes % 0 % 08/18/21 04:20 Myelocytes % 0 % 08/18/21 04:20 Promyelocytes % 0 % 08/18/21 04:20 Blast Cells % 0 % 08/18/21 04:20 Nucleated RBC % 237.0 % (0.0-0.9) H 08/18/21 04:20 Seg Neutrophils # Man 17.5 K/mm3 (1.8-7.7) H 08/18/21 04:20 Band Neutrophils # 0.5 K/mm3 08/18/21 04:20 Lymphocytes # (Manual) 4.0 K/mm3 (1.2-5.4) 08/18/21 04:20 Abs React Lymphs (Man) 0.0 K/mm3 08/18/21 04:20 Monocytes # (Manual) 1.7 K/mm3 (0.0-0.8) H 08/18/21 04:20 Eosinophils # (Manual) 0.0 K/mm3 (0.0-0.4) 08/18/21 04:20 Basophils # (Manual) 0.0 K/mm3 (0.0-0.1) 08/18/21 04:20 Metamyelocytes # 0.0 K/mm3 08/18/21 04:20 Myelocytes # 0.0 K/mm3 08/18/21 04:20 Promyelocytes # 0.0 K/mm3 08/18/21 04:20 Blast Cells # 0.0 K/mm3 08/18/21 04:20 Pathologist Review 08/15/21 04:01 WBC Morphology Not Reportable 08/18/21 04:20 Hypersegmented Neuts Not Reportable 08/18/21 04:20 Hyposegmented Neuts Not Reportable 08/18/21 04:20 Hypogranular Neuts Not Reportable 08/18/21 04:20 Smudge Cells Not Reportable 08/18/21 04:20 Toxic Granulation Not Reportable 08/18/21 04:20 Toxic Vacuolation Not Reportable 08/18/21 04:20 Dohle Bodies Not Reportable 08/18/21 04:20 Pelger-Huet Anomaly Not Reportable 08/18/21 04:20 Elise Rods Not Reportable 08/18/21 04:20 Platelet Estimate Appears decreased 08/18/21 04:20 Clumped Platelets Not Reportable 08/18/21 04:20 Plt Clumps, EDTA Not Reportable 08/18/21 04:20 Large Platelets Not Reportable 08/18/21 04:20 Giant Platelets Not Reportable 08/18/21 04:20 Platelet Satelliting Not Reportable 08/18/21 04:20 Plt Morphology Comment Not Reportable 08/18/21 04:20 RBC Morphology Not Reportable 08/18/21 04:20 Dimorphic RBCs Not Reportable 08/18/21 04:20 Polychromasia 1+ 08/18/21 04:20 Hypochromasia Not Reportable 08/18/21 04:20 Poikilocytosis Not Reportable 08/18/21 04:20 Anisocytosis 1+ 08/18/21 04:20 Microcytosis Not Reportable 08/18/21 04:20 Macrocytosis Few 08/18/21 04:20 Spherocytes Not Reportable 08/18/21 04:20 Pappenheimer Bodies Not Reportable 08/18/21 04:20 Sickle Cells Not Reportable 08/18/21 04:20 Target Cells Not Reportable 08/18/21 04:20 Tear Drop Cells Not Reportable 08/18/21 04:20 Ovalocytes Not Reportable 08/18/21 04:20 Stomatocytes Few 08/15/21 04:01 Helmet Cells Not Reportable 08/18/21 04:20 [place] Bodies Not Reportable 08/18/21 04:20 [place] Rings Not Reportable 08/18/21 04:20 [place] Cells Not Reportable 08/18/21 04:20 Bite Cells Not Reportable 08/18/21 04:20 Crenated Cell Not Reportable 08/18/21 04:20 Elliptocytes Not Reportable 08/18/21 04:20 Acanthocytes (Spur) Not Reportable 08/18/21 04:20 Rouleaux Not Reportable 08/18/21 04:20 Hemoglobin C Crystals Not Reportable 08/18/21 04:20 Schistocytes Not Reportable 08/18/21 04:20 Malaria parasites Not Reportable 08/18/21 04:20 Percent Retic 9.38 % (0.78-2.58) H 08/18/21 04:20 Yassine Bodies Not Reportable 08/18/21 04:20 Hem Pathologist Commnt No 08/18/21 04:20 PT 17.8 Sec. (12.2-14.9) H 08/17/21 04:47 INR 1.31 (0.87-1.13) H 08/17/21 04:47 APTT 27.6 Sec. (24.2-36.6) 08/17/21 04:47 Fibrinogen 446 mg/dl (211-480) 08/18/21 04:20 D-Dimer > 234 ng/mlDDU (0-234) H 08/15/21 04:01 Sodium 136 mmol/L (137-145) L 08/19/21 07:19 Potassium 4.4 mmol/L (3.6-5.0) 08/19/21 07:19 Chloride 105.1 mmol/L (98-107) 08/19/21 07:19 Carbon Dioxide 21 mmol/L (22-30) L 08/19/21 07:19 Anion Gap 14 mmol/L 08/19/21 07:19 BUN 27 mg/dL (9-20) H 08/19/21 07:19 Creatinine 0.7 mg/dL (0.8-1.3) L 08/19/21 07:19 Estimated GFR > 60 ml/min 08/19/21 07:19 BUN/Creatinine Ratio 39 % 08/19/21 07:19 Glucose 150 mg/dL (75-100) H 08/19/21 07:19 POC Glucose 125 mg/dL (70-105) H 08/19/21 07:22 Lactic Acid 2.10 mmol/L (0.7-2.0) H* 08/19/21 07:19 Calcium 8.3 mg/dL (8.4-10.2) L 08/19/21 07:19 Phosphorus 2.90 mg/dL (2.5-4.5) 08/19/21 07:19 Magnesium 3.00 mg/dL (1.7-2.3) H 08/19/21 07:19 Total Bilirubin 5.30 mg/dL (0.1-1.2) H 08/19/21 07:19 Direct Bilirubin 2.3 mg/dL (0-0.2) H 08/18/21 04:20 Indirect Bilirubin 5.2 mg/dL 08/18/21 04:20 AST 84 units/L (5-40) H 08/19/21 07:19 ALT 475 units/L (7-56) H 08/19/21 07:19 Alkaline Phosphatase 82 units/L (35-129) 08/19/21 07:19 Lactate Dehydrogenase 3057 units/L (91-180) H 08/18/21 04:20 Troponin T 0.016 ng/mL (0.00-0.029) 08/15/21 06:00 Total Protein 8.0 g/dL (6.3-8.2) 08/19/21 07:19 Albumin 3.4 g/dL (3.9-5) L 08/19/21 07:19 Albumin/Globulin Ratio 0.7 % 08/19/21 07:19 Vitamin B12 > 2000 pg/mL (211-911) H 08/15/21 22:34 Folate 17.11 ng/mL (7.3-26.0) 08/15/21 22:34 Procalcitonin 1.15 ng/mL (<0.15) 08/18/21 12:49 Urine Opiates Screen Negative 08/15/21 12:30 Urine Methadone Screen Negative 08/15/21 12:30 Acetaminophen 5.0 ug/mL (10.0-30.0) L 08/15/21 07:00 Ur Barbiturates Screen Negative 08/15/21 12:30 Ur Phencyclidine Scrn Negative 08/15/21 12:30 Ur Amphetamines Screen Negative 08/15/21 12:30 U Benzodiazepines Scrn Negative 08/15/21 12:30 Urine Cocaine Screen Negative 08/15/21 12:30 U Marijuana (THC) Screen Negative 08/15/21 12:30 Drugs of Abuse Note Disclamer 08/15/21 12:30 Plasma/Serum Alcohol < 0.01 % (0-0.07) 08/15/21 22:34 Coronavirus (PCR) Negative (Negative) 08/15/21 Unknown Hepatitis A IgM Ab Non-reactive (NonReactive) 08/15/21 06:44 Hep Bs Antigen Non-reactive (Negative) 08/15/21 06:44 Hep B Core IgM Ab Non-reactive (NonReactive) 08/15/21 06:44 Hepatitis C Antibody Non-reactive (NonReactive) 08/15/21 06:44 HIV 1&2 Antibody Rapid Non react (Non React) 08/15/21 22:34 HIV P24 Antigen Non react (Non React) 08/15/21 22:34 Blood Type O POSITIVE 08/18/21 13:06 Antibody Screen Negative 08/18/21 13:06 PARRISH Antibody Screen Negative 08/15/21 05:37 Direct Antiglob Test Positive 08/17/21 12:00 GIO (IgG-AHG) Positive 08/17/21 12:00 GIO, Poly Interpret Positive 08/17/21 12:00 GIO, Anti-C3 Negative 08/17/21 12:00 Crossmatch See Detail 08/18/21 13:06 Objective - Constitutional Vitals: Last Vital Signs Temp 98.1 F 08/19/21 07:24 Pulse 70 08/19/21 07:24 Resp 18 08/19/21 07:24 BP 119/67 08/19/21 07:24 Pulse Ox 100 08/19/21 07:24 - Labs Lab Results: Laboratory Results - last 24 hr 08/15/21 08/18/21 08/18/21 05:37 05:54 12:11 WBC RBC Hgb Hct MCV MCH MCHC RDW Plt Count Sodium Potassium Chloride Carbon Dioxide Anion Gap BUN Creatinine Estimated GFR BUN/Creatinine Ratio Glucose POC Glucose 158 H 210 H Lactic Acid Calcium Phosphorus Magnesium Total Bilirubin AST ALT Alkaline Phosphatase Total Protein Albumin Albumin/Globulin Ratio Procalcitonin Blood Type Antibody Screen Crossmatch See Detail 08/18/21 08/18/21 08/18/21 12:49 12:49 13:06 WBC RBC Hgb Hct MCV MCH MCHC RDW Plt Count Sodium Potassium Chloride Carbon Dioxide Anion Gap BUN Creatinine Estimated GFR BUN/Creatinine Ratio Glucose POC Glucose Lactic Acid 3.60 H* Calcium Phosphorus Magnesium Total Bilirubin AST ALT Alkaline Phosphatase Total Protein Albumin Albumin/Globulin Ratio Procalcitonin 1.15 Blood Type O POSITIVE Antibody Screen Negative Crossmatch See Detail 08/18/21 08/18/21 08/18/21 17:03 20:55 23:06 WBC RBC Hgb Hct MCV MCH MCHC RDW Plt Count Sodium Potassium Chloride Carbon Dioxide Anion Gap BUN Creatinine Estimated GFR BUN/Creatinine Ratio Glucose POC Glucose 200 H 200 H Lactic Acid 2.60 H* Calcium Phosphorus Magnesium Total Bilirubin AST ALT Alkaline Phosphatase Total Protein Albumin Albumin/Globulin Ratio Procalcitonin Blood Type Antibody Screen Crossmatch 08/19/21 08/19/21 08/19/21 07:19 07:19 07:19 WBC 22.3 H RBC 2.48 L Hgb 8.0 L Hct 23.9 L MCV 96 H MCH 32 MCHC 33 RDW 18.0 H Plt Count 66 L Sodium 136 L Potassium 4.4 Chloride 105.1 Carbon Dioxide 21 L Anion Gap 14 BUN 27 H Creatinine 0.7 L Estimated GFR > 60 BUN/Creatinine Ratio 39 Glucose 150 H POC Glucose Lactic Acid 2.10 H* Calcium 8.3 L Phosphorus 2.90 Magnesium 3.00 H Total Bilirubin 5.30 H AST 84 H ALT 475 H Alkaline Phosphatase 82 Total Protein 8.0 Albumin 3.4 L Albumin/Globulin Ratio 0.7 Procalcitonin Blood Type Antibody Screen Crossmatch 08/19/21 07:22 WBC RBC Hgb Hct MCV MCH MCHC RDW Plt Count Sodium Potassium Chloride Carbon Dioxide Anion Gap BUN Creatinine Estimated GFR BUN/Creatinine Ratio Glucose POC Glucose 125 H Lactic Acid Calcium Phosphorus Magnesium Total Bilirubin AST ALT Alkaline Phosphatase Total Protein Albumin Albumin/Globulin Ratio Procalcitonin Blood Type Antibody Screen Crossmatch Medications & Allergies - Medications Allergies/Adverse Reactions: Allergies atenolol Allergy (Verified 08/15/21 01:34) Unknown quetiapine fumarate [From Seroquel] Adverse Reaction (Verified 08/15/21 01:33) Unknown Home Medications: Home Medications Medication Instructions Recorded Confirmed Last Taken Type Esomeprazole Magnesium [Nexium 20 mg PO DAILY 08/15/21 08/15/21 Unknown History 24Hr] Sulindac 200 mg PO BID 08/15/21 08/15/21 08/14/21 History predniSONE [Deltasone] 5 mg PO TID 0308/15/21 08/14/21 History 5 mg Active Medications: Generic Name Dose Route Start Last Admin Trade Name Freq PRN Reason Stop Dose Admin Albuterol 2.5 mg 08/17/21 09:42 08/17/21 10:06 Albuterol 2.5 Mg/3 Ml Nebu IH 2.5 mg Q4HRT PRN Administration Shortness Of Breath Amlodipine Besylate 10 mg 08/19/21 10:00 Amlodipine 10 Mg Tab PO QDAY ROSINA Dextrose 50 ml 08/18/21 18:18 Dextrose 50% In Water (25gm) 50 Ml Syringe IV Q30MIN PRN Hypoglycemia Protocol Sodium Chloride 500 mls @ 5 mls/hr 08/16/21 04:39 08/16/21 19:37 Nacl 0.9% 500 Ml IV 08/20/21 08:38 Not Given ONCE ONE Insulin Human Lispro 0 unit 08/18/21 22:00 08/18/21 21:37 Insulin Lispro 100 Unit/Ml SUB-Q 2 unit ACHS ROSINA Administration Protocol Magnesium Hydroxide 30 ml 08/15/21 06:09 Magnesium Hydroxide (Mom) Oral Liqd Udc PO Q4H PRN Constipation Methylprednisolone Sodium Succinate 125 mg 08/17/21 14:00 08/18/21 21:01 Methylprednisolone Sod Succinate 125 Mg/2 Ml Inj IV 125 mg Q12HR ROSINA Administration Morphine Sulfate 2 mg 08/15/21 06:09 08/17/21 05:34 Morphine 2 Mg/1 Ml Inj IV 2 mg Q4H PRN Administration Pain, Moderate (4-6) Morphine Sulfate 4 mg 08/15/21 06:09 Morphine 4 Mg/1 Ml Inj IV Q4H PRN Pain , Severe (7-10) Ondansetron HCl 4 mg 08/15/21 06:09 Ondansetron 4 Mg/2 Ml Inj IV Q8H PRN Nausea And Vomiting Pantoprazole Sodium 40 mg 08/18/21 07:30 08/18/21 09:28 Pantoprazole 40 Mg Tab PO 40 mg QDAC ROSINA Administration Sodium Chloride 10 ml 08/15/21 10:00 08/18/21 21:01 Sodium Chloride 0.9% 10 Ml Flush Syringe IV 10 ml BID ROSINA Administration Sodium Chloride 10 ml 08/15/21 06:09 Sodium Chloride 0.9% 10 Ml Flush Syringe IV PRN PRN LINE FLUSH
[2021-08-19] MEDS: amLODIPine 10 MG TAB PO SCH (09:34)
[2021-08-19] MEDS: methylPREDNISolone Sod Succinate 125 MG/2 ML INJ IV SCH ×2 (09:34→22:13)
[2021-08-19] MEDS: PANTOPRAZOLE 40 MG TAB PO SCH (09:34)
[2021-08-19] MEDS: INSULIN LISPRO 100 UNIT/ML SUB-Q SCH ×4 (09:35→22:13)
[2021-08-19] MEDS: MORPHINE 2 MG/1 ML INJ IV PRN (11:04)
--- NOTE | 2021-08-19 12:48 | Progress Note ---
Assessment and Plan Acute Liver Injury (? Tylenol OD vs AIH vs Ischemic Hepatitis) Jaundice Acute DVT Severe Macrocytic Anemia Thrombocytopenia Acute Hypoxemic Respiratory Failure Acute Pulmonary Edema vs Aspiration Pneumonia Hypokalemia Leukocytosis Lactic Acidosis Hypertension History of Rheumatoid Arthritis - follow repeat lower extremity doplers - no anticoagulation acutely - follow bone marrow aspirate Pathology report - Procalcitonin level WNL - PRBC transfusions for serum Hb < 7.0 g/dl - continue Solumedrol re: thrombocytopenia - continue care as below otherwise; - DVT treatment per vascular / hematology team (Holding full anticoagulation in light of Anemia and thrombocytopenia / coagulopathy) - follow autoimmune serologies re: AIH - s/p empiric Mucomyst course for possible tylenol OD - continue accuchecks with glycemic control per SSI for target blood glucose < 180 mg/dL - supplemental oxygen for target O2 sat's > 90% acutely - Aspiration precautions - bronchodilators with pulmonary hygiene per RT - fall precautions - avoid nephrotoxins, renally dose all medications - avoid benzodiazepine's, reduce the possibility of delirium - AB's per ID rec's (none acutely and follow clinically / WBC) - prn analgesia per pain score - Maintenance of sleep-wake cycle, avoid delirium - G.I. & VTE prophylaxis (Pantoprazole and SCD's) - PT/OT/ROM exercises - continue mobility protocols for pressure ulcer prophylaxis - Monitor hemodynamics closely - continue other care per attending / other consultants - discharge planning ongoing concurrently COVID SPECIFIC INTERVENTIONS - COVID-19 PCR negative .... Re-evaluate in am & prn Subjective Date of service: 08/19/21 Principal diagnosis: Ac. Liver Injury; Anemia; Thrombocytopenia; AHRF; Pulm Edema; Met. Acidosis Interval history: Patient is seen today for: Acute Liver Injury; Jaundice; Anemia; Thrombocytopenia; Acute Hypoxemic Respiratory Failure; Pulm Edema vs Aspiration Pneumonia; Lactic Acidosis; Hypertension; History of Rheumatoid Arthritis Seen and examined at bedside; 24hour events reviewed; nursing and respiratory care staff consulted; no adverse overnight events reported to me; resting in bed; denies acute chest pains or palpitations; seen by vascular team re: DVT; no gross bleeding Objective Vital Signs - 12hr 08/19/21 08/19/21 08/19/21 04:07 04:08 07:24 Temperature 97.9 F 98.1 F Pulse Rate 84 70 Respiratory 19 18 Rate Blood Pressure 141/79 119/67 O2 Sat by Pulse 87 96 100 Oximetry Constitutional: no acute distress, other (middle aged obese male with normal respiratory effort at rest) Eyes: non-icteric ENT: oropharynx moist Neck: supple, other (large circumference) Effort: normal Ascultation: Bilateral: clear, diminished breath sounds Percussion: Bilateral: not dull Cardiovascular: regular rate and rhythm Gastrointestinal: normoactive bowel sounds, soft, non-tender, non-distended (protuberant) Integumentary: normal, other (no ecchymosis noted) Extremities: no cyanosis, no edema, pulses normal, no ischemia or petechiae Neurologic: non-focal exam (grossly), pupils equal and round, CN II-XII normal, motor strength normal and Psychiatric: mood appropriate, affect normal CBC and BMP: 08/20/21 05:30 08/19/21 07:19 ABG, PT/INR, D-dimer: PT/INR, D-dimer PT 17.8 Sec. (12.2-14.9) H 08/17/21 04:47 INR 1.31 (0.87-1.13) H 08/17/21 04:47 D-Dimer > 234 ng/mlDDU (0-234) H 08/15/21 04:01 Abnormal lab findings: Abnormal Labs 08/15/21 08/15/21 08/15/21 04:01 04:01 04:01 WBC 34.5 H RBC 0.84 L Hgb 3.5 L* Hct 11.3 L* MCV 134 H MCH 41 H MCHC 31 L RDW 30.4 H Plt Count 115 L [place] % (Auto) 8.3 H Seg Neutrophils % 77.5 H Seg Neuts % (Manual) Monocytes % (Manual) 8.5 H Nucleated RBC % 55.0 H Seg Neutrophils # Man 20.2 H Lymphocytes # (Manual) 9.1 H Monocytes # (Manual) 2.9 H Percent Retic PT 20.9 H INR 1.59 H D-Dimer > 234 H Sodium Potassium Carbon Dioxide 17 L BUN 40 H Creatinine 0.7 L Glucose 145 H POC Glucose Lactic Acid Calcium Magnesium Total Bilirubin 13.40 H Direct Bilirubin AST 1665 H ALT 1615 H Lactate Dehydrogenase Total Protein 8.4 H Albumin 3.7 L Vitamin B12 Acetaminophen Crossmatch 0308/15/21 08/15/21 05:37 06:44 06:44 WBC RBC Hgb Hct MCV MCH MCHC RDW Plt Count [place] % (Auto) Seg Neutrophils % Seg Neuts % (Manual) Monocytes % (Manual) Nucleated RBC % Seg Neutrophils # Man Lymphocytes # (Manual) Monocytes # (Manual) Percent Retic PT INR D-Dimer Sodium Potassium Carbon Dioxide BUN Creatinine Glucose POC Glucose Lactic Acid 7.30 H* Calcium Magnesium Total Bilirubin Direct Bilirubin AST ALT Lactate Dehydrogenase 4126 H Total Protein Albumin Vitamin B12 Acetaminophen Crossmatch See Detail 08/15/21 08/15/21 08/15/21 07:00 09:29 22:34 WBC RBC Hgb Hct MCV MCH MCHC RDW Plt Count [place] % (Auto) Seg Neutrophils % Seg Neuts % (Manual) Monocytes % (Manual) Nucleated RBC % Seg Neutrophils # Man Lymphocytes # (Manual) Monocytes # (Manual) Percent Retic PT INR D-Dimer Sodium Potassium Carbon Dioxide BUN Creatinine Glucose POC Glucose Lactic Acid 8.70 H* 2.30 H* Calcium Magnesium Total Bilirubin Direct Bilirubin AST ALT Lactate Dehydrogenase Total Protein Albumin Vitamin B12 Acetaminophen 5.0 L Crossmatch 08/15/21 08/15/21 08/16/21 22:34 22:34 00:08 WBC RBC Hgb 6.0 L Hct 17.3 L* D MCV MCH MCHC RDW Plt Count [place] % (Auto) Seg Neutrophils % Seg Neuts % (Manual) Monocytes % (Manual) Nucleated RBC % Seg Neutrophils # Man Lymphocytes # (Manual) Monocytes # (Manual) Percent Retic PT INR D-Dimer Sodium Potassium Carbon Dioxide BUN Creatinine Glucose POC Glucose 144 H Lactic Acid Calcium Magnesium Total Bilirubin Direct Bilirubin AST ALT Lactate Dehydrogenase Total Protein Albumin Vitamin B12 > 2000 H Acetaminophen Crossmatch 08/16/21 08/16/21 08/16/21 04:30 04:30 04:30 WBC 30.7 H RBC 1.86 L Hgb 6.3 L Hct 19.2 L* MCV 103 H MCH 34 H MCHC RDW 24.8 H Plt Count 77 L [place] % (Auto) Seg Neutrophils % Seg Neuts % (Manual) Monocytes % (Manual) Nucleated RBC % Seg Neutrophils # Man Lymphocytes # (Manual) Monocytes # (Manual) Percent Retic PT INR D-Dimer Sodium Potassium 3.0 L D Carbon Dioxide 19 L BUN 55 H Creatinine Glucose 167 H POC Glucose Lactic Acid Calcium 8.1 L Magnesium Total Bilirubin 10.20 H Direct Bilirubin 2.6 H AST 958 H ALT 1328 H Lactate Dehydrogenase Total Protein Albumin 3.3 L Vitamin B12 Acetaminophen Crossmatch 08/16/21 08/16/21 08/16/21 04:30 04:30 12:09 WBC RBC Hgb Hct MCV MCH MCHC RDW Plt Count [place] % (Auto) Seg Neutrophils % Seg Neuts % (Manual) Monocytes % (Manual) Nucleated RBC % Seg Neutrophils # Man Lymphocytes # (Manual) Monocytes # (Manual) Percent Retic PT 19.5 H INR 1.46 H D-Dimer Sodium Potassium Carbon Dioxide BUN Creatinine Glucose POC Glucose Lactic Acid 2.10 H* 2.10 H* Calcium Magnesium Total Bilirubin Direct Bilirubin AST ALT Lactate Dehydrogenase Total Protein Albumin Vitamin B12 Acetaminophen Crossmatch 08/16/21 08/16/21 08/16/21 12:09 14:49 20:10 WBC 26.2 H RBC 2.11 L Hgb 7.1 L 6.6 L Hct 21.8 L 20.2 L MCV 103 H MCH 34 H MCHC RDW 22.9 H Plt Count 66 L [place] % (Auto) Seg Neutrophils % Seg Neuts % (Manual) Monocytes % (Manual) Nucleated RBC % Seg Neutrophils # Man Lymphocytes # (Manual) Monocytes # (Manual) Percent Retic PT INR D-Dimer Sodium Potassium 3.4 L Carbon Dioxide BUN Creatinine Glucose POC Glucose Lactic Acid Calcium Magnesium Total Bilirubin Direct Bilirubin AST ALT Lactate Dehydrogenase Total Protein Albumin Vitamin B12 Acetaminophen Crossmatch 08/17/21 08/17/21 08/17/21 00:06 04:47 04:47 WBC RBC Hgb Hct MCV MCH MCHC RDW Plt Count [place] % (Auto) Seg Neutrophils % Seg Neuts % (Manual) Monocytes % (Manual) Nucleated RBC % Seg Neutrophils # Man Lymphocytes # (Manual) Monocytes # (Manual) Percent Retic PT 17.8 H INR 1.31 H D-Dimer Sodium Potassium 3.4 L Carbon Dioxide 18 L BUN 32 H Creatinine 0.7 L Glucose 150 H POC Glucose 127 H Lactic Acid Calcium 7.8 L Magnesium 3.10 H Total Bilirubin 7.70 H Direct Bilirubin 1.9 H AST 410 H ALT 937 H Lactate Dehydrogenase Total Protein Albumin 3.1 L Vitamin B12 Acetaminophen Crossmatch 08/17/21 08/17/21 08/17/21 04:47 11:57 17:15 WBC 24.3 H RBC 2.05 L Hgb 6.6 L 7.4 L Hct 20.5 L 22.8 L MCV 100 H MCH MCHC RDW 22.8 H Plt Count 46 L [place] % (Auto) Seg Neutrophils % Seg Neuts % (Manual) Monocytes % (Manual) 8.0 H Nucleated RBC % 136.0 H Seg Neutrophils # Man 15.1 H Lymphocytes # (Manual) 6.1 H Monocytes # (Manual) 1.9 H Percent Retic PT INR D-Dimer Sodium Potassium Carbon Dioxide BUN Creatinine Glucose POC Glucose 275 H Lactic Acid Calcium Magnesium Total Bilirubin Direct Bilirubin AST ALT Lactate Dehydrogenase Total Protein Albumin Vitamin B12 Acetaminophen Crossmatch 08/17/21 08/18/21 08/18/21 23:22 04:20 04:20 WBC 23.6 H RBC 2.21 L Hgb 7.1 L Hct 22.0 L MCV 100 H MCH MCHC RDW 19.3 H Plt Count 44 L [place] % (Auto) Seg Neutrophils % Seg Neuts % (Manual) 74.0 H Monocytes % (Manual) Nucleated RBC % 237.0 H Seg Neutrophils # Man 17.5 H Lymphocytes # (Manual) Monocytes # (Manual) 1.7 H Percent Retic 9.38 H PT INR D-Dimer Sodium Potassium Carbon Dioxide 19 L BUN 26 H Creatinine 0.7 L Glucose 141 H POC Glucose 214 H Lactic Acid Calcium 8.1 L Magnesium Total Bilirubin 7.50 H Direct Bilirubin 2.3 H AST 216 H ALT 685 H Lactate Dehydrogenase Total Protein Albumin 3.3 L Vitamin B12 Acetaminophen Crossmatch 08/18/21 08/18/21 08/18/21 04:20 05:54 12:11 WBC RBC Hgb Hct MCV MCH MCHC RDW Plt Count [place] % (Auto) Seg Neutrophils % Seg Neuts % (Manual) Monocytes % (Manual) Nucleated RBC % Seg Neutrophils # Man Lymphocytes # (Manual) Monocytes # (Manual) Percent Retic PT INR D-Dimer Sodium Potassium Carbon Dioxide BUN Creatinine Glucose POC Glucose 158 H 210 H Lactic Acid Calcium Magnesium Total Bilirubin Direct Bilirubin AST ALT Lactate Dehydrogenase 3057 H Total Protein Albumin Vitamin B12 Acetaminophen Crossmatch 08/18/21 08/18/21 08/18/21 12:49 13:06 17:03 WBC RBC Hgb Hct MCV MCH MCHC RDW Plt Count [place] % (Auto) Seg Neutrophils % Seg Neuts % (Manual) Monocytes % (Manual) Nucleated RBC % Seg Neutrophils # Man Lymphocytes # (Manual) Monocytes # (Manual) Percent Retic PT INR D-Dimer Sodium Potassium Carbon Dioxide BUN Creatinine Glucose POC Glucose 200 H Lactic Acid 3.60 H* Calcium Magnesium Total Bilirubin Direct Bilirubin AST ALT Lactate Dehydrogenase Total Protein Albumin Vitamin B12 Acetaminophen Crossmatch See Detail 08/18/21 08/18/21 08/19/21 20:55 23:06 07:19 WBC 22.3 H RBC 2.48 L Hgb 8.0 L Hct 23.9 L MCV 96 H MCH MCHC RDW 18.0 H Plt Count 66 L [place] % (Auto) Seg Neutrophils % Seg Neuts % (Manual) Monocytes % (Manual) Nucleated RBC % Seg Neutrophils # Man Lymphocytes # (Manual) Monocytes # (Manual) Percent Retic PT INR D-Dimer Sodium Potassium Carbon Dioxide BUN Creatinine Glucose POC Glucose 200 H Lactic Acid 2.60 H* Calcium Magnesium Total Bilirubin Direct Bilirubin AST ALT Lactate Dehydrogenase Total Protein Albumin Vitamin B12 Acetaminophen Crossmatch 08/19/21 08/19/21 08/19/21 07:19 07:19 07:22 WBC RBC Hgb Hct MCV MCH MCHC RDW Plt Count [place] % (Auto) Seg Neutrophils % Seg Neuts % (Manual) Monocytes % (Manual) Nucleated RBC % Seg Neutrophils # Man Lymphocytes # (Manual) Monocytes # (Manual) Percent Retic PT INR D-Dimer Sodium 136 L Potassium Carbon Dioxide 21 L BUN 27 H Creatinine 0.7 L Glucose 150 H POC Glucose 125 H Lactic Acid 2.10 H* Calcium 8.3 L Magnesium 3.00 H Total Bilirubin 5.30 H Direct Bilirubin AST 84 H ALT 475 H Lactate Dehydrogenase Total Protein Albumin 3.4 L Vitamin B12 Acetaminophen Crossmatch Allied health notes reviewed: nursing
--- NOTE | 2021-08-19 13:29 | Consultation ---
History of Present Illness - Reason for Consult Consult date: 08/19/21 IVC Filter Placement Requesting physician: INDIGO ALARCON - History of Present Illness The patient is a 55-year-old male who presented to the emergency department with complaints of shortness that have been progressively worsening over the past 3 to 4 weeks. His work-up revealed severe anemia with hemoglobin of 3.5 and hematocrit of 11.3 and a total bilirubin of 13.4 suggesting a possible auto immune hemolytic anemia. He also had thrombocytopenia with a platelet count in the low 100s. Further work-up revealed an elevated D-dimer she underwent an ultrasound that demonstrated a right peroneal vein DVT. Given his anemia and thrombocytopenia he is unable to be placed on anticoagulation so we were consulted for placement of an IVC filter. At this time the patient complains of pain in bilateral feet, that is preventing him from ambulating, however he has no additional complaints at this time. Past History Past Medical History: arthritis (Rheumatoid arthritis), GERD, hypertension, other (Depression, hernia) Past Surgical History: No surgical history Social history: no significant social history Family history: no significant family history Medications and Allergies Allergies Allergy/AdvReac Type Severity Reaction Status Date / Time atenolol Allergy Unknown Verified 08/15/21 01:34 quetiapine fumarate AdvReac Unknown Verified 08/15/21 01:33 [From Seroquel] Home Medications Medication Instructions Recorded Confirmed Last Taken Type Esomeprazole Magnesium [Nexium 20 mg PO DAILY 08/15/21 08/15/21 Unknown History 24Hr] Sulindac 200 mg PO BID 08/15/21 08/15/21 08/14/21 History predniSONE [Deltasone] 5 mg PO TID 08/15/21 08/15/21 08/14/21 History 5 mg Active Meds: Active Medications Albuterol (Albuterol 2.5 Mg/3 Ml Nebu) 2.5 mg IH Q4HRT PRN PRN Reason: Shortness Of Breath Last Admin: 08/17/21 10:06 Dose: 2.5 mg Amlodipine Besylate (Amlodipine 10 Mg Tab) 10 mg PO QDAY ROSINA Last Admin: 08/19/21 09:34 Dose: 10 mg Dextrose (Dextrose 50% In Water (25gm) 50 Ml Syringe) 50 ml IV Q30MIN PRN; Protocol PRN Reason: Hypoglycemia Sodium Chloride (Nacl 0.9% 500 Ml) 500 mls @ 5 mls/hr IV ONCE ONE Stop: 08/20/21 08:38 Last Admin: 08/16/21 19:37 Dose: Not Given Insulin Human Lispro (Insulin Lispro 100 Unit/Ml) 0 unit SUB-Q ACHS [facility]; Protocol Last Admin: 08/19/21 13:11 Dose: 1 unit Magnesium Hydroxide (Magnesium Hydroxide (Mom) Oral Liqd Udc) 30 ml PO Q4H PRN PRN Reason: Constipation Methylprednisolone Sodium Succinate (Methylprednisolone Sod Succinate 125 Mg/2 Ml Inj) 125 mg IV Q12HR [facility] Last Admin: 08/19/21 09:34 Dose: 125 mg Morphine Sulfate (Morphine 2 Mg/1 Ml Inj) 2 mg IV Q4H PRN PRN Reason: Pain, Moderate (4-6) Last Admin: 08/19/21 11:04 Dose: 2 mg Morphine Sulfate (Morphine 4 Mg/1 Ml Inj) 4 mg IV Q4H PRN PRN Reason: Pain , Severe (7-10) Ondansetron HCl (Ondansetron 4 Mg/2 Ml Inj) 4 mg IV Q8H PRN PRN Reason: Nausea And Vomiting Pantoprazole Sodium (Pantoprazole 40 Mg Tab) 40 mg PO QDAC [facility] Last Admin: 08/19/21 09:34 Dose: 40 mg Sodium Chloride (Sodium Chloride 0.9% 10 Ml Flush Syringe) 10 ml IV BID [facility] Last Admin: 08/19/21 09:34 Dose: 10 ml Sodium Chloride (Sodium Chloride 0.9% 10 Ml Flush Syringe) 10 ml IV PRN PRN PRN Reason: LINE FLUSH Review of Systems All systems: negative Exam - Constitutional Vitals: Temp Pulse Resp BP Pulse Ox 98.1 F 70 18 119/67 100 08/19/21 07:24 08/19/21 07:24 08/19/21 07:24 08/19/21 07:24 08/19/21 07:24 General appearance: Present: no acute distress - Respiratory Respiratory effort: normal - Cardiovascular Rhythm: regular - Extremities Extremities: no ischemia, normal temperature (Bilateral lower extremities are warm and well-perfused) Extremity abnormal: edema (Of bilateral lower extremities), pulses diminished (Difficult to palpate pedal pulses secondary to edema) - Abdominal General gastrointestinal: Present: soft Male genitourinary: Present: deferred - Rectal Rectal Exam: deferred Results - Labs CBC & Chem 7: 08/19/21 07:19 08/19/21 07:19 Labs: Abnormal lab results 08/15/21 08/18/21 08/18/21 Range/Units 05:37 05:54 12:11 WBC (4.5-11.0) K/mm3 RBC (3.65-5.03) M/mm3 Hgb (11.8-15.2) gm/dl Hct (35.5-45.6) % MCV (84-94) fl RDW (13.2-15.2) % Plt Count (140-440) K/mm3 Sodium (137-145) mmol/L Carbon Dioxide (22-30) mmol/L BUN (9-20) mg/dL Creatinine (0.8-1.3) mg/dL Glucose (75-100) mg/dL POC Glucose 158 H 210 H (70-105) mg/dL Lactic Acid (0.7-2.0) mmol/L Calcium (8.4-10.2) mg/dL Magnesium (1.7-2.3) mg/dL Total Bilirubin (0.1-1.2) mg/dL AST (5-40) units/L ALT (7-56) units/L Albumin (3.9-5) g/dL Crossmatch See Detail 08/18/21 08/18/21 08/18/21 Range/Units 12:49 13:06 17:03 WBC (4.5-11.0) K/mm3 RBC (3.65-5.03) M/mm3 Hgb (11.8-15.2) gm/dl Hct (35.5-45.6) % MCV (84-94) fl RDW (13.2-15.2) % Plt Count (140-440) K/mm3 Sodium (137-145) mmol/L Carbon Dioxide (22-30) mmol/L BUN (9-20) mg/dL Creatinine (0.8-1.3) mg/dL Glucose (75-100) mg/dL POC Glucose 200 H (70-105) mg/dL Lactic Acid 3.60 H* (0.7-2.0) mmol/L Calcium (8.4-10.2) mg/dL Magnesium (1.7-2.3) mg/dL Total Bilirubin (0.1-1.2) mg/dL AST (5-40) units/L ALT (7-56) units/L Albumin (3.9-5) g/dL Crossmatch See Detail 08/18/21 08/18/21 08/19/21 Range/Units 20:55 23:06 07:19 WBC 22.3 H (4.5-11.0) K/mm3 RBC 2.48 L (3.65-5.03) M/mm3 Hgb 8.0 L (11.8-15.2) gm/dl Hct 23.9 L (35.5-45.6) % MCV 96 H (84-94) fl RDW 18.0 H (13.2-15.2) % Plt Count 66 L (140-440) K/mm3 Sodium (137-145) mmol/L Carbon Dioxide (22-30) mmol/L BUN (9-20) mg/dL Creatinine (0.8-1.3) mg/dL Glucose (75-100) mg/dL POC Glucose 200 H (70-105) mg/dL Lactic Acid 2.60 H* (0.7-2.0) mmol/L Calcium (8.4-10.2) mg/dL Magnesium (1.7-2.3) mg/dL Total Bilirubin (0.1-1.2) mg/dL AST (5-40) units/L ALT (7-56) units/L Albumin (3.9-5) g/dL Crossmatch 08/19/21 08/19/21 08/19/21 Range/Units 07:19 07:19 07:22 WBC (4.5-11.0) K/mm3 RBC (3.65-5.03) M/mm3 Hgb (11.8-15.2) gm/dl Hct (35.5-45.6) % MCV (84-94) fl RDW (13.2-15.2) % Plt Count (140-440) K/mm3 Sodium 136 L (137-145) mmol/L Carbon Dioxide 21 L (22-30) mmol/L BUN 27 H (9-20) mg/dL Creatinine 0.7 L (0.8-1.3) mg/dL Glucose 150 H (75-100) mg/dL POC Glucose 125 H (70-105) mg/dL Lactic Acid 2.10 H* (0.7-2.0) mmol/L Calcium 8.3 L (8.4-10.2) mg/dL Magnesium 3.00 H (1.7-2.3) mg/dL Total Bilirubin 5.30 H (0.1-1.2) mg/dL AST 84 H (5-40) units/L ALT 475 H (7-56) units/L Albumin 3.4 L (3.9-5) g/dL Crossmatch - Imaging and Cardiology Venous US: image reviewed Assessment and Plan The patient is a 55-year-old male with a history of anemia of unclear origin as well as thrombocytopenia. He was found to have a peroneal vein DVT however he is unable to be anticoagulated secondary to his anemia. Current recommendations for below-knee deep venous thrombosis are compression and ambulation as well as anticoagulation if tolerated. If the patient is unable to tolerate anticoagulation and IVC filter is not recommended. The recommendation is serial venous duplex at 1 week and 1 week intervals for a total of 4 weeks. If there is propagation of the DVT into the popliteal vein and the patient is still unable to tolerate anticoagulation and the patient should have an IVC filter placed. If the patient is able to tolerate anticoagulation then should be started on anticoagulation at that time. I discussed this plan with the patient was expressed understanding and agrees. We will repeat the ultrasound duplex in 1 week.
[2021-08-20 06:09] LABS: Hematocrit 25.4 % (35.5-45.6); Hemoglobin 8.2 gm/dl (11.8-15.2); Mean Corpuscular HGB Conc 32 % (32-34); Mean Corpuscular Volume 96 fl (84-94); Platelet Count 105 K/mm3 (140-440); Red Blood Count 2.64 M/mm3 (3.65-5.03); Red Cell Distribution Width 17.5 % (13.2-15.2)
--- NOTE | 2021-08-20 08:09 | Progress Note ---
Assessment and Plan Assessment and plan: History Interval history: This is a 55-year-old male with HTN, rheumatoid arthritis, GERD, depression, and hernia who presented to emergency department on 08/15 with complaints of shortness of breath and chest pain with symptoms ongoing for the past 3 weeks, increasing shortness of breath with exertion and pleuritic chest pain, occasional distention of the abdomen, jaundice and dark urine. Patient stated that he had a fall on his forehead a few days prior to admission feeling weak and dizzy however did not lose consciousness. Upon arrival to the emergency department patient was tachypneic and tachycardic oxygen saturation of 96% on room air. Work-up in the emergency department revealed leukocytosis, severe anemia with a H/H of 3.5/11.3, thrombocytopenia, elevated INR and transaminitis. CXR showed borderline cardiomegaly with possible interstitial pulmonary edema. Patient was admitted to the hospitalist service with severe anemia, leukocytosis and acute liver injury with consults to GI, ID and pulmonology. Hospital Course to Date: 08/15: Patient is on HHFL 40%, 25L. SPO2 above 95. With severe anemia, no s/s of any acute bleeding, administered 2units of PRBCs for now, serial H&H ordered. HEME/ONC consult pending. Worsening lactic acid noted most likely due to acute liver disease, Acetylcysteine gtt intiated per GI recommendation. Will continue to monitor LFTs and coags. Orders placed for UDS and alcohol leve;. Will also check Vitamin B12, folate, and HIV. Patient remains afebrile and hemodynamically stable. per ID leukocytosi is unlikely related to an infectious process and IV abx were discontinued. 08/16: Patient is doing much better this am. Stable on 3L NC this am, no respiratory distress noted, this am CXR improved. LFTs with mild improvement this am, d/w GI give another dose off Acetylcysteine. S/p 4units of PRBCs repeat CBC pending, transfuse if hbg less than 7. Continue to trend LFTs, electrolytes repleted. 08/17: Patient started on Solu-Medrol as his Briseida test was positive, patient complaining of calf pain which is bilateral feet warm to touch and Doppler ultrasound was ordered which revealed acute peroneal DVT. Hypokalemia repleted. 08/18: We will transfuse 1 unit PRBC per heme-onc orders as hematocrit is less than 23. LFTs have much improved. will transfer to the floor. Dr. Bird placed orders re juan archibald and scd. will perform weekly surveillance US 08/19: H/H stable, improvement in symptomology this AM. AOx3. F/u bm aspirate pathology. Heme recs noted will continue solumedrol 1mg/kg bid. Vascular recommendations noted re: peroneal dvt. JUAN cristela/scd for now, Will continue to monitor with serial US qweekly for dvt propagation. 08/20: Awaiting BM bx results. Assessment and plan: This is a 55-year-old male with HTN, RA, GERD, depression, hernia admitted with severe anemia, leukocytosis and acute liver injury Neuro: NAD, h/o depression -Avoid delirium -Reorientation as needed -Maintain sleep-wake cycle -No antidepressants noted on home medication profile -As needed analgesia Cardiac: h/o HTN -Cardiology consulted, appreciate recommendations -Blood pressure monitoring per protocol Respiratory: Acute hypoxic respiratory failure -Supplemental oxygen as needed -SPO2 monitoring -Pulmonary hygiene GI: Acute liver injury, h/o GERD -Presented with transaminitis and jaundice -GI consulted, appreciate recommendations -Per GI: suspect ischemic hepatitis given degree of elevation and quick improvement -CCM consulted, appreciate recommendations -CT abdomen without any acute abnormality -Hepatic panel negative -24 hours -840 mL -Protonix -S/p acetylcysteine -Trend LFTs -cardiac diet : Hypokalemia -Strict intake and output -Renally dose medications -Avoid nephrotoxic medications -Replete potassium -Trend BMP ID: Leukemoid reaction, lactic acidosis -Infectious disease consulted, appreciate recommendation -COVID-19 PCR negative -f/u blood culture -Monitor WBC and temperature curve -CT chest revealed no PE, no evidence of pneumonia. -CT abdomen and pelvis revealed no acute intra-abdominal or intrapelvic pathology. -monitor off abx Endo: NAD -Avoid hypoglycemia Heme: Severe microcytic anemia, thrombocytopenia, left lower extremity peroneal DVT, autoimmune hemolytic anemia, leukocytosis -Presented with a hemoglobin of 3.5 -Vitamin B12 high, folate normal -Otology/oncology consulted -Positive Briseida test -Solu-Medrol 1 mg/kg twice daily -Trend CBC -S/p 6 units PRBC -Transfuse hemoglobin less than 7 -hct < 23->one unit prbc given today -Bone marrow biopsy -Monitor for signs of bleeding -SCDs to BLE while in bed -Hemoccult positive -Avoid chemical anticoagulation in setting of severe anemia -CT chest revealed no PE, no evidence of pneumonia. -CT abdomen and pelvis revealed no acute intra-abdominal or intrapelvic pathology. -Per vascular surgery: JUAN/SCD with weekly dopplar History Interval history: Patient seen and examined. No acute complaints on encounter. All questions answered to patient satisfaction. Hospitalist Physical - Physical exam Narrative exam: General appearance: Present: no acute distress, well-nourished, obese - EENT Eyes: Present: PERRL, EOM intact ENT: hearing intact - Neck Neck: Present: normal ROM - Respiratory Respiratory effort: normal Respiratory: bilateral: CTA, diminished - Cardiovascular Rhythm: regular Heart Sounds: Present: S1 & S2. Absent: systolic murmur, diastolic murmur - Extremities Extremities: no ischemia, pulses intact, pulses symmetrical, No edema, normal temperature, normal color Peripheral Pulses: within normal limits - Abdominal General gastrointestinal: soft, non-tender, non-distended, normal bowel sounds - Integumentary Integumentary: Present: warm, dry - Psychiatric Psychiatric: cooperative - Neurologic Neurologic: CNII-XII intact, moves all extremities - Allied Health Allied health notes reviewed: nursing, RT - Constitutional Vitals: Temp Pulse Resp BP Pulse Ox 97.8 F 72 18 128/72 96 08/20/21 04:59 08/20/21 04:59 08/20/21 04:59 08/20/21 04:59 08/20/21 04:59 General appearance: Present: no acute distress, well-nourished, obese HEART Score - HEART Score Troponin: Troponin T 0.016 ng/mL (0.00-0.029) 08/15/21 06:00 Results - Labs CBC & Chem 7: 08/20/21 05:30 08/19/21 07:19 Labs: Laboratory Last Values WBC 21.2 K/mm3 (4.5-11.0) H 08/20/21 05:30 RBC 2.64 M/mm3 (3.65-5.03) L 08/20/21 05:30 Hgb 8.2 gm/dl (11.8-15.2) L 08/20/21 05:30 Hct 25.4 % (35.5-45.6) L 08/20/21 05:30 MCV 96 fl (84-94) H 08/20/21 05:30 MCH 31 pg (28-32) 08/20/21 05:30 MCHC 32 % (32-34) 08/20/21 05:30 RDW 17.5 % (13.2-15.2) H 08/20/21 05:30 Plt Count 105 K/mm3 (140-440) L 08/20/21 05:30 [place] % (Auto) 8.3 % (0.0-7.3) H 08/15/21 04:01 Eos % (Auto) 0.2 % (0.0-4.3) 08/15/21 04:01 Lymph # (Auto) Seat Cover Installer 08/15/21 04:01 Add Manual Diff Complete 08/18/21 04:20 Total Counted 100 08/18/21 04:20 Seg Neutrophils % 77.5 % (40.0-70.0) H 08/15/21 04:01 Seg Neuts % (Manual) 74.0 % (40.0-70.0) H 08/18/21 04:20 Band Neutrophils % 2.0 % 08/18/21 04:20 Lymphocytes % (Manual) 17.0 % (13.4-35.0) 08/18/21 04:20 Reactive Lymphs % (Man) 0 % 08/18/21 04:20 Monocytes % (Manual) 7.0 % (0.0-7.3) 08/18/21 04:20 Eosinophils % (Manual) 0 % (0.0-4.3) 08/18/21 04:20 Basophils % (Manual) 0 % (0.0-1.8) 08/18/21 04:20 Metamyelocytes % 0 % 08/18/21 04:20 Myelocytes % 0 % 08/18/21 04:20 Promyelocytes % 0 % 08/18/21 04:20 Blast Cells % 0 % 08/18/21 04:20 Nucleated RBC % 237.0 % (0.0-0.9) H 08/18/21 04:20 Seg Neutrophils # Man 17.5 K/mm3 (1.8-7.7) H 08/18/21 04:20 Band Neutrophils # 0.5 K/mm3 08/18/21 04:20 Lymphocytes # (Manual) 4.0 K/mm3 (1.2-5.4) 08/18/21 04:20 Abs React Lymphs (Man) 0.0 K/mm3 08/18/21 04:20 Monocytes # (Manual) 1.7 K/mm3 (0.0-0.8) H 08/18/21 04:20 Eosinophils # (Manual) 0.0 K/mm3 (0.0-0.4) 08/18/21 04:20 Basophils # (Manual) 0.0 K/mm3 (0.0-0.1) 08/18/21 04:20 Metamyelocytes # 0.0 K/mm3 08/18/21 04:20 Myelocytes # 0.0 K/mm3 08/18/21 04:20 Promyelocytes # 0.0 K/mm3 08/18/21 04:20 Blast Cells # 0.0 K/mm3 08/18/21 04:20 Pathologist Review 08/15/21 04:01 WBC Morphology Not Reportable 08/18/21 04:20 Hypersegmented Neuts Not Reportable 08/18/21 04:20 Hyposegmented Neuts Not Reportable 08/18/21 04:20 Hypogranular Neuts Not Reportable 08/18/21 04:20 Smudge Cells Not Reportable 08/18/21 04:20 Toxic Granulation Not Reportable 08/18/21 04:20 Toxic Vacuolation Not Reportable 08/18/21 04:20 Dohle Bodies Not Reportable 08/18/21 04:20 Pelger-Huet Anomaly Not Reportable 08/18/21 04:20 Elise Rods Not Reportable 08/18/21 04:20 Platelet Estimate Appears decreased 08/18/21 04:20 Clumped Platelets Not Reportable 08/18/21 04:20 Plt Clumps, EDTA Not Reportable 08/18/21 04:20 Large Platelets Not Reportable 08/18/21 04:20 Giant Platelets Not Reportable 08/18/21 04:20 Platelet Satelliting Not Reportable 08/18/21 04:20 Plt Morphology Comment Not Reportable 08/18/21 04:20 RBC Morphology Not Reportable 08/18/21 04:20 Dimorphic RBCs Not Reportable 08/18/21 04:20 Polychromasia 1+ 08/18/21 04:20 Hypochromasia Not Reportable 08/18/21 04:20 Poikilocytosis Not Reportable 08/18/21 04:20 Anisocytosis 1+ 08/18/21 04:20 Microcytosis Not Reportable 08/18/21 04:20 Macrocytosis Few 08/18/21 04:20 Spherocytes Not Reportable 08/18/21 04:20 Pappenheimer Bodies Not Reportable 08/18/21 04:20 Sickle Cells Not Reportable 08/18/21 04:20 Target Cells Not Reportable 08/18/21 04:20 Tear Drop Cells Not Reportable 08/18/21 04:20 Ovalocytes Not Reportable 08/18/21 04:20 Stomatocytes Few 08/15/21 04:01 Helmet Cells Not Reportable 08/18/21 04:20 [place] Bodies Not Reportable 08/18/21 04:20 [place] Rings Not Reportable 08/18/21 04:20 [place] Cells Not Reportable 08/18/21 04:20 Bite Cells Not Reportable 08/18/21 04:20 Crenated Cell Not Reportable 08/18/21 04:20 Elliptocytes Not Reportable 08/18/21 04:20 Acanthocytes (Spur) Not Reportable 08/18/21 04:20 Rouleaux Not Reportable 08/18/21 04:20 Hemoglobin C Crystals Not Reportable 08/18/21 04:20 Schistocytes Not Reportable 08/18/21 04:20 Malaria parasites Not Reportable 08/18/21 04:20 Percent Retic 9.38 % (0.78-2.58) H 08/18/21 04:20 Yassine Bodies Not Reportable 08/18/21 04:20 Hem Pathologist Commnt No 08/18/21 04:20 PT 17.8 Sec. (12.2-14.9) H 08/17/21 04:47 INR 1.31 (0.87-1.13) H 08/17/21 04:47 APTT 27.6 Sec. (24.2-36.6) 08/17/21 04:47 Fibrinogen 446 mg/dl (211-480) 08/18/21 04:20 D-Dimer > 234 ng/mlDDU (0-234) H 08/15/21 04:01 Sodium 136 mmol/L (137-145) L 08/19/21 07:19 Potassium 4.4 mmol/L (3.6-5.0) 08/19/21 07:19 Chloride 105.1 mmol/L (98-107) 08/19/21 07:19 Carbon Dioxide 21 mmol/L (22-30) L 08/19/21 07:19 Anion Gap 14 mmol/L 08/19/21 07:19 BUN 27 mg/dL (9-20) H 08/19/21 07:19 Creatinine 0.7 mg/dL (0.8-1.3) L 08/19/21 07:19 Estimated GFR > 60 ml/min 08/19/21 07:19 BUN/Creatinine Ratio 39 % 08/19/21 07:19 Glucose 150 mg/dL (75-100) H 08/19/21 07:19 POC Glucose 140 mg/dL (70-105) H 08/20/21 07:28 Lactic Acid 2.10 mmol/L (0.7-2.0) H* 08/19/21 07:19 Calcium 8.3 mg/dL (8.4-10.2) L 08/19/21 07:19 Phosphorus 2.90 mg/dL (2.5-4.5) 08/19/21 07:19 Magnesium 3.00 mg/dL (1.7-2.3) H 08/19/21 07:19 Total Bilirubin 5.30 mg/dL (0.1-1.2) H 08/19/21 07:19 Direct Bilirubin 2.3 mg/dL (0-0.2) H 08/18/21 04:20 Indirect Bilirubin 5.2 mg/dL 08/18/21 04:20 AST 84 units/L (5-40) H 08/19/21 07:19 ALT 475 units/L (7-56) H 08/19/21 07:19 Alkaline Phosphatase 82 units/L (35-129) 08/19/21 07:19 Lactate Dehydrogenase 3057 units/L (91-180) H 08/18/21 04:20 Troponin T 0.016 ng/mL (0.00-0.029) 08/15/21 06:00 Total Protein 8.0 g/dL (6.3-8.2) 08/19/21 07:19 Albumin 3.4 g/dL (3.9-5) L 08/19/21 07:19 Albumin/Globulin Ratio 0.7 % 08/19/21 07:19 Vitamin B12 > 2000 pg/mL (211-911) H 08/15/21 22:34 Folate 17.11 ng/mL (7.3-26.0) 08/15/21 22:34 Procalcitonin 1.15 ng/mL (<0.15) 08/18/21 12:49 Urine Opiates Screen Negative 08/15/21 12:30 Urine Methadone Screen Negative 08/15/21 12:30 Acetaminophen 5.0 ug/mL (10.0-30.0) L 08/15/21 07:00 Ur Barbiturates Screen Negative 08/15/21 12:30 Ur Phencyclidine Scrn Negative 08/15/21 12:30 Ur Amphetamines Screen Negative 08/15/21 12:30 U Benzodiazepines Scrn Negative 08/15/21 12:30 Urine Cocaine Screen Negative 08/15/21 12:30 U Marijuana (THC) Screen Negative 08/15/21 12:30 Drugs of Abuse Note Disclamer 08/15/21 12:30 Plasma/Serum Alcohol < 0.01 % (0-0.07) 08/15/21 22:34 Mitochondria M2 Ab <=20.0 U (<=20.0) 08/16/21 14:49 Coronavirus (PCR) Negative (Negative) 08/15/21 Unknown Hepatitis A IgM Ab Non-reactive (NonReactive) 08/15/21 06:44 Hep Bs Antigen Non-reactive (Negative) 08/15/21 06:44 Hep B Core IgM Ab Non-reactive (NonReactive) 08/15/21 06:44 Hepatitis C Antibody Non-reactive (NonReactive) 08/15/21 06:44 HIV 1&2 Antibody Rapid Non react (Non React) 08/15/21 22:34 HIV P24 Antigen Non react (Non React) 08/15/21 22:34 Blood Type O POSITIVE 08/18/21 13:06 Antibody Screen Negative 08/18/21 13:06 PARRISH Antibody Screen Negative 08/15/21 05:37 Direct Antiglob Test Positive 08/17/21 12:00 GIO (IgG-AHG) Positive 08/17/21 12:00 GIO, Poly Interpret Positive 08/17/21 12:00 GIO, Anti-C3 Negative 08/17/21 12:00 Crossmatch See Detail 08/18/21 13:06 Microbiology: Microbiology 08/15/21 09:29 Peripheral/Venous Blood Culture - Preliminary NO GROWTH AFTER 4 DAYS 08/15/21 09:29 Peripheral/Venous Blood Culture - Preliminary NO GROWTH AFTER 4 DAYS Active Medications - Current Medications Current Medications: Generic Name Dose Route Start Last Admin Trade Name Freq PRN Reason Stop Dose Admin Albuterol 2.5 mg 08/17/21 09:42 08/17/21 10:06 Albuterol 2.5 Mg/3 Ml Nebu IH 2.5 mg Q4HRT PRN Administration Shortness Of Breath Amlodipine Besylate 10 mg 08/19/21 10:00 08/19/21 09:34 Amlodipine 10 Mg Tab PO 10 mg QDAY ROSINA Administration Dextrose 50 ml 08/18/21 18:18 Dextrose 50% In Water (25gm) 50 Ml Syringe IV Q30MIN PRN Hypoglycemia Protocol Sodium Chloride 500 mls @ 5 mls/hr 08/16/21 04:39 08/16/21 19:37 Nacl 0.9% 500 Ml IV 08/20/21 08:38 Not Given ONCE ONE Insulin Human Lispro 0 unit 08/18/21 22:00 08/19/21 22:13 Insulin Lispro 100 Unit/Ml SUB-Q 2 unit ACHS ROSINA Administration Protocol Magnesium Hydroxide 30 ml 08/15/21 06:09 Magnesium Hydroxide (Mom) Oral Liqd Udc PO Q4H PRN Constipation Methylprednisolone Sodium Succinate 125 mg 08/17/21 14:00 08/19/21 22:13 Methylprednisolone Sod Succinate 125 Mg/2 Ml Inj IV 125 mg Q12HR ROSINA Administration Morphine Sulfate 2 mg 08/15/21 06:09 08/19/21 11:04 Morphine 2 Mg/1 Ml Inj IV 2 mg Q4H PRN Administration Pain, Moderate (4-6) Morphine Sulfate 4 mg 08/15/21 06:09 Morphine 4 Mg/1 Ml Inj IV Q4H PRN Pain , Severe (7-10) Ondansetron HCl 4 mg 08/15/21 06:09 Ondansetron 4 Mg/2 Ml Inj IV Q8H PRN Nausea And Vomiting Pantoprazole Sodium 40 mg 08/18/21 07:30 08/19/21 09:34 Pantoprazole 40 Mg Tab PO 40 mg QDAC ROSINA Administration Sodium Chloride 10 ml 08/15/21 10:00 08/19/21 22:14 Sodium Chloride 0.9% 10 Ml Flush Syringe IV 10 ml BID ROSINA Administration Sodium Chloride 10 ml 08/15/21 06:09 Sodium Chloride 0.9% 10 Ml Flush Syringe IV PRN PRN LINE FLUSH
[2021-08-20] MEDS: PANTOPRAZOLE 40 MG TAB PO SCH (09:35)
[2021-08-20] MEDS: amLODIPine 10 MG TAB PO SCH (09:35)
[2021-08-20] MEDS: methylPREDNISolone Sod Succinate 125 MG/2 ML INJ IV SCH ×2 (09:35→21:34)
[2021-08-20] MEDS: INSULIN LISPRO 100 UNIT/ML SUB-Q SCH ×5 (09:35→21:34)
[2021-08-20] MEDS: MAGNESIUM HYDROXIDE (MOM) ORAL LIQD UDC PO PRN (09:40)
--- NOTE | 2021-08-20 13:52 | Progress Note ---
Assessment and Plan Acute Liver Injury (? Tylenol OD vs AIH vs Ischemic Hepatitis) Jaundice Acute DVT Severe Macrocytic Anemia Thrombocytopenia Acute Hypoxemic Respiratory Failure Acute Pulmonary Edema vs Aspiration Pneumonia Hypokalemia Leukocytosis Lactic Acidosis Hypertension History of Rheumatoid Arthritis - follow repeat lower extremity doplers (pending) - follow bone marrow aspirate Path report - continue care as below otherwise; - PRBC transfusions for serum Hb < 7.0 g/dl - continue Solumedrol re: thrombocytopenia - DVT treatment per vascular / hematology team (Holding full anticoagulation in light of Anemia and thrombocytopenia / coagulopathy) - follow autoimmune serologies re: AIH - s/p empiric Mucomyst course for possible tylenol OD - continue accuchecks with glycemic control per SSI for target blood glucose < 180 mg/dL - supplemental oxygen for target O2 sat's > 90% acutely - Aspiration precautions - bronchodilators with pulmonary hygiene per RT - fall precautions - avoid nephrotoxins, renally dose all medications - avoid benzodiazepine's, reduce the possibility of delirium - AB's per ID rec's (none acutely and follow clinically / WBC) - prn analgesia per pain score - Maintenance of sleep-wake cycle, avoid delirium - G.I. & VTE prophylaxis (Pantoprazole and SCD's) - PT/OT/ROM exercises - continue mobility protocols for pressure ulcer prophylaxis - Monitor hemodynamics closely - continue other care per attending / other consultants - discharge planning ongoing concurrently COVID SPECIFIC INTERVENTIONS - COVID-19 PCR negative .... Re-evaluate in am & prn Subjective Date of service: 08/20/21 Principal diagnosis: Ac. Liver Injury; Anemia; Thrombocytopenia; AHRF; Pulm Edema; Met. Acidosis Interval history: Patient is seen today for: Acute Liver Injury; Jaundice; Anemia; Thrombocytopenia; Acute Hypoxemic Respiratory Failure; Pulm Edema vs Aspiration Pneumonia; Lactic Acidosis; Hypertension; History of Rheumatoid Arthritis Seen and examined at bedside; 24hour events reviewed; nursing and respiratory care staff consulted; no adverse overnight events reported to me; resting in bed; feels overall better; denies gross bleeding; denies N/V/F/C Objective Vital Signs - 12hr 08/20/21 08/20/21 08/20/21 04:59 07:30 08:52 Temperature 97.8 F 97.8 F Pulse Rate 72 68 Respiratory 18 18 Rate Blood Pressure 128/72 120/68 O2 Sat by Pulse 96 99 98 Oximetry 08/20/21 11:27 Temperature 97.8 F Pulse Rate 80 Respiratory 18 Rate Blood Pressure 109/83 O2 Sat by Pulse 97 Oximetry Constitutional: no acute distress, other (middle aged obese male with normal respiratory effort at rest) Eyes: non-icteric ENT: oropharynx moist Neck: supple, other (large circumference) Effort: normal Ascultation: Bilateral: clear, diminished breath sounds Percussion: Bilateral: not dull Cardiovascular: regular rate and rhythm Gastrointestinal: normoactive bowel sounds, soft, non-tender, non-distended ( protuberant) Integumentary: normal, other (no ecchymosis noted) Extremities: no cyanosis, no edema, pulses normal, no ischemia or petechiae Neurologic: non-focal exam (grossly), pupils equal and round, CN II-XII normal, motor strength normal and Psychiatric: mood appropriate, affect normal CBC and BMP: 08/20/21 05:30 08/19/21 07:19 ABG, PT/INR, D-dimer: PT/INR, D-dimer PT 17.8 Sec. (12.2-14.9) H 08/17/21 04:47 INR 1.31 (0.87-1.13) H 08/17/21 04:47 D-Dimer > 234 ng/mlDDU (0-234) H 08/15/21 04:01 Abnormal lab findings: Abnormal Labs 08/15/21 08/15/21 08/15/21 04:01 04:01 04:01 WBC 34.5 H RBC 0.84 L Hgb 3.5 L* Hct 11.3 L* MCV 134 H MCH 41 H MCHC 31 L RDW 30.4 H Plt Count 115 L [place] % (Auto) 8.3 H Seg Neutrophils % 77.5 H Seg Neuts % (Manual) Monocytes % (Manual) 8.5 H Nucleated RBC % 55.0 H Seg Neutrophils # Man 20.2 H Lymphocytes # (Manual) 9.1 H Monocytes # (Manual) 2.9 H Percent Retic PT 20.9 H INR 1.59 H D-Dimer > 234 H Sodium Potassium Carbon Dioxide 17 L BUN 40 H Creatinine 0.7 L Glucose 145 H POC Glucose Lactic Acid Calcium Magnesium Total Bilirubin 13.40 H Direct Bilirubin AST 1665 H ALT 1615 H Lactate Dehydrogenase Total Protein 8.4 H Albumin 3.7 L Vitamin B12 Acetaminophen Crossmatch 08/15/21 08/15/21 08/15/21 05:37 06:44 06:44 WBC RBC Hgb Hct MCV MCH MCHC RDW Plt Count [place] % (Auto) Seg Neutrophils % Seg Neuts % (Manual) Monocytes % (Manual) Nucleated RBC % Seg Neutrophils # Man Lymphocytes # (Manual) Monocytes # (Manual) Percent Retic PT INR D-Dimer Sodium Potassium Carbon Dioxide BUN Creatinine Glucose POC Glucose Lactic Acid 7.30 H* Calcium Magnesium Total Bilirubin Direct Bilirubin AST ALT Lactate Dehydrogenase 4126 H Total Protein Albumin Vitamin B12 Acetaminophen Crossmatch See Detail 08/15/21 08/15/21 08/15/21 07:00 09:29 22:34 WBC RBC Hgb Hct MCV MCH MCHC RDW Plt Count [place] % (Auto) Seg Neutrophils % Seg Neuts % (Manual) Monocytes % (Manual) Nucleated RBC % Seg Neutrophils # Man Lymphocytes # (Manual) Monocytes # (Manual) Percent Retic PT INR D-Dimer Sodium Potassium Carbon Dioxide BUN Creatinine Glucose POC Glucose Lactic Acid 8.70 H* 2.30 H* Calcium Magnesium Total Bilirubin Direct Bilirubin AST ALT Lactate Dehydrogenase Total Protein Albumin Vitamin B12 Acetaminophen 5.0 L Crossmatch 08/15/21 08/15/21 08/16/21 22:34 22:34 00:08 WBC RBC Hgb 6.0 L Hct 17.3 L* D MCV MCH MCHC RDW Plt Count [place] % (Auto) Seg Neutrophils % Seg Neuts % (Manual) Monocytes % (Manual) Nucleated RBC % Seg Neutrophils # Man Lymphocytes # (Manual) Monocytes # (Manual) Percent Retic PT INR D-Dimer Sodium Potassium Carbon Dioxide BUN Creatinine Glucose POC Glucose 144 H Lactic Acid Calcium Magnesium Total Bilirubin Direct Bilirubin AST ALT Lactate Dehydrogenase Total Protein Albumin Vitamin B12 > 2000 H Acetaminophen Crossmatch 08/16/21 08/16/21 08/16/21 04:30 04:30 04:30 WBC 30.7 H RBC 1.86 L Hgb 6.3 L Hct 19.2 L* MCV 103 H MCH 34 H MCHC RDW 24.8 H Plt Count 77 L [place] % (Auto) Seg Neutrophils % Seg Neuts % (Manual) Monocytes % (Manual) Nucleated RBC % Seg Neutrophils # Man Lymphocytes # (Manual) Monocytes # (Manual) Percent Retic PT INR D-Dimer Sodium Potassium 3.0 L D Carbon Dioxide 19 L BUN 55 H Creatinine Glucose 167 H POC Glucose Lactic Acid Calcium 8.1 L Magnesium Total Bilirubin 10.20 H Direct Bilirubin 2.6 H AST 958 H ALT 1328 H Lactate Dehydrogenase Total Protein Albumin 3.3 L Vitamin B12 Acetaminophen Crossmatch 08/16/21 08/16/21 08/16/21 04:30 04:30 12:09 WBC RBC Hgb Hct MCV MCH MCHC RDW Plt Count [place] % (Auto) Seg Neutrophils % Seg Neuts % (Manual) Monocytes % (Manual) Nucleated RBC % Seg Neutrophils # Man Lymphocytes # (Manual) Monocytes # (Manual) Percent Retic PT 19.5 H INR 1.46 H D-Dimer Sodium Potassium Carbon Dioxide BUN Creatinine Glucose POC Glucose Lactic Acid 2.10 H* 2.10 H* Calcium Magnesium Total Bilirubin Direct Bilirubin AST ALT Lactate Dehydrogenase Total Protein Albumin Vitamin B12 Acetaminophen Crossmatch 08/16/21 08/16/21 08/16/21 12:09 14:49 20:10 WBC 26.2 H RBC 2.11 L Hgb 7.1 L 6.6 L Hct 21.8 L 20.2 L MCV 103 H MCH 34 H MCHC RDW 22.9 H Plt Count 66 L [place] % (Auto) Seg Neutrophils % Seg Neuts % (Manual) Monocytes % (Manual) Nucleated RBC % Seg Neutrophils # Man Lymphocytes # (Manual) Monocytes # (Manual) Percent Retic PT INR D-Dimer Sodium Potassium 3.4 L Carbon Dioxide BUN Creatinine Glucose POC Glucose Lactic Acid Calcium Magnesium Total Bilirubin Direct Bilirubin AST ALT Lactate Dehydrogenase Total Protein Albumin Vitamin B12 Acetaminophen Crossmatch 08/17/21 08/17/21 08/17/21 00:06 04:47 04:47 WBC RBC Hgb Hct MCV MCH MCHC RDW Plt Count [place] % (Auto) Seg Neutrophils % Seg Neuts % (Manual) Monocytes % (Manual) Nucleated RBC % Seg Neutrophils # Man Lymphocytes # (Manual) Monocytes # (Manual) Percent Retic PT 17.8 H INR 1.31 H D-Dimer Sodium Potassium 3.4 L Carbon Dioxide 18 L BUN 32 H Creatinine 0.7 L Glucose 150 H POC Glucose 127 H Lactic Acid Calcium 7.8 L Magnesium 3.10 H Total Bilirubin 7.70 H Direct Bilirubin 1.9 H AST 410 H ALT 937 H Lactate Dehydrogenase Total Protein Albumin 3.1 L Vitamin B12 Acetaminophen Crossmatch 08/17/21 08/17/21 08/17/21 04:47 11:57 17:15 WBC 24.3 H RBC 2.05 L Hgb 6.6 L 7.4 L Hct 20.5 L 22.8 L MCV 100 H MCH MCHC RDW 22.8 H Plt Count 46 L [place] % (Auto) Seg Neutrophils % Seg Neuts % (Manual) Monocytes % (Manual) 8.0 H Nucleated RBC % 136.0 H Seg Neutrophils # Man 15.1 H Lymphocytes # (Manual) 6.1 H Monocytes # (Manual) 1.9 H Percent Retic PT INR D-Dimer Sodium Potassium Carbon Dioxide BUN Creatinine Glucose POC Glucose 275 H Lactic Acid Calcium Magnesium Total Bilirubin Direct Bilirubin AST ALT Lactate Dehydrogenase Total Protein Albumin Vitamin B12 Acetaminophen Crossmatch 08/17/21 08/18/21 08/18/21 23:22 04:20 04:20 WBC 23.6 H RBC 2.21 L Hgb 7.1 L Hct 22.0 L MCV 100 H MCH MCHC RDW 19.3 H Plt Count 44 L [place] % (Auto) Seg Neutrophils % Seg Neuts % (Manual) 74.0 H Monocytes % (Manual) Nucleated RBC % 237.0 H Seg Neutrophils # Man 17.5 H Lymphocytes # (Manual) Monocytes # (Manual) 1.7 H Percent Retic 9.38 H PT INR D-Dimer Sodium Potassium Carbon Dioxide 19 L BUN 26 H Creatinine 0.7 L Glucose 141 H POC Glucose 214 H Lactic Acid Calcium 8.1 L Magnesium Total Bilirubin 7.50 H Direct Bilirubin 2.3 H AST 216 H ALT 685 H Lactate Dehydrogenase Total Protein Albumin 3.3 L Vitamin B12 Acetaminophen Crossmatch 08/18/21 08/18/21 08/18/21 04:20 05:54 12:11 WBC RBC Hgb Hct MCV MCH MCHC RDW Plt Count [place] % (Auto) Seg Neutrophils % Seg Neuts % (Manual) Monocytes % (Manual) Nucleated RBC % Seg Neutrophils # Man Lymphocytes # (Manual) Monocytes # (Manual) Percent Retic PT INR D-Dimer Sodium Potassium Carbon Dioxide BUN Creatinine Glucose POC Glucose 158 H 210 H Lactic Acid Calcium Magnesium Total Bilirubin Direct Bilirubin AST ALT Lactate Dehydrogenase 3057 H Total Protein Albumin Vitamin B12 Acetaminophen Crossmatch 08/18/21 08/18/21 08/18/21 12:49 13:06 17:03 WBC RBC Hgb Hct MCV MCH MCHC RDW Plt Count [place] % (Auto) Seg Neutrophils % Seg Neuts % (Manual) Monocytes % (Manual) Nucleated RBC % Seg Neutrophils # Man Lymphocytes # (Manual) Monocytes # (Manual) Percent Retic PT INR D-Dimer Sodium Potassium Carbon Dioxide BUN Creatinine Glucose POC Glucose 200 H Lactic Acid 3.60 H* Calcium Magnesium Total Bilirubin Direct Bilirubin AST ALT Lactate Dehydrogenase Total Protein Albumin Vitamin B12 Acetaminophen Crossmatch See Detail 08/18/21 08/18/21 08/19/21 20:55 23:06 07:19 WBC 22.3 H RBC 2.48 L Hgb 8.0 L Hct 23.9 L MCV 96 H MCH MCHC RDW 18.0 H Plt Count 66 L [place] % (Auto) Seg Neutrophils % Seg Neuts % (Manual) Monocytes % (Manual) Nucleated RBC % Seg Neutrophils # Man Lymphocytes # (Manual) Monocytes # (Manual) Percent Retic PT INR D-Dimer Sodium Potassium Carbon Dioxide BUN Creatinine Glucose POC Glucose 200 H Lactic Acid 2.60 H* Calcium Magnesium Total Bilirubin Direct Bilirubin AST ALT Lactate Dehydrogenase Total Protein Albumin Vitamin B12 Acetaminophen Crossmatch 08/19/21 08/19/21 08/19/21 07:19 07:19 07:22 WBC RBC Hgb Hct MCV MCH MCHC RDW Plt Count [place] % (Auto) Seg Neutrophils % Seg Neuts % (Manual) Monocytes % (Manual) Nucleated RBC % Seg Neutrophils # Man Lymphocytes # (Manual) Monocytes # (Manual) Percent Retic PT INR D-Dimer Sodium 136 L Potassium Carbon Dioxide 21 L BUN 27 H Creatinine 0.7 L Glucose 150 H POC Glucose 125 H Lactic Acid 2.10 H* Calcium 8.3 L Magnesium 3.00 H Total Bilirubin 5.30 H Direct Bilirubin AST 84 H ALT 475 H Lactate Dehydrogenase Total Protein Albumin 3.4 L Vitamin B12 Acetaminophen Crossmatch 08/19/21 08/19/21 08/19/21 11:15 16:55 21:10 WBC RBC Hgb Hct MCV MCH MCHC RDW Plt Count [place] % (Auto) Seg Neutrophils % Seg Neuts % (Manual) Monocytes % (Manual) Nucleated RBC % Seg Neutrophils # Man Lymphocytes # (Manual) Monocytes # (Manual) Percent Retic PT INR D-Dimer Sodium Potassium Carbon Dioxide BUN Creatinine Glucose POC Glucose 176 H 236 H 217 H Lactic Acid Calcium Magnesium Total Bilirubin Direct Bilirubin AST ALT Lactate Dehydrogenase Total Protein Albumin Vitamin B12 Acetaminophen Crossmatch 08/20/21 08/20/21 05:30 07:28 WBC 21.2 H RBC 2.64 L Hgb 8.2 L Hct 25.4 L MCV 96 H MCH MCHC RDW 17.5 H Plt Count 105 L [place] % (Auto) Seg Neutrophils % Seg Neuts % (Manual) Monocytes % (Manual) Nucleated RBC % Seg Neutrophils # Man Lymphocytes # (Manual) Monocytes # (Manual) Percent Retic PT INR D-Dimer Sodium Potassium Carbon Dioxide BUN Creatinine Glucose POC Glucose 140 H Lactic Acid Calcium Magnesium Total Bilirubin Direct Bilirubin AST ALT Lactate Dehydrogenase Total Protein Albumin Vitamin B12 Acetaminophen Crossmatch Allied health notes reviewed: nursing
[2021-08-21 06:34] LABS: Albumin 3.4 g/dL (3.8-4.8); Gamma Globulin 2.5 g/dL (0.8-1.7)
[2021-08-21] MEDS: INSULIN LISPRO 100 UNIT/ML SUB-Q SCH ×4 (09:23→21:27)
[2021-08-21] MEDS: amLODIPine 10 MG TAB PO SCH (09:23)
[2021-08-21] MEDS: PANTOPRAZOLE 40 MG TAB PO SCH (09:23)
[2021-08-21] MEDS: methylPREDNISolone Sod Succinate 125 MG/2 ML INJ IV SCH ×2 (09:23→21:28)
--- NOTE | 2021-08-21 10:13 | Hem/Onc Progress Note ---
Subjective Date of service: 08/21/21 Interval history: Heme progress note Televisit via [facility] CPT 77477 Dx Anemia Abdominal distention, jaundice and unusually darker urine Abd u/s consistent with hepatitis vs fatty liver Continues with bilateral lower extremity pain --> Acute left DVT BMBx completed 08/17 Denies bleeding, no overt bleeding noted Reports feeling better today Reporting pain and swelling in bilateral lower extremities DATA REVIEW BELOW IMP: AIHA, donovan positive Elevated LDH, likely related to liver injury Heme malignancy is possible with low plt count/high LDH BM flow cytometry negative Thrombocytopenia, likely ITP vs liver dysfunction DVT pain PLAN: DVT pain, start Arixtra 10mg daily Continue solumedrol 1mg/kg IV BID Monitor CBC daily Pending bmbx final results Follow SPEP, electrophoresis Laboratory Last Values WBC 21.2 K/mm3 (4.5-11.0) H 08/20/21 05:30 Hgb 8.2 gm/dl (11.8-15.2) L 08/20/21 05:30 Hct 25.4 % (35.5-45.6) L 08/20/21 05:30 MCV 96 fl (84-94) H 08/20/21 05:30 Plt Count 105 K/mm3 (140-440) L 08/20/21 05:30 [place] % (Auto) 8.3 % (0.0-7.3) H 08/15/21 04:01 Eos % (Auto) 0.2 % (0.0-4.3) 08/15/21 04:01 Lymph # (Auto) End Trimmer 08/15/21 04:01 Add Manual Diff Complete 08/18/21 04:20 Total Counted 100 08/18/21 04:20 Seg Neutrophils % 77.5 % (40.0-70.0) H 08/15/21 04:01 Seg Neuts % (Manual) 74.0 % (40.0-70.0) H 08/18/21 04:20 Band Neutrophils % 2.0 % 08/18/21 04:20 Lymphocytes % (Manual) 17.0 % (13.4-35.0) 08/18/21 04:20 Reactive Lymphs % (Man) 0 % 08/18/21 04:20 Monocytes % (Manual) 7.0 % (0.0-7.3) 08/18/21 04:20 Eosinophils % (Manual) 0 % (0.0-4.3) 08/18/21 04:20 Basophils % (Manual) 0 % (0.0-1.8) 08/18/21 04:20 Metamyelocytes % 0 % 08/18/21 04:20 Myelocytes % 0 % 08/18/21 04:20 Promyelocytes % 0 % 08/18/21 04:20 Blast Cells % 0 % 08/18/21 04:20 Nucleated RBC % 237.0 % (0.0-0.9) H 08/18/21 04:20 Seg Neutrophils # Man 17.5 K/mm3 (1.8-7.7) H 08/18/21 04:20 Band Neutrophils # 0.5 K/mm3 08/18/21 04:20 Lymphocytes # (Manual) 4.0 K/mm3 (1.2-5.4) 08/18/21 04:20 Abs React Lymphs (Man) 0.0 K/mm3 08/18/21 04:20 Monocytes # (Manual) 1.7 K/mm3 (0.0-0.8) H 08/18/21 04:20 Eosinophils # (Manual) 0.0 K/mm3 (0.0-0.4) 08/18/21 04:20 Basophils # (Manual) 0.0 K/mm3 (0.0-0.1) 08/18/21 04:20 Metamyelocytes # 0.0 K/mm3 08/18/21 04:20 Myelocytes # 0.0 K/mm3 08/18/21 04:20 Promyelocytes # 0.0 K/mm3 08/18/21 04:20 Blast Cells # 0.0 K/mm3 08/18/21 04:20 Pathologist Review 08/15/21 04:01 WBC Morphology Not Reportable 08/18/21 04:20 Hypersegmented Neuts Not Reportable 08/18/21 04:20 Hyposegmented Neuts Not Reportable 08/18/21 04:20 Hypogranular Neuts Not Reportable 08/18/21 04:20 Smudge Cells Not Reportable 08/18/21 04:20 Toxic Granulation Not Reportable 08/18/21 04:20 Toxic Vacuolation Not Reportable 08/18/21 04:20 Dohle Bodies Not Reportable 08/18/21 04:20 Pelger-Huet Anomaly Not Reportable 08/18/21 04:20 Elise Rods Not Reportable 08/18/21 04:20 Platelet Estimate Appears decreased 08/18/21 04:20 Clumped Platelets Not Reportable 08/18/21 04:20 Plt Clumps, EDTA Not Reportable 08/18/21 04:20 Large Platelets Not Reportable 08/18/21 04:20 Giant Platelets Not Reportable 08/18/21 04:20 Platelet Satelliting Not Reportable 08/18/21 04:20 Plt Morphology Comment Not Reportable 08/18/21 04:20 RBC Morphology Not Reportable 08/18/21 04:20 Dimorphic RBCs Not Reportable 08/18/21 04:20 Polychromasia 1+ 08/18/21 04:20 Hypochromasia Not Reportable 08/18/21 04:20 Poikilocytosis Not Reportable 08/18/21 04:20 Anisocytosis 1+ 08/18/21 04:20 Microcytosis Not Reportable 08/18/21 04:20 Macrocytosis Few 08/18/21 04:20 Spherocytes Not Reportable 08/18/21 04:20 Pappenheimer Bodies Not Reportable 08/18/21 04:20 Sickle Cells Not Reportable 08/18/21 04:20 Target Cells Not Reportable 08/18/21 04:20 Tear Drop Cells Not Reportable 08/18/21 04:20 Ovalocytes Not Reportable 08/18/21 04:20 Stomatocytes Few 08/15/21 04:01 Helmet Cells Not Reportable 08/18/21 04:[address] [place] Bodies Not Reportable 08/18/21 04:20 [place] Rings Not Reportable 08/18/21 04:20 [place] Cells Not Reportable 08/18/21 04:20 Bite Cells Not Reportable 08/18/21 04:20 Crenated Cell Not Reportable 08/18/21 04:20 Elliptocytes Not Reportable 08/18/21 04:20 Acanthocytes (Spur) Not Reportable 08/18/21 04:20 Rouleaux Not Reportable 08/18/21 04:20 Hemoglobin C Crystals Not Reportable 08/18/21 04:20 Schistocytes Not Reportable 08/18/21 04:20 Malaria parasites Not Reportable 08/18/21 04:20 Percent Retic 9.38 % (0.78-2.58) H 08/18/21 04:20 Yassine Bodies Not Reportable 08/18/21 04:20 Hem Pathologist Commnt No 08/18/21 04:20 PT 17.8 Sec. (12.2-14.9) H 08/17/21 04:47 INR 1.31 (0.87-1.13) H 08/17/21 04:47 APTT 27.6 Sec. (24.2-36.6) 08/17/21 04:47 Fibrinogen 446 mg/dl (211-480) 08/18/21 04:20 D-Dimer > 234 ng/mlDDU (0-234) H 08/15/21 04:01 Sodium 136 mmol/L (137-145) L 08/19/21 07:19 Potassium 4.4 mmol/L (3.6-5.0) 08/19/21 07:19 Chloride 105.1 mmol/L (98-107) 08/19/21 07:19 Carbon Dioxide 21 mmol/L (22-30) L 08/19/21 07:19 Anion Gap 14 mmol/L 08/19/21 07:19 BUN 27 mg/dL (9-20) H 08/19/21 07:19 Creatinine 0.7 mg/dL (0.8-1.3) L 08/19/21 07:19 Estimated GFR > 60 ml/min 08/19/21 07:19 BUN/Creatinine Ratio 39 % 08/19/21 07:19 Glucose 150 mg/dL (75-100) H 08/19/21 07:19 POC Glucose 250 mg/dL (70-105) H 08/20/21 21:21 Lactic Acid 2.10 mmol/L (0.7-2.0) H* 08/19/21 07:19 Calcium 8.3 mg/dL (8.4-10.2) L 08/19/21 07:19 Phosphorus 2.90 mg/dL (2.5-4.5) 08/19/21 07:19 Magnesium 3.00 mg/dL (1.7-2.3) H 08/19/21 07:19 Total Bilirubin 5.30 mg/dL (0.1-1.2) H 08/19/21 07:19 Direct Bilirubin 2.3 mg/dL (0-0.2) H 08/18/21 04:20 Indirect Bilirubin 5.2 mg/dL 08/18/21 04:20 AST 84 units/L (5-40) H 08/19/21 07:19 ALT 475 units/L (7-56) H 08/19/21 07:19 Alkaline Phosphatase 82 units/L (35-129) 08/19/21 07:19 Lactate Dehydrogenase 3057 units/L (91-180) H 08/18/21 04:20 Troponin T 0.016 ng/mL (0.00-0.029) 08/15/21 06:00 Serum Total Protein 7.9 g/dL (6.1-8.1) 08/18/21 04:20 Total Protein 8.0 g/dL (6.3-8.2) 08/19/21 07:19 Albumin 3.4 g/dL (3.9-5) L 08/19/21 07:19 Albumin/Globulin Ratio 0.7 % 08/19/21 07:19 Xmzuy-4-Fdwdiiupy 0.6 g/dL (0.2-0.3) H 08/18/21 04:20 Pehem-4-Qqqvthvzk 0.6 g/dL (0.5-0.9) 08/18/21 04:20 Beta Globulins 0.6 g/dL (0.2-0.5) H 08/18/21 04:20 Gamma Globulins 2.5 g/dL (0.8-1.7) H 08/18/21 04:20 Abnorm Protein Band 1 see below 08/18/21 04:20 PEP Interpretation see below H 08/18/21 04:20 Vitamin B12 > 2000 pg/mL (211-911) H 08/15/21 22:34 Folate 17.11 ng/mL (7.3-26.0) 08/15/21 22:34 Procalcitonin 1.15 ng/mL (<0.15) 08/18/21 12:49 Urine Opiates Screen Negative 08/15/21 12:30 Urine Methadone Screen Negative 08/15/21 12:30 Acetaminophen 5.0 ug/mL (10.0-30.0) L 08/15/21 07:00 Ur Barbiturates Screen Negative 08/15/21 12:30 Ur Phencyclidine Scrn Negative 08/15/21 12:30 Ur Amphetamines Screen Negative 08/15/21 12:30 U Benzodiazepines Scrn Negative 08/15/21 12:30 Urine Cocaine Screen Negative 08/15/21 12:30 U Marijuana (THC) Screen Negative 08/15/21 12:30 Drugs of Abuse Note Disclamer 08/15/21 12:30 Plasma/Serum Alcohol < 0.01 % (0-0.07) 08/15/21 22:34 Mitochondria M2 Ab <=20.0 U (<=20.0) 08/16/21 14:49 Coronavirus (PCR) Negative (Negative) 08/15/21 Unknown Hepatitis A IgM Ab Non-reactive (NonReactive) 08/15/21 06:44 Hep Bs Antigen Non-reactive (Negative) 08/15/21 06:44 Hep B Core IgM Ab Non-reactive (NonReactive) 08/15/21 06:44 Hepatitis C Antibody Non-reactive (NonReactive) 08/15/21 06:44 HIV 1&2 Antibody Rapid Non react (Non React) 08/15/21 22:34 HIV P24 Antigen Non react (Non React) 08/15/21 22:34 Blood Type O POSITIVE 08/18/21 13:06 Antibody Screen Negative 08/18/21 13:06 PARRISH Antibody Screen Negative 08/15/21 05:37 Direct Antiglob Test Positive 08/17/21 12:00 GIO (IgG-AHG) Positive 08/17/21 12:00 GIO, Poly Interpret Positive 08/17/21 12:00 GIO, Anti-C3 Negative 08/17/21 12:00 Crossmatch See Detail 08/18/21 13:06 Objective - Constitutional Vitals: Last Vital Signs Temp 97.9 F 08/21/21 07:35 Pulse 78 08/21/21 07:35 Resp 18 08/21/21 07:35 BP 145/80 08/21/21 07:35 Pulse Ox 97 08/21/21 07:35 - Labs Lab Results: Laboratory Results - last 24 hr 08/18/21 08/20/21 08/20/21 04:20 11:24 16:36 POC Glucose 140 H 165 H Serum Total Protein 7.9 Albumin 3.4 L Jwtzo-7-Gueyeyklt 0.6 H Tvhbe-7-Fflmhtmno 0.6 Beta Globulins 0.6 H Gamma Globulins 2.5 H Abnorm Protein Band 1 see below PEP Interpretation see below H 08/20/21 21:21 POC Glucose 250 H Serum Total Protein Albumin Mejoo-1-Essmusxae Pkmxw-0-Vrtrpbhut Beta Globulins Gamma Globulins Abnorm Protein Band 1 PEP Interpretation Medications & Allergies - Medications Allergies/Adverse Reactions: Allergies atenolol Allergy (Verified 08/15/21 01:34) Unknown quetiapine fumarate [From Seroquel] Adverse Reaction (Verified 08/15/21 01:33) Unknown Home Medications: Home Medications Medication Instructions Recorded Confirmed Last Taken Type Esomeprazole Magnesium [Nexium 20 mg PO DAILY 08/15/21 08/15/21 Unknown History 24Hr] Sulindac 200 mg PO BID 08/15/21 08/15/21 08/14/21 History predniSONE [Deltasone] 5 mg PO TID 08/15/21 08/15/21 08/14/21 History 5 mg Active Medications: Generic Name Dose Route Start Last Admin Trade Name Freq PRN Reason Stop Dose Admin Albuterol 2.5 mg 08/17/21 09:42 08/17/21 10:06 Albuterol 2.5 Mg/3 Ml Nebu IH 2.5 mg Q4HRT PRN Administration Shortness Of Breath Amlodipine Besylate 10 mg 08/19/21 10:00 08/21/21 09:23 Amlodipine 10 Mg Tab PO 10 mg QDAY ROSINA Administration Dextrose 50 ml 08/18/21 18:18 Dextrose 50% In Water (25gm) 50 Ml Syringe IV Q30MIN PRN Hypoglycemia Protocol Insulin Human Lispro 0 unit 08/18/21 22:00 08/21/21 09:23 Insulin Lispro 100 Unit/Ml SUB-Q 1 unit ACHS ROSINA Administration Protocol Magnesium Hydroxide 30 ml 08/15/21 06:09 08/20/21 09:40 Magnesium Hydroxide (Mom) Oral Liqd Udc PO 30 ml Q4H PRN Administration Constipation Methylprednisolone Sodium Succinate 125 mg 08/17/21 14:00 08/21/21 09:23 Methylprednisolone Sod Succinate 125 Mg/2 Ml Inj IV 125 mg Q12HR ROSINA Administration Morphine Sulfate 2 mg 08/15/21 06:09 08/19/21 11:04 Morphine 2 Mg/1 Ml Inj IV 2 mg Q4H PRN Administration Pain, Moderate (4-6) Morphine Sulfate 4 mg 08/15/21 06:09 Morphine 4 Mg/1 Ml Inj IV Q4H PRN Pain , Severe (7-10) Ondansetron HCl 4 mg 08/15/21 06:09 Ondansetron 4 Mg/2 Ml Inj IV Q8H PRN Nausea And Vomiting Pantoprazole Sodium 40 mg 08/18/21 07:30 08/21/21 09:23 Pantoprazole 40 Mg Tab PO 40 mg QDAC ROSINA Administration Sodium Chloride 10 ml 08/15/21 10:00 08/21/21 09:23 Sodium Chloride 0.9% 10 Ml Flush Syringe IV 10 ml BID ROSINA Administration Sodium Chloride 10 ml 08/15/21 06:09 Sodium Chloride 0.9% 10 Ml Flush Syringe IV PRN PRN LINE FLUSH
[2021-08-21] MEDS ORDERED: FONDAPARINUX 7.5 MG/0.6 ML INJ SUB-Q SCH (11:00)
[2021-08-21 11:22] LABS: ANA Screen, IFA Positive (Negative)
[2021-08-21] MEDS: FONDAPARINUX 7.5 MG/0.6 ML INJ SUB-Q SCH (15:49)
[2021-08-21] MEDS: FONDAPARINUX 2.5 MG/0.5 ML INJ SUB-Q SCH (15:49)
--- NOTE | 2021-08-21 20:22 | Progress Note ---
Assessment and Plan 55-year-old -[place] male Morbidly Obese with known history of hypertension GERD, Depression and rheumatoid arthritis presenting to the emergency room today complaining of shortness of breath and chest pain. Symptoms has been ongoing for the past 3 weeks. Patient has been having increasing shortness of breath especially on minimal exertion. He also indicates that he has been having pleuritic chest pain. He denies any fever or chills, no headache, no nausea or vomiting and no abdominal pain. He however has noticed occasional distention of his abdomen, jaundice and unusually darker urine lately. Patient denies any sick contacts and no recent travel. Denies any contact with anyone with COVID-19. He states that he had a fall few days ago because he felt very weak and felt dizzy. He denies any loss of consciousness. Patient has history of smoking 1 pack x 10 years. Stopped smoking in 1998. Denies alcohol or drug abuse. 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 Allergic to atenolol, Quetiapine fumarate. Patient denies symptoms of sleep apnea at this time. Upon arrival in the emergency room, patient was quite tachypneic and tachycardic with an O2 saturation of 96% on room air. Work-up in the emergency room , lab reveals significant for leukocytosis of 34.5, hemoglobin of 3.5 and hematocrit of 11.3. MCV of 134 and platelet count is 115. INR 1.59, PT 30.9, D-dimer greater than 234. Total bilirubin of 13.4, AST 1665, ALT 1615, alkaline phos 99 Chest x-ray shows borderline to mild cardiomegaly with probable mild interstitial pulmonary edema. Patient alert, awake at this time. Still complaining mild pleuritic chest pain. Complaining nasal congestion. Denies shortness of breath or cough. Patient is on 3 litres O2. O2 saturation 94%. Patient running Low grade temp at times. Has leukocytosis. Blood pressure 148/74, Pulse 91, respirations 18. Patients chest xray 08/17/21 reported no acute findings. Patients venous doppler studies of both legs 08/17/21 reported acute DVT in left peroneal vein. Patient thrombocytopenic. Patients Platelet count on admission 46,000. Patient is on Fondaparinux. Patient is on I/V solumedrol, Albuterol inhaler, Protonix and Fondaparinux. I spent critical care time of 40 minutes, reviewing the chart, talking to the patient, examining the patient, review lab results, chest xry, doppler studies of legs, talking to the nursing staff and work out plan of treatment in critically ill patient. - Patient Problems (1) Pleuritic chest pain Current Visit: Yes Status: Acute Plan to address problem: Patient is on I/V Morphine as needed for pain. (2) Hypertension Current Visit: Yes Status: Acute Plan to address problem: Management as per primary care. (3) Symptomatic anemia Current Visit: Yes Status: Acute Plan to address problem: Management as per primary care and hematology. (4) History of depression Current Visit: Yes Status: Acute (5) History of rheumatoid arthritis Current Visit: Yes Status: Acute Plan to address problem: Management ment as per primary care. (6) Jaundice Current Visit: Yes Status: Acute Plan to address problem: Management as per primary care and Gastroenterology. (7) Left leg DVT Current Visit: Yes Status: Acute Plan to address problem: Patient is on Fondaparinux. (8) Thrombocytopenia Current Visit: Yes Status: Acute Plan to address problem: Recommend to consult Hematology. Subjective Date of service: 08/21/21 Principal diagnosis: Ac. Liver Injury; Anemia; Thrombocytopenia; AHRF; Pulm Edema; Met. Acidosis Interval history: 55-year-old -[place] male Morbidly Obese with known history of hypertension GERD, Depression and rheumatoid arthritis presenting to the em ergency room today complaining of shortness of breath and chest pain. Symptoms has been ongoing for the past 3 weeks. Patient has been having increasing shortness of breath especially on minimal exertion. He also indicates that he has been having pleuritic chest pain. He denies any fever or chills, no headache, no nausea or vomiting and no abdominal pain. He however has noticed occasional distention of his abdomen, jaundice and unusually darker urine lately. Patient denies any sick contacts and no recent travel. Denies any contact with anyone with COVID-19. He states that he had a fall few days ago because he felt very weak and felt dizzy. He denies any loss of consciousness. Patient has history of smoking 1 pack x 10 years. Stopped smoking in 1998. Denies alcohol or drug abuse. 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 Allergic to atenolol, Quetiapine fumarate. Patient denies symptoms of sleep apnea at this time. Upon arrival in the emergency room, patient was quite tachypneic and tachycardic with an O2 saturation of 96% on room air. Work-up in the emergency room , lab reveals significant for leukocytosis of 34.5, hemoglobin of 3.5 and hematocrit of 11.3. MCV of 134 and platelet count is 115. INR 1.59, PT 30.9, D-dimer greater than 234. Total bilirubin of 13.4, AST 1665, ALT 1615, alkaline phos 99 Chest x-ray shows borderline to mild cardiomegaly with probable mild interstitial pulmonary edema. Patient alert, awake at this time. Still complaining mild pleuritic chest pain. Complaining nasal congestion. Denies shortness of breath or cough. Patient is on 3 litres O2. O2 saturation 94%. Patient running Low grade temp at times. Has leukocytosis. Blood pressure 148/74, Pulse 91, respirations 18. Patients chest xray 08/17/21 reported no acute findings. Patients venous doppler studies of both legs 08/17/21 reported acute DVT in left peroneal vein. Patient thrombocytopenic. Patients Platelet count on admission 46,000. Patient is on Fondaparinux. Patient is on I/V solumedrol, Albuterol inhaler, Protonix and Fondaparinux. Objective Vital Signs - 12hr 08/21/21 08/21/21 08/21/21 10:00 11:00 16:43 Temperature 97.9 F Pulse Rate 78 79 Respiratory 18 Rate Blood Pressure 127/59 O2 Sat by Pulse 99 98 Oximetry Constitutional: no acute distress, alert, other (middle aged obese male with normal respiratory effort at rest) Eyes: icteric ENT: oropharynx moist Neck: supple, other (large circumference) Effort: normal Ascultation: Bilateral: diminished breath sounds Percussion: Bilateral: not dull Cardiovascular: regular rate and rhythm Gastrointestinal: normoactive bowel sounds, soft, non-tender, non-distended (protuberant) Integumentary: normal, other (no ecchymosis noted) Extremities: no cyanosis, no edema, pulses normal, no ischemia or petechiae Neurologic: non-focal exam (grossly), pupils equal and round, CN II-XII normal, motor strength normal and Psychiatric: mood appropriate, affect normal CBC and BMP: 08/20/21 05:30 08/19/21 07:19 ABG, PT/INR, D-dimer: PT/INR, D-dimer PT 17.8 Sec. (12.2-14.9) H 08/17/21 04:47 INR 1.31 (0.87-1.13) H 08/17/21 04:47 D-Dimer > 234 ng/mlDDU (0-234) H 08/15/21 04:01 Abnormal lab findings: Abnormal Labs 08/15/21 08/15/21 08/15/21 04:01 04:01 04:01 WBC 34.5 H RBC 0.84 L Hgb 3.5 L* Hct 11.3 L* MCV 134 H MCH 41 H MCHC 31 L RDW 30.4 H Plt Count 115 L [place] % (Auto) 8.3 H Seg Neutrophils % 77.5 H Seg Neuts % (Manual) Monocytes % (Manual) 8.5 H Nucleated RBC % 55.0 H Seg Neutrophils # Man 20.2 H Lymphocytes # (Manual) 9.1 H Monocytes # (Manual) 2.9 H Percent Retic PT 20.9 H INR 1.59 H D-Dimer > 234 H Sodium Potassium Carbon Dioxide 17 L BUN 40 H Creatinine 0.7 L Glucose 145 H POC Glucose Lactic Acid Calcium Magnesium Total Bilirubin 13.40 H Direct Bilirubin AST 1665 H ALT 1615 H Lactate Dehydrogenase Total Protein 8.4 H Albumin 3.7 L Qpzge-2-Fzxcursql Beta Globulins Gamma Globulins PEP Interpretation Vitamin B12 Acetaminophen BRITTNEY Screen Crossmatch 08/15/21 08/15/21 08/15/21 05:37 06:44 06:44 WBC RBC Hgb Hct MCV MCH MCHC RDW Plt Count [place] % (Auto) Seg Neutrophils % Seg Neuts % (Manual) Monocytes % (Manual) Nucleated RBC % Seg Neutrophils # Man Lymphocytes # (Manual) Monocytes # (Manual) Percent Retic PT INR D-Dimer Sodium Potassium Carbon Dioxide BUN Creatinine Glucose POC Glucose Lactic Acid 7.30 H* Calcium Magnesium Total Bilirubin Direct Bilirubin AST ALT Lactate Dehydrogenase 4126 H Total Protein Albumin Cbyss-6-Bbkfylvtl Beta Globulins Gamma Globulins PEP Interpretation Vitamin B12 Acetaminophen BRITTNEY Screen Crossmatch See Detail 08/15/21 08/15/21 08/15/21 07:00 09:29 22:34 WBC RBC Hgb Hct MCV MCH MCHC RDW Plt Count [place] % (Auto) Seg Neutrophils % Seg Neuts % (Manual) Monocytes % (Manual) Nucleated RBC % Seg Neutrophils # Man Lymphocytes # (Manual) Monocytes # (Manual) Percent Retic PT INR D-Dimer Sodium Potassium Carbon Dioxide BUN Creatinine Glucose POC Glucose Lactic Acid 8.70 H* 2.30 H* Calcium Magnesium Total Bilirubin Direct Bilirubin AST ALT Lactate Dehydrogenase Total Protein Albumin Azkji-3-Eqrhhbcxp Beta Globulins Gamma Globulins PEP Interpretation Vitamin B12 Acetaminophen 5.0 L BRITTNEY Screen Crossmatch 08/15/21 08/15/21 08/16/21 22:34 22:34 00:08 WBC RBC Hgb 6.0 L Hct 17.3 L* D MCV MCH MCHC RDW Plt Count [place] % (Auto) Seg Neutrophils % Seg Neuts % (Manual) Monocytes % (Manual) Nucleated RBC % Seg Neutrophils # Man Lymphocytes # (Manual) Monocytes # (Manual) Percent Retic PT INR D-Dimer Sodium Potassium Carbon Dioxide BUN Creatinine Glucose POC Glucose 144 H Lactic Acid Calcium Magnesium Total Bilirubin Direct Bilirubin AST ALT Lactate Dehydrogenase Total Protein Albumin Jcntx-6-Zvfwbyrnw Beta Globulins Gamma Globulins PEP Interpretation Vitamin B12 > 2000 H Acetaminophen BRITTNEY Screen Crossmatch 08/16/21 08/16/21 08/16/21 04:30 04:30 04:30 WBC 30.7 H RBC 1.86 L Hgb 6.3 L Hct 19.2 L* MCV 103 H MCH 34 H MCHC RDW 24.8 H Plt Count 77 L [place] % (Auto) Seg Neutrophils % Seg Neuts % (Manual) Monocytes % (Manual) Nucleated RBC % Seg Neutrophils # Man Lymphocytes # (Manual) Monocytes # (Manual) Percent Retic PT INR D-Dimer Sodium Potassium 3.0 L D Carbon Dioxide 19 L BUN 55 H Creatinine Glucose 167 H POC Glucose Lactic Acid Calcium 8.1 L Magnesium Total Bilirubin 10.20 H Direct Bilirubin 2.6 H AST 958 H ALT 1328 H Lactate Dehydrogenase Total Protein Albumin 3.3 L Nmlxc-9-Rffpispbs Beta Globulins Gamma Globulins PEP Interpretation Vitamin B12 Acetaminophen BRITTNEY Screen Crossmatch 08/16/21 08/16/21 08/16/21 04:30 04:30 12:09 WBC RBC Hgb Hct MCV MCH MCHC RDW Plt Count [place] % (Auto) Seg Neutrophils % Seg Neuts % (Manual) Monocytes % (Manual) Nucleated RBC % Seg Neutrophils # Man Lymphocytes # (Manual) Monocytes # (Manual) Percent Retic PT 19.5 H INR 1.46 H D-Dimer Sodium Potassium Carbon Dioxide BUN Creatinine Glucose POC Glucose Lactic Acid 2.10 H* 2.10 H* Calcium Magnesium Total Bilirubin Direct Bilirubin AST ALT Lactate Dehydrogenase Total Protein Albumin Hmhsu-5-Jyzsusfyv Beta Globulins Gamma Globulins PEP Interpretation Vitamin B12 Acetaminophen BRITTNEY Screen Crossmatch 08/16/21 08/16/21 08/16/21 12:09 14:49 14:49 WBC 26.2 H RBC 2.11 L Hgb 7.1 L Hct 21.8 L MCV 103 H MCH 34 H MCHC RDW 22.9 H Plt Count 66 L [place] % (Auto) Seg Neutrophils % Seg Neuts % (Manual) Monocytes % (Manual) Nucleated RBC % Seg Neutrophils # Man Lymphocytes # (Manual) Monocytes # (Manual) Percent Retic PT INR D-Dimer Sodium Potassium 3.4 L Carbon Dioxide BUN Creatinine Glucose POC Glucose Lactic Acid Calcium Magnesium Total Bilirubin Direct Bilirubin AST ALT Lactate Dehydrogenase Total Protein Albumin Ctzus-9-Nwhkwkdgh Beta Globulins Gamma Globulins PEP Interpretation Vitamin B12 Acetaminophen BRITTNEY Screen Positive H Crossmatch 08/16/21 08/17/21 08/17/21 20:10 00:06 04:47 WBC RBC Hgb 6.6 L Hct 20.2 L MCV MCH MCHC RDW Plt Count [place] % (Auto) Seg Neutrophils % Seg Neuts % (Manual) Monocytes % (Manual) Nucleated RBC % Seg Neutrophils # Man Lymphocytes # (Manual) Monocytes # (Manual) Percent Retic PT 17.8 H INR 1.31 H D-Dimer Sodium Potassium Carbon Dioxide BUN Creatinine Glucose POC Glucose 127 H Lactic Acid Calcium Magnesium Total Bilirubin Direct Bilirubin AST ALT Lactate Dehydrogenase Total Protein Albumin Endso-4-Jmegfgayn Beta Globulins Gamma Globulins PEP Interpretation Vitamin B12 Acetaminophen BRITTNEY Screen Crossmatch 08/17/21 08/17/21 08/17/21 04:47 04:47 11:57 WBC 24.3 H RBC 2.05 L Hgb 6.6 L 7.4 L Hct 20.5 L 22.8 L MCV 100 H MCH MCHC RDW 22.8 H Plt Count 46 L [place] % (Auto) Seg Neutrophils % Seg Neuts % (Manual) Monocytes % (Manual) 8.0 H Nucleated RBC % 136.0 H Seg Neutrophils # Man 15.1 H Lymphocytes # (Manual) 6.1 H Monocytes # (Manual) 1.9 H Percent Retic PT INR D-Dimer Sodium Potassium 3.4 L Carbon Dioxide 18 L BUN 32 H Creatinine 0.7 L Glucose 150 H POC Glucose Lactic Acid Calcium 7.8 L Magnesium 3.10 H Total Bilirubin 7.70 H Direct Bilirubin 1.9 H AST 410 H ALT 937 H Lactate Dehydrogenase Total Protein Albumin 3.1 L Xoeyw-9-Wwhpvgduf Beta Globulins Gamma Globulins PEP Interpretation Vitamin B12 Acetaminophen BRITTNEY Screen Crossmatch 08/17/21 08/17/21 08/18/21 17:15 23:22 04:20 WBC RBC Hgb Hct MCV MCH MCHC RDW Plt Count [place] % (Auto) Seg Neutrophils % Seg Neuts % (Manual) Monocytes % (Manual) Nucleated RBC % Seg Neutrophils # Man Lymphocytes # (Manual) Monocytes # (Manual) Percent Retic PT INR D-Dimer Sodium Potassium Carbon Dioxide 19 L BUN 26 H Creatinine 0.7 L Glucose 141 H POC Glucose 275 H 214 H Lactic Acid Calcium 8.1 L Magnesium Total Bilirubin 7.50 H Direct Bilirubin 2.3 H AST 216 H ALT 685 H Lactate Dehydrogenase Total Protein Albumin 3.3 L Mueoy-1-Pmxkjdrtg Beta Globulins Gamma Globulins PEP Interpretation Vitamin B12 Acetaminophen BRITTNEY Screen Crossmatch 08/18/21 08/18/21 08/18/21 04:20 04:20 04:20 WBC 23.6 H RBC 2.21 L Hgb 7.1 L Hct 22.0 L MCV 100 H MCH MCHC RDW 19.3 H Plt Count 44 L [place] % (Auto) Seg Neutrophils % Seg Neuts % (Manual) 74.0 H Monocytes % (Manual) Nucleated RBC % 237.0 H Seg Neutrophils # Man 17.5 H Lymphocytes # (Manual) Monocytes # (Manual) 1.7 H Percent Retic 9.38 H PT INR D-Dimer Sodium Potassium Carbon Dioxide BUN Creatinine Glucose POC Glucose Lactic Acid Calcium Magnesium Total Bilirubin Direct Bilirubin AST ALT Lactate Dehydrogenase 3057 H Total Protein Albumin 3.4 L Sqqav-1-Luqjjboyi 0.6 H Beta Globulins 0.6 H Gamma Globulins 2.5 H PEP Interpretation see below H Vitamin B12 Acetaminophen BRITTNEY Screen Crossmatch 08/18/21 08/18/21 08/18/21 05:54 12:11 12:49 WBC RBC Hgb Hct MCV MCH MCHC RDW Plt Count [place] % (Auto) Seg Neutrophils % Seg Neuts % (Manual) Monocytes % (Manual) Nucleated RBC % Seg Neutrophils # Man Lymphocytes # (Manual) Monocytes # (Manual) Percent Retic PT INR D-Dimer Sodium Potassium Carbon Dioxide BUN Creatinine Glucose POC Glucose 158 H 210 H Lactic Acid 3.60 H* Calcium Magnesium Total Bilirubin Direct Bilirubin AST ALT Lactate Dehydrogenase Total Protein Albumin Ipubh-3-Gblsflkwp Beta Globulins Gamma Globulins PEP Interpretation Vitamin B12 Acetaminophen BRITTNEY Screen Crossmatch 08/18/21 08/18/21 08/18/21 13:06 17:03 20:55 WBC RBC Hgb Hct MCV MCH MCHC RDW Plt Count [place] % (Auto) Seg Neutrophils % Seg Neuts % (Manual) Monocytes % (Manual) Nucleated RBC % Seg Neutrophils # Man Lymphocytes # (Manual) Monocytes # (Manual) Percent Retic PT INR D-Dimer Sodium Potassium Carbon Dioxide BUN Creatinine Glucose POC Glucose 200 H 200 H Lactic Acid Calcium Magnesium Total Bilirubin Direct Bilirubin AST ALT Lactate Dehydrogenase Total Protein Albumin Yvhuv-7-Djboehekq Beta Globulins Gamma Globulins PEP Interpretation Vitamin B12 Acetaminophen BRITTNEY Screen Crossmatch See Detail 08/18/21 08/19/21 08/19/21 23:06 07:19 07:19 WBC 22.3 H RBC 2.48 L Hgb 8.0 L Hct 23.9 L MCV 96 H MCH MCHC RDW 18.0 H Plt Count 66 L [place] % (Auto) Seg Neutrophils % Seg Neuts % (Manual) Monocytes % (Manual) Nucleated RBC % Seg Neutrophils # Man Lymphocytes # (Manual) Monocytes # (Manual) Percent Retic PT INR D-Dimer Sodium 136 L Potassium Carbon Dioxide 21 L BUN 27 H Creatinine 0.7 L Glucose 150 H POC Glucose Lactic Acid 2.60 H* Calcium 8.3 L Magnesium 3.00 H Total Bilirubin 5.30 H Direct Bilirubin AST 84 H ALT 475 H Lactate Dehydrogenase Total Protein Albumin 3.4 L Kxqqq-2-Zibmtydei Beta Globulins Gamma Globulins PEP Interpretation Vitamin B12 Acetaminophen BRITTNEY Screen Crossmatch 08/19/21 08/19/21 08/19/21 07:19 07:22 11:15 WBC RBC Hgb Hct MCV MCH MCHC RDW Plt Count [place] % (Auto) Seg Neutrophils % Seg Neuts % (Manual) Monocytes % (Manual) Nucleated RBC % Seg Neutrophils # Man Lymphocytes # (Manual) Monocytes # (Manual) Percent Retic PT INR D-Dimer Sodium Potassium Carbon Dioxide BUN Creatinine Glucose POC Glucose 125 H 176 H Lactic Acid 2.10 H* Calcium Magnesium Total Bilirubin Direct Bilirubin AST ALT Lactate Dehydrogenase Total Protein Albumin Vsqer-5-Yorrtufke Beta Globulins Gamma Globulins PEP Interpretation Vitamin B12 Acetaminophen BRITTNEY Screen Crossmatch 08/19/21 08/19/21 08/20/21 16:55 21:10 05:30 WBC 21.2 H RBC 2.64 L Hgb 8.2 L Hct 25.4 L MCV 96 H MCH MCHC RDW 17.5 H Plt Count 105 L [place] % (Auto) Seg Neutrophils % Seg Neuts % (Manual) Monocytes % (Manual) Nucleated RBC % Seg Neutrophils # Man Lymphocytes # (Manual) Monocytes # (Manual) Percent Retic PT INR D-Dimer Sodium Potassium Carbon Dioxide BUN Creatinine Glucose POC Glucose 236 H 217 H Lactic Acid Calcium Magnesium Total Bilirubin Direct Bilirubin AST ALT Lactate Dehydrogenase Total Protein Albumin Jfrrg-9-Gskubvkgn Beta Globulins Gamma Globulins PEP Interpretation Vitamin B12 Acetaminophen BRITTNEY Screen Crossmatch 08/20/21 08/20/21 08/20/21 07:28 11:24 16:36 WBC RBC Hgb Hct MCV MCH MCHC RDW Plt Count [place] % (Auto) Seg Neutrophils % Seg Neuts % (Manual) Monocytes % (Manual) Nucleated RBC % Seg Neutrophils # Man Lymphocytes # (Manual) Monocytes # (Manual) Percent Retic PT INR D-Dimer Sodium Potassium Carbon Dioxide BUN Creatinine Glucose POC Glucose 140 H 140 H 165 H Lactic Acid Calcium Magnesium Total Bilirubin Direct Bilirubin AST ALT Lactate Dehydrogenase Total Protein Albumin Nhdvp-8-Idkyhbifi Beta Globulins Gamma Globulins PEP Interpretation Vitamin B12 Acetaminophen BRITTNEY Screen Crossmatch 08/20/21 08/21/21 08/21/21 21:21 07:32 11:28 WBC RBC Hgb Hct MCV MCH MCHC RDW Plt Count [place] % (Auto) Seg Neutrophils % Seg Neuts % (Manual) Monocytes % (Manual) Nucleated RBC % Seg Neutrophils # Man Lymphocytes # (Manual) Monocytes # (Manual) Percent Retic PT INR D-Dimer Sodium Potassium Carbon Dioxide BUN Creatinine Glucose POC Glucose 250 H 178 H 195 H Lactic Acid Calcium Magnesium Total Bilirubin Direct Bilirubin AST ALT Lactate Dehydrogenase Total Protein Albumin Ryllr-2-Ahtipcayk Beta Globulins Gamma Globulins PEP Interpretation Vitamin B12 Acetaminophen BRITTNEY Screen Crossmatch 08/21/21 16:40 WBC RBC Hgb Hct MCV MCH MCHC RDW Plt Count [place] % (Auto) Seg Neutrophils % Seg Neuts % (Manual) Monocytes % (Manual) Nucleated RBC % Seg Neutrophils # Man Lymphocytes # (Manual) Monocytes # (Manual) Percent Retic PT INR D-Dimer Sodium Potassium Carbon Dioxide BUN Creatinine Glucose POC Glucose 463 H Lactic Acid Calcium Magnesium Total Bilirubin Direct Bilirubin AST ALT Lactate Dehydrogenase Total Protein Albumin Ysvlq-6-Zhrgwsjhs Beta Globulins Gamma Globulins PEP Interpretation Vitamin B12 Acetaminophen BRITTNEY Screen Crossmatch Chest x-ray: report reviewed, image reviewed Prior PFT's, U/S of legs: report reviewed, image reviewed Additional Studies: DUPLEX DOPPLER LOWER EXTREMITY VEINS, BILATERAL 08/17/21 INDICATION / CLINICAL INFORMATION: calf pain. TECHNIQUE: Duplex doppler imaging was performed through the veins of both lower extremities using venous compression and other maneuvers. COMPARISON: None available. FINDINGS: RIGHT COMMON FEMORAL VEIN: Negative. RIGHT FEMORAL VEIN: Negative. RIGHT POPLITEAL VEIN: Negative. RIGHT CALF VEINS: Negative. LEFT COMMON FEMORAL VEIN: Negative. LEFT FEMORAL VEIN: Negative. LEFT POPLITEAL VEIN: Negative. LEFT CALF VEINS: Acute thrombus. ADDITIONAL FINDINGS: None. IMPRESSION: 1. Acute DVT within the left peroneal vein. A CHEST 1 VIEW 08/16/21 INDICATION / CLINICAL INFORMATION: Dyspnea. FINDINGS: SUPPORT DEVICES: None. HEART / MEDIASTINUM: No significant abnormality. LUNGS / PLEURA: No significant pulmonary or pleural abnormality. No pneumothorax. ADDITIONAL FINDINGS: No significant additional findings. IMPRESSION: 1. No acute findings. Allied health notes reviewed: nursing
--- NOTE | 2021-08-21 21:52 | Progress Note ---
Assessment and Plan Assessment and plan: This is a 55-year-old male with HTN, rheumatoid arthritis, GERD, depression, and hernia who presented to emergency department on 08/15 with complaints of shortness of breath and chest pain with symptoms ongoing for the past 3 weeks, increasing shortness of breath with exertion and pleuritic chest pain, o ccasional distention of the abdomen, jaundice and dark urine. Patient stated that he had a fall on his forehead a few days prior to admission feeling weak and dizzy however did not lose consciousness. Upon arrival to the emergency department patient was tachypneic and tachycardic oxygen saturation of 96% on room air. Work-up in the emergency department revealed leukocytosis, severe anemia with a H/H of 3.5/11.3, thrombocytopenia, elevated INR and transaminitis. CXR showed borderline cardiomegaly with possible interstitial pulmonary edema. Patient was admitted to the hospitalist service with severe anemia, leukocytosis and acute liver injury with consults to GI, ID and pulmonology. Hospital Course to Date: 08/15: Patient is on HHFL 40%, 25L. SPO2 above 95. With severe anemia, no s/s of any acute bleeding, administered 2units of PRBCs for now, serial H&H ordered. HEME/ONC consult pending. Worsening lactic acid noted most likely due to acute liver disease, Acetylcysteine gtt intiated per GI recommendation. Will continue to monitor LFTs and coags. Orders placed for UDS and alcohol leve;. Will also check Vitamin B12, folate, and HIV. Patient remains afebrile and hemodynamically stable. per ID leukocytosi is unlikely related to an infectious process and IV abx were discontinued. 08/16: Patient is doing much better this am. Stable on 3L NC this am, no re spiratory distress noted, this am CXR improved. LFTs with mild improvement this am, d/w GI give another dose off Acetylcysteine. S/p 4units of PRBCs repeat CBC pending, transfuse if hbg less than 7. Continue to trend LFTs, electrolytes repleted. 08/17: Patient started on Solu-Medrol as his Briseida test was positive, patient complaining of calf pain which is bilateral feet warm to touch and Doppler ultrasound was ordered which revealed acute peroneal DVT. Hypokalemia repleted. 08/18: We will transfuse 1 unit PRBC per heme-onc orders as hematocrit is less than 23. LFTs have much improved. will transfer to the floor. Dr. Bird placed orders re juan archibald and scd. will perform weekly surveillance US 08/19: H/H stable, improvement in symptomology this AM. AOx3. F/u bm aspirate pathology. Heme recs noted will continue solumedrol 1mg/kg bid. Vascular recommendations noted re: peroneal dvt. JUAN averymichelle/scd for now, Will continue to monitor with serial US qweekly for dvt propagation. 08/20: Awaiting BM bx results. Assessment and plan: This is a 55-year-old male with HTN, RA, GERD, depression, hernia admitted with severe anemia, leukocytosis and acute liver injury Neuro: NAD, h/o depression -Avoid delirium -Reorientation as needed -Maintain sleep-wake cycle -No antidepressants noted on home medication profile -As needed analgesia Cardiac: h/o HTN -Cardiology consulted, appreciate recommendations -Blood pressure monitoring per protocol Respiratory: Acute hypoxic respiratory failure -Supplemental oxygen as needed -SPO2 monitoring -Pulmonary hygiene GI: Acute liver injury, h/o GERD -Presented with transaminitis and jaundice -GI consulted, appreciate recommendations -Per GI: suspect ischemic hepatitis given degree of elevation and quick improvement -CCM consulted, appreciate recommendations -CT abdomen without any acute abnormality -Hepatic panel negative -24 hours -840 mL -Protonix -S/p acetylcysteine -Trend LFTs -cardiac diet : Hypokalemia -Strict intake and output -Renally dose medications -Avoid nephrotoxic medications -Replete potassium -Trend BMP ID: Leukemoid reaction, lactic acidosis -Infectious disease consulted, appreciate recommendation -COVID-19 PCR negative -f/u blood culture -Monitor WBC and temperature curve -CT chest revealed no PE, no evidence of pneumonia. -CT abdomen and pelvis revealed no acute intra-abdominal or intrapelvic pathology. -monitor off abx Endo: NAD -Avoid hypoglycemia Heme: Severe microcytic anemia, thrombocytopenia, left lower extremity peroneal DVT, autoimmune hemolytic anemia, leukocytosis -Presented with a hemoglobin of 3.5 -Vitamin B12 high, folate normal -Otology/oncology consulted -Positive Briseida test -Solu-Medrol 1 mg/kg twice daily -Trend CBC -S/p 6 units PRBC -Transfuse hemoglobin less than 7 -hct < 23->one unit prbc given today -Bone marrow biopsy -Monitor for signs of bleeding -SCDs to BLE while in bed -Hemoccult positive -Avoid chemical anticoagulation in setting of severe anemia -CT chest revealed no PE, no evidence of pneumonia. -CT abdomen and pelvis revealed no acute intra-abdominal or intrapelvic pathology. -Per vascular surgery: JUAN/SCD with weekly dopplar -Starting fondaparinux (per hematology/oncology) #Obesity #Weight loss counseling #Exercise counseling - BMI 39.6 - Counseled patient on the importance of weight loss, incorporating exercise, and dietary changes (lean meats, fresh fruits and vegetables, and water intake). Patient expresses understanding. - Time: +10 min #Advanced care planning -Disease education conducted, care plan discussed, diagnoses discussed, prognosis discussed, and patient acknowledges understanding with care plan -Time: +30 min Disposition Plan: Continue medical management Total Time Spent with Patient (Minutes): 30 min History Interval history: No acute events overnight. Hospitalist Physical - Constitutional Vitals: Temp Pulse Resp BP Pulse Ox 99.4 F 91 H 18 148/74 94 08/21/21 19:22 08/21/21 19:22 08/21/21 19:22 08/21/21 19:22 08/21/21 20:16 General appearance: Present: no acute distress, well-nourished, obese - EENT Eyes: Present: PERRL, EOM intact ENT: hearing intact, clear oral mucosa, dentition normal - Neck Neck: Present: supple, normal ROM - Respiratory Respiratory effort: normal Respiratory: bilateral: diminished (on 4L NC) - Cardiovascular Rhythm: regular Heart Sounds: Present: S1 & S2 - Extremities Extremities: no ischemia, pulses intact, pulses symmetrical, normal temperature, normal color Extremity abnormal: edema (1+ edema of LLE) Peripheral Pulses: within normal limits - Abdominal General gastrointestinal: soft, non-tender, non-distended, normal bowel sounds - Integumentary Integumentary: Present: clear, warm, dry - Psychiatric Psychiatric: appropriate mood/affect, intact judgment & insight, memory intact, cooperative - Neurologic Neurologic: CNII-XII intact, moves all extremities - Allied Health Allied health notes reviewed: nursing HEART Score - HEART Score Troponin: Troponin T 0.016 ng/mL (0.00-0.029) 08/15/21 06:00 Results - Labs CBC & Chem 7: 08/20/21 05:30 08/19/21 07:19 Labs: Laboratory Last Values WBC 21.2 K/mm3 (4.5-11.0) H 08/20/21 05:30 RBC 2.64 M/mm3 (3.65-5.03) L 08/20/21 05:30 Hgb 8.2 gm/dl (11.8-15.2) L 08/20/21 05:30 Hct 25.4 % (35.5-45.6) L 08/20/21 05:30 MCV 96 fl (84-94) H 08/20/21 05:30 MCH 31 pg (28-32) 08/20/21 05:30 MCHC 32 % (32-34) 08/20/21 05:30 RDW 17.5 % (13.2-15.2) H 08/20/21 05:30 Plt Count 105 K/mm3 (140-440) L 08/20/21 05:30 [place] % (Auto) 8.3 % (0.0-7.3) H 08/15/21 04:01 Eos % (Auto) 0.2 % (0.0-4.3) 08/15/21 04:01 Lymph # (Auto) Specialty Molder 08/15/21 04:01 Add Manual Diff Complete 08/18/21 04:20 Total Counted 100 08/18/21 04:20 Seg Neutrophils % 77.5 % (40.0-70.0) H 08/15/21 04:01 Seg Neuts % (Manual) 74.0 % (40.0-70.0) H 08/18/21 04:20 Band Neutrophils % 2.0 % 08/18/21 04:20 Lymphocytes % (Manual) 17.0 % (13.4-35.0) 08/18/21 04:20 Reactive Lymphs % (Man) 0 % 08/18/21 04:20 Monocytes % (Manual) 7.0 % (0.0-7.3) 08/18/21 04:20 Eosinophils % (Manual) 0 % (0.0-4.3) 08/18/21 04:20 Basophils % (Manual) 0 % (0.0-1.8) 08/18/21 04:20 Metamyelocytes % 0 % 08/18/21 04:20 Myelocytes % 0 % 08/18/21 04:20 Promyelocytes % 0 % 08/18/21 04:20 Blast Cells % 0 % 08/18/21 04:20 Nucleated RBC % 237.0 % (0.0-0.9) H 08/18/21 04:20 Seg Neutrophils # Man 17.5 K/mm3 (1.8-7.7) H 08/18/21 04:20 Band Neutrophils # 0.5 K/mm3 08/18/21 04:20 Lymphocytes # (Manual) 4.0 K/mm3 (1.2-5.4) 08/18/21 04:20 Abs React Lymphs (Man) 0.0 K/mm3 08/18/21 04:20 Monocytes # (Manual) 1.7 K/mm3 (0.0-0.8) H 08/18/21 04:20 Eosinophils # (Manual) 0.0 K/mm3 (0.0-0.4) 08/18/21 04:20 Basophils # (Manual) 0.0 K/mm3 (0.0-0.1) 08/18/21 04:20 Metamyelocytes # 0.0 K/mm3 08/18/21 04:20 Myelocytes # 0.0 K/mm3 08/18/21 04:20 Promyelocytes # 0.0 K/mm3 08/18/21 04:20 Blast Cells # 0.0 K/mm3 08/18/21 04:20 Pathologist Review 08/15/21 04:01 WBC Morphology Not Reportable 08/18/21 04:20 Hypersegmented Neuts Not Reportable 08/18/21 04:20 Hyposegmented Neuts Not Reportable 08/18/21 04:20 Hypogranular Neuts Not Reportable 08/18/21 04:20 Smudge Cells Not Reportable 08/18/21 04:20 Toxic Granulation Not Reportable 08/18/21 04:20 Toxic Vacuolation Not Reportable 08/18/21 04:20 Dohle Bodies Not Reportable 08/18/21 04:20 Pelger-Huet Anomaly Not Reportable 08/18/21 04:20 Elise Rods Not Reportable 08/18/21 04:20 Platelet Estimate Appears decreased 08/18/21 04:20 Clumped Platelets Not Reportable 08/18/21 04:20 Plt Clumps, EDTA Not Reportable 08/18/21 04:20 Large Platelets Not Reportable 08/18/21 04:20 Giant Platelets Not Reportable 08/18/21 04:20 Platelet Satelliting Not Reportable 08/18/21 04:20 Plt Morphology Comment Not Reportable 08/18/21 04:20 RBC Morphology Not Reportable 08/18/21 04:20 Dimorphic RBCs Not Reportable 08/18/21 04:20 Polychromasia 1+ 08/18/21 04:20 Hypochromasia Not Reportable 08/18/21 04:20 Poikilocytosis Not Reportable 08/18/21 04:20 Anisocytosis 1+ 08/18/21 04:20 Microcytosis Not Reportable 08/18/21 04:20 Macrocytosis Few 08/18/21 04:20 Spherocytes Not Reportable 08/18/21 04:20 Pappenheimer Bodies Not Reportable 08/18/21 04:20 Sickle Cells Not Reportable 08/18/21 04:20 Target Cells Not Reportable 08/18/21 04:20 Tear Drop Cells Not Reportable 08/18/21 04:20 Ovalocytes Not Reportable 08/18/21 04:20 Stomatocytes Few 08/15/21 04:01 Helmet Cells Not Reportable 08/18/21 04:20 [place] Bodies Not Reportable 08/18/21 04:20 [place] Rings Not Reportable 08/18/21 04:20 [place] Cells Not Reportable 08/18/21 04:20 Bite Cells Not Reportable 08/18/21 04:20 Crenated Cell Not Reportable 08/18/21 04:20 Elliptocytes Not Reportable 08/18/21 04:20 Acanthocytes (Spur) Not Reportable 08/18/21 04:20 Rouleaux Not Reportable 08/18/21 04:20 Hemoglobin C Crystals Not Reportable 08/18/21 04:20 Schistocytes Not Reportable 08/18/21 04:20 Malaria parasites Not Reportable 08/18/21 04:20 Percent Retic 9.38 % (0.78-2.58) H 08/18/21 04:20 Yassine Bodies Not Reportable 08/18/21 04:20 Hem Pathologist Commnt No 08/18/21 04:20 PT 17.8 Sec. (12.2-14.9) H 08/17/21 04:47 INR 1.31 (0.87-1.13) H 08/17/21 04:47 APTT 27.6 Sec. (24.2-36.6) 08/17/21 04:47 Fibrinogen 446 mg/dl (211-480) 08/18/21 04:20 D-Dimer > 234 ng/mlDDU (0-234) H 08/15/21 04:01 Sodium 136 mmol/L (137-145) L 08/19/21 07:19 Potassium 4.4 mmol/L (3.6-5.0) 08/19/21 07:19 Chloride 105.1 mmol/L (98-107) 08/19/21 07:19 Carbon Dioxide 21 mmol/L (22-30) L 08/19/21 07:19 Anion Gap 14 mmol/L 08/19/21 07:19 BUN 27 mg/dL (9-20) H 08/19/21 07:19 Creatinine 0.7 mg/dL (0.8-1.3) L 08/19/21 07:19 Estimated GFR > 60 ml/min 08/19/21 07:19 BUN/Creatinine Ratio 39 % 08/19/21 07:19 Glucose 150 mg/dL (75-100) H 08/19/21 07:19 POC Glucose 463 mg/dL (70-105) H 08/21/21 16:40 Lactic Acid 2.10 mmol/L (0.7-2.0) H* 08/19/21 07:19 Calcium 8.3 mg/dL (8.4-10.2) L 08/19/21 07:19 Phosphorus 2.90 mg/dL (2.5-4.5) 08/19/21 07:19 Magnesium 3.00 mg/dL (1.7-2.3) H 08/19/21 07:19 Total Bilirubin 5.30 mg/dL (0.1-1.2) H 08/19/21 07:19 Direct Bilirubin 2.3 mg/dL (0-0.2) H 08/18/21 04:20 Indirect Bilirubin 5.2 mg/dL 08/18/21 04:20 AST 84 units/L (5-40) H 08/19/21 07:19 ALT 475 units/L (7-56) H 08/19/21 07:19 Alkaline Phosphatase 82 units/L (35-129) 08/19/21 07:19 Lactate Dehydrogenase 3057 units/L (91-180) H 08/18/21 04:20 Troponin T 0.016 ng/mL (0.00-0.029) 08/15/21 06:00 Serum Total Protein 7.9 g/dL (6.1-8.1) 08/18/21 04:20 Total Protein 8.0 g/dL (6.3-8.2) 08/19/21 07:19 Albumin 3.4 g/dL (3.9-5) L 08/19/21 07:19 Albumin/Globulin Ratio 0.7 % 08/19/21 07:19 Cyftv-6-Ttwffsktg 0.6 g/dL (0.2-0.3) H 08/18/21 04:20 Miolo-2-Xyweboqbx 0.6 g/dL (0.5-0.9) 08/18/21 04:20 Beta Globulins 0.6 g/dL (0.2-0.5) H 08/18/21 04:20 Gamma Globulins 2.5 g/dL (0.8-1.7) H 08/18/21 04:20 Abnorm Protein Band 1 see below 08/18/21 04:20 PEP Interpretation see below H 08/18/21 04:20 Vitamin B12 > 2000 pg/mL (211-911) H 08/15/21 22:34 Folate 17.11 ng/mL (7.3-26.0) 08/15/21 22:34 Procalcitonin 1.15 ng/mL (<0.15) 08/18/21 12:49 Urine Opiates Screen Negative 08/15/21 12:30 Urine Methadone Screen Negative 08/15/21 12:30 Acetaminophen 5.0 ug/mL (10.0-30.0) L 08/15/21 07:00 Ur Barbiturates Screen Negative 08/15/21 12:30 Ur Phencyclidine Scrn Negative 08/15/21 12:30 Ur Amphetamines Screen Negative 08/15/21 12:30 U Benzodiazepines Scrn Negative 08/15/21 12:30 Urine Cocaine Screen Negative 08/15/21 12:30 U Marijuana (THC) Screen Negative 08/15/21 12:30 Drugs of Abuse Note Disclamer 08/15/21 12:30 Plasma/Serum Alcohol < 0.01 % (0-0.07) 08/15/21 22:34 BRITTNEY Screen Positive (Negative) H 08/16/21 14:49 Mitochondria M2 Ab <=20.0 U (<=20.0) 08/16/21 14:49 Coronavirus (PCR) Negative (Negative) 08/15/21 Unknown Hepatitis A IgM Ab Non-reactive (NonReactive) 08/15/21 06:44 Hep Bs Antigen Non-reactive (Negative) 08/15/21 06:44 Hep B Core IgM Ab Non-reactive (NonReactive) 08/15/21 06:44 Hepatitis C Antibody Non-reactive (NonReactive) 08/15/21 06:44 HIV 1&2 Antibody Rapid Non react (Non React) 08/15/21 22:34 HIV P24 Antigen Non react (Non React) 08/15/21 22:34 Blood Type O POSITIVE 08/18/21 13:06 Antibody Screen Negative 08/18/21 13:06 PARRISH Antibody Screen Negative 08/15/21 05:37 Direct Antiglob Test Positive 08/17/21 12:00 GIO (IgG-AHG) Positive 08/17/21 12:00 GIO, Poly Interpret Positive 08/17/21 12:00 GIO, Anti-C3 Negative 08/17/21 12:00 Crossmatch See Detail 08/18/21 13:06 Active Medications - Current Medications Current Medications: Generic Name Dose Route Start Last Admin Trade Name Freq PRN Reason Stop Dose Admin Albuterol 2.5 mg 08/17/21 09:42 08/17/21 10:06 Albuterol 2.5 Mg/3 Ml Nebu IH 2.5 mg Q4HRT PRN Administration Shortness Of Breath Amlodipine Besylate 10 mg 08/19/21 10:00 08/21/21 09:23 Amlodipine 10 Mg Tab PO 10 mg QDAY ROSINA Administration Dextrose 50 ml 08/18/21 18:18 Dextrose 50% In Water (25gm) 50 Ml Syringe IV Q30MIN PRN Hypoglycemia Protocol Fondaparinux 2.5 mg 08/21/21 12:00 08/21/21 15:49 Fondaparinux 2.5 Mg/0.5 Ml Inj SUB-Q 2.5 mg DAILY ROSINA Administration Fondaparinux 7.5 mg 08/21/21 12:00 08/21/21 15:49 Fondaparinux 7.5 Mg/0.6 Ml Inj SUB-Q 7.5 mg DAILY ROSINA Administration Insulin Human Lispro 0 unit 08/18/21 22:00 08/21/21 21:27 Insulin Lispro 100 Unit/Ml SUB-Q 62 unit ACHS ROSINA Administration Protocol Magnesium Hydroxide 30 ml 08/15/21 06:09 08/20/21 09:40 Magnesium Hydroxide (Mom) Oral Liqd Udc PO 30 ml Q4H PRN Administration Constipation Methylprednisolone Sodium Succinate 125 mg 08/17/21 14:00 08/21/21 21:28 Methylprednisolone Sod Succinate 125 Mg/2 Ml Inj IV 125 mg Q12HR ROSINA Administration Morphine Sulfate 2 mg 08/15/21 06:09 08/19/21 11:04 Morphine 2 Mg/1 Ml Inj IV 2 mg Q4H PRN Administration Pain, Moderate (4-6) Morphine Sulfate 4 mg 08/15/21 06:09 Morphine 4 Mg/1 Ml Inj IV Q4H PRN Pain , Severe (7-10) Ondansetron HCl 4 mg 08/15/21 06:09 Ondansetron 4 Mg/2 Ml Inj IV Q8H PRN Nausea And Vomiting Pantoprazole Sodium 40 mg 08/18/21 07:30 08/21/21 09:23 Pantoprazole 40 Mg Tab PO 40 mg QDAC ROSINA Administration Sodium Chloride 10 ml 08/15/21 10:00 08/21/21 21:27 Sodium Chloride 0.9% 10 Ml Flush Syringe IV 10 ml BID ROSINA Administration Sodium Chloride 10 ml 08/15/21 06:09 Sodium Chloride 0.9% 10 Ml Flush Syringe IV PRN PRN LINE FLUSH
--- NOTE | 2021-08-22 07:36 | Progress Note ---
Assessment and Plan Assessment and plan: This is a 55-year-old male with HTN, rheumatoid arthritis, GERD, depression, and hernia who presented to emergency department on 08/15 with complaints of shortness of breath and chest pain with symptoms ongoing for the past 3 weeks, increasing shortness of breath with exertion and pleuritic chest pain, oc casional distention of the abdomen, jaundice and dark urine. Patient stated that he had a fall on his forehead a few days prior to admission feeling weak and dizzy however did not lose consciousness. Upon arrival to the emergency department patient was tachypneic and tachycardic oxygen saturation of 96% on room air. Work-up in the emergency department revealed leukocytosis, severe anemia with a H/H of 3.5/11.3, thrombocytopenia, elevated INR and transaminitis. CXR showed borderline cardiomegaly with possible interstitial pulmonary edema. Patient was admitted to the hospitalist service with severe anemia, leukocytosis and acute liver injury with consults to GI, ID and pulmonology. Hospital Course to Date: 08/15: Patient is on HHFL 40%, 25L. SPO2 above 95. With severe anemia, no s/s of any acute bleeding, administered 2units of PRBCs for now, serial H&H ordered. HEME/ONC consult pending. Worsening lactic acid noted most likely due to acute liver disease, Acetylcysteine gtt intiated per GI recommendation. Will continue to monitor LFTs and coags. Orders placed for UDS and alcohol leve;. Will also check Vitamin B12, folate, and HIV. Patient remains afebrile and hemodynamically stable. per ID leukocytosi is unlikely related to an infectious process and IV abx were discontinued. 08/16: Patient is doing much better this am. Stable on 3L NC this am, no res piratory distress noted, this am CXR improved. LFTs with mild improvement this am, d/w GI give another dose off Acetylcysteine. S/p 4units of PRBCs repeat CBC pending, transfuse if hbg less than 7. Continue to trend LFTs, electrolytes repleted. 08/17: Patient started on Solu-Medrol as his Briseida test was positive, patient complaining of calf pain which is bilateral feet warm to touch and Doppler u ltrasound was ordered which revealed acute peroneal DVT. Hypokalemia repleted. 08/18: We will transfuse 1 unit PRBC per heme-onc orders as hematocrit is less than 23. LFTs have much improved. will transfer to the floor. Dr. Bird placed orders re juan archibald and scd. will perform weekly surveillance US 08/19: H/H stable, improvement in symptomology this AM. AOx3. F/u bm aspirate pathology. Heme recs noted will continue solumedrol 1mg/kg bid. Vascular recommendations noted re: peroneal dvt. JUAN archibald/scd for now, Will continue to monitor with serial US qweekly for dvt propagation. 08/20: Awaiting BM bx results. 08/22; continue current management Assessment and plan: This is a 55-year-old male with HTN, RA, GERD, depression, hernia admitted with severe anemia, leukocytosis and acute liver injury Heme: Severe microcytic anemia, thrombocytopenia, l Left lower extremity peroneal DVT, autoimmune hemolytic anemia, leukocytosis -Presented with a hemoglobin of 3.5 Received total 7 units of PRBC most recent hemoglobin is 8.2 Monitor closely and transfuse additional PRBC as needed -Vitamin B12 high, folate normal -Hematology/oncology following -Positive Briseida test -Solu-Medrol 1 mg/kg twice daily -Trend CBC -S/p 6 units PRBC -Transfuse hemoglobin less than 7 -hct < 23->one unit prbc given today -Bone marrow biopsy 08/15/2021 -Monitor for signs of bleeding -SCDs to BLE while in bed -Hemoccult positive -Avoid chemical anticoagulation in setting of severe anemia -CT chest revealed no PE, no evidence of pneumonia. -CT abdomen and pelvis revealed no acute intra-abdominal or intrapelvic pathology. -Per vascular surgery: JUAN/SCD with weekly dopplar -Starting fondaparinux (per hematology/oncology) Respiratory: Acute hypoxic respiratory failure -Supplemental oxygen as needed -SPO2 monitoring -Pulmonary hygiene Currently patient is on 2 L of nasal cannula oxygen Wean as tolerated, evaluate for home O2 Pulmonary following GI: Acute liver injury, h/o GERD -Presented with transaminitis and jaundice LFTs trending down GI following Possible ischemic hepatitis. LFTs in thousands on admission Trending down -CT abdomen without any acute abnormality -Hepatic panel negative -24 hours -840 mL -Protonix -S/p acetylcysteine -Trend LFTs -cardiac diet Neuro: NAD, h/o depression -Avoid delirium -Reorientation as needed -Maintain sleep-wake cycle -No antidepressants noted on home medication profile -As needed analgesia Cardiac: h/o HTN -Cardiology consulted, appreciate recommendations -Blood pressure monitoring per protocol ID: Leukemoid reaction, lactic acidosis -Infectious disease consulted, appreciate recommendation -COVID-19 PCR negative -f/u blood culture -Monitor WBC and temperature curve -CT chest revealed no PE, no evidence of pneumonia. -CT abdomen and pelvis revealed no acute intra-abdominal or intrapelvic pathology. -monitor off abx Metabolic: Hypokalemia Resolved, closely monitor electrolytes Endo: Hyperglycemia/partly due to steroids Accu-Chek sliding scale coverage ADA diet Check hemoglobin A1c #Obesity; BMI 39.4 Dietary modification, exercise as tolerated, Weight reduction when patient is medically stable Weight loss counseling Exercise counseling - Counseled patient on the importance of weight loss, incorporating exercise, and dietary changes (lean meats, fresh fruits and vegetables, and water intake). Patient expresses understanding. #Advanced care planning -Disease education conducted, care plan discussed, diagnoses discussed, prognosis discussed, and patient acknowledges understanding with care plan -Time: +30 min PT; evaluation noted and appreciated, recommend home health PT upon discharge Consults and recommendations noted and appreciated History Interval history: I seen and examined the patient at the bedside Patient's chart and medications reviewed Patient feels slightly better Complains of some leg pain Vital signs noted Hospitalist Physical - Constitutional Vitals: Temp Pulse Resp BP Pulse Ox 98.1 F 77 18 129/75 98 08/22/21 07:16 08/22/21 07:16 08/22/21 07:16 08/22/21 07:16 08/22/21 07:16 General appearance: Present: no acute distress, well-nourished, obese - EENT Eyes: Present: PERRL, EOM intact - Neck Neck: Present: supple, normal ROM - Respiratory Respiratory effort: normal Respiratory: bilateral: diminished, rhonchi, negative: rales, wheezing - Cardiovascular Rhythm: regular Heart Sounds: Present: S1 & S2 - Extremities Extremities: abnormal (Left lower extremity swelling/DVT) Extremity abnormal: edema (Left lower extremity) - Abdominal General gastrointestinal: soft, non-tender, non-distended, normal bowel sounds - Integumentary Integumentary: Present: clear, warm - Psychiatric Psychiatric: appropriate mood/affect, cooperative - Neurologic Neurologic: CNII-XII intact, moves all extremities HEART Score - HEART Score Troponin: Troponin T 0.016 ng/mL (0.00-0.029) 08/15/21 06:00 Results - Labs CBC & Chem 7: 08/20/21 05:30 08/19/21 07:19 Labs: Laboratory Last Values WBC 21.2 K/mm3 (4.5-11.0) H 08/20/21 05:30 RBC 2.64 M/mm3 (3.65-5.03) L 08/20/21 05:30 Hgb 8.2 gm/dl (11.8-15.2) L 08/20/21 05:30 Hct 25.4 % (35.5-45.6) L 08/20/21 05:30 MCV 96 fl (84-94) H 08/20/21 05:30 MCH 31 pg (28-32) 08/20/21 05:30 MCHC 32 % (32-34) 08/20/21 05:30 RDW 17.5 % (13.2-15.2) H 08/20/21 05:30 Plt Count 105 K/mm3 (140-440) L 08/20/21 05:30 Maury % (Auto) 8.3 % (0.0-7.3) H 08/15/21 04:01 Eos % (Auto) 0.2 % (0.0-4.3) 08/15/21 04:01 Lymph # (Auto) Validation Technician 08/15/21 04:01 Add Manual Diff Complete 08/18/21 04:20 Total Counted 100 08/18/21 04:20 Seg Neutrophils % 77.5 % (40.0-70.0) H 08/15/21 04:01 Seg Neuts % (Manual) 74.0 % (40.0-70.0) H 08/18/21 04:20 Band Neutrophils % 2.0 % 08/18/21 04:20 Lymphocytes % (Manual) 17.0 % (13.4-35.0) 08/18/21 04:20 Reactive Lymphs % (Man) 0 % 08/18/21 04:20 Monocytes % (Manual) 7.0 % (0.0-7.3) 08/18/21 04:20 Eosinophils % (Manual) 0 % (0.0-4.3) 08/18/21 04:20 Basophils % (Manual) 0 % (0.0-1.8) 08/18/21 04:20 Metamyelocytes % 0 % 08/18/21 04:20 Myelocytes % 0 % 08/18/21 04:20 Promyelocytes % 0 % 08/18/21 04:20 Blast Cells % 0 % 08/18/21 04:20 Nucleated RBC % 237.0 % (0.0-0.9) H 08/18/21 04:20 Seg Neutrophils # Man 17.5 K/mm3 (1.8-7.7) H 08/18/21 04:20 Band Neutrophils # 0.5 K/mm3 08/18/21 04:20 Lymphocytes # (Manual) 4.0 K/mm3 (1.2-5.4) 08/18/21 04:20 Abs React Lymphs (Man) 0.0 K/mm3 08/18/21 04:20 Monocytes # (Manual) 1.7 K/mm3 (0.0-0.8) H 08/18/21 04:20 Eosinophils # (Manual) 0.0 K/mm3 (0.0-0.4) 08/18/21 04:20 Basophils # (Manual) 0.0 K/mm3 (0.0-0.1) 08/18/21 04:20 Metamyelocytes # 0.0 K/mm3 08/18/21 04:20 Myelocytes # 0.0 K/mm3 08/18/21 04:20 Promyelocytes # 0.0 K/mm3 08/18/21 04:20 Blast Cells # 0.0 K/mm3 08/18/21 04:20 Pathologist Review 08/15/21 04:01 WBC Morphology Not Reportable 08/18/21 04:20 Hypersegmented Neuts Not Reportable 08/18/21 04:20 Hyposegmented Neuts Not Reportable 08/18/21 04:20 Hypogranular Neuts Not Reportable 08/18/21 04:20 Smudge Cells Not Reportable 08/18/21 04:20 Toxic Granulation Not Reportable 08/18/21 04:20 Toxic Vacuolation Not Reportable 08/18/21 04:20 Dohle Bodies Not Reportable 08/18/21 04:20 Pelger-Huet Anomaly Not Reportable 08/18/21 04:20 Elise Rods Not Reportable 08/18/21 04:20 Platelet Estimate Appears decreased 08/18/21 04:20 Clumped Platelets Not Reportable 08/18/21 04:20 Plt Clumps, EDTA Not Reportable 08/18/21 04:20 Large Platelets Not Reportable 08/18/21 04:20 Giant Platelets Not Reportable 08/18/21 04:20 Platelet Satelliting Not Reportable 08/18/21 04:20 Plt Morphology Comment Not Reportable 08/18/21 04:20 RBC Morphology Not Reportable 08/18/21 04:20 Dimorphic RBCs Not Reportable 08/18/21 04:20 Polychromasia 1+ 08/18/21 04:20 Hypochromasia Not Reportable 08/18/21 04:20 Poikilocytosis Not Reportable 08/18/21 04:20 Anisocytosis 1+ 08/18/21 04:20 Microcytosis Not Reportable 08/18/21 04:20 Macrocytosis Few 08/18/21 04:20 Spherocytes Not Reportable 08/18/21 04:20 Pappenheimer Bodies Not Reportable 08/18/21 04:20 Sickle Cells Not Reportable 08/18/21 04:20 Target Cells Not Reportable 08/18/21 04:20 Tear Drop Cells Not Reportable 08/18/21 04:20 Ovalocytes Not Reportable 08/18/21 04:20 Stomatocytes Few 08/15/21 04:01 Helmet Cells Not Reportable 08/18/21 04:20 [place]-Greene Bodies Not Reportable 08/18/21 04:20 Roundup Rings Not Reportable 08/18/21 04:20 [place] Cells Not Reportable 08/18/21 04:20 Bite Cells Not Reportable 08/18/21 04:20 Crenated Cell Not Reportable 08/18/21 04:20 Elliptocytes Not Reportable 08/18/21 04:20 Acanthocytes (Spur) Not Reportable 08/18/21 04:20 Rouleaux Not Reportable 08/18/21 04:20 Hemoglobin C Crystals Not Reportable 08/18/21 04:20 Schistocytes Not Reportable 08/18/21 04:20 Malaria parasites Not Reportable 08/18/21 04:20 Percent Retic 22.28 % (0.78-2.58) H 08/22/21 05:23 Yassine Bodies Not Reportable 08/18/21 04:20 Hem Pathologist Commnt No 08/18/21 04:20 PT 17.8 Sec. (12.2-14.9) H 08/17/21 04:47 INR 1.31 (0.87-1.13) H 08/17/21 04:47 APTT 27.6 Sec. (24.2-36.6) 08/17/21 04:47 Fibrinogen 446 mg/dl (211-480) 08/18/21 04:20 D-Dimer > 234 ng/mlDDU (0-234) H 08/15/21 04:01 Sodium 136 mmol/L (137-145) L 08/19/21 07:19 Potassium 4.4 mmol/L (3.6-5.0) 08/19/21 07:19 Chloride 105.1 mmol/L (98-107) 08/19/21 07:19 Carbon Dioxide 21 mmol/L (22-30) L 08/19/21 07:19 Anion Gap 14 mmol/L 08/19/21 07:19 BUN 27 mg/dL (9-20) H 08/19/21 07:19 Creatinine 0.7 mg/dL (0.8-1.3) L 08/19/21 07:19 Estimated GFR > 60 ml/min 08/19/21 07:19 BUN/Creatinine Ratio 39 % 08/19/21 07:19 Glucose 150 mg/dL (75-100) H 08/19/21 07:19 POC Glucose 243 mg/dL (70-105) H 08/21/21 21:23 Lactic Acid 2.10 mmol/L (0.7-2.0) H* 08/19/21 07:19 Calcium 8.3 mg/dL (8.4-10.2) L 08/19/21 07:19 Phosphorus 2.90 mg/dL (2.5-4.5) 08/19/21 07:19 Magnesium 3.00 mg/dL (1.7-2.3) H 08/19/21 07:19 Total Bilirubin 5.30 mg/dL (0.1-1.2) H 08/19/21 07:19 Direct Bilirubin 2.3 mg/dL (0-0.2) H 08/18/21 04:20 Indirect Bilirubin 5.2 mg/dL 08/18/21 04:20 AST 84 units/L (5-40) H 08/19/21 07:19 ALT 475 units/L (7-56) H 08/19/21 07:19 Alkaline Phosphatase 82 units/L (35-129) 08/19/21 07:19 Lactate Dehydrogenase 1358 units/L (91-180) H 08/22/21 05:23 Troponin T 0.016 ng/mL (0.00-0.029) 08/15/21 06:00 Serum Total Protein 7.9 g/dL (6.1-8.1) 08/18/21 04:20 Total Protein 8.0 g/dL (6.3-8.2) 08/19/21 07:19 Albumin 3.4 g/dL (3.9-5) L 08/19/21 07:19 Albumin/Globulin Ratio 0.7 % 08/19/21 07:19 Nzuyu-3-Cdpcurjow 0.6 g/dL (0.2-0.3) H 08/18/21 04:20 Ezwaq-2-Hrabokrxo 0.6 g/dL (0.5-0.9) 08/18/21 04:20 Beta Globulins 0.6 g/dL (0.2-0.5) H 08/18/21 04:20 Gamma Globulins 2.5 g/dL (0.8-1.7) H 08/18/21 04:20 Abnorm Protein Band 1 see below 08/18/21 04:20 PEP Interpretation see below H 08/18/21 04:20 Vitamin B12 > 2000 pg/mL (211-911) H 08/15/21 22:34 Folate 17.11 ng/mL (7.3-26.0) 08/15/21 22:34 Procalcitonin 1.15 ng/mL (<0.15) 08/18/21 12:49 Urine Opiates Screen Negative 08/15/21 12:30 Urine Methadone Screen Negative 08/15/21 12:30 Acetaminophen 5.0 ug/mL (10.0-30.0) L 08/15/21 07:00 Ur Barbiturates Screen Negative 08/15/21 12:30 Ur Phencyclidine Scrn Negative 08/15/21 12:30 Ur Amphetamines Screen Negative 08/15/21 12:30 U Benzodiazepines Scrn Negative 08/15/21 12:30 Urine Cocaine Screen Negative 08/15/21 12:30 U Marijuana (THC) Screen Negative 08/15/21 12:30 Drugs of Abuse Note Disclamer 08/15/21 12:30 Plasma/Serum Alcohol < 0.01 % (0-0.07) 08/15/21 22:34 BRITTNEY Screen Positive (Negative) H 08/16/21 14:49 Mitochondria M2 Ab <=20.0 U (<=20.0) 08/16/21 14:49 Coronavirus (PCR) Negative (Negative) 08/15/21 Unknown Hepatitis A IgM Ab Non-reactive (NonReactive) 08/15/21 06:44 Hep Bs Antigen Non-reactive (Negative) 08/15/21 06:44 Hep B Core IgM Ab Non-reactive (NonReactive) 08/15/21 06:44 Hepatitis C Antibody Non-reactive (NonReactive) 08/15/21 06:44 HIV 1&2 Antibody Rapid Non react (Non React) 08/15/21 22:34 HIV P24 Antigen Non react (Non React) 08/15/21 22:34 Blood Type O POSITIVE 08/18/21 13:06 Antibody Screen Negative 08/18/21 13:06 PARRISH Antibody Screen Negative 08/15/21 05:37 Direct Antiglob Test Positive 08/17/21 12:00 GIO (IgG-AHG) Positive 08/17/21 12:00 GIO, Poly Interpret Positive 08/17/21 12:00 GIO, Anti-C3 Negative 08/17/21 12:00 Crossmatch See Detail 08/18/21 13:06 Active Medications - Current Medications Current Medications: Generic Name Dose Route Start Last Admin Trade Name Freq PRN Reason Stop Dose Admin Albuterol 2.5 mg 08/17/21 09:42 08/17/21 10:06 Albuterol 2.5 Mg/3 Ml Nebu IH 2.5 mg Q4HRT PRN Administration Shortness Of Breath Amlodipine Besylate 10 mg 08/19/21 10:00 08/21/21 09:23 Amlodipine 10 Mg Tab PO 10 mg QDAY ROSINA Administration Dextrose 50 ml 08/18/21 18:18 Dextrose 50% In Water (25gm) 50 Ml Syringe IV Q30MIN PRN Hypoglycemia Protocol Fondaparinux 2.5 mg 08/21/21 12:00 08/21/21 15:49 Fondaparinux 2.5 Mg/0.5 Ml Inj SUB-Q 2.5 mg DAILY ROSINA Administration Fondaparinux 7.5 mg 08/21/21 12:00 08/21/21 15:49 Fondaparinux 7.5 Mg/0.6 Ml Inj SUB-Q 7.5 mg DAILY ROSINA Administration Insulin Human Lispro 0 unit 08/18/21 22:00 08/21/21 21:27 Insulin Lispro 100 Unit/Ml SUB-Q 62 unit ACHS ROSINA Administration Protocol Magnesium Hydroxide 30 ml 08/15/21 06:09 08/20/21 09:40 Magnesium Hydroxide (Mom) Oral Liqd Udc PO 30 ml Q4H PRN Administration Constipation Methylprednisolone Sodium Succinate 125 mg 08/17/21 14:00 08/21/21 21:28 Methylprednisolone Sod Succinate 125 Mg/2 Ml Inj IV 125 mg Q12HR ROSINA Administration Morphine Sulfate 2 mg 08/15/21 06:09 08/19/21 11:04 Morphine 2 Mg/1 Ml Inj IV 2 mg Q4H PRN Administration Pain, Moderate (4-6) Morphine Sulfate 4 mg 08/15/21 06:09 Morphine 4 Mg/1 Ml Inj IV Q4H PRN Pain , Severe (7-10) Ondansetron HCl 4 mg 08/15/21 06:09 Ondansetron 4 Mg/2 Ml Inj IV Q8H PRN Nausea And Vomiting Pantoprazole Sodium 40 mg 08/18/21 07:30 08/21/21 09:23 Pantoprazole 40 Mg Tab PO 40 mg QDAC ROSINA Administration Sodium Chloride 10 ml 08/15/21 10:00 08/21/21 21:27 Sodium Chloride 0.9% 10 Ml Flush Syringe IV 10 ml BID ROSINA Administration Sodium Chloride 10 ml 08/15/21 06:09 Sodium Chloride 0.9% 10 Ml Flush Syringe IV PRN PRN LINE FLUSH
[2021-08-22] MEDS: INSULIN LISPRO 100 UNIT/ML SUB-Q SCH ×4 (08:39→21:13)
[2021-08-22] MEDS: PANTOPRAZOLE 40 MG TAB PO SCH (08:39)
[2021-08-22] MEDS: methylPREDNISolone Sod Succinate 125 MG/2 ML INJ IV SCH ×2 (09:14→21:13)
[2021-08-22] MEDS: amLODIPine 10 MG TAB PO SCH (09:14)
[2021-08-22] MEDS: FONDAPARINUX 2.5 MG/0.5 ML INJ SUB-Q SCH (09:14)
[2021-08-22] MEDS: FONDAPARINUX 7.5 MG/0.6 ML INJ SUB-Q SCH (09:15)
--- NOTE | 2021-08-22 12:30 | Progress Note ---
Assessment and Plan Acute Liver Injury (? Tylenol OD vs AIH vs Ischemic Hepatitis) Jaundice Acute DVT Severe Macrocytic Anemia Thrombocytopenia Acute Hypoxemic Respiratory Failure Acute Pulmonary Edema vs Aspiration Pneumonia Hypokalemia Leukocytosis Lactic Acidosis Hypertension History of Rheumatoid Arthritis - no new issues today, continue care as below; - follow repeat lower extremity dopplers (pending) - follow bone marrow aspirate Path report - PRBC transfusions for serum Hb < 7.0 g/dl - continue Solumedrol re: thrombocytopenia - DVT treatment per vascular / hematology team (Holding full anticoagulation in light of Anemia and thrombocytopenia / coagulopathy) - follow autoimmune serologies re: AIH - s/p empiric Mucomyst course for possible tylenol OD - continue accuchecks with glycemic control per SSI for target blood glucose < 180 mg/dL - supplemental oxygen for target O2 sat's > 90% acutely - Aspiration precautions - bronchodilators with pulmonary hygiene per RT - fall precautions - avoid nephrotoxins, renally dose all medications - avoid benzodiazepine's, reduce the possibility of delirium - AB's per ID rec's (none acutely and follow clinically / WBC) - prn analgesia per pain score - Maintenance of sleep-wake cycle, avoid delirium - G.I. & VTE prophylaxis (Pantoprazole and SCD's) - PT/OT/ROM exercises - continue mobility protocols for pressure ulcer prophylaxis - Monitor hemodynamics closely - continue other care per attending / other consultants - discharge planning ongoing concurrently COVID SPECIFIC INTERVENTIONS - COVID-19 PCR negative .... Re-evaluate in am & prn Subjective Date of service: 08/22/21 Principal diagnosis: Ac. Liver Injury; Anemia; Thrombocytopenia; AHRF; Pulm Edema; Met. Acidosis Interval history: Patient is seen today for: Acute Liver Injury; Jaundice; Anemia; Thrombocytopenia; Acute Hypoxemic Respiratory Failure; Pulm Edema vs Aspiration Pneumonia; Lactic Acidosis; Hypertension; History of Rheumatoid Arthritis Seen and examined at bedside; 24hour events reviewed; nursing and respiratory care staff consulted; no adverse overnight events reported to me; resting in bed; no new issues respiratory-serna; still await BM biopsy report; denies N/V/F/C Objective Vital Signs - 12hr 08/22/21 08/22/21 08/22/21 04:42 07:16 09:34 Temperature 98.2 F 98.1 F Pulse Rate 70 77 Pulse Rate [ From Monitor] Respiratory 18 18 Rate Blood Pressure 119/63 129/75 O2 Sat by Pulse 97 98 100 Oximetry 08/22/21 08/22/21 08/22/21 10:00 11:00 11:34 Temperature 98.3 F Pulse Rate 75 76 Pulse Rate [ 70 From Monitor] Respiratory 18 18 Rate Blood Pressure 132/80 O2 Sat by Pulse 98 97 Oximetry Constitutional: no acute distress, other (middle aged obese male with normal r espiratory effort at rest) Eyes: non-icteric ENT: oropharynx moist Neck: supple, other (large circumference) Effort: normal Ascultation: Bilateral: clear, diminished breath sounds Percussion: Bilateral: not dull Cardiovascular: regular rate and rhythm Gastrointestinal: normoactive bowel sounds, soft, non-tender, non-distended (protuberant) Integumentary: normal, other (no ecchymosis noted) Extremities: no cyanosis, no edema, pulses normal, no ischemia or petechiae Neurologic: non-focal exam (grossly), pupils equal and round, CN II-XII normal, motor strength normal and Psychiatric: mood appropriate, affect normal CBC and BMP: 08/25/21 04:24 08/25/21 04:24 ABG, PT/INR, D-dimer: PT/INR, D-dimer PT 17.8 Sec. (12.2-14.9) H 08/17/21 04:47 INR 1.31 (0.87-1.13) H 08/17/21 04:47 D-Dimer > 234 ng/mlDDU (0-234) H 08/15/21 04:01 Abnormal lab findings: Abnormal Labs 08/15/21 08/15/21 08/15/21 04:01 04:01 04:01 WBC 34.5 H RBC 0.84 L Hgb 3.5 L* Hct 11.3 L* MCV 134 H MCH 41 H MCHC 31 L RDW 30.4 H Plt Count 115 L [place] % (Auto) 8.3 H Seg Neutrophils % 77.5 H Seg Neuts % (Manual) Monocytes % (Manual) 8.5 H Nucleated RBC % 55.0 H Seg Neutrophils # Man 20.2 H Lymphocytes # (Manual) 9.1 H Monocytes # (Manual) 2.9 H Percent Retic PT 20.9 H INR 1.59 H D-Dimer > 234 H Sodium Potassium Carbon Dioxide 17 L BUN 40 H Creatinine 0.7 L Glucose 145 H POC Glucose Lactic Acid Calcium Magnesium Total Bilirubin 13.40 H Direct Bilirubin AST 1665 H ALT 1615 H Lactate Dehydrogenase Total Protein 8.4 H Albumin 3.7 L Oveie-8-Ssjiemlva Beta Globulins Gamma Globulins PEP Interpretation Vitamin B12 Acetaminophen BRITTNEY Screen Crossmatch 08/15/21 08/15/21 08/15/21 05:37 06:44 06:44 WBC RBC Hgb Hct MCV MCH MCHC RDW Plt Count [place] % (Auto) Seg Neutrophils % Seg Neuts % (Manual) Monocytes % (Manual) Nucleated RBC % Seg Neutrophils # Man Lymphocytes # (Manual) Monocytes # (Manual) Percent Retic PT INR D-Dimer Sodium Potassium Carbon Dioxide BUN Creatinine Glucose POC Glucose Lactic Acid 7.30 H* Calcium Magnesium Total Bilirubin Direct Bilirubin AST ALT Lactate Dehydrogenase 4126 H Total Protein Albumin Hvmew-7-Ltkzrqsnv Beta Globulins Gamma Globulins PEP Interpretation Vitamin B12 Acetaminophen BRITTNEY Screen Crossmatch See Detail 08/15/21 08/15/21 08/15/21 07:00 09:29 22:34 WBC RBC Hgb Hct MCV MCH MCHC RDW Plt Count [place] % (Auto) Seg Neutrophils % Seg Neuts % (Manual) Monocytes % (Manual) Nucleated RBC % Seg Neutrophils # Man Lymphocytes # (Manual) Monocytes # (Manual) Percent Retic PT INR D-Dimer Sodium Potassium Carbon Dioxide BUN Creatinine Glucose POC Glucose Lactic Acid 8.70 H* 2.30 H* Calcium Magnesium Total Bilirubin Direct Bilirubin AST ALT Lactate Dehydrogenase Total Protein Albumin Rzdhs-0-Ympijmatw Beta Globulins Gamma Globulins PEP Interpretation Vitamin B12 Acetaminophen 5.0 L BRITTNEY Screen Crossmatch 08/15/21 08/15/21 08/16/21 22:34 22:34 00:08 WBC RBC Hgb 6.0 L Hct 17.3 L* D MCV MCH MCHC RDW Plt Count [place] % (Auto) Seg Neutrophils % Seg Neuts % (Manual) Monocytes % (Manual) Nucleated RBC % Seg Neutrophils # Man Lymphocytes # (Manual) Monocytes # (Manual) Percent Retic PT INR D-Dimer Sodium Potassium Carbon Dioxide BUN Creatinine Glucose POC Glucose 144 H Lactic Acid Calcium Magnesium Total Bilirubin Direct Bilirubin AST ALT Lactate Dehydrogenase Total Protein Albumin Ffuda-8-Fkzyzclxl Beta Globulins Gamma Globulins PEP Interpretation Vitamin B12 > 2000 H Acetaminophen BRITTNEY Screen Crossmatch 03/08/16/21 08/16/21 04:30 04:30 04:30 WBC 30.7 H RBC 1.86 L Hgb 6.3 L Hct 19.2 L* MCV 103 H MCH 34 H MCHC RDW 24.8 H Plt Count 77 L [place] % (Auto) Seg Neutrophils % Seg Neuts % (Manual) Monocytes % (Manual) Nucleated RBC % Seg Neutrophils # Man Lymphocytes # (Manual) Monocytes # (Manual) Percent Retic PT INR D-Dimer Sodium Potassium 3.0 L D Carbon Dioxide 19 L BUN 55 H Creatinine Glucose 167 H POC Glucose Lactic Acid Calcium 8.1 L Magnesium Total Bilirubin 10.20 H Direct Bilirubin 2.6 H AST 958 H ALT 1328 H Lactate Dehydrogenase Total Protein Albumin 3.3 L Ccfvw-0-Owzesseoz Beta Globulins Gamma Globulins PEP Interpretation Vitamin B12 Acetaminophen BRITTNEY Screen Crossmatch 08/16/21 08/16/21 08/16/21 04:30 04:30 12:09 WBC RBC Hgb Hct MCV MCH MCHC RDW Plt Count [place] % (Auto) Seg Neutrophils % Seg Neuts % (Manual) Monocytes % (Manual) Nucleated RBC % Seg Neutrophils # Man Lymphocytes # (Manual) Monocytes # (Manual) Percent Retic PT 19.5 H INR 1.46 H D-Dimer Sodium Potassium Carbon Dioxide BUN Creatinine Glucose POC Glucose Lactic Acid 2.10 H* 2.10 H* Calcium Magnesium Total Bilirubin Direct Bilirubin AST ALT Lactate Dehydrogenase Total Protein Albumin Oyiwd-2-Sswkyqkma Beta Globulins Gamma Globulins PEP Interpretation Vitamin B12 Acetaminophen BRITTNEY Screen Crossmatch 08/16/21 08/16/21 08/16/21 12:09 14:49 14:49 WBC 26.2 H RBC 2.11 L Hgb 7.1 L Hct 21.8 L MCV 103 H MCH 34 H MCHC RDW 22.9 H Plt Count 66 L [place] % (Auto) Seg Neutrophils % Seg Neuts % (Manual) Monocytes % (Manual) Nucleated RBC % Seg Neutrophils # Man Lymphocytes # (Manual) Monocytes # (Manual) Percent Retic PT INR D-Dimer Sodium Potassium 3.4 L Carbon Dioxide BUN Creatinine Glucose POC Glucose Lactic Acid Calcium Magnesium Total Bilirubin Direct Bilirubin AST ALT Lactate Dehydrogenase Total Protein Albumin Ajbzx-3-Blntznvss Beta Globulins Gamma Globulins PEP Interpretation Vitamin B12 Acetaminophen BRITTNEY Screen Positive H Crossmatch 08/16/21 08/17/21 08/17/21 20:10 00:06 04:47 WBC RBC Hgb 6.6 L Hct 20.2 L MCV MCH MCHC RDW Plt Count [place] % (Auto) Seg Neutrophils % Seg Neuts % (Manual) Monocytes % (Manual) Nucleated RBC % Seg Neutrophils # Man Lymphocytes # (Manual) Monocytes # (Manual) Percent Retic PT 17.8 H INR 1.31 H D-Dimer Sodium Potassium Carbon Dioxide BUN Creatinine Glucose POC Glucose 127 H Lactic Acid Calcium Magnesium Total Bilirubin Direct Bilirubin AST ALT Lactate Dehydrogenase Total Protein Albumin Aumvx-3-Gmihoixge Beta Globulins Gamma Globulins PEP Interpretation Vitamin B12 Acetaminophen BRITTNEY Screen Crossmatch 08/17/21 08/17/21 08/17/21 04:47 04:47 11:57 WBC 24.3 H RBC 2.05 L Hgb 6.6 L 7.4 L Hct 20.5 L 22.8 L MCV 100 H MCH MCHC RDW 22.8 H Plt Count 46 L [place] % (Auto) Seg Neutrophils % Seg Neuts % (Manual) Monocytes % (Manual) 8.0 H Nucleated RBC % 136.0 H Seg Neutrophils # Man 15.1 H Lymphocytes # (Manual) 6.1 H Monocytes # (Manual) 1.9 H Percent Retic PT INR D-Dimer Sodium Potassium 3.4 L Carbon Dioxide 18 L BUN 32 H Creatinine 0.7 L Glucose 150 H POC Glucose Lactic Acid Calcium 7.8 L Magnesium 3.10 H Total Bilirubin 7.70 H Direct Bilirubin 1.9 H AST 410 H ALT 937 H Lactate Dehydrogenase Total Protein Albumin 3.1 L Afael-5-Fihtwwcue Beta Globulins Gamma Globulins PEP Interpretation Vitamin B12 Acetaminophen BRITTNEY Screen Crossmatch 08/17/21 08/17/21 08/18/21 17:15 23:22 04:20 WBC RBC Hgb Hct MCV MCH MCHC RDW Plt Count [place] % (Auto) Seg Neutrophils % Seg Neuts % (Manual) Monocytes % (Manual) Nucleated RBC % Seg Neutrophils # Man Lymphocytes # (Manual) Monocytes # (Manual) Percent Retic PT INR D-Dimer Sodium Potassium Carbon Dioxide 19 L BUN 26 H Creatinine 0.7 L Glucose 141 H POC Glucose 275 H 214 H Lactic Acid Calcium 8.1 L Magnesium Total Bilirubin 7.50 H Direct Bilirubin 2.3 H AST 216 H ALT 685 H Lactate Dehydrogenase Total Protein Albumin 3.3 L Rkziw-0-Pckleormj Beta Globulins Gamma Globulins PEP Interpretation Vitamin B12 Acetaminophen BRITTNEY Screen Crossmatch 08/18/21 08/18/21 08/18/21 04:20 04:20 04:20 WBC 23.6 H RBC 2.21 L Hgb 7.1 L Hct 22.0 L MCV 100 H MCH MCHC RDW 19.3 H Plt Count 44 L [place] % (Auto) Seg Neutrophils % Seg Neuts % (Manual) 74.0 H Monocytes % (Manual) Nucleated RBC % 237.0 H Seg Neutrophils # Man 17.5 H Lymphocytes # (Manual) Monocytes # (Manual) 1.7 H Percent Retic 9.38 H PT INR D-Dimer Sodium Potassium Carbon Dioxide BUN Creatinine Glucose POC Glucose Lactic Acid Calcium Magnesium Total Bilirubin Direct Bilirubin AST ALT Lactate Dehydrogenase 3057 H Total Protein Albumin 3.4 L Sutfx-4-Jkikeedmp 0.6 H Beta Globulins 0.6 H Gamma Globulins 2.5 H PEP Interpretation see below H Vitamin B12 Acetaminophen BRITTNEY Screen Crossmatch 08/18/21 08/18/21 08/18/21 05:54 12:11 12:49 WBC RBC Hgb Hct MCV MCH MCHC RDW Plt Count [place] % (Auto) Seg Neutrophils % Seg Neuts % (Manual) Monocytes % (Manual) Nucleated RBC % Seg Neutrophils # Man Lymphocytes # (Manual) Monocytes # (Manual) Percent Retic PT INR D-Dimer Sodium Potassium Carbon Dioxide BUN Creatinine Glucose POC Glucose 158 H 210 H Lactic Acid 3.60 H* Calcium Magnesium Total Bilirubin Direct Bilirubin AST ALT Lactate Dehydrogenase Total Protein Albumin Ozubv-3-Upmehcxae Beta Globulins Gamma Globulins PEP Interpretation Vitamin B12 Acetaminophen BRITTNEY Screen Crossmatch 08/18/21 08/18/21 08/18/21 13:06 17:03 20:55 WBC RBC Hgb Hct MCV MCH MCHC RDW Plt Count [place] % (Auto) Seg Neutrophils % Seg Neuts % (Manual) Monocytes % (Manual) Nucleated RBC % Seg Neutrophils # Man Lymphocytes # (Manual) Monocytes # (Manual) Percent Retic PT INR D-Dimer Sodium Potassium Carbon Dioxide BUN Creatinine Glucose POC Glucose 200 H 200 H Lactic Acid Calcium Magnesium Total Bilirubin Direct Bilirubin AST ALT Lactate Dehydrogenase Total Protein Albumin Wbjhm-0-Oqjgjavsb Beta Globulins Gamma Globulins PEP Interpretation Vitamin B12 Acetaminophen BRITTNEY Screen Crossmatch See Detail 08/18/21 08/19/21 08/19/21 23:06 07:19 07:19 WBC 22.3 H RBC 2.48 L Hgb 8.0 L Hct 23.9 L MCV 96 H MCH MCHC RDW 18.0 H Plt Count 66 L [place] % (Auto) Seg Neutrophils % Seg Neuts % (Manual) Monocytes % (Manual) Nucleated RBC % Seg Neutrophils # Man Lymphocytes # (Manual) Monocytes # (Manual) Percent Retic PT INR D-Dimer Sodium 136 L Potassium Carbon Dioxide 21 L BUN 27 H Creatinine 0.7 L Glucose 150 H POC Glucose Lactic Acid 2.60 H* Calcium 8.3 L Magnesium 3.00 H Total Bilirubin 5.30 H Direct Bilirubin AST 84 H ALT 475 H Lactate Dehydrogenase Total Protein Albumin 3.4 L Bpmcw-9-Ectuufquo Beta Globulins Gamma Globulins PEP Interpretation Vitamin B12 Acetaminophen BRITTNEY Screen Crossmatch 08/19/21 08/19/21 08/19/21 07:19 07:22 11:15 WBC RBC Hgb Hct MCV MCH MCHC RDW Plt Count [place] % (Auto) Seg Neutrophils % Seg Neuts % (Manual) Monocytes % (Manual) Nucleated RBC % Seg Neutrophils # Man Lymphocytes # (Manual) Monocytes # (Manual) Percent Retic PT INR D-Dimer Sodium Potassium Carbon Dioxide BUN Creatinine Glucose POC Glucose 125 H 176 H Lactic Acid 2.10 H* Calcium Magnesium Total Bilirubin Direct Bilirubin AST ALT Lactate Dehydrogenase Total Protein Albumin Hnuuf-9-Iexekfzes Beta Globulins Gamma Globulins PEP Interpretation Vitamin B12 Acetaminophen BRITTNEY Screen Crossmatch 08/19/21 08/19/21 08/20/21 16:55 21:10 05:30 WBC 21.2 H RBC 2.64 L Hgb 8.2 L Hct 25.4 L MCV 96 H MCH MCHC RDW 17.5 H Plt Count 105 L [place] % (Auto) Seg Neutrophils % Seg Neuts % (Manual) Monocytes % (Manual) Nucleated RBC % Seg Neutrophils # Man Lymphocytes # (Manual) Monocytes # (Manual) Percent Retic PT INR D-Dimer Sodium Potassium Carbon Dioxide BUN Creatinine Glucose POC Glucose 236 H 217 H Lactic Acid Calcium Magnesium Total Bilirubin Direct Bilirubin AST ALT Lactate Dehydrogenase Total Protein Albumin Jjssp-1-Bvmgxqazq Beta Globulins Gamma Globulins PEP Interpretation Vitamin B12 Acetaminophen BRITTNEY Screen Crossmatch 08/20/21 08/20/21 08/20/21 07:28 11:24 16:36 WBC RBC Hgb Hct MCV MCH MCHC RDW Plt Count [place] % (Auto) Seg Neutrophils % Seg Neuts % (Manual) Monocytes % (Manual) Nucleated RBC % Seg Neutrophils # Man Lymphocytes # (Manual) Monocytes # (Manual) Percent Retic PT INR D-Dimer Sodium Potassium Carbon Dioxide BUN Creatinine Glucose POC Glucose 140 H 140 H 165 H Lactic Acid Calcium Magnesium Total Bilirubin Direct Bilirubin AST ALT Lactate Dehydrogenase Total Protein Albumin Prfew-9-Pgyfzvzwa Beta Globulins Gamma Globulins PEP Interpretation Vitamin B12 Acetaminophen BRITTNEY Screen Crossmatch 08/20/21 08/21/21 08/21/21 21:21 07:32 11:28 WBC RBC Hgb Hct MCV MCH MCHC RDW Plt Count [place] % (Auto) Seg Neutrophils % Seg Neuts % (Manual) Monocytes % (Manual) Nucleated RBC % Seg Neutrophils # Man Lymphocytes # (Manual) Monocytes # (Manual) Percent Retic PT INR D-Dimer Sodium Potassium Carbon Dioxide BUN Creatinine Glucose POC Glucose 250 H 178 H 195 H Lactic Acid Calcium Magnesium Total Bilirubin Direct Bilirubin AST ALT Lactate Dehydrogenase Total Protein Albumin Dcraj-8-Itjdimakp Beta Globulins Gamma Globulins PEP Interpretation Vitamin B12 Acetaminophen BRITTNEY Screen Crossmatch 08/21/21 08/21/21 08/22/21 16:40 21:23 05:23 WBC RBC Hgb Hct MCV MCH MCHC RDW Plt Count [place] % (Auto) Seg Neutrophils % Seg Neuts % (Manual) Monocytes % (Manual) Nucleated RBC % Seg Neutrophils # Man Lymphocytes # (Manual) Monocytes # (Manual) Percent Retic 22.28 H PT INR D-Dimer Sodium Potassium Carbon Dioxide BUN Creatinine Glucose POC Glucose 463 H 243 H Lactic Acid Calcium Magnesium Total Bilirubin Direct Bilirubin AST ALT Lactate Dehydrogenase Total Protein Albumin Xdfdr-6-Oxjrjnyyw Beta Globulins Gamma Globulins PEP Interpretation Vitamin B12 Acetaminophen BRITTNEY Screen Crossmatch 08/22/21 08/22/21 05:23 07:14 WBC RBC Hgb Hct MCV MCH MCHC RDW Plt Count [place] % (Auto) Seg Neutrophils % Seg Neuts % (Manual) Monocytes % (Manual) Nucleated RBC % Seg Neutrophils # Man Lymphocytes # (Manual) Monocytes # (Manual) Percent Retic PT INR D-Dimer Sodium Potassium Carbon Dioxide BUN Creatinine Glucose POC Glucose 167 H Lactic Acid Calcium Magnesium Total Bilirubin Direct Bilirubin AST ALT Lactate Dehydrogenase 1358 H Total Protein Albumin Skbpl-0-Ijkueyywz Beta Globulins Gamma Globulins PEP Interpretation Vitamin B12 Acetaminophen BRITTNEY Screen Crossmatch Allied health notes reviewed: nursing
[2021-08-22 22:51] LABS: Cardiolipin Ab IgA <2.0 APL-U/mL (<20.0); Cardiolipin Ab IgG <2.0 GPL-U/mL (<20.0); Cardiolipin Ab IgM <2.0 MPL-U/mL (<20.0)
[2021-08-23] MEDS ORDERED: dilTIAZem 25 MG/5 ML INJ IV ONE (05:46)
[2021-08-23] MEDS: MAGNESIUM HYDROXIDE (MOM) ORAL LIQD UDC PO PRN (06:16)
[2021-08-23 06:35] LABS: Hematocrit 29.7 % (35.5-45.6); Hemoglobin 9.8 gm/dl (11.8-15.2); Mean Corpuscular HGB Conc 33 % (32-34); Mean Corpuscular Volume 103 fl (84-94); Platelet Count 301 K/mm3 (140-440); Red Blood Count 2.89 M/mm3 (3.65-5.03)
[2021-08-23 06:44] LABS: Red Cell Distribution Width 32.1 % (13.2-15.2)
[2021-08-23 06:49] LABS: Alanine Aminotransferase 188 units/L (7-56); Albumin 3.2 g/dL (3.9-5); Blood Urea Nitrogen 22 mg/dL (9-20); Calcium 8.5 mg/dL (8.4-10.2); Hemolysis Index 34
[2021-08-23 06:52] LABS: BUN/Creatinine Ratio 37
--- NOTE | 2021-08-23 08:38 | Progress Note ---
Assessment and Plan Assessment and plan: This is a 55-year-old male with HTN, rheumatoid arthritis, GERD, depression, and hernia who presented to emergency department on 08/15 with complaints of shortness of breath and chest pain with symptoms ongoing for the past 3 weeks, increasing shortness of breath with exertion and pleuritic chest pain, oc casional distention of the abdomen, jaundice and dark urine. Patient stated that he had a fall on his forehead a few days prior to admission feeling weak and dizzy however did not lose consciousness. Upon arrival to the emergency department patient was tachypneic and tachycardic oxygen saturation of 96% on room air. Work-up in the emergency department revealed leukocytosis, severe anemia with a H/H of 3.5/11.3, thrombocytopenia, elevated INR and transaminitis. CXR showed borderline cardiomegaly with possible interstitial pulmonary edema. Patient was admitted to the hospitalist service with severe anemia, leukocytosis and acute liver injury with consults to GI, ID and pulmonology. Hospital Course to Date: 08/15: Patient is on HHFL 40%, 25L. SPO2 above 95. With severe anemia, no s/s of any acute bleeding, administered 2units of PRBCs for now, serial H&H ordered. HEME/ONC consult pending. Worsening lactic acid noted most likely due to acute liver disease, Acetylcysteine gtt intiated per GI recommendation. Will continue to monitor LFTs and coags. Orders placed for UDS and alcohol leve;. Will also check Vitamin B12, folate, and HIV. Patient remains afebrile and hemodynamically stable. per ID leukocytosi is unlikely related to an infectious process and IV abx were discontinued. 08/16: Patient is doing much better this am. Stable on 3L NC this am, no res piratory distress noted, this am CXR improved. LFTs with mild improvement this am, d/w GI give another dose off Acetylcysteine. S/p 4units of PRBCs repeat CBC pending, transfuse if hbg less than 7. Continue to trend LFTs, electrolytes repleted. 08/17: Patient started on Solu-Medrol as his Briseida test was positive, patient complaining of calf pain which is bilateral feet warm to touch and Doppler u ltrasound was ordered which revealed acute peroneal DVT. Hypokalemia repleted. 08/18: We will transfuse 1 unit PRBC per heme-onc orders as hematocrit is less than 23. LFTs have much improved. will transfer to the floor. Dr. Bird placed orders re juan archibald and scd. will perform weekly surveillance US 08/19: H/H stable, improvement in symptomology this AM. AOx3. F/u bm aspirate pathology. Heme recs noted will continue solumedrol 1mg/kg bid. Vascular recommendations noted re: peroneal dvt. JUAN archibald/scd for now, Will continue to monitor with serial US qweekly for dvt propagation. 08/20: Awaiting BM bx results. 08/22; continue current management 08/23; AIHA and ITP on pulse steroids S/p bone marrow biopsy pending report Clotting deficiency due to recent DVT Assessment and plan: This is a 55-year-old male with HTN, RA, GERD, depression, hernia admitted with severe anemia, leukocytosis and acute liver injury Heme: Severe microcytic anemia, thrombocytopenia, l Left lower extremity peroneal DVT, autoimmune hemolytic anemia, leukocytosis -Presented with a hemoglobin of 3.5 Received total 7 units of PRBC most recent hemoglobin is 8.2 Monitor closely and transfuse additional PRBC as needed -Vitamin B12 high, folate normal -Hematology/oncology following -Positive Briseida test -Solu-Medrol 1 mg/kg twice daily -Trend CBC -S/p 6 units PRBC -Transfuse hemoglobin less than 7 -hct < 23->one unit prbc given today -Bone marrow biopsy 08/15/2021 -Monitor for signs of bleeding -SCDs to BLE while in bed -Hemoccult positive -Avoid chemical anticoagulation in setting of severe anemia -CT chest revealed no PE, no evidence of pneumonia. -CT abdomen and pelvis revealed no acute intra-abdominal or intrapelvic path ology. -Per vascular surgery: JUAN/SCD with weekly dopplar -Starting fondaparinux (per hematology/oncology) Respiratory: Acute hypoxic respiratory failure -Supplemental oxygen as needed -SPO2 monitoring -Pulmonary hygiene Currently patient is on 2 L of nasal cannula oxygen Wean as tolerated, evaluate for home O2 Pulmonary following GI: Acute liver injury, h/o GERD -Presented with transaminitis and jaundice LFTs trending down GI following Possible ischemic hepatitis. LFTs in thousands on admission Trending down -CT abdomen without any acute abnormality -Hepatic panel negative -24 hours -840 mL -Protonix -S/p acetylcysteine -Trend LFTs -cardiac diet Neuro: NAD, h/o depression -Avoid delirium -Reorientation as needed -Maintain sleep-wake cycle -No antidepressants noted on home medication profile -As needed analgesia Cardiac: h/o HTN -Cardiology consulted, appreciate recommendations -Blood pressure monitoring per protocol ID: Leukemoid reaction, lactic acidosis -Infectious disease consulted, appreciate recommendation -COVID-19 PCR negative -f/u blood culture -Monitor WBC and temperature curve -CT chest revealed no PE, no evidence of pneumonia. -CT abdomen and pelvis revealed no acute intra-abdominal or intrapelvic pathology. -monitor off abx Metabolic: Hypokalemia Resolved, closely monitor electrolytes Endo: Hyperglycemia/partly due to steroids Accu-Chek sliding scale coverage ADA diet Check hemoglobin A1c #Obesity; BMI 39.4 Dietary modification, exercise as tolerated, Weight reduction when patient is medically stable Weight loss counseling Exercise counseling - Counseled patient on the importance of weight loss, incorporating exercise, and dietary changes (lean meats, fresh fruits and vegetables, and water intake). Patient expresses understanding. #Advanced care planning -Disease education conducted, care plan discussed, diagnoses discussed, prognosis discussed, and patient acknowledges understanding with care plan -Time: +30 min PT; evaluation noted and appreciated, recommend home health PT upon discharge Consults and recommendations noted and appreciated History Interval history: I have seen and examined the patient at the bedside Patient's chart and medications reviewed patient says he feels better. Left lower extremity swelling slightly improved Vital signs noted Hospitalist Physical - Constitutional Vitals: Temp Pulse Resp BP Pulse Ox 98.3 F 104 H 20 124/70 97 08/23/21 07:25 08/23/21 07:25 08/23/21 07:25 08/23/21 07:25 08/23/21 07:25 General appearance: Present: no acute distress, well-nourished, obese - EENT Eyes: Present: PERRL, EOM intact - Neck Neck: Present: supple, normal ROM - Respiratory Respiratory effort: normal Respiratory: bilateral: diminished, negative: rales, rhonchi, wheezing - Cardiovascular Rhythm: regular Heart Sounds: Present: S1 & S2 - Extremities Extremities: no ischemia, No edema, abnormal (Left lower extremity edema slightly improved) - Abdominal General gastrointestinal: soft, non-tender, normal bowel sounds - Integumentary Integumentary: Present: clear, warm - Psychiatric Psychiatric: appropriate mood/affect, cooperative - Neurologic Neurologic: CNII-XII intact, moves all extremities HEART Score - HEART Score Troponin: Troponin T 0.016 ng/mL (0.00-0.029) 08/15/21 06:00 Results - Labs CBC & Chem 7: 08/23/21 05:00 08/23/21 05:00 Labs: Laboratory Last Values WBC 17.0 K/mm3 (4.5-11.0) H 08/23/21 05:00 RBC 2.89 M/mm3 (3.65-5.03) L 08/23/21 05:00 Hgb 9.8 gm/dl (11.8-15.2) L 08/23/21 05:00 Hct 29.7 % (35.5-45.6) L 08/23/21 05:00 MCV 103 fl (84-94) H 08/23/21 05:00 MCH 34 pg (28-32) H 08/23/21 05:00 MCHC 33 % (32-34) 08/23/21 05:00 RDW 32.1 % (13.2-15.2) H 08/23/21 05:00 Plt Count 301 K/mm3 (140-440) D 08/23/21 05:00 [place] % (Auto) 8.3 % (0.0-7.3) H 08/15/21 04:01 Eos % (Auto) 0.2 % (0.0-4.3) 08/15/21 04:01 Lymph # (Auto) Wildlife Control Agent 08/15/21 04:01 Add Manual Diff Complete 08/18/21 04:20 Total Counted 100 08/18/21 04:20 Seg Neutrophils % 77.5 % (40.0-70.0) H 08/15/21 04:01 Seg Neuts % (Manual) 74.0 % (40.0-70.0) H 08/18/21 04:20 Band Neutrophils % 2.0 % 08/18/21 04:20 Lymphocytes % (Manual) 17.0 % (13.4-35.0) 08/18/21 04:20 Reactive Lymphs % (Man) 0 % 08/18/21 04:20 Monocytes % (Manual) 7.0 % (0.0-7.3) 08/18/21 04:20 Eosinophils % (Manual) 0 % (0.0-4.3) 08/18/21 04:20 Basophils % (Manual) 0 % (0.0-1.8) 08/18/21 04:20 Metamyelocytes % 0 % 08/18/21 04:20 Myelocytes % 0 % 08/18/21 04:20 Promyelocytes % 0 % 08/18/21 04:20 Blast Cells % 0 % 08/18/21 04:20 Nucleated RBC % 237.0 % (0.0-0.9) H 08/18/21 04:20 Seg Neutrophils # Man 17.5 K/mm3 (1.8-7.7) H 08/18/21 04:20 Band Neutrophils # 0.5 K/mm3 08/18/21 04:20 Lymphocytes # (Manual) 4.0 K/mm3 (1.2-5.4) 08/18/21 04:20 Abs React Lymphs (Man) 0.0 K/mm3 08/18/21 04:20 Monocytes # (Manual) 1.7 K/mm3 (0.0-0.8) H 08/18/21 04:20 Eosinophils # (Manual) 0.0 K/mm3 (0.0-0.4) 08/18/21 04:20 Basophils # (Manual) 0.0 K/mm3 (0.0-0.1) 08/18/21 04:20 Metamyelocytes # 0.0 K/mm3 08/18/21 04:20 Myelocytes # 0.0 K/mm3 08/18/21 04:20 Promyelocytes # 0.0 K/mm3 08/18/21 04:20 Blast Cells # 0.0 K/mm3 08/18/21 04:20 Pathologist Review 08/15/21 04:01 WBC Morphology Not Reportable 08/18/21 04:20 Hypersegmented Neuts Not Reportable 08/18/21 04:20 Hyposegmented Neuts Not Reportable 08/18/21 04:20 Hypogranular Neuts Not Reportable 08/18/21 04:20 Smudge Cells Not Reportable 08/18/21 04:20 Toxic Granulation Not Reportable 08/18/21 04:20 Toxic Vacuolation Not Reportable 08/18/21 04:20 Dohle Bodies Not Reportable 08/18/21 04:20 Pelger-Huet Anomaly Not Reportable 08/18/21 04:20 Elise Rods Not Reportable 08/18/21 04:20 Platelet Estimate Appears decreased 08/18/21 04:20 Clumped Platelets Not Reportable 08/18/21 04:20 Plt Clumps, EDTA Not Reportable 08/18/21 04:20 Large Platelets Not Reportable 08/18/21 04:20 Giant Platelets Not Reportable 08/18/21 04:20 Platelet Satelliting Not Reportable 08/18/21 04:20 Plt Morphology Comment Not Reportable 08/18/21 04:20 RBC Morphology Not Reportable 08/18/21 04:20 Dimorphic RBCs Not Reportable 08/18/21 04:20 Polychromasia 1+ 08/18/21 04:20 Hypochromasia Not Reportable 08/18/21 04:20 Poikilocytosis Not Reportable 08/18/21 04:20 Anisocytosis 1+ 08/18/21 04:20 Microcytosis Not Reportable 08/18/21 04:20 Macrocytosis Few 08/18/21 04:20 Spherocytes Not Reportable 08/18/21 04:20 Pappenheimer Bodies Not Reportable 08/18/21 04:20 Sickle Cells Not Reportable 08/18/21 04:20 Target Cells Not Reportable 08/18/21 04:20 Tear Drop Cells Not Reportable 08/18/21 04:20 Ovalocytes Not Reportable 08/18/21 04:20 Stomatocytes Few 08/15/21 04:01 Helmet Cells Not Reportable 08/18/21 04:20 [place] Bodies Not Reportable 08/18/21 04:20 [place] Rings Not Reportable 08/18/21 04:20 [place] Cells Not Reportable 08/18/21 04:20 Bite Cells Not Reportable 08/18/21 04:20 Crenated Cell Not Reportable 08/18/21 04:20 Elliptocytes Not Reportable 08/18/21 04:20 Acanthocytes (Spur) Not Reportable 08/18/21 04:20 Rouleaux Not Reportable 08/18/21 04:20 Hemoglobin C Crystals Not Reportable 08/18/21 04:20 Schistocytes Not Reportable 08/18/21 04:20 Malaria parasites Not Reportable 08/18/21 04:20 Percent Retic 22.28 % (0.78-2.58) H 08/22/21 05:23 Yassine Bodies Not Reportable 08/18/21 04:20 Hem Pathologist Commnt No 08/18/21 04:20 PT 17.8 Sec. (12.2-14.9) H 08/17/21 04:47 INR 1.31 (0.87-1.13) H 08/17/21 04:47 APTT 27.6 Sec. (24.2-36.6) 08/17/21 04:47 Fibrinogen 446 mg/dl (211-480) 08/18/21 04:20 D-Dimer > 234 ng/mlDDU (0-234) H 08/15/21 04:01 Sodium 133 mmol/L (137-145) L 08/23/21 05:00 Potassium 4.8 mmol/L (3.6-5.0) 08/23/21 05:00 Chloride 98.5 mmol/L (98-107) 08/23/21 05:00 Carbon Dioxide 19 mmol/L (22-30) L 08/23/21 05:00 Anion Gap 20 mmol/L 08/23/21 05:00 BUN 22 mg/dL (9-20) H 08/23/21 05:00 Creatinine 0.6 mg/dL (0.8-1.3) L 08/23/21 05:00 Estimated GFR > 60 ml/min 08/23/21 05:00 BUN/Creatinine Ratio 37 % 08/23/21 05:00 Glucose 268 mg/dL (75-100) H 08/23/21 05:00 POC Glucose 169 mg/dL (70-105) H 08/22/21 20:39 Lactic Acid 2.10 mmol/L (0.7-2.0) H* 08/19/21 07:19 Calcium 8.5 mg/dL (8.4-10.2) 08/23/21 05:00 Phosphorus 2.90 mg/dL (2.5-4.5) 08/19/21 07:19 Magnesium 2.10 mg/dL (1.7-2.3) 08/23/21 05:00 Total Bilirubin 2.50 mg/dL (0.1-1.2) H 08/23/21 05:00 Direct Bilirubin 2.3 mg/dL (0-0.2) H 08/18/21 04:20 Indirect Bilirubin 5.2 mg/dL 08/18/21 04:20 AST 52 units/L (5-40) H 08/23/21 05:00 ALT 188 units/L (7-56) H 08/23/21 05:00 Alkaline Phosphatase 88 units/L (35-129) 08/23/21 05:00 Lactate Dehydrogenase 1358 units/L (91-180) H 08/22/21 05:23 Troponin T 0.016 ng/mL (0.00-0.029) 08/15/21 06:00 Serum Total Protein 7.9 g/dL (6.1-8.1) 08/18/21 04:20 Total Protein 7.8 g/dL (6.3-8.2) 08/23/21 05:00 Albumin 3.2 g/dL (3.9-5) L 08/23/21 05:00 Albumin/Globulin Ratio 0.7 % 08/23/21 05:00 Zafxe-7-Oylnsprvm 0.6 g/dL (0.2-0.3) H 08/18/21 04:20 Grupr-1-Ypltqlejl 0.6 g/dL (0.5-0.9) 08/18/21 04:20 Beta Globulins 0.6 g/dL (0.2-0.5) H 08/18/21 04:20 Gamma Globulins 2.5 g/dL (0.8-1.7) H 08/18/21 04:20 Abnorm Protein Band 1 see below 08/18/21 04:20 PEP Interpretation see below H 08/18/21 04:20 Vitamin B12 > 2000 pg/mL (211-911) H 08/15/21 22:34 Folate 17.11 ng/mL (7.3-26.0) 08/15/21 22:34 Procalcitonin 1.15 ng/mL (<0.15) 08/18/21 12:49 Urine Opiates Screen Negative 08/15/21 12:30 Urine Methadone Screen Negative 08/15/21 12:30 Acetaminophen 5.0 ug/mL (10.0-30.0) L 08/15/21 07:00 Ur Barbiturates Screen Negative 08/15/21 12:30 Ur Phencyclidine Scrn Negative 08/15/21 12:30 Ur Amphetamines Screen Negative 08/15/21 12:30 U Benzodiazepines Scrn Negative 08/15/21 12:30 Urine Cocaine Screen Negative 08/15/21 12:30 U Marijuana (THC) Screen Negative 08/15/21 12:30 Drugs of Abuse Note Disclamer 08/15/21 12:30 Plasma/Serum Alcohol < 0.01 % (0-0.07) 08/15/21 22:34 BRITTNEY Screen Positive (Negative) H 08/16/21 14:49 Mitochondria M2 Ab <=20.0 U (<=20.0) 08/16/21 14:49 Cardiolipid IgG Ab <2.0 GPL-U/mL (<20.0) 08/19/21 07:19 Cardiolipid IgA Ab <2.0 APL-U/mL (<20.0) 08/19/21 07:19 Cardiolipid IgM Ab <2.0 MPL-U/mL (<20.0) 08/19/21 07:19 Coronavirus (PCR) Negative (Negative) 08/15/21 Unknown Hepatitis A IgM Ab Non-reactive (NonReactive) 08/15/21 06:44 Hep Bs Antigen Non-reactive (Negative) 08/15/21 06:44 Hep B Core IgM Ab Non-reactive (NonReactive) 08/15/21 06:44 Hepatitis C Antibody Non-reactive (NonReactive) 08/15/21 06:44 HIV 1&2 Antibody Rapid Non react (Non React) 08/15/21 22:34 HIV P24 Antigen Non react (Non React) 08/15/21 22:34 Blood Type O POSITIVE 08/18/21 13:06 Antibody Screen Negative 08/18/21 13:06 PARRISH Antibody Screen Negative 08/15/21 05:37 Direct Antiglob Test Positive 08/17/21 12:00 GIO (IgG-AHG) Positive 08/17/21 12:00 GIO, Poly Interpret Positive 08/17/21 12:00 GIO, Anti-C3 Negative 08/17/21 12:00 Crossmatch See Detail 08/18/21 13:06 Gomez/IV: Voiding Method Urinal Active Medications - Current Medications Current Medications: Generic Name Dose Route Start Last Admin Trade Name Freq PRN Reason Stop Dose Admin Albuterol 2.5 mg 08/17/21 09:42 08/17/21 10:06 Albuterol 2.5 Mg/3 Ml Nebu IH 2.5 mg Q4HRT PRN Administration Shortness Of Breath Amlodipine Besylate 10 mg 08/19/21 10:00 08/22/21 09:14 Amlodipine 10 Mg Tab PO 10 mg QDAY ROSINA Administration Dextrose 50 ml 08/18/21 18:18 Dextrose 50% In Water (25gm) 50 Ml Syringe IV Q30MIN PRN Hypoglycemia Protocol Fondaparinux 2.5 mg 08/21/21 12:00 08/22/21 09:14 Fondaparinux 2.5 Mg/0.5 Ml Inj SUB-Q 2.5 mg DAILY ROSINA Administration Fondaparinux 7.5 mg 08/21/21 12:00 08/22/21 09:15 Fondaparinux 7.5 Mg/0.6 Ml Inj SUB-Q 7.5 mg DAILY ROSINA Administration Insulin Human Lispro 0 unit 08/18/21 22:00 08/22/21 21:13 Insulin Lispro 100 Unit/Ml SUB-Q 1 unit ACHS ROSINA Administration Protocol Magnesium Hydroxide 30 ml 08/15/21 06:09 08/23/21 06:16 Magnesium Hydroxide (Mom) Oral Liqd Udc PO 30 ml Q4H PRN Administration Constipation Methylprednisolone Sodium Succinate 125 mg 08/17/21 14:00 08/22/21 21:13 Methylprednisolone Sod Succinate 125 Mg/2 Ml Inj IV 125 mg Q12HR ROSINA Administration Morphine Sulfate 2 mg 08/15/21 06:09 08/19/21 11:04 Morphine 2 Mg/1 Ml Inj IV 2 mg Q4H PRN Administration Pain, Moderate (4-6) Morphine Sulfate 4 mg 08/15/21 06:09 Morphine 4 Mg/1 Ml Inj IV Q4H PRN Pain , Severe (7-10) Ondansetron HCl 4 mg 08/15/21 06:09 Ondansetron 4 Mg/2 Ml Inj IV Q8H PRN Nausea And Vomiting Pantoprazole Sodium 40 mg 08/18/21 07:30 08/22/21 08:39 Pantoprazole 40 Mg Tab PO 40 mg QDAC ROSINA Administration Sodium Chloride 10 ml 08/15/21 10:00 08/22/21 21:14 Sodium Chloride 0.9% 10 Ml Flush Syringe IV 10 ml BID ROSINA Administration Sodium Chloride 10 ml 08/15/21 06:09 Sodium Chloride 0.9% 10 Ml Flush Syringe IV PRN PRN LINE FLUSH
[2021-08-23] MEDS: FONDAPARINUX 2.5 MG/0.5 ML INJ SUB-Q SCH (11:13)
[2021-08-23] MEDS: amLODIPine 10 MG TAB PO SCH (11:16)
[2021-08-23] MEDS: FONDAPARINUX 7.5 MG/0.6 ML INJ SUB-Q SCH (11:20)
[2021-08-23] MEDS: methylPREDNISolone Sod Succinate 125 MG/2 ML INJ IV SCH ×2 (11:21→22:23)
[2021-08-23] MEDS: INSULIN LISPRO 100 UNIT/ML SUB-Q SCH ×4 (11:22→22:24)
[2021-08-23 12:36] LABS: Basophils # (Auto) 0.1 K/mm3 (0.0-0.1); Monocytes # (Auto) 1.1 K/mm3 (0.0-0.8)
[2021-08-23 12:59] LABS: Total Cells Counted 100
[2021-08-23 13:00] LABS: Band Neutrophils # (Manual) 0.5 K/mm3; Basophils % (Manual) 0 % (0.0-1.8); Eosinophils % (Manual) 0 % (0.0-4.3); Ovalocytes 1+
--- NOTE | 2021-08-23 13:00 | Hem/Onc Progress Note ---
Subjective Interval history: HEME DATA REVIEW PT NOT SEEN TODAY 55YO man with RA, found to have severe anemia, low plt count, L leg DVT on arixtra 10mg daily no reports of bleeding s/p BMBx to r/o heme malignancy, 08/17/21 on steroid pulse DATA REVIEW BELOW cardiolipin Ab neg LDh and liver enz high recently IMP: AIHA and ITP, on steroid pulse recent Elevated LDH attrib to liver injury and AIHA r/p heme malignancy-->s/p BMBx 08/17/21 presumed clotting tendency, s/p recent DVT PLAN: cont Arixtra 10mg daily f/u liver enz and LDH change to oral prednisone, plan 2 wk taper Pending bmbx final results Active Medications Albuterol (Albuterol 2.5 Mg/3 Ml Nebu) 2.5 mg IH Q4HRT PRN PRN Reason: Shortness Of Breath Last Admin: 08/17/21 10:06 Dose: 2.5 mg Amlodipine Besylate (Amlodipine 10 Mg Tab) 10 mg PO QDAY ROSINA Last Admin: 08/23/21 11:16 Dose: 10 mg Dextrose (Dextrose 50% In Water (25gm) 50 Ml Syringe) 50 ml IV Q30MIN PRN; Protocol PRN Reason: Hypoglycemia Fondaparinux (Fondaparinux 2.5 Mg/0.5 Ml Inj) 2.5 mg SUB-Q DAILY ROSINA Last Admin: 08/23/21 11:13 Dose: 2.5 mg Fondaparinux (Fondaparinux 7.5 Mg/0.6 Ml Inj) 7.5 mg SUB-Q DAILY ROSINA Last Admin: 08/23/21 11:20 Dose: 7.5 mg Insulin Human Lispro (Insulin Lispro 100 Unit/Ml) 0 unit SUB-Q ACHS ROSINA; Protocol Last Admin: 08/23/21 11:22 Dose: 1 unit Magnesium Hydroxide (Magnesium Hydroxide (Mom) Oral Liqd Udc) 30 ml PO Q4H PRN PRN Reason: Constipation Last Admin: 08/23/21 06:16 Dose: 30 ml Methylprednisolone Sodium Succinate (Methylprednisolone Sod Succinate 125 Mg/2 Ml Inj) 125 mg IV Q12HR ROSINA Last Admin: 08/23/21 11:21 Dose: 125 mg Morphine Sulfate (Morphine 2 Mg/1 Ml Inj) 2 mg IV Q4H PRN PRN Reason: Pain, Moderate (4-6) Last Admin: 08/19/21 11:04 Dose: 2 mg Morphine Sulfate (Morphine 4 Mg/1 Ml Inj) 4 mg IV Q4H PRN PRN Reason: Pain , Severe (7-10) Ondansetron HCl (Ondansetron 4 Mg/2 Ml Inj) 4 mg IV Q8H PRN PRN Reason: Nausea And Vomiting Pantoprazole Sodium (Pantoprazole 40 Mg Tab) 40 mg PO QDAC [facility] Last Admin: 08/22/21 08:39 Dose: 40 mg Sodium Chloride (Sodium Chloride 0.9% 10 Ml Flush Syringe) 10 ml IV BID [facility] Last Admin: 08/23/21 11:21 Dose: 10 ml Sodium Chloride (Sodium Chloride 0.9% 10 Ml Flush Syringe) 10 ml IV PRN PRN PRN Reason: LINE FLUSH Laboratory Last Values WBC 17.0 K/mm3 (4.5-11.0) H 08/23/21 05:00 Hct 29.7 % (35.5-45.6) L 08/23/21 05:00 Plt Count 301 K/mm3 (140-440) D 08/23/21 05:00 Percent Retic 22.28 % (0.78-2.58) H 08/22/21 05:23 Creatinine 0.6 mg/dL (0.8-1.3) L 08/23/21 05:00 Estimated GFR > 60 ml/min 08/23/21 05:00 Total Bilirubin 2.50 mg/dL (0.1-1.2) H 08/23/21 05:00 Direct Bilirubin 2.3 mg/dL (0-0.2) H 08/18/21 04:20 Indirect Bilirubin 5.2 mg/dL 08/18/21 04:20 AST 52 units/L (5-40) H 08/23/21 05:00 ALT 188 units/L (7-56) H 08/23/21 05:00 Alkaline Phosphatase 88 units/L (35-129) 08/23/21 05:00 Lactate Dehydrogenase 1358 units/L (91-180) H 08/22/21 05:23 BRITTNEY Screen Positive (Negative) H 08/16/21 14:49 Mitochondria M2 Ab <=20.0 U (<=20.0) 08/16/21 14:49 Cardiolipid IgG Ab <2.0 GPL-U/mL (<20.0) 08/19/21 07:19 Cardiolipid IgA Ab <2.0 APL-U/mL (<20.0) 08/19/21 07:19 Cardiolipid IgM Ab <2.0 MPL-U/mL (<20.0) 08/19/21 07:19 Direct Antiglob Test Positive 08/17/21 12:00 GIO (IgG-AHG) Positive 08/17/21 12:00 GIO, Poly Interpret Positive 08/17/21 12:00 GIO, Anti-C3 Negative 08/17/21 12:00 Crossmatch See Detail 08/18/21 13:06 Objective - Constitutional Vitals: Last Vital Signs Temp 98.3 F 08/23/21 07:25 Pulse 120 H 08/23/21 11:16 Resp 20 08/23/21 07:25 BP 124/70 08/23/21 07:25 Pulse Ox 97 08/23/21 07:25 - Labs Lab Results: Laboratory Results - last 24 hr 08/19/21 08/22/21 08/22/21 07:19 11:32 15:45 WBC RBC Hgb Hct MCV MCH MCHC RDW Plt Count [place] % (Auto) Eos % (Auto) [place] # (Auto) Eos # (Auto) Baso # (Auto) Seg Neutrophils % Seg Neutrophils # Sodium Potassium Chloride Carbon Dioxide Anion Gap BUN Creatinine Estimated GFR BUN/Creatinine Ratio Glucose POC Glucose 172 H 225 H Calcium Magnesium Total Bilirubin AST ALT Alkaline Phosphatase Total Protein Albumin Albumin/Globulin Ratio Cardiolipid IgG Ab <2.0 Cardiolipid IgA Ab <2.0 Cardiolipid IgM Ab <2.0 08/22/21 08/23/21 08/23/21 20:39 05:00 05:00 WBC 17.0 H RBC 2.89 L Hgb 9.8 L Hct 29.7 L MCV 103 H MCH 34 H MCHC 33 RDW 32.1 H Plt Count [address] [place] % (Auto) 6.0 Eos % (Auto) 0.0 [place] # (Auto) 1.1 H Eos # (Auto) 0.0 Baso # (Auto) 0.1 Seg Neutrophils % 87.0 H Seg Neutrophils # 16.1 H Sodium 133 L Potassium 4.8 Chloride 98.5 Carbon Dioxide 19 L Anion Gap 20 BUN 22 H Creatinine 0.6 L Estimated GFR > 60 BUN/Creatinine Ratio 37 Glucose 268 H POC Glucose 169 H Calcium 8.5 Magnesium 2.10 Total Bilirubin 2.50 H AST 52 H ALT 188 H Alkaline Phosphatase 88 Total Protein 7.8 Albumin 3.2 L Albumin/Globulin Ratio 0.7 Cardiolipid IgG Ab Cardiolipid IgA Ab Cardiolipid IgM Ab 08/23/21 08/23/21 07:25 11:34 WBC RBC Hgb Hct MCV MCH MCHC RDW Plt Count [place] % (Auto) Eos % (Auto) [place] # (Auto) Eos # (Auto) Baso # (Auto) Seg Neutrophils % Seg Neutrophils # Sodium Potassium Chloride Carbon Dioxide Anion Gap BUN Creatinine Estimated GFR BUN/Creatinine Ratio Glucose POC Glucose 160 H 161 H Calcium Magnesium Total Bilirubin AST ALT Alkaline Phosphatase Total Protein Albumin Albumin/Globulin Ratio Cardiolipid IgG Ab Cardiolipid IgA Ab Cardiolipid IgM Ab Medications & Allergies - Medications Allergies/Adverse Reactions: Allergies atenolol Allergy (Verified 08/15/21 01:34) Unknown quetiapine fumarate [From Seroquel] Adverse Reaction (Verified 08/15/21 01:33) Unknown Home Medications: Home Medications Medication Instructions Recorded Confirmed Last Taken Type Esomeprazole Magnesium [Nexium 20 mg PO DAILY 08/15/21 08/15/21 Unknown History 24Hr] Sulindac 200 mg PO BID 08/15/21 08/15/21 08/14/21 History predniSONE [Deltasone] 5 mg PO TID 08/15/21 08/15/21 08/14/21 History 5 mg Active Medications: Generic Name Dose Route Start Last Admin Trade Name Liangq PRN Reason Stop Dose Admin Albuterol 2.5 mg 08/17/21 09:42 08/17/21 10:06 Albuterol 2.5 Mg/3 Ml Nebu IH 2.5 mg Q4HRT PRN Administration Shortness Of Breath Amlodipine Besylate 10 mg 08/19/21 10:00 08/23/21 11:16 Amlodipine 10 Mg Tab PO 10 mg QDAY ROSINA Administration Dextrose 50 ml 08/18/21 18:18 Dextrose 50% In Water (25gm) 50 Ml Syringe IV Q30MIN PRN Hypoglycemia Protocol Fondaparinux 2.5 mg 08/21/21 12:00 08/23/21 11:13 Fondaparinux 2.5 Mg/0.5 Ml Inj SUB-Q 2.5 mg DAILY ROSINA Administration Fondaparinux 7.5 mg 08/21/21 12:00 08/23/21 11:20 Fondaparinux 7.5 Mg/0.6 Ml Inj SUB-Q 7.5 mg DAILY ROSINA Administration Insulin Human Lispro 0 unit 08/18/21 22:00 08/23/21 11:22 Insulin Lispro 100 Unit/Ml SUB-Q 1 unit ACHS ROSINA Administration Protocol Magnesium Hydroxide 30 ml 08/15/21 06:09 08/23/21 06:16 Magnesium Hydroxide (Mom) Oral Liqd Udc PO 30 ml Q4H PRN Administration Constipation Methylprednisolone Sodium Succinate 125 mg 08/17/21 14:00 08/23/21 11:21 Methylprednisolone Sod Succinate 125 Mg/2 Ml Inj IV 125 mg Q12HR ROSINA Administration Morphine Sulfate 2 mg 08/15/21 06:09 08/19/21 11:04 Morphine 2 Mg/1 Ml Inj IV 2 mg Q4H PRN Administration Pain, Moderate (4-6) Morphine Sulfate 4 mg 08/15/21 06:09 Morphine 4 Mg/1 Ml Inj IV Q4H PRN Pain , Severe (7-10) Ondansetron HCl 4 mg 08/15/21 06:09 Ondansetron 4 Mg/2 Ml Inj IV Q8H PRN Nausea And Vomiting Pantoprazole Sodium 40 mg 08/18/21 07:30 08/22/21 08:39 Pantoprazole 40 Mg Tab PO 40 mg QDAC ROSINA Administration Sodium Chloride 10 ml 08/15/21 10:00 08/23/21 11:21 Sodium Chloride 0.9% 10 Ml Flush Syringe IV 10 ml BID ROSINA Administration Sodium Chloride 10 ml 08/15/21 06:09 Sodium Chloride 0.9% 10 Ml Flush Syringe IV PRN PRN LINE FLUSH
[2021-08-23 13:02] LABS: Platelet Estimate Consistent w Auto
[2021-08-23] MEDS: PANTOPRAZOLE 40 MG TAB PO SCH (17:30)
--- NOTE | 2021-08-23 18:40 | Progress Note ---
Assessment and Plan 55-year-old -H[place] male Morbidly Obese with known history of hypertension GERD, Depression and rheumatoid arthritis presenting to the emergency room today complaining of shortness of breath and chest pain. Symptoms has been ongoing for the past 3 weeks. Patient has been having increasing shortness of breath especially on minimal exertion. He also indicates that he has been having pleuritic chest pain. He denies any fever or chills, no headache, no nausea or vomiting and no abdominal pain. He however has noticed occasional distention of his abdomen, jaundice and unusually darker urine lately. Patient denies any sick contacts and no recent travel. Denies any contact with anyone with COVID-19. He states that he had a fall few days ago because he felt very weak and felt dizzy. He denies any loss of consciousness. Patient has history of smoking 1 pack x 10 years. Stopped smoking in 1998. Denies alcohol or drug abuse. 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 Allergic to atenolol, Quetiapine fumarate. Patient denies symptoms of sleep apnea at this time. Upon arrival in the emergency room, patient was quite tachypneic and tachycardic with an O2 saturation of 96% on room air. Work-up in the emergency room , lab reveals significant for leukocytosis of 34.5, hemoglobin of 3.5 and hematocrit of 11.3. MCV of 134 and platelet count is 115. INR 1.59, PT 30.9, D-dimer greater than 234. Total bilirubin of 13.4, AST 1665, ALT 1615, alkaline phos 99 Chest x-ray shows borderline to mild cardiomegaly with probable mild interstitial pulmonary edema. Patient alert, awake at this time. Denies chest pain. Complaining nasal congestion. Shortness of breath on exertionon. Denies cough. Patient is on room air. O2 saturation reported 100%. Patient afebrile. Has leukocytosis. Blood pressure 138/74, Pulse 96 , respirations 18. Patients chest xray 08/17/21 reported no acute findings. Patients venous doppler studies of both legs 08/17/21 reported acute DVT in left peroneal vein. Patient thrombocytopenic. Patients Platelet count on admission 46,000. Patient is on Fondaparinux. Patient is on I/V solumedrol, Albuterol inhaler, Protonix and Fondaparinux. - Patient Problems (1) Pleuritic chest pain Current Visit: Yes Status: Acute Plan to address problem: Patient is on I/V Morphine as needed for pain. (2) Hypertension Current Visit: Yes Status: Acute Plan to address problem: Management as per primary care. (3) Symptomatic anemia Current Visit: Yes Status: Acute Plan to address problem: Management as per primary care and hematology. (4) History of depression Current Visit: Yes Status: Acute Plan to address problem: Management as per primary care. (5) History of rheumatoid arthritis Current Visit: Yes Status: Acute Plan to address problem: Management ment as per primary care. (6) Jaundice Current Visit: Yes Status: Acute Plan to address problem: Management as per primary care and Gastroenterology. (7) Left leg DVT Current Visit: Yes Status: Acute Plan to address problem: Patient is on Fondaparinux. (8) Thrombocytopenia Current Visit: Yes Status: Acute Plan to address problem: Recommend to consult Hematology. Subjective Date of service: 08/23/21 Principal diagnosis: Ac. Liver Injury; Anemia; Thrombocytopenia; AHRF; Pulm Edema; Met. Acidosis Interval history: 55-year-old -[place] male Morbidly Obese with known history of hypertension GERD, Depression and rheumatoid arthritis presenting to the emergency room today complaining of shortness of breath and chest pain. Symptoms has been ongoing for the past 3 weeks. Patient has been having increasing shortness of breath especially on minimal exertion. He also indicates that he has been having pleuritic chest pain. He denies any fever or chills, no headache, no nausea or vomiting and no abdominal pain. He however has noticed occasional distention of his abdomen, jaundice and unusually darker urine lately. Patient denies any sick contacts and no recent travel. Denies any contact with anyone with COVID-19. He states that he had a fall few days ago because he felt very weak and felt dizzy. He denies any loss of consciousness. Patient has history of smoking 1 pack x 10 years. Stopped smoking in 1998. Denies alcohol or drug abuse. 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 Allergic to atenolol, Quetiapine fumarate. Patient denies symptoms of sleep apnea at this time. Upon arrival in the emergency room, patient was quite tachypneic and tachycardic with an O2 saturation of 96% on room air. Work-up in the emergency room , lab reveals significant for leukocytosis of 34.5, hemoglobin of 3.5 and hematocrit of 11.3. MCV of 134 and platelet count is 115. INR 1.59, PT 30.9, D-dimer greater than 234. Total bilirubin of 13.4, AST 1665, ALT 1615, alkaline phos 99 Chest x-ray shows borderline to mild cardiomegaly with probable mild interstitial pulmonary edema. Patient alert, awake at this time. Denies chest pain. Complaining nasal congestion. Shortness of breath on exertionon. Denies cough. Patient is on room air. O2 saturation reported 100%. Patient afebrile. Has leukocytosis. Blood pressure 138/74, Pulse 96 , respirations 18. Patients chest xray 08/17/21 reported no acute findings. Patients venous doppler studies of both legs 08/17/21 reported acute DVT in left peroneal vein. Patient thrombocytopenic. Patients Platelet count on admission 46,000. Patient is on Fondaparinux. Patient is on I/V solumedrol, Albuterol inhaler, Protonix and Fondaparinux. Objective Vital Signs - 12hr 08/23/21 08/23/21 08/23/21 07:25 10:00 11:00 Temperature 98.3 F Pulse Rate 104 H 102 H Respiratory 20 Rate Blood Pressure 124/70 O2 Sat by Pulse 97 94 Oximetry 08/23/21 08/23/21 08/23/21 11:16 12:13 15:37 Temperature 98.1 F 98.0 F Pulse Rate 120 H 81 69 Respiratory 20 Rate Blood Pressure 128/62 137/63 O2 Sat by Pulse 99 98 Oximetry Constitutional: no acute distress, alert, other (middle aged obese male with normal respiratory effort at rest) Eyes: non-icteric ENT: oropharynx moist Neck: supple, other (large circumference) Effort: normal Ascultation: Bilateral: diminished breath sounds Percussion: Bilateral: not dull Cardiovascular: regular rate and rhythm Gastrointestinal: normoactive bowel sounds, soft, non-tender, non-distended (protuberant) Integumentary: normal, other (no ecchymosis noted) Extremities: no cyanosis, no edema, pulses normal, no ischemia or petechiae Neurologic: non-focal exam (grossly), pupils equal and round, CN II-XII normal, motor strength normal and Psychiatric: mood appropriate, affect normal CBC and BMP: 08/23/21 05:00 08/23/21 05:00 ABG, PT/INR, D-dimer: PT/INR, D-dimer PT 17.8 Sec. (12.2-14.9) H 08/17/21 04:47 INR 1.31 (0.87-1.13) H 08/17/21 04:47 D-Dimer > 234 ng/mlDDU (0-234) H 08/15/21 04:01 Abnormal lab findings: Abnormal Labs 08/15/21 08/15/21 08/15/21 04:01 04:01 04:01 WBC 34.5 H RBC 0.84 L Hgb 3.5 L* Hct 11.3 L* MCV 134 H MCH 41 H MCHC 31 L RDW 30.4 H Plt Count 115 L Otero % (Auto) 8.3 H Otero # (Auto) Seg Neutrophils % 77.5 H Seg Neuts % (Manual) Lymphocytes % (Manual) Monocytes % (Manual) 8.5 H Nucleated RBC % 55.0 H Seg Neutrophils # Seg Neutrophils # Man 20.2 H Lymphocytes # (Manual) 9.1 H Monocytes # (Manual) 2.9 H Percent Retic PT 20.9 H INR 1.59 H D-Dimer > 234 H Sodium Potassium Carbon Dioxide 17 L BUN 40 H Creatinine 0.7 L Glucose 145 H POC Glucose Lactic Acid Calcium Magnesium Total Bilirubin 13.40 H Direct Bilirubin AST 1665 H ALT 1615 H Lactate Dehydrogenase Total Protein 8.4 H Albumin 3.7 L Zyppu-0-Xbcnqwwqw Beta Globulins Gamma Globulins PEP Interpretation Vitamin B12 Acetaminophen BRITTNEY Screen Crossmatch 08/15/21 08/15/21 08/15/21 05:37 06:44 06:44 WBC RBC Hgb Hct MCV MCH MCHC RDW Plt Count Otero % (Auto) Otero # (Auto) Seg Neutrophils % Seg Neuts % (Manual) Lymphocytes % (Manual) Monocytes % (Manual) Nucleated RBC % Seg Neutrophils # Seg Neutrophils # Man Lymphocytes # (Manual) Monocytes # (Manual) Percent Retic PT INR D-Dimer Sodium Potassium Carbon Dioxide BUN Creatinine Glucose POC Glucose Lactic Acid 7.30 H* Calcium Magnesium Total Bilirubin Direct Bilirubin AST ALT Lactate Dehydrogenase 4126 H Total Protein Albumin Wgbhh-3-Xwbkqpfvy Beta Globulins Gamma Globulins PEP Interpretation Vitamin B12 Acetaminophen BRITTNEY Screen Crossmatch See Detail 08/15/21 08/15/21 08/15/21 07:00 09:29 22:34 WBC RBC Hgb Hct MCV MCH MCHC RDW Plt Count Otero % (Auto) Otero # (Auto) Seg Neutrophils % Seg Neuts % (Manual) Lymphocytes % (Manual) Monocytes % (Manual) Nucleated RBC % Seg Neutrophils # Seg Neutrophils # Man Lymphocytes # (Manual) Monocytes # (Manual) Percent Retic PT INR D-Dimer Sodium Potassium Carbon Dioxide BUN Creatinine Glucose POC Glucose Lactic Acid 8.70 H* 2.30 H* Calcium Magnesium Total Bilirubin Direct Bilirubin AST ALT Lactate Dehydrogenase Total Protein Albumin Oabrr-3-Grqokctlf Beta Globulins Gamma Globulins PEP Interpretation Vitamin B12 Acetaminophen 5.0 L BRITTNEY Screen Crossmatch 08/15/21 08/15/21 08/16/21 22:34 22:34 00:08 WBC RBC Hgb 6.0 L Hct 17.3 L* D MCV MCH MCHC RDW Plt Count Otero % (Auto) Otero # (Auto) Seg Neutrophils % Seg Neuts % (Manual) Lymphocytes % (Manual) Monocytes % (Manual) Nucleated RBC % Seg Neutrophils # Seg Neutrophils # Man Lymphocytes # (Manual) Monocytes # (Manual) Percent Retic PT INR D-Dimer Sodium Potassium Carbon Dioxide BUN Creatinine Glucose POC Glucose 144 H Lactic Acid Calcium Magnesium Total Bilirubin Direct Bilirubin AST ALT Lactate Dehydrogenase Total Protein Albumin Usroi-9-Zwywxzpuw Beta Globulins Gamma Globulins PEP Interpretation Vitamin B12 > 2000 H Acetaminophen BRITTNEY Screen Crossmatch 08/16/21 08/16/21 08/16/21 04:30 04:30 04:30 WBC 30.7 H RBC 1.86 L Hgb 6.3 L Hct 19.2 L* MCV 103 H MCH 34 H MCHC RDW 24.8 H Plt Count 77 L Otero % (Auto) Otero # (Auto) Seg Neutrophils % Seg Neuts % (Manual) Lymphocytes % (Manual) Monocytes % (Manual) Nucleated RBC % Seg Neutrophils # Seg Neutrophils # Man Lymphocytes # (Manual) Monocytes # (Manual) Percent Retic PT INR D-Dimer Sodium Potassium 3.0 L D Carbon Dioxide 19 L BUN 55 H Creatinine Glucose 167 H POC Glucose Lactic Acid Calcium 8.1 L Magnesium Total Bilirubin 10.20 H Direct Bilirubin 2.6 H AST 958 H ALT 1328 H Lactate Dehydrogenase Total Protein Albumin 3.3 L Xgdwt-5-Ydzpqfzmv Beta Globulins Gamma Globulins PEP Interpretation Vitamin B12 Acetaminophen BRITTNEY Screen Crossmatch 08/16/21 08/16/21 08/16/21 04:30 04:30 12:09 WBC RBC Hgb Hct MCV MCH MCHC RDW Plt Count Otero % (Auto) Otero # (Auto) Seg Neutrophils % Seg Neuts % (Manual) Lymphocytes % (Manual) Monocytes % (Manual) Nucleated RBC % Seg Neutrophils # Seg Neutrophils # Man Lymphocytes # (Manual) Monocytes # (Manual) Percent Retic PT 19.5 H INR 1.46 H D-Dimer Sodium Potassium Carbon Dioxide BUN Creatinine Glucose POC Glucose Lactic Acid 2.10 H* 2.10 H* Calcium Magnesium Total Bilirubin Direct Bilirubin AST ALT Lactate Dehydrogenase Total Protein Albumin Txfho-0-Tioyjzqye Beta Globulins Gamma Globulins PEP Interpretation Vitamin B12 Acetaminophen BRITTNEY Screen Crossmatch 08/16/21 08/16/21 08/16/21 12:09 14:49 14:49 WBC 26.2 H RBC 2.11 L Hgb 7.1 L Hct 21.8 L MCV 103 H MCH 34 H MCHC RDW 22.9 H Plt Count 66 L Otero % (Auto) Otero # (Auto) Seg Neutrophils % Seg Neuts % (Manual) Lymphocytes % (Manual) Monocytes % (Manual) Nucleated RBC % Seg Neutrophils # Seg Neutrophils # Man Lymphocytes # (Manual) Monocytes # (Manual) Percent Retic PT INR D-Dimer Sodium Potassium 3.4 L Carbon Dioxide BUN Creatinine Glucose POC Glucose Lactic Acid Calcium Magnesium Total Bilirubin Direct Bilirubin AST ALT Lactate Dehydrogenase Total Protein Albumin Thqno-0-Nmhngssgs Beta Globulins Gamma Globulins PEP Interpretation Vitamin B12 Acetaminophen BRITTNEY Screen Positive H Crossmatch 08/16/21 08/17/21 08/17/21 20:10 00:06 04:47 WBC RBC Hgb 6.6 L Hct 20.2 L MCV MCH MCHC RDW Plt Count Otero % (Auto) Otero # (Auto) Seg Neutrophils % Seg Neuts % (Manual) Lymphocytes % (Manual) Monocytes % (Manual) Nucleated RBC % Seg Neutrophils # Seg Neutrophils # Man Lymphocytes # (Manual) Monocytes # (Manual) Percent Retic PT 17.8 H INR 1.31 H D-Dimer Sodium Potassium Carbon Dioxide BUN Creatinine Glucose POC Glucose 127 H Lactic Acid Calcium Magnesium Total Bilirubin Direct Bilirubin AST ALT Lactate Dehydrogenase Total Protein Albumin Djxbx-9-Oxdalwvza Beta Globulins Gamma Globulins PEP Interpretation Vitamin B12 Acetaminophen BRITTNEY Screen Crossmatch 08/17/21 08/17/21 08/17/21 04:47 04:47 11:57 WBC 24.3 H RBC 2.05 L Hgb 6.6 L 7.4 L Hct 20.5 L 22.8 L MCV 100 H MCH MCHC RDW 22.8 H Plt Count 46 L Otero % (Auto) Otero # (Auto) Seg Neutrophils % Seg Neuts % (Manual) Lymphocytes % (Manual) Monocytes % (Manual) 8.0 H Nucleated RBC % 136.0 H Seg Neutrophils # Seg Neutrophils # Man 15.1 H Lymphocytes # (Manual) 6.1 H Monocytes # (Manual) 1.9 H Percent Retic PT INR D-Dimer Sodium Potassium 3.4 L Carbon Dioxide 18 L BUN 32 H Creatinine 0.7 L Glucose 150 H POC Glucose Lactic Acid Calcium 7.8 L Magnesium 3.10 H Total Bilirubin 7.70 H Direct Bilirubin 1.9 H AST 410 H ALT 937 H Lactate Dehydrogenase Total Protein Albumin 3.1 L Pvufe-6-Obqywzmhb Beta Globulins Gamma Globulins PEP Interpretation Vitamin B12 Acetaminophen BRITTNEY Screen Crossmatch 08/17/21 08/17/21 08/18/21 17:15 23:22 04:20 WBC RBC Hgb Hct MCV MCH MCHC RDW Plt Count Otero % (Auto) Otero # (Auto) Seg Neutrophils % Seg Neuts % (Manual) Lymphocytes % (Manual) Monocytes % (Manual) Nucleated RBC % Seg Neutrophils # Seg Neutrophils # Man Lymphocytes # (Manual) Monocytes # (Manual) Percent Retic PT INR D-Dimer Sodium Potassium Carbon Dioxide 19 L BUN 26 H Creatinine 0.7 L Glucose 141 H POC Glucose 275 H 214 H Lactic Acid Calcium 8.1 L Magnesium Total Bilirubin 7.50 H Direct Bilirubin 2.3 H AST 216 H ALT 685 H Lactate Dehydrogenase Total Protein Albumin 3.3 L Xwbsn-1-Nuaiikkcr Beta Globulins Gamma Globulins PEP Interpretation Vitamin B12 Acetaminophen BRITTNEY Screen Crossmatch 08/18/21 08/18/21 08/18/21 04:20 04:20 04:20 WBC 23.6 H RBC 2.21 L Hgb 7.1 L Hct 22.0 L MCV 100 H MCH MCHC RDW 19.3 H Plt Count 44 L Otero % (Auto) Otero # (Auto) Seg Neutrophils % Seg Neuts % (Manual) 74.0 H Lymphocytes % (Manual) Monocytes % (Manual) Nucleated RBC % 237.0 H Seg Neutrophils # Seg Neutrophils # Man 17.5 H Lymphocytes # (Manual) Monocytes # (Manual) 1.7 H Percent Retic 9.38 H PT INR D-Dimer Sodium Potassium Carbon Dioxide BUN Creatinine Glucose POC Glucose Lactic Acid Calcium Magnesium Total Bilirubin Direct Bilirubin AST ALT Lactate Dehydrogenase 3057 H Total Protein Albumin 3.4 L Iuepw-5-Wsfqicvsv 0.6 H Beta Globulins 0.6 H Gamma Globulins 2.5 H PEP Interpretation see below H Vitamin B12 Acetaminophen BRITTNEY Screen Crossmatch 08/18/21 08/18/21 08/18/21 05:54 12:11 12:49 WBC RBC Hgb Hct MCV MCH MCHC RDW Plt Count Otero % (Auto) Otero # (Auto) Seg Neutrophils % Seg Neuts % (Manual) Lymphocytes % (Manual) Monocytes % (Manual) Nucleated RBC % Seg Neutrophils # Seg Neutrophils # Man Lymphocytes # (Manual) Monocytes # (Manual) Percent Retic PT INR D-Dimer Sodium Potassium Carbon Dioxide BUN Creatinine Glucose POC Glucose 158 H 210 H Lactic Acid 3.60 H* Calcium Magnesium Total Bilirubin Direct Bilirubin AST ALT Lactate Dehydrogenase Total Protein Albumin Sqqfu-0-Jlcsiowsp Beta Globulins Gamma Globulins PEP Interpretation Vitamin B12 Acetaminophen BRITTNEY Screen Crossmatch 08/18/21 08/18/21 08/18/21 13:06 17:03 20:55 WBC RBC Hgb Hct MCV MCH MCHC RDW Plt Count Otero % (Auto) Otero # (Auto) Seg Neutrophils % Seg Neuts % (Manual) Lymphocytes % (Manual) Monocytes % (Manual) Nucleated RBC % Seg Neutrophils # Seg Neutrophils # Man Lymphocytes # (Manual) Monocytes # (Manual) Percent Retic PT INR D-Dimer Sodium Potassium Carbon Dioxide BUN Creatinine Glucose POC Glucose 200 H 200 H Lactic Acid Calcium Magnesium Total Bilirubin Direct Bilirubin AST ALT Lactate Dehydrogenase Total Protein Albumin Xlazx-5-Jbkcebmnb Beta Globulins Gamma Globulins PEP Interpretation Vitamin B12 Acetaminophen BRITTNEY Screen Crossmatch See Detail 08/18/21 08/19/21 08/19/21 23:06 07:19 07:19 WBC 22.3 H RBC 2.48 L Hgb 8.0 L Hct 23.9 L MCV 96 H MCH MCHC RDW 18.0 H Plt Count 66 L Otero % (Auto) Otero # (Auto) Seg Neutrophils % Seg Neuts % (Manual) Lymphocytes % (Manual) Monocytes % (Manual) Nucleated RBC % Seg Neutrophils # Seg Neutrophils # Man Lymphocytes # (Manual) Monocytes # (Manual) Percent Retic PT INR D-Dimer Sodium 136 L Potassium Carbon Dioxide 21 L BUN 27 H Creatinine 0.7 L Glucose 150 H POC Glucose Lactic Acid 2.60 H* Calcium 8.3 L Magnesium 3.00 H Total Bilirubin 5.30 H Direct Bilirubin AST 84 H ALT 475 H Lactate Dehydrogenase Total Protein Albumin 3.4 L Kpquy-8-Mgrserleo Beta Globulins Gamma Globulins PEP Interpretation Vitamin B12 Acetaminophen BRITTNEY Screen Crossmatch 08/19/21 08/19/21 08/19/21 07:19 07:22 11:15 WBC RBC Hgb Hct MCV MCH MCHC RDW Plt Count Otero % (Auto) Otero # (Auto) Seg Neutrophils % Seg Neuts % (Manual) Lymphocytes % (Manual) Monocytes % (Manual) Nucleated RBC % Seg Neutrophils # Seg Neutrophils # Man Lymphocytes # (Manual) Monocytes # (Manual) Percent Retic PT INR D-Dimer Sodium Potassium Carbon Dioxide BUN Creatinine Glucose POC Glucose 125 H 176 H Lactic Acid 2.10 H* Calcium Magnesium Total Bilirubin Direct Bilirubin AST ALT Lactate Dehydrogenase Total Protein Albumin Njhfo-4-Orrhvihrn Beta Globulins Gamma Globulins PEP Interpretation Vitamin B12 Acetaminophen BRITTNEY Screen Crossmatch 08/19/21 08/19/21 08/20/21 16:55 21:10 05:30 WBC 21.2 H RBC 2.64 L Hgb 8.2 L Hct 25.4 L MCV 96 H MCH MCHC RDW 17.5 H Plt Count 105 L Otero % (Auto) Otero # (Auto) Seg Neutrophils % Seg Neuts % (Manual) Lymphocytes % (Manual) Monocytes % (Manual) Nucleated RBC % Seg Neutrophils # Seg Neutrophils # Man Lymphocytes # (Manual) Monocytes # (Manual) Percent Retic PT INR D-Dimer Sodium Potassium Carbon Dioxide BUN Creatinine Glucose POC Glucose 236 H 217 H Lactic Acid Calcium Magnesium Total Bilirubin Direct Bilirubin AST ALT Lactate Dehydrogenase Total Protein Albumin Etytq-5-Mcyhorhec Beta Globulins Gamma Globulins PEP Interpretation Vitamin B12 Acetaminophen BRITTNEY Screen Crossmatch 08/20/21 08/20/21 08/20/21 07:28 11:24 16:36 WBC RBC Hgb Hct MCV MCH MCHC RDW Plt Count Otero % (Auto) Otero # (Auto) Seg Neutrophils % Seg Neuts % (Manual) Lymphocytes % (Manual) Monocytes % (Manual) Nucleated RBC % Seg Neutrophils # Seg Neutrophils # Man Lymphocytes # (Manual) Monocytes # (Manual) Percent Retic PT INR D-Dimer Sodium Potassium Carbon Dioxide BUN Creatinine Glucose POC Glucose 140 H 140 H 165 H Lactic Acid Calcium Magnesium Total Bilirubin Direct Bilirubin AST ALT Lactate Dehydrogenase Total Protein Albumin Mmdpj-0-Yjwnjazik Beta Globulins Gamma Globulins PEP Interpretation Vitamin B12 Acetaminophen BRITTNEY Screen Crossmatch 08/20/21 08/21/21 08/21/21 21:21 07:32 11:28 WBC RBC Hgb Hct MCV MCH MCHC RDW Plt Count Otero % (Auto) Otero # (Auto) Seg Neutrophils % Seg Neuts % (Manual) Lymphocytes % (Manual) Monocytes % (Manual) Nucleated RBC % Seg Neutrophils # Seg Neutrophils # Man Lymphocytes # (Manual) Monocytes # (Manual) Percent Retic PT INR D-Dimer Sodium Potassium Carbon Dioxide BUN Creatinine Glucose POC Glucose 250 H 178 H 195 H Lactic Acid Calcium Magnesium Total Bilirubin Direct Bilirubin AST ALT Lactate Dehydrogenase Total Protein Albumin Lgabv-9-Szgazsaqg Beta Globulins Gamma Globulins PEP Interpretation Vitamin B12 Acetaminophen BRITTNEY Screen Crossmatch 08/21/21 08/21/21 08/22/21 16:40 21:23 05:23 WBC RBC Hgb Hct MCV MCH MCHC RDW Plt Count Otero % (Auto) Otero # (Auto) Seg Neutrophils % Seg Neuts % (Manual) Lymphocytes % (Manual) Monocytes % (Manual) Nucleated RBC % Seg Neutrophils # Seg Neutrophils # Man Lymphocytes # (Manual) Monocytes # (Manual) Percent Retic 22.28 H PT INR D-Dimer Sodium Potassium Carbon Dioxide BUN Creatinine Glucose POC Glucose 463 H 243 H Lactic Acid Calcium Magnesium Total Bilirubin Direct Bilirubin AST ALT Lactate Dehydrogenase Total Protein Albumin Agcji-5-Tkybcrrfg Beta Globulins Gamma Globulins PEP Interpretation Vitamin B12 Acetaminophen BRITTNEY Screen Crossmatch 08/22/21 08/22/21 08/22/21 05:23 07:14 11:32 WBC RBC Hgb Hct MCV MCH MCHC RDW Plt Count Otero % (Auto) Otero # (Auto) Seg Neutrophils % Seg Neuts % (Manual) Lymphocytes % (Manual) Monocytes % (Manual) Nucleated RBC % Seg Neutrophils # Seg Neutrophils # Man Lymphocytes # (Manual) Monocytes # (Manual) Percent Retic PT INR D-Dimer Sodium Potassium Carbon Dioxide BUN Creatinine Glucose POC Glucose 167 H 172 H Lactic Acid Calcium Magnesium Total Bilirubin Direct Bilirubin AST ALT Lactate Dehydrogenase 1358 H Total Protein Albumin Rdizo-4-Vlmpofsxo Beta Globulins Gamma Globulins PEP Interpretation Vitamin B12 Acetaminophen BRITTNEY Screen Crossmatch 08/22/21 08/22/21 08/23/21 15:45 20:39 05:00 WBC 17.0 H RBC 2.89 L Hgb 9.8 L Hct 29.7 L MCV 103 H MCH 34 H MCHC RDW 32.1 H Plt Count Otero % (Auto) Otero # (Auto) 1.1 H Seg Neutrophils % 87.0 H Seg Neuts % (Manual) 85.0 H Lymphocytes % (Manual) 7.0 L Monocytes % (Manual) Nucleated RBC % 6.0 H Seg Neutrophils # 16.1 H Seg Neutrophils # Man 14.5 H Lymphocytes # (Manual) Monocytes # (Manual) Percent Retic PT INR D-Dimer Sodium Potassium Carbon Dioxide BUN Creatinine Glucose POC Glucose 225 H 169 H Lactic Acid Calcium Magnesium Total Bilirubin Direct Bilirubin AST ALT Lactate Dehydrogenase Total Protein Albumin Qtbst-7-Brpzleebn Beta Globulins Gamma Globulins PEP Interpretation Vitamin B12 Acetaminophen BRITTNEY Screen Crossmatch 08/23/21 08/23/21 08/23/21 05:00 07:25 11:34 WBC RBC Hgb Hct MCV MCH MCHC RDW Plt Count Otero % (Auto) Otero # (Auto) Seg Neutrophils % Seg Neuts % (Manual) Lymphocytes % (Manual) Monocytes % (Manual) Nucleated RBC % Seg Neutrophils # Seg Neutrophils # Man Lymphocytes # (Manual) Monocytes # (Manual) Percent Retic PT INR D-Dimer Sodium 133 L Potassium Carbon Dioxide 19 L BUN 22 H Creatinine 0.6 L Glucose 268 H POC Glucose 160 H 161 H Lactic Acid Calcium Magnesium Total Bilirubin 2.50 H Direct Bilirubin AST 52 H ALT 188 H Lactate Dehydrogenase Total Protein Albumin 3.2 L Pqlbd-8-Oapvvympr Beta Globulins Gamma Globulins PEP Interpretation Vitamin B12 Acetaminophen BRITTNEY Screen Crossmatch Allied health notes reviewed: nursing
[2021-08-23] MEDS ORDERED: OXYMETAZOLINE 0.05% NASAL SPRAY NS PRN (21:59)
[2021-08-23] MEDS: guaiFENesin DM 200/20 MG ORAL LIQD 10 ML PO PRN (22:23)
[2021-08-24] MEDS: guaiFENesin DM 200/20 MG ORAL LIQD 10 ML PO PRN ×2 (04:55→20:17)
[2021-08-24 04:56] LABS: Albumin 3.3 g/dL (3.9-5); Bilirubin,Direct 0.7 mg/dL (0-0.2)
[2021-08-24] MEDS: amLODIPine 10 MG TAB PO SCH (10:20)
[2021-08-24] MEDS: PANTOPRAZOLE 40 MG TAB PO SCH (10:29)
[2021-08-24] MEDS: methylPREDNISolone Sod Succinate 125 MG/2 ML INJ IV SCH (10:29)
[2021-08-24] MEDS: FONDAPARINUX 2.5 MG/0.5 ML INJ SUB-Q SCH (10:41)
[2021-08-24] MEDS: FONDAPARINUX 7.5 MG/0.6 ML INJ SUB-Q SCH (10:42)
--- NOTE | 2021-08-24 10:43 | Vascular Lab Report ---
DUPLEX DOPPLER LOWER EXTREMITY VEINS, BILATERAL INDICATION / CLINICAL INFORMATION: dvt, assess for propagation. TECHNIQUE: Duplex doppler imaging was performed through the veins of both lower extremities using venous kenyetta clyde and other maneuvers. COMPARISON: None available. FINDINGS: RIGHT COMMON FEMORAL VEIN: Negative. RIGHT FEMORAL VEIN: Negative. RIGHT POPLITEAL VEIN: Negative. RIGHT CALF VEINS: Acute thrombus. LEFT COMMON FEMORAL VEIN: Negative. LEFT FEMORAL VEIN: Negative. LEFT POPLITEAL VEIN: Negative. LEFT CALF VEINS: Acute thrombus. ADDITIONAL FINDINGS: None. IMPRESSION: 1. Acute nonocclusive DVTs both peroneal calf veins Signer Name: Elier Arriaga MD Signed: 08/24/2021 10:39 AM Workstation Name: [id number]
[2021-08-24 12:18] LABS: Hematocrit 31.5 % (35.5-45.6); Hemoglobin 10.3 gm/dl (11.8-15.2); Mean Corpuscular HGB Conc 33 % (32-34); Mean Corpuscular Volume 105 fl (84-94); Platelet Count 315 K/mm3 (140-440)
[2021-08-24 12:21] LABS: Red Cell Distribution Width 33.4 % (13.2-15.2)
--- NOTE | 2021-08-24 12:43 | Progress Note ---
Assessment and Plan 55-year-old -[place] male Morbidly Obese with known history of hypertension GERD, Depression and rheumatoid arthritis presenting to the emergency room today complaining of shortness of breath and chest pain. Symptoms has been ongoing for the past 3 weeks. Patient has been having increasing shortness of breath especially on minimal exertion. He also indicates that he has been having pleuritic chest pain. He denies any fever or chills, no headache, no nausea or vomiting and no abdominal pain. He however has noticed occasional distention of his abdomen, jaundice and unusually darker urine lately. Patient denies any sick contacts and no recent travel. Denies any contact with anyone with COVID-19. He states that he had a fall few days ago because he felt very weak and felt dizzy. He denies any loss of consciousness. Patient has history of smoking 1 pack x 10 years. Stopped smoking in 1998. Denies alcohol or drug abuse. 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 Allergic to atenolol, Quetiapine fumarate. Patient denies symptoms of sleep apnea at this time. Upon arrival in the emergency room, patient was quite tachypneic and tachycardic with an O2 saturation of 96% on room air. Work-up in the emergency room , lab reveals significant for leukocytosis of 34.5, hemoglobin of 3.5 and hematocrit of 11.3. MCV of 134 and platelet count is 115. INR 1.59, PT 30.9, D-dimer greater than 234. Total bilirubin of 13.4, AST 1665, ALT 1615, alkaline phos 99 Chest x-ray shows borderline to mild cardiomegaly with probable mild interstitial pulmonary edema. Patient alert, awake at this time. Denies chest pain. Complaining nasal congestion. Shortness of breath on exertion. Denies cough. Patient is on room air. O2 saturation reported 97%. Patient afebrile. Has leukocytosis. Blood pressure 111/69, Pulse 94 , respirations 18. Patients chest xray 08/17/21 reported no acute findings. Patients venous doppler studies of both legs 08/17/21 reported acute DVT in left peroneal vein. Duplex lower extremity studies of legs 08/24/21 reported Acute nonocclusive DVTs both peroneal calf veins Patient thrombocytopenic. Patients Platelet count on admission 46,000. Patient is on Fondaparinux. Patient is on Prednisone Albuterol inhaler, Protonix and Fondaparinux. - Patient Problems (1) Pleuritic chest pain Current Visit: Yes Status: Acute Plan to address problem: Patient is on I/V Morphine as needed for pain. (2) Hypertension Current Visit: Yes Status: Acute Plan to address problem: Management as per primary care. (3) Symptomatic anemia Current Visit: Yes Status: Acute Plan to address problem: Management as per primary care and hematology. (4) History of depression Current Visit: Yes Status: Acute Plan to address problem: Management as per primary care. (5) History of rheumatoid arthritis Current Visit: Yes Status: Acute Plan to address problem: Management ment as per primary care. (6) Jaundice Current Visit: Yes Status: Acute Plan to address problem: Management as per primary care and Gastroenterology. (7) Left leg DVT Current Visit: Yes Status: Acute Plan to address problem: Patient is on Fondaparinux. (8) Thrombocytopenia Current Visit: Yes Status: Acute Plan to address problem: Platelet count improved. 315,000. Subjective Date of service: 08/24/21 Principal diagnosis: Ac. Liver Injury; Anemia; Thrombocytopenia; AHRF; Pulm Ray a; Met. Acidosis Interval history: 55-year-old -[place] male Morbidly Obese with known history of hypertension GERD, Depression and rheumatoid arthritis presenting to the emergency room today complaining of shortness of breath and chest pain. Symptoms has been ongoing for the past 3 weeks. Patient has been having increasing shortness of breath especially on minimal exertion. He also indicates that he has been having pleuritic chest pain. He denies any fever or chills, no headache, no nausea or vomiting and no abdominal pain. He however has noticed occasional distention of his abdomen, jaundice and unusually darker urine lately. Patient denies any sick contacts and no recent travel. Denies any contact with anyone with COVID-19. He states that he had a fall few days ago because he felt very weak and felt dizzy. He denies any loss of consciousness. Patient has history of smoking 1 pack x 10 years. Stopped smoking in 1998. Denies alcohol or drug abuse. 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 Allergic to atenolol, Quetiapine fumarate. Patient denies symptoms of sleep apnea at this time. Upon arrival in the emergency room, patient was quite tachypneic and tachycardic with an O2 saturation of 97% on room air. Work-up in the emergency room , lab reveals significant for leukocytosis of 34.5, hemoglobin of 3.5 and hematocrit of 11.3. MCV of 134 and platelet count is 115. INR 1.59, PT 30.9, D-dimer greater than 234. Total bilirubin of 13.4, AST 1665, ALT 1615, alkaline phos 99 Chest x-ray shows borderline to mild cardiomegaly with probable mild interstitial pulmonary edema. Patient alert, awake at this time. Denies chest pain. Complaining nasal congestion. Shortness of breath on exertion. Denies cough. Patient is on room air. O2 saturation reported 97%. Patient afebrile. Has leukocytosis. Blood pressure 111/69, Pulse 94 , respirations 18. Patients chest xray 08/17/21 reported no acute findings. Patients venous doppler studies of both legs 08/17/21 reported acute DVT in left peroneal vein. Duplex lower extremity studies of legs 08/24/21 reported Acute nonocclusive DVTs both peroneal calf veins Patient thrombocytopenic. Patients Platelet count on admission 46,000. Patient is on Fondaparinux. Patient is on Prednisone Albuterol inhaler, Protonix and Fondaparinux. Objective Vital Signs - 12hr 08/24/21 08/24/21 08/24/21 05:06 07:56 10:20 Temperature 98.6 F 98.2 F Pulse Rate 90 94 H 10 L Respiratory 20 18 Rate Blood Pressure 111/69 129/74 Blood Pressure 132/70 [Right] O2 Sat by Pulse 98 97 Oximetry Constitutional: no acute distress, alert, other (middle aged obese male with normal respiratory effort at rest) Eyes: non-icteric ENT: oropharynx moist Neck: supple, other (large circumference) Effort: normal Ascultation: Bilateral: diminished breath sounds Percussion: Bilateral: not dull Cardiovascular: regular rate and rhythm Gastrointestinal: normoactive bowel sounds, soft, non-tender, non-distended (protuberant) Integumentary: normal, other (no ecchymosis noted) Extremities: no cyanosis, no edema, pulses normal, no ischemia or petechiae Neurologic: non-focal exam (grossly), pupils equal and round, CN II-XII normal, motor strength normal and Psychiatric: mood appropriate, affect normal CBC and BMP: 08/25/21 04:24 08/25/21 04:24 ABG, PT/INR, D-dimer: PT/INR, D-dimer PT 17.8 Sec. (12.2-14.9) H 08/17/21 04:47 INR 1.31 (0.87-1.13) H 08/17/21 04:47 D-Dimer > 234 ng/mlDDU (0-234) H 08/15/21 04:01 Abnormal lab findings: Abnormal Labs 08/15/21 08/15/21 08/15/21 04:01 04:01 04:01 WBC 34.5 H RBC 0.84 L Hgb 3.5 L* Hct 11.3 L* MCV 134 H MCH 41 H MCHC 31 L RDW 30.4 H Plt Count 115 L [place] % (Auto) 8.3 H [place] # (Auto) Seg Neutrophils % 77.5 H Seg Neuts % (Manual) Lymphocytes % (Manual) Monocytes % (Manual) 8.5 H Nucleated RBC % 55.0 H Seg Neutrophils # Seg Neutrophils # Man 20.2 H Lymphocytes # (Manual) 9.1 H Monocytes # (Manual) 2.9 H Percent Retic PT 20.9 H INR 1.59 H D-Dimer > 234 H Sodium Potassium Carbon Dioxide 17 L BUN 40 H Creatinine 0.7 L Glucose 145 H POC Glucose Lactic Acid Calcium Magnesium Total Bilirubin 13.40 H Direct Bilirubin AST 1665 H ALT 1615 H Lactate Dehydrogenase Total Protein 8.4 H Albumin 3.7 L Rwgpc-5-Ytzqtgwzm Beta Globulins Gamma Globulins PEP Interpretation Vitamin B12 Acetaminophen BRITTNEY Screen Crossmatch 08/15/21 08/15/21 08/15/21 05:37 06:44 06:44 WBC RBC Hgb Hct MCV MCH MCHC RDW Plt Count [place] % (Auto) [place] # (Auto) Seg Neutrophils % Seg Neuts % (Manual) Lymphocytes % (Manual) Monocytes % (Manual) Nucleated RBC % Seg Neutrophils # Seg Neutrophils # Man Lymphocytes # (Manual) Monocytes # (Manual) Percent Retic PT INR D-Dimer Sodium Potassium Carbon Dioxide BUN Creatinine Glucose POC Glucose Lactic Acid 7.30 H* Calcium Magnesium Total Bilirubin Direct Bilirubin AST ALT Lactate Dehydrogenase 4126 H Total Protein Albumin Itsnq-7-Vyhnddjgj Beta Globulins Gamma Globulins PEP Interpretation Vitamin B12 Acetaminophen BRITTNEY Screen Crossmatch See Detail 08/15/21 08/15/21 08/15/21 07:00 09:29 22:34 WBC RBC Hgb Hct MCV MCH MCHC RDW Plt Count [place] % (Auto) [place] # (Auto) Seg Neutrophils % Seg Neuts % (Manual) Lymphocytes % (Manual) Monocytes % (Manual) Nucleated RBC % Seg Neutrophils # Seg Neutrophils # Man Lymphocytes # (Manual) Monocytes # (Manual) Percent Retic PT INR D-Dimer Sodium Potassium Carbon Dioxide BUN Creatinine Glucose POC Glucose Lactic Acid 8.70 H* 2.30 H* Calcium Magnesium Total Bilirubin Direct Bilirubin AST ALT Lactate Dehydrogenase Total Protein Albumin Ohkyr-9-Tnvaopils Beta Globulins Gamma Globulins PEP Interpretation Vitamin B12 Acetaminophen 5.0 L BRITTNEY Screen Crossmatch 08/15/21 08/15/21 08/16/21 22:34 22:34 00:08 WBC RBC Hgb 6.0 L Hct 17.3 L* D MCV MCH MCHC RDW Plt Count [place] % (Auto) [place] # (Auto) Seg Neutrophils % Seg Neuts % (Manual) Lymphocytes % (Manual) Monocytes % (Manual) Nucleated RBC % Seg Neutrophils # Seg Neutrophils # Man Lymphocytes # (Manual) Monocytes # (Manual) Percent Retic PT INR D-Dimer Sodium Potassium Carbon Dioxide BUN Creatinine Glucose POC Glucose 144 H Lactic Acid Calcium Magnesium Total Bilirubin Direct Bilirubin AST ALT Lactate Dehydrogenase Total Protein Albumin Sgyfy-3-Vnxtrtzwk Beta Globulins Gamma Globulins PEP Interpretation Vitamin B12 > 2000 H Acetaminophen BRITTNEY Screen Crossmatch 08/16/21 08/16/21 08/16/21 04:30 04:30 04:30 WBC 30.7 H RBC 1.86 L Hgb 6.3 L Hct 19.2 L* MCV 103 H MCH 34 H MCHC RDW 24.8 H Plt Count 77 L [place] % (Auto) [place] # (Auto) Seg Neutrophils % Seg Neuts % (Manual) Lymphocytes % (Manual) Monocytes % (Manual) Nucleated RBC % Seg Neutrophils # Seg Neutrophils # Man Lymphocytes # (Manual) Monocytes # (Manual) Percent Retic PT INR D-Dimer Sodium Potassium 3.0 L D Carbon Dioxide 19 L BUN 55 H Creatinine Glucose 167 H POC Glucose Lactic Acid Calcium 8.1 L Magnesium Total Bilirubin 10.20 H Direct Bilirubin 2.6 H AST 958 H ALT 1328 H Lactate Dehydrogenase Total Protein Albumin 3.3 L Odiqm-4-Vokrqppne Beta Globulins Gamma Globulins PEP Interpretation Vitamin B12 Acetaminophen BRITTNEY Screen Crossmatch 08/16/21 08/16/21 08/16/21 04:30 04:30 12:09 WBC RBC Hgb Hct MCV MCH MCHC RDW Plt Count [place] % (Auto) [place] # (Auto) Seg Neutrophils % Seg Neuts % (Manual) Lymphocytes % (Manual) Monocytes % (Manual) Nucleated RBC % Seg Neutrophils # Seg Neutrophils # Man Lymphocytes # (Manual) Monocytes # (Manual) Percent Retic PT 19.5 H INR 1.46 H D-Dimer Sodium Potassium Carbon Dioxide BUN Creatinine Glucose POC Glucose Lactic Acid 2.10 H* 2.10 H* Calcium Magnesium Total Bilirubin Direct Bilirubin AST ALT Lactate Dehydrogenase Total Protein Albumin Sxqpm-6-Degvjenqv Beta Globulins Gamma Globulins PEP Interpretation Vitamin B12 Acetaminophen BRITTNEY Screen Crossmatch 08/16/21 08/16/21 08/16/21 12:09 14:49 14:49 WBC 26.2 H RBC 2.11 L Hgb 7.1 L Hct 21.8 L MCV 103 H MCH 34 H MCHC RDW 22.9 H Plt Count 66 L [place] % (Auto) [place] # (Auto) Seg Neutrophils % Seg Neuts % (Manual) Lymphocytes % (Manual) Monocytes % (Manual) Nucleated RBC % Seg Neutrophils # Seg Neutrophils # Man Lymphocytes # (Manual) Monocytes # (Manual) Percent Retic PT INR D-Dimer Sodium Potassium 3.4 L Carbon Dioxide BUN Creatinine Glucose POC Glucose Lactic Acid Calcium Magnesium Total Bilirubin Direct Bilirubin AST ALT Lactate Dehydrogenase Total Protein Albumin Zwcqa-1-Ygkvcshac Beta Globulins Gamma Globulins PEP Interpretation Vitamin B12 Acetaminophen BRITTNEY Screen Positive H Crossmatch 08/16/21 08/17/21 08/17/21 20:10 00:06 04:47 WBC RBC Hgb 6.6 L Hct 20.2 L MCV MCH MCHC RDW Plt Count [place] % (Auto) [place] # (Auto) Seg Neutrophils % Seg Neuts % (Manual) Lymphocytes % (Manual) Monocytes % (Manual) Nucleated RBC % Seg Neutrophils # Seg Neutrophils # Man Lymphocytes # (Manual) Monocytes # (Manual) Percent Retic PT 17.8 H INR 1.31 H D-Dimer Sodium Potassium Carbon Dioxide BUN Creatinine Glucose POC Glucose 127 H Lactic Acid Calcium Magnesium Total Bilirubin Direct Bilirubin AST ALT Lactate Dehydrogenase Total Protein Albumin Zswwf-2-Ptbnaombg Beta Globulins Gamma Globulins PEP Interpretation Vitamin B12 Acetaminophen BRITTNEY Screen Crossmatch 08/17/21 08/17/21 08/17/21 04:47 04:47 11:57 WBC 24.3 H RBC 2.05 L Hgb 6.6 L 7.4 L Hct 20.5 L 22.8 L MCV 100 H MCH MCHC RDW 22.8 H Plt Count 46 L [place] % (Auto) [place] # (Auto) Seg Neutrophils % Seg Neuts % (Manual) Lymphocytes % (Manual) Monocytes % (Manual) 8.0 H Nucleated RBC % 136.0 H Seg Neutrophils # Seg Neutrophils # Man 15.1 H Lymphocytes # (Manual) 6.1 H Monocytes # (Manual) 1.9 H Percent Retic PT INR D-Dimer Sodium Potassium 3.4 L Carbon Dioxide 18 L BUN 32 H Creatinine 0.7 L Glucose 150 H POC Glucose Lactic Acid Calcium 7.8 L Magnesium 3.10 H Total Bilirubin 7.70 H Direct Bilirubin 1.9 H AST 410 H ALT 937 H Lactate Dehydrogenase Total Protein Albumin 3.1 L Uodpp-4-Hsckjhceg Beta Globulins Gamma Globulins PEP Interpretation Vitamin B12 Acetaminophen BRITTNEY Screen Crossmatch 08/17/21 08/17/21 08/18/21 17:15 23:22 04:20 WBC RBC Hgb Hct MCV MCH MCHC RDW Plt Count [place] % (Auto) [place] # (Auto) Seg Neutrophils % Seg Neuts % (Manual) Lymphocytes % (Manual) Monocytes % (Manual) Nucleated RBC % Seg Neutrophils # Seg Neutrophils # Man Lymphocytes # (Manual) Monocytes # (Manual) Percent Retic PT INR D-Dimer Sodium Potassium Carbon Dioxide 19 L BUN 26 H Creatinine 0.7 L Glucose 141 H POC Glucose 275 H 214 H Lactic Acid Calcium 8.1 L Magnesium Total Bilirubin 7.50 H Direct Bilirubin 2.3 H AST 216 H ALT 685 H Lactate Dehydrogenase Total Protein Albumin 3.3 L Ptqge-3-Cegsrodrz Beta Globulins Gamma Globulins PEP Interpretation Vitamin B12 Acetaminophen BRITTNEY Screen Crossmatch 08/18/21 08/18/21 08/18/21 04:20 04:20 04:20 WBC 23.6 H RBC 2.21 L Hgb 7.1 L Hct 22.0 L MCV 100 H MCH MCHC RDW 19.3 H Plt Count 44 L [place] % (Auto) [place] # (Auto) Seg Neutrophils % Seg Neuts % (Manual) 74.0 H Lymphocytes % (Manual) Monocytes % (Manual) Nucleated RBC % 237.0 H Seg Neutrophils # Seg Neutrophils # Man 17.5 H Lymphocytes # (Manual) Monocytes # (Manual) 1.7 H Percent Retic 9.38 H PT INR D-Dimer Sodium Potassium Carbon Dioxide BUN Creatinine Glucose POC Glucose Lactic Acid Calcium Magnesium Total Bilirubin Direct Bilirubin AST ALT Lactate Dehydrogenase 3057 H Total Protein Albumin 3.4 L Ryrzi-2-Ueckecssq 0.6 H Beta Globulins 0.6 H Gamma Globulins 2.5 H PEP Interpretation see below H Vitamin B12 Acetaminophen BRITTNEY Screen Crossmatch 08/18/21 08/18/21 08/18/21 05:54 12:11 12:49 WBC RBC Hgb Hct MCV MCH MCHC RDW Plt Count [place] % (Auto) [place] # (Auto) Seg Neutrophils % Seg Neuts % (Manual) Lymphocytes % (Manual) Monocytes % (Manual) Nucleated RBC % Seg Neutrophils # Seg Neutrophils # Man Lymphocytes # (Manual) Monocytes # (Manual) Percent Retic PT INR D-Dimer Sodium Potassium Carbon Dioxide BUN Creatinine Glucose POC Glucose 158 H 210 H Lactic Acid 3.60 H* Calcium Magnesium Total Bilirubin Direct Bilirubin AST ALT Lactate Dehydrogenase Total Protein Albumin Qtsah-5-Wqhzwnjdt Beta Globulins Gamma Globulins PEP Interpretation Vitamin B12 Acetaminophen BRITTNEY Screen Crossmatch 08/18/21 08/18/21 08/18/21 13:06 17:03 20:55 WBC RBC Hgb Hct MCV MCH MCHC RDW Plt Count [place] % (Auto) [place] # (Auto) Seg Neutrophils % Seg Neuts % (Manual) Lymphocytes % (Manual) Monocytes % (Manual) Nucleated RBC % Seg Neutrophils # Seg Neutrophils # Man Lymphocytes # (Manual) Monocytes # (Manual) Percent Retic PT INR D-Dimer Sodium Potassium Carbon Dioxide BUN Creatinine Glucose POC Glucose 200 H 200 H Lactic Acid Calcium Magnesium Total Bilirubin Direct Bilirubin AST ALT Lactate Dehydrogenase Total Protein Albumin Idjmb-1-Kmuuwlxld Beta Globulins Gamma Globulins PEP Interpretation Vitamin B12 Acetaminophen BRITTNEY Screen Crossmatch See Detail 08/18/21 08/19/21 08/19/21 23:06 07:19 07:19 WBC 22.3 H RBC 2.48 L Hgb 8.0 L Hct 23.9 L MCV 96 H MCH MCHC RDW 18.0 H Plt Count 66 L [place] % (Auto) [place] # (Auto) Seg Neutrophils % Seg Neuts % (Manual) Lymphocytes % (Manual) Monocytes % (Manual) Nucleated RBC % Seg Neutrophils # Seg Neutrophils # Man Lymphocytes # (Manual) Monocytes # (Manual) Percent Retic PT INR D-Dimer Sodium 136 L Potassium Carbon Dioxide 21 L BUN 27 H Creatinine 0.7 L Glucose 150 H POC Glucose Lactic Acid 2.60 H* Calcium 8.3 L Magnesium 3.00 H Total Bilirubin 5.30 H Direct Bilirubin AST 84 H ALT 475 H Lactate Dehydrogenase Total Protein Albumin 3.4 L Dkydf-6-Yyqmrhdfc Beta Globulins Gamma Globulins PEP Interpretation Vitamin B12 Acetaminophen BRITTNEY Screen Crossmatch 08/19/21 08/19/21 08/19/21 07:19 07:22 11:15 WBC RBC Hgb Hct MCV MCH MCHC RDW Plt Count [place] % (Auto) [place] # (Auto) Seg Neutrophils % Seg Neuts % (Manual) Lymphocytes % (Manual) Monocytes % (Manual) Nucleated RBC % Seg Neutrophils # Seg Neutrophils # Man Lymphocytes # (Manual) Monocytes # (Manual) Percent Retic PT INR D-Dimer Sodium Potassium Carbon Dioxide BUN Creatinine Glucose POC Glucose 125 H 176 H Lactic Acid 2.10 H* Calcium Magnesium Total Bilirubin Direct Bilirubin AST ALT Lactate Dehydrogenase Total Protein Albumin Wbued-0-Ddpvjavrv Beta Globulins Gamma Globulins PEP Interpretation Vitamin B12 Acetaminophen BRITTNEY Screen Crossmatch 08/19/21 08/19/21 08/20/21 16:55 21:10 05:30 WBC 21.2 H RBC 2.64 L Hgb 8.2 L Hct 25.4 L MCV 96 H MCH MCHC RDW 17.5 H Plt Count 105 L [place] % (Auto) [place] # (Auto) Seg Neutrophils % Seg Neuts % (Manual) Lymphocytes % (Manual) Monocytes % (Manual) Nucleated RBC % Seg Neutrophils # Seg Neutrophils # Man Lymphocytes # (Manual) Monocytes # (Manual) Percent Retic PT INR D-Dimer Sodium Potassium Carbon Dioxide BUN Creatinine Glucose POC Glucose 236 H 217 H Lactic Acid Calcium Magnesium Total Bilirubin Direct Bilirubin AST ALT Lactate Dehydrogenase Total Protein Albumin Kkevl-1-Nksahzhwi Beta Globulins Gamma Globulins PEP Interpretation Vitamin B12 Acetaminophen BRITTNEY Screen Crossmatch 08/20/21 08/20/21 08/20/21 07:28 11:24 16:36 WBC RBC Hgb Hct MCV MCH MCHC RDW Plt Count [place] % (Auto) [place] # (Auto) Seg Neutrophils % Seg Neuts % (Manual) Lymphocytes % (Manual) Monocytes % (Manual) Nucleated RBC % Seg Neutrophils # Seg Neutrophils # Man Lymphocytes # (Manual) Monocytes # (Manual) Percent Retic PT INR D-Dimer Sodium Potassium Carbon Dioxide BUN Creatinine Glucose POC Glucose 140 H 140 H 165 H Lactic Acid Calcium Magnesium Total Bilirubin Direct Bilirubin AST ALT Lactate Dehydrogenase Total Protein Albumin Wcscz-6-Zsogiyauq Beta Globulins Gamma Globulins PEP Interpretation Vitamin B12 Acetaminophen BRITTNEY Screen Crossmatch 08/20/21 08/21/21 08/21/21 21:21 07:32 11:28 WBC RBC Hgb Hct MCV MCH MCHC RDW Plt Count [place] % (Auto) [place] # (Auto) Seg Neutrophils % Seg Neuts % (Manual) Lymphocytes % (Manual) Monocytes % (Manual) Nucleated RBC % Seg Neutrophils # Seg Neutrophils # Man Lymphocytes # (Manual) Monocytes # (Manual) Percent Retic PT INR D-Dimer Sodium Potassium Carbon Dioxide BUN Creatinine Glucose POC Glucose 250 H 178 H 195 H Lactic Acid Calcium Magnesium Total Bilirubin Direct Bilirubin AST ALT Lactate Dehydrogenase Total Protein Albumin Xxrzx-0-Tmakfkjcj Beta Globulins Gamma Globulins PEP Interpretation Vitamin B12 Acetaminophen BRITTNEY Screen Crossmatch 08/21/21 08/21/21 08/22/21 16:40 21:23 05:23 WBC RBC Hgb Hct MCV MCH MCHC RDW Plt Count [place] % (Auto) [place] # (Auto) Seg Neutrophils % Seg Neuts % (Manual) Lymphocytes % (Manual) Monocytes % (Manual) Nucleated RBC % Seg Neutrophils # Seg Neutrophils # Man Lymphocytes # (Manual) Monocytes # (Manual) Percent Retic 22.28 H PT INR D-Dimer Sodium Potassium Carbon Dioxide BUN Creatinine Glucose POC Glucose 463 H 243 H Lactic Acid Calcium Magnesium Total Bilirubin Direct Bilirubin AST ALT Lactate Dehydrogenase Total Protein Albumin Jqmyy-6-Lamgehzro Beta Globulins Gamma Globulins PEP Interpretation Vitamin B12 Acetaminophen BRITTNEY Screen Crossmatch 08/22/21 08/22/21 08/22/21 05:23 07:14 11:32 WBC RBC Hgb Hct MCV MCH MCHC RDW Plt Count [place] % (Auto) [place] # (Auto) Seg Neutrophils % Seg Neuts % (Manual) Lymphocytes % (Manual) Monocytes % (Manual) Nucleated RBC % Seg Neutrophils # Seg Neutrophils # Man Lymphocytes # (Manual) Monocytes # (Manual) Percent Retic PT INR D-Dimer Sodium Potassium Carbon Dioxide BUN Creatinine Glucose POC Glucose 167 H 172 H Lactic Acid Calcium Magnesium Total Bilirubin Direct Bilirubin AST ALT Lactate Dehydrogenase 1358 H Total Protein Albumin Rvpql-7-Yegvryorw Beta Globulins Gamma Globulins PEP Interpretation Vitamin B12 Acetaminophen BRITTNEY Screen Crossmatch 08/22/21 08/22/21 08/23/21 15:45 20:39 05:00 WBC 17.0 H RBC 2.89 L Hgb 9.8 L Hct 29.7 L MCV 103 H MCH 34 H MCHC RDW 32.1 H Plt Count [place] % (Auto) [place] # (Auto) 1.1 H Seg Neutrophils % 87.0 H Seg Neuts % (Manual) 85.0 H Lymphocytes % (Manual) 7.0 L Monocytes % (Manual) Nucleated RBC % 6.0 H Seg Neutrophils # 16.1 H Seg Neutrophils # Man 14.5 H Lymphocytes # (Manual) Monocytes # (Manual) Percent Retic PT INR D-Dimer Sodium Potassium Carbon Dioxide BUN Creatinine Glucose POC Glucose 225 H 169 H Lactic Acid Calcium Magnesium Total Bilirubin Direct Bilirubin AST ALT Lactate Dehydrogenase Total Protein Albumin Zabsj-7-Jemnglxhx Beta Globulins Gamma Globulins PEP Interpretation Vitamin B12 Acetaminophen BRITTNEY Screen Crossmatch 08/23/21 08/23/21 08/23/21 05:00 07:25 11:34 WBC RBC Hgb Hct MCV MCH MCHC RDW Plt Count [place] % (Auto) [place] # (Auto) Seg Neutrophils % Seg Neuts % (Manual) Lymphocytes % (Manual) Monocytes % (Manual) Nucleated RBC % Seg Neutrophils # Seg Neutrophils # Man Lymphocytes # (Manual) Monocytes # (Manual) Percent Retic PT INR D-Dimer Sodium 133 L Potassium Carbon Dioxide 19 L BUN 22 H Creatinine 0.6 L Glucose 268 H POC Glucose 160 H 161 H Lactic Acid Calcium Magnesium Total Bilirubin 2.50 H Direct Bilirubin AST 52 H ALT 188 H Lactate Dehydrogenase Total Protein Albumin 3.2 L Wbpok-5-Mbhyouvdo Beta Globulins Gamma Globulins PEP Interpretation Vitamin B12 Acetaminophen BRITTNEY Screen Crossmatch 08/23/21 08/23/21 08/24/21 17:20 20:51 04:07 WBC RBC Hgb Hct MCV MCH MCHC RDW Plt Count [place] % (Auto) [place] # (Auto) Seg Neutrophils % Seg Neuts % (Manual) Lymphocytes % (Manual) Monocytes % (Manual) Nucleated RBC % Seg Neutrophils # Seg Neutrophils # Man Lymphocytes # (Manual) Monocytes # (Manual) Percent Retic PT INR D-Dimer Sodium Potassium Carbon Dioxide BUN Creatinine Glucose POC Glucose 159 H 179 H Lactic Acid Calcium Magnesium Total Bilirubin 2.30 H Direct Bilirubin 0.7 H AST ALT 155 H Lactate Dehydrogenase 933 H Total Protein Albumin 3.3 L Vmnqy-6-Ltbnqdcxl Beta Globulins Gamma Globulins PEP Interpretation Vitamin B12 Acetaminophen BRITTNEY Screen Crossmatch 08/24/21 11:23 WBC 17.7 H RBC 3.00 L Hgb 10.3 L Hct 31.5 L MCV 105 H MCH 34 H MCHC RDW 33.4 H Plt Count [place] % (Auto) [place] # (Auto) Seg Neutrophils % Seg Neuts % (Manual) Lymphocytes % (Manual) Monocytes % (Manual) Nucleated RBC % Seg Neutrophils # Seg Neutrophils # Man Lymphocytes # (Manual) Monocytes # (Manual) Percent Retic PT INR D-Dimer Sodium Potassium Carbon Dioxide BUN Creatinine Glucose POC Glucose Lactic Acid Calcium Magnesium Total Bilirubin Direct Bilirubin AST ALT Lactate Dehydrogenase Total Protein Albumin Ssmcu-6-Gyzitpnbv Beta Globulins Gamma Globulins PEP Interpretation Vitamin B12 Acetaminophen BRITTNEY Screen Crossmatch Prior PFT's, U/S of legs: report reviewed, image reviewed Additional Studies: DUPLEX DOPPLER LOWER EXTREMITY VEINS, BILATERAL 08/24/21 INDICATION / CLINICAL INFORMATION: dvt, assess for propagation. TECHNIQUE: Duplex doppler imaging was performed through the veins of both lower extremities using venous compression and other maneuvers. COMPARISON: None available. FINDINGS: RIGHT COMMON FEMORAL VEIN: Negative. RIGHT FEMORAL VEIN: Negative. RIGHT POPLITEAL VEIN: Negative. RIGHT CALF VEINS: Acute thrombus. LEFT COMMON FEMORAL VEIN: Negative. LEFT FEMORAL VEIN: Negative. LEFT POPLITEAL VEIN: Negative. LEFT CALF VEINS: Acute thrombus. ADDITIONAL FINDINGS: None. IMPRESSION: 1. Acute nonocclusive DVTs both peroneal calf veins Allied health notes reviewed: nursing
[2021-08-24] MEDS: INSULIN LISPRO 100 UNIT/ML SUB-Q SCH ×2 (15:24→22:28)
--- NOTE | 2021-08-24 19:02 | Progress Note ---
Assessment and Plan Assessment and plan: This is a 55-year-old male with HTN, rheumatoid arthritis, GERD, depression, and hernia who presented to emergency department on 08/15 with complaints of shortness of breath and chest pain with symptoms ongoing for the past 3 weeks, increasing shortness of breath with exertion and pleuritic chest pain, oc casional distention of the abdomen, jaundice and dark urine. Patient stated that he had a fall on his forehead a few days prior to admission feeling weak and dizzy however did not lose consciousness. Upon arrival to the emergency department patient was tachypneic and tachycardic oxygen saturation of 96% on room air. Work-up in the emergency department revealed leukocytosis, severe anemia with a H/H of 3.5/11.3, thrombocytopenia, elevated INR and transaminitis. CXR showed borderline cardiomegaly with possible interstitial pulmonary edema. Patient was admitted to the hospitalist service with severe anemia, leukocytosis and acute liver injury with consults to GI, ID and pulmonology. Hospital Course to Date: 08/15: Patient is on HHFL 40%, 25L. SPO2 above 95. With severe anemia, no s/s of any acute bleeding, administered 2units of PRBCs for now, serial H&H ordered. HEME/ONC consult pending. Worsening lactic acid noted most likely due to acute liver disease, Acetylcysteine gtt intiated per GI recommendation. Will continue to monitor LFTs and coags. Orders placed for UDS and alcohol leve;. Will also check Vitamin B12, folate, and HIV. Patient remains afebrile and hemodynamically stable. per ID leukocytosi is unlikely related to an infectious process and IV abx were discontinued. 08/16: Patient is doing much better this am. Stable on 3L NC this am, no res piratory distress noted, this am CXR improved. LFTs with mild improvement this am, d/w GI give another dose off Acetylcysteine. S/p 4units of PRBCs repeat CBC pending, transfuse if hbg less than 7. Continue to trend LFTs, electrolytes repleted. 08/17: Patient started on Solu-Medrol as his Briseida test was positive, patient complaining of calf pain which is bilateral feet warm to touch and Doppler u ltrasound was ordered which revealed acute peroneal DVT. Hypokalemia repleted. 08/18: We will transfuse 1 unit PRBC per heme-onc orders as hematocrit is less than 23. LFTs have much improved. will transfer to the floor. Dr. Bird placed orders re juan archibald and scd. will perform weekly surveillance US 08/19: H/H stable, improvement in symptomology this AM. AOx3. F/u bm aspirate pathology. Heme recs noted will continue solumedrol 1mg/kg bid. Vascular recommendations noted re: peroneal dvt. JUAN archibald/scd for now, Will continue to monitor with serial US qweekly for dvt propagation. 08/20: Awaiting BM bx results. 08/22; continue current management 08/23; AIHA and ITP on pulse steroids S/p bone marrow biopsy pending report Clotting deficiency due to recent DVT 08/24; continue current management, pending bone marrow biopsy Assessment and plan: This is a 55-year-old male with HTN, RA, GERD, depression, hernia admitted with severe anemia, leukocytosis and acute liver injury Heme: Severe microcytic anemia, thrombocytopenia, l Left lower extremity peroneal DVT, autoimmune hemolytic anemia, leukocytosis -Presented with a hemoglobin of 3.5 Received total 7 units of PRBC most recent hemoglobin is 8.2 Monitor closely and transfuse additional PRBC as needed -Vitamin B12 high, folate normal -Hematology/oncology following -Positive Briseida test -Solu-Medrol 1 mg/kg twice daily -Trend CBC -S/p 6 units PRBC -Transfuse hemoglobin less than 7 -hct < 23->one unit prbc given today -Bone marrow biopsy 08/15/2021 -Monitor for signs of bleeding -SCDs to BLE while in bed -Hemoccult positive -Avoid chemical anticoagulation in setting of severe anemia -CT chest revealed no PE, no evidence of pneumonia. -CT abdomen and pelvis revealed no acute intra-abdominal or intrapelvic pathology. -Per vascular surgery: JUAN/SCD with weekly dopplar -Starting fondaparinux (per hematology/oncology) Respiratory: Acute hypoxic respiratory failure -Supplemental oxygen as needed -SPO2 monitoring -Pulmonary hygiene Currently patient is on 2 L of nasal cannula oxygen Wean as tolerated, evaluate for home O2 Pulmonary following GI: Acute liver injury, h/o GERD -Presented with transaminitis and jaundice LFTs trending down GI following Possible ischemic hepatitis. LFTs in thousands on admission Trending down -CT abdomen without any acute abnormality -Hepatic panel negative -24 hours -840 mL -Protonix -S/p acetylcysteine -Trend LFTs -cardiac diet Neuro: NAD, h/o depression -Avoid delirium -Reorientation as needed -Maintain sleep-wake cycle -No antidepressants noted on home medication profile -As needed analgesia Cardiac: h/o HTN -Cardiology consulted, appreciate recommendations -Blood pressure monitoring per protocol ID: Leukemoid reaction, lactic acidosis -Infectious disease consulted, appreciate recommendation -COVID-19 PCR negative -f/u blood culture -Monitor WBC and temperature curve -CT chest revealed no PE, no evidence of pneumonia. -CT abdomen and pelvis revealed no acute intra-abdominal or intrapelvic pathology. -monitor off abx Metabolic: Hypokalemia Resolved, closely monitor electrolytes Endo: Hyperglycemia/partly due to steroids Accu-Chek sliding scale coverage ADA diet Check hemoglobin A1c #Obesity; BMI 39.4 Dietary modification, exercise as tolerated, Weight reduction when patient is medically stable Weight loss counseling Exercise counseling - Counseled patient on the importance of weight loss, incorporating exercise, and dietary changes (lean meats, fresh fruits and vegetables, and water intake). Patient expresses understanding. #Advanced care planning -Disease education conducted, care plan discussed, diagnoses discussed, prognosis discussed, and patient acknowledges understanding with care plan -Time: +30 min PT; evaluation noted and appreciated, recommend home health PT upon discharge Consults and recommendations noted and appreciated Closely monitor patient and adjust management as needed Plan of care reviewed with the patient and his nurse History Interval history: I seen and examined the patient at the bedside patient's chart and medications reviewed No new events reported by nursing No new complaints Hospitalist Physical - Constitutional Vitals: Temp Pulse Resp BP Pulse Ox 98.8 F 89 18 127/71 98 08/24/21 15:33 08/24/21 15:33 08/24/21 15:33 08/24/21 15:33 08/24/21 15:33 General appearance: Present: no acute distress, well-nourished, obese - EENT Eyes: Present: PERRL, EOM intact - Neck Neck: Present: supple, normal ROM - Respiratory Respiratory effort: normal Respiratory: bilateral: diminished, negative: rales, rhonchi, wheezing - Cardiovascular Rhythm: regular Heart Sounds: Present: S1 & S2 - Extremities Extremities: no ischemia, No edema - Abdominal General gastrointestinal: soft, non-tender, non-distended, normal bowel sounds - Integumentary Integumentary: Present: clear, warm - Psychiatric Psychiatric: appropriate mood/affect, cooperative - Neurologic Neurologic: CNII-XII intact, moves all extremities HEART Score - HEART Score Troponin: Troponin T 0.016 ng/mL (0.00-0.029) 08/15/21 06:00 Results - Labs CBC & Chem 7: 08/24/21 11:23 08/23/21 05:00 Labs: Laboratory Last Values WBC 17.7 K/mm3 (4.5-11.0) H 08/24/21 11:23 RBC 3.00 M/mm3 (3.65-5.03) L 08/24/21 11:23 Hgb 10.3 gm/dl (11.8-15.2) L 08/24/21 11:23 Hct 31.5 % (35.5-45.6) L 08/24/21 11:23 MCV 105 fl (84-94) H 08/24/21 11:23 MCH 34 pg (28-32) H 08/24/21 11:23 MCHC 33 % (32-34) 08/24/21 11:23 RDW 33.4 % (13.2-15.2) H 08/24/21 11:23 Plt Count 315 K/mm3 (140-440) 08/24/21 11:23 Tw[place]gs % (Auto) 6.0 % (0.0-7.3) 08/23/21 05:00 Eos % (Auto) 0.0 % (0.0-4.3) 08/23/21 05:00 Lymph # (Auto) Savings Teller 08/15/21 04:01 Twiggs # (Auto) 1.1 K/mm3 (0.0-0.8) H 08/23/21 05:00 Eos # (Auto) 0.0 K/mm3 (0.0-0.4) 08/23/21 05:00 Baso # (Auto) 0.1 K/mm3 (0.0-0.1) 08/23/21 05:00 Add Manual Diff Complete 08/23/21 05:00 Total Counted 100 08/23/21 05:00 Seg Neutrophils % 87.0 % (40.0-70.0) H 08/23/21 05:00 Seg Neuts % (Manual) 85.0 % (40.0-70.0) H 08/23/21 05:00 Band Neutrophils % 3.0 % 08/23/21 05:00 Lymphocytes % (Manual) 7.0 % (13.4-35.0) L 08/23/21 05:00 Reactive Lymphs % (Man) 0 % 08/23/21 05:00 Monocytes % (Manual) 2.0 % (0.0-7.3) 08/23/21 05:00 Eosinophils % (Manual) 0 % (0.0-4.3) 08/23/21 05:00 Basophils % (Manual) 0 % (0.0-1.8) 08/23/21 05:00 Metamyelocytes % 3.0 % 08/23/21 05:00 Myelocytes % 0 % 08/23/21 05:00 Promyelocytes % 0 % 08/23/21 05:00 Blast Cells % 0 % 08/23/21 05:00 Nucleated RBC % 6.0 % (0.0-0.9) H 08/23/21 05:00 Seg Neutrophils # 16.1 K/mm3 (1.8-7.7) H 08/23/21 05:00 Seg Neutrophils # Man 14.5 K/mm3 (1.8-7.7) H 08/23/21 05:00 Band Neutrophils # 0.5 K/mm3 08/23/21 05:00 Lymphocytes # (Manual) 1.2 K/mm3 (1.2-5.4) 08/23/21 05:00 Abs React Lymphs (Man) 0.0 K/mm3 08/23/21 05:00 Monocytes # (Manual) 0.3 K/mm3 (0.0-0.8) 08/23/21 05:00 Eosinophils # (Manual) 0.0 K/mm3 (0.0-0.4) 08/23/21 05:00 Basophils # (Manual) 0.0 K/mm3 (0.0-0.1) 08/23/21 05:00 Metamyelocytes # 0.5 K/mm3 08/23/21 05:00 Myelocytes # 0.0 K/mm3 08/23/21 05:00 Promyelocytes # 0.0 K/mm3 08/23/21 05:00 Blast Cells # 0.0 K/mm3 08/23/21 05:00 Pathologist Review 08/15/21 04:01 WBC Morphology Not Reportable 08/23/21 05:00 Hypersegmented Neuts Not Reportable 08/23/21 05:00 Hyposegmented Neuts Not Reportable 08/23/21 05:00 Hypogranular Neuts Not Reportable 08/23/21 05:00 Smudge Cells Not Reportable 08/23/21 05:00 Toxic Granulation Not Reportable 08/23/21 05:00 Toxic Vacuolation Not Reportable 08/23/21 05:00 Dohle Bodies Not Reportable 08/23/21 05:00 Pelger-Huet Anomaly Not Reportable 08/23/21 05:00 Elise Rods Not Reportable 08/23/21 05:00 Platelet Estimate Consistent w auto 08/23/21 05:00 Clumped Platelets Not Reportable 08/23/21 05:00 Plt Clumps, EDTA Not Reportable 08/23/21 05:00 Large Platelets Not Reportable 08/23/21 05:00 Giant Platelets Not Reportable 08/23/21 05:00 Platelet Satelliting Not Reportable 08/23/21 05:00 Plt Morphology Comment Not Reportable 08/23/21 05:00 RBC Morphology Not Reportable 08/23/21 05:00 Dimorphic RBCs Not Reportable 08/23/21 05:00 Polychromasia Few 08/23/21 05:00 Hypochromasia Not Reportable 08/23/21 05:00 Poikilocytosis Not Reportable 08/23/21 05:00 Anisocytosis Not Reportable 08/23/21 05:00 Microcytosis Few 08/23/21 05:00 Macrocytosis Not Reportable 08/23/21 05:00 Spherocytes Not Reportable 08/23/21 05:00 Pappenheimer Bodies Not Reportable 08/23/21 05:00 Sickle Cells Not Reportable 08/23/21 05:00 Target Cells Not Reportable 08/23/21 05:00 Tear Drop Cells Not Reportable 08/23/21 05:00 Ovalocytes 1+ 08/23/21 05:00 Stomatocytes Few 08/15/21 04:01 Helmet Cells Not Reportable 08/23/21 05:00 [place] Bodies Not Reportable 08/23/21 05:00 [place] Rings Not Reportable 08/23/21 05:00 [place] Cells Not Reportable 08/23/21 05:00 Bite Cells Not Reportable 08/23/21 05:00 Crenated Cell Not Reportable 08/23/21 05:00 Elliptocytes Not Reportable 08/23/21 05:00 Acanthocytes (Spur) Not Reportable 08/23/21 05:00 Rouleaux Not Reportable 08/23/21 05:00 Hemoglobin C Crystals Not Reportable 08/23/21 05:00 Schistocytes Not Reportable 08/23/21 05:00 Malaria parasites Not Reportable 08/23/21 05:00 Percent Retic 22.28 % (0.78-2.58) H 08/22/21 05:23 Yassine Bodies Not Reportable 08/23/21 05:00 Hem Pathologist Commnt No 08/23/21 05:00 PT 17.8 Sec. (12.2-14.9) H 08/17/21 04:47 INR 1.31 (0.87-1.13) H 08/17/21 04:47 APTT 27.6 Sec. (24.2-36.6) 08/17/21 04:47 Fibrinogen 446 mg/dl (211-480) 08/18/21 04:20 D-Dimer > 234 ng/mlDDU (0-234) H 08/15/21 04:01 Sodium 133 mmol/L (137-145) L 08/23/21 05:00 Potassium 4.8 mmol/L (3.6-5.0) 08/23/21 05:00 Chloride 98.5 mmol/L (98-107) 08/23/21 05:00 Carbon Dioxide 19 mmol/L (22-30) L 08/23/21 05:00 Anion Gap 20 mmol/L 08/23/21 05:00 BUN 22 mg/dL (9-20) H 08/23/21 05:00 Creatinine 0.6 mg/dL (0.8-1.3) L 08/23/21 05:00 Estimated GFR > 60 ml/min 08/23/21 05:00 BUN/Creatinine Ratio 37 % 08/23/21 05:00 Glucose 268 mg/dL (75-100) H 08/23/21 05:00 POC Glucose 220 mg/dL (70-105) H 08/24/21 15:27 Lactic Acid 2.10 mmol/L (0.7-2.0) H* 08/19/21 07:19 Calcium 8.5 mg/dL (8.4-10.2) 08/23/21 05:00 Phosphorus 2.90 mg/dL (2.5-4.5) 08/19/21 07:19 Magnesium 2.10 mg/dL (1.7-2.3) 08/23/21 05:00 Total Bilirubin 2.30 mg/dL (0.1-1.2) H 08/24/21 04:07 Direct Bilirubin 0.7 mg/dL (0-0.2) H 08/24/21 04:07 Indirect Bilirubin 1.6 mg/dL 08/24/21 04:07 AST 31 units/L (5-40) 08/24/21 04:07 ALT 155 units/L (7-56) H 08/24/21 04:07 Alkaline Phosphatase 79 units/L (35-129) 08/24/21 04:07 Lactate Dehydrogenase 933 units/L (91-180) H 08/24/21 04:07 Troponin T 0.016 ng/mL (0.00-0.029) 08/15/21 06:00 Serum Total Protein 7.9 g/dL (6.1-8.1) 08/18/21 04:20 Total Protein 7.7 g/dL (6.3-8.2) 08/24/21 04:07 Albumin 3.3 g/dL (3.9-5) L 08/24/21 04:07 Albumin/Globulin Ratio 0.8 % 08/24/21 04:07 Jqqbo-3-Xyajwkozl 0.6 g/dL (0.2-0.3) H 08/18/21 04:20 Ryopi-8-Chbmbzvpv 0.6 g/dL (0.5-0.9) 08/18/21 04:20 Beta Globulins 0.6 g/dL (0.2-0.5) H 08/18/21 04:20 Gamma Globulins 2.5 g/dL (0.8-1.7) H 08/18/21 04:20 Abnorm Protein Band 1 see below 08/18/21 04:20 PEP Interpretation see below H 08/18/21 04:20 Vitamin B12 > 2000 pg/mL (211-911) H 08/15/21 22:34 Folate 17.11 ng/mL (7.3-26.0) 08/15/21 22:34 Procalcitonin 1.15 ng/mL (<0.15) 08/18/21 12:49 Urine Opiates Screen Negative 08/15/21 12:30 Urine Methadone Screen Negative 08/15/21 12:30 Acetaminophen 5.0 ug/mL (10.0-30.0) L 08/15/21 07:00 Ur Barbiturates Screen Negative 08/15/21 12:30 Ur Phencyclidine Scrn Negative 08/15/21 12:30 Ur Amphetamines Screen Negative 08/15/21 12:30 U Benzodiazepines Scrn Negative 08/15/21 12:30 Urine Cocaine Screen Negative 08/15/21 12:30 U Marijuana (THC) Screen Negative 08/15/21 12:30 Drugs of Abuse Note Disclamer 08/15/21 12:30 Plasma/Serum Alcohol < 0.01 % (0-0.07) 08/15/21 22:34 BRITTNEY Screen Positive (Negative) H 08/16/21 14:49 Mitochondria M2 Ab <=20.0 U (<=20.0) 08/16/21 14:49 Cardiolipid IgG Ab <2.0 GPL-U/mL (<20.0) 08/19/21 07:19 Cardiolipid IgA Ab <2.0 APL-U/mL (<20.0) 08/19/21 07:19 Cardiolipid IgM Ab <2.0 MPL-U/mL (<20.0) 08/19/21 07:19 Coronavirus (PCR) Negative (Negative) 08/15/21 Unknown Hepatitis A IgM Ab Non-reactive (NonReactive) 08/15/21 06:44 Hep Bs Antigen Non-reactive (Negative) 08/15/21 06:44 Hep B Core IgM Ab Non-reactive (NonReactive) 08/15/21 06:44 Hepatitis C Antibody Non-reactive (NonReactive) 08/15/21 06:44 HIV 1&2 Antibody Rapid Non react (Non React) 08/15/21 22:34 HIV P24 Antigen Non react (Non React) 08/15/21 22:34 Blood Type O POSITIVE 08/18/21 13:06 Antibody Screen Negative 08/18/21 13:06 PARRISH Antibody Screen Negative 08/15/21 05:37 Direct Antiglob Test Positive 08/17/21 12:00 GIO (IgG-AHG) Positive 08/17/21 12:00 GIO, Poly Interpret Positive 08/17/21 12:00 GIO, Anti-C3 Negative 08/17/21 12:00 Crossmatch See Detail 08/18/21 13:06 Gomez/IV: Voiding Method Urinal Active Medications - Current Medications Current Medications: Generic Name Dose Route Start Last Admin Trade Name Freq PRN Reason Stop Dose Admin Albuterol 2.5 mg 08/17/21 09:42 08/17/21 10:06 Albuterol 2.5 Mg/3 Ml Nebu IH 2.5 mg Q4HRT PRN Administration Shortness Of Breath Amlodipine Besylate 10 mg 08/19/21 10:00 08/24/21 10:20 Amlodipine 10 Mg Tab PO 10 mg QDAY ROSINA Administration Dextrose 50 ml 08/18/21 18:18 Dextrose 50% In Water (25gm) 50 Ml Syringe IV Q30MIN PRN Hypoglycemia Protocol Fondaparinux 2.5 mg 08/21/21 12:00 08/24/21 10:41 Fondaparinux 2.5 Mg/0.5 Ml Inj SUB-Q 2.5 mg DAILY ROSINA Administration Fondaparinux 7.5 mg 08/21/21 12:00 08/24/21 10:42 Fondaparinux 7.5 Mg/0.6 Ml Inj SUB-Q 7.5 mg DAILY ROSINA Administration Guaifenesin 10 ml 08/23/21 22:00 08/24/21 04:55 Guaifenesin Dm 200/20 Mg Oral Liqd 10 Ml PO 10 ml Q4H PRN Administration Cough Insulin Human Lispro 0 unit 08/18/21 22:00 08/24/21 15:24 Insulin Lispro 100 Unit/Ml SUB-Q Not Given ACHS ROSINA Protocol Magnesium Hydroxide 30 ml 08/15/21 06:09 08/23/21 06:16 Magnesium Hydroxide (Mom) Oral Liqd Udc PO 30 ml Q4H PRN Administration Constipation Methylprednisolone Sodium Succinate 125 mg 08/17/21 14:00 08/24/21 10:29 Methylprednisolone Sod Succinate 125 Mg/2 Ml Inj IV 125 mg Q12HR ROSINA Administration Morphine Sulfate 2 mg 08/15/21 06:09 08/19/21 11:04 Morphine 2 Mg/1 Ml Inj IV 2 mg Q4H PRN Administration Pain, Moderate (4-6) Morphine Sulfate 4 mg 08/15/21 06:09 Morphine 4 Mg/1 Ml Inj IV Q4H PRN Pain , Severe (7-10) Ondansetron HCl 4 mg 08/15/21 06:09 Ondansetron 4 Mg/2 Ml Inj IV Q8H PRN Nausea And Vomiting Oxymetazoline HCl 2 spray 08/23/21 21:59 08/24/21 04:56 Oxymetazoline 0.05% Nasal [place] NS 2 spray Q12H PRN Administration Nasal Congestion Pantoprazole Sodium 40 mg 08/18/21 07:30 08/24/21 10:29 Pantoprazole 40 Mg Tab PO 40 mg QDAC ROSINA Administration Sodium Chloride 10 ml 08/15/21 10:00 08/23/21 22:26 Sodium Chloride 0.9% 10 Ml Flush Syringe IV 10 ml BID ROSINA Administration Sodium Chloride 10 ml 08/15/21 06:09 Sodium Chloride 0.9% 10 Ml Flush Syringe IV PRN PRN LINE FLUSH Nutrition/Malnutrition Assess - Dietary Evaluation Nutrition/Malnutrition Findings: Nutrition Notes Start: 08/23/21 17:54 Freq: Status: Active Protocol: Document 08/23/21 17:54 LISSETTE (Rec: 08/23/21 18:15 LISSETTE [id number]) Nutrition Notes Need for Assessment generated from: LOS Initial or Follow up Assessment Current Diagnosis Hypertension,Respiratory Failure Other Pertinent Diagnosis Autoimmune Hemolytic Anemia, Microcytic Anemia, DVT, Acute Liver Injury... Current Diet Cardiac Diet (since B 08/15). Labs/Tests 08/23: Na 133, CO2 19, BUN 22, Crea 0.6, Glu 268. Pertinent Medications 08/23: Insulin, others nutritionally unremarkable. Height 6 ft 1 in Weight 135.5 kg [place] Body Weight (kg) 83.63 BMI 39.4 Intake Prior to Admission Good Weight change and time frame Pt denies having loss body weight [employer]. Weight Status Obese Subjective/Other Information RD consult for LOS assessment. Pt's PO intake of meals has been Good (100%), according to ADL notes. Pt to be discharge home with family once cleared clinically . Percent of energy/protein needs met: Prescribed Cardiac Diet provides for energy/protein needs (2,230 Kcal/85 g) during LOS. Burn Absent Trauma Absent GI Symptoms None Food Allergy No Skin Integrity/Comment Assessment WNL. Current % PO Good (75-100%) Minimum of two criteria No #1 Nutrition Diagnosis No nutrition diagnosis at this time Nutrition Intervention Revisit per MD consult or patient Sign Off request: Additional Comments Continue monitoring food tolerance, %PO intake of meals , and BM.
--- NOTE | 2021-08-24 20:52 | Hem/Onc Progress Note ---
Subjective Date of service: 08/24/21 Interval history: Heme progress note Televisit via [facility] CPT 02317 Dx autoimmune hemolytic anemia 55YO man with RA, found to have severe anemia, low plt count, L leg DVT on arixtra 10mg daily no reports of bleeding s/p BMBx to r/o heme malignancy, 08/17/21 on steroid pulse Feels better today, denies leg pain DATA REVIEW BELOW cardiolipin Ab neg LDh and liver enz high recently IMP: AIHA and ITP, on steroid pulse recent Elevated LDH attrib to liver injury and AIHA r/p heme malignancy-->s/p BMBx 08/17/21 presumed clotting tendency, s/p recent DVT PLAN: cont Arixtra 10mg daily f/u liver enz and LDH Change to oral prednisone 80mg daily or 1mg/kg, then 2 wk taper Pending bmbx final results Laboratory Last Values WBC 17.7 K/mm3 (4.5-11.0) H 08/24/21 11:23 Hgb 10.3 gm/dl (11.8-15.2) L 08/24/21 11:23 Hct 31.5 % (35.5-45.6) L 08/24/21 11:23 Plt Count 315 K/mm3 (140-440) 08/24/21 11:23 PT 17.8 Sec. (12.2-14.9) H 08/17/21 04:47 INR 1.31 (0.87-1.13) H 08/17/21 04:47 APTT 27.6 Sec. (24.2-36.6) 08/17/21 04:47 Fibrinogen 446 mg/dl (211-480) 08/18/21 04:20 D-Dimer > 234 ng/mlDDU (0-234) H 08/15/21 04:01 AST 31 units/L (5-40) 08/24/21 04:07 ALT 155 units/L (7-56) H 08/24/21 04:07 Alkaline Phosphatase 79 units/L (35-129) 08/24/21 04:07 Lactate Dehydrogenase 933 units/L (91-180) H 08/24/21 04:07 Troponin T 0.016 ng/mL (0.00-0.029) 08/15/21 06:00 Serum Total Protein 7.9 g/dL (6.1-8.1) 08/18/21 04:20 Total Protein 7.7 g/dL (6.3-8.2) 08/24/21 04:07 Albumin 3.3 g/dL (3.9-5) L 08/24/21 04:07 Albumin/Globulin Ratio 0.8 % 08/24/21 04:07 Cfnpe-6-Tbiuabtnu 0.6 g/dL (0.2-0.3) H 08/18/21 04:20 Nbcsn-0-Wehugilke 0.6 g/dL (0.5-0.9) 08/18/21 04:20 Beta Globulins 0.6 g/dL (0.2-0.5) H 08/18/21 04:20 Gamma Globulins 2.5 g/dL (0.8-1.7) H 08/18/21 04:20 Abnorm Protein Band 1 see below 08/18/21 04:20 PEP Interpretation see below H 08/18/21 04:20 Vitamin B12 > 2000 pg/mL (211-911) H 08/15/21 22:34 Folate 17.11 ng/mL (7.3-26.0) 08/15/21 22:34 Procalcitonin 1.15 ng/mL (<0.15) 08/18/21 12:49 Urine Opiates Screen Negative 08/15/21 12:30 Urine Methadone Screen Negative 08/15/21 12:30 Acetaminophen 5.0 ug/mL (10.0-30.0) L 08/15/21 07:00 Ur Barbiturates Screen Negative 08/15/21 12:30 Ur Phencyclidine Scrn Negative 08/15/21 12:30 Ur Amphetamines Screen Negative 08/15/21 12:30 U Benzodiazepines Scrn Negative 08/15/21 12:30 Urine Cocaine Screen Negative 08/15/21 12:30 U Marijuana (THC) Screen Negative 08/15/21 12:30 Drugs of Abuse Note Disclamer 08/15/21 12:30 Plasma/Serum Alcohol < 0.01 % (0-0.07) 08/15/21 22:34 BRITTNEY Screen Positive (Negative) H 08/16/21 14:49 Mitochondria M2 Ab <=20.0 U (<=20.0) 08/16/21 14:49 Cardiolipid IgG Ab <2.0 GPL-U/mL (<20.0) 08/19/21 07:19 Cardiolipid IgA Ab <2.0 APL-U/mL (<20.0) 08/19/21 07:19 Cardiolipid IgM Ab <2.0 MPL-U/mL (<20.0) 08/19/21 07:19 Coronavirus (PCR) Negative (Negative) 08/15/21 Unknown Hepatitis A IgM Ab Non-reactive (NonReactive) 08/15/21 06:44 Hep Bs Antigen Non-reactive (Negative) 08/15/21 06:44 Hep B Core IgM Ab Non-reactive (NonReactive) 08/15/21 06:44 Hepatitis C Antibody Non-reactive (NonReactive) 08/15/21 06:44 HIV 1&2 Antibody Rapid Non react (Non React) 08/15/21 22:34 HIV P24 Antigen Non react (Non React) 08/15/21 22:34 Blood Type O POSITIVE 08/18/21 13:06 Antibody Screen Negative 08/18/21 13:06 PARRISH Antibody Screen Negative 08/15/21 05:37 Direct Antiglob Test Positive 08/17/21 12:00 GIO (IgG-AHG) Positive 08/17/21 12:00 GIO, Poly Interpret Positive 08/17/21 12:00 GIO, Anti-C3 Negative 08/17/21 12:00 Crossmatch See Detail 08/18/21 13:06 Objective - Constitutional Vitals: Last Vital Signs Temp 99.0 F 08/24/21 19:39 Pulse 90 08/24/21 19:39 Resp 20 08/24/21 19:39 BP 132/63 08/24/21 19:39 Pulse Ox 100 08/24/21 19:39 - Labs Lab Results: Laboratory Results - last 24 hr 08/23/21 08/24/21 08/24/21 20:51 04:07 07:53 WBC RBC Hgb Hct MCV MCH MCHC RDW Plt Count POC Glucose 179 H 210 H Total Bilirubin 2.30 H Direct Bilirubin 0.7 H Indirect Bilirubin 1.6 AST 31 ALT 155 H Alkaline Phosphatase 79 Lactate Dehydrogenase 933 H Total Protein 7.7 Albumin 3.3 L Albumin/Globulin Ratio 0.8 0308/24/21 08/24/21 10:58 11:23 15:27 WBC 17.7 H RBC 3.00 L Hgb 10.3 L Hct 31.5 L MCV 105 H MCH 34 H MCHC 33 RDW 33.4 H Plt Count 315 POC Glucose 136 H 220 H Total Bilirubin Direct Bilirubin Indirect Bilirubin AST ALT Alkaline Phosphatase Lactate Dehydrogenase Total Protein Albumin Albumin/Globulin Ratio Medications & Allergies - Medications Allergies/Adverse Reactions: Allergies atenolol Allergy (Verified 08/15/21 01:34) Unknown quetiapine fumarate [From Seroquel] Adverse Reaction (Verified 08/15/21 01:33) Unknown Home Medications: Home Medications Medication Instructions Recorded Confirmed Last Taken Type Esomeprazole Magnesium [Nexium 20 mg PO DAILY 08/15/21 08/15/21 Unknown History 24Hr] Sulindac 200 mg PO BID 08/15/21 08/15/21 08/14/21 History predniSONE [Deltasone] 5 mg PO TID 08/15/21 08/15/21 08/14/21 History 5 mg Active Medications: Generic Name Dose Route Start Last Admin Trade Name Freq PRN Reason Stop Dose Admin Albuterol 2.5 mg 08/17/21 09:42 08/17/21 10:06 Albuterol 2.5 Mg/3 Ml Nebu IH 2.5 mg Q4HRT PRN Administration Shortness Of Breath Amlodipine Besylate 10 mg 08/19/21 10:00 08/24/21 10:20 Amlodipine 10 Mg Tab PO 10 mg QDAY ROSINA Administration Dextrose 50 ml 08/18/21 18:18 Dextrose 50% In Water (25gm) 50 Ml Syringe IV Q30MIN PRN Hypoglycemia Protocol Fondaparinux 2.5 mg 08/21/21 12:00 08/24/21 10:41 Fondaparinux 2.5 Mg/0.5 Ml Inj SUB-Q 2.5 mg DAILY ROSINA Administration Fondaparinux 7.5 mg 08/21/21 12:00 08/24/21 10:42 Fondaparinux 7.5 Mg/0.6 Ml Inj SUB-Q 7.5 mg DAILY ROSINA Administration Guaifenesin 10 ml 08/23/21 22:00 08/24/21 20:17 Guaifenesin Dm 200/20 Mg Oral Liqd 10 Ml PO 10 ml Q4H PRN Administration Cough Insulin Human Lispro 0 unit 08/18/21 22:00 08/24/21 15:24 Insulin Lispro 100 Unit/Ml SUB-Q Not Given ACHS [facility] Protocol Magnesium Hydroxide 30 ml 08/15/21 06:09 08/23/21 06:16 Magnesium Hydroxide (Mom) Oral Liqd Udc PO 30 ml Q4H PRN Administration Constipation Methylprednisolone Sodium Succinate 125 mg 08/17/21 14:00 08/24/21 10:29 Methylprednisolone Sod Succinate 125 Mg/2 Ml Inj IV 125 mg Q12HR ROSNIA Administration Morphine Sulfate 2 mg 08/15/21 06:09 08/19/21 11:04 Morphine 2 Mg/1 Ml Inj IV 2 mg Q4H PRN Administration Pain, Moderate (4-6) Morphine Sulfate 4 mg 08/15/21 06:09 Morphine 4 Mg/1 Ml Inj IV Q4H PRN Pain , Severe (7-10) Ondansetron HCl 4 mg 08/15/21 06:09 Ondansetron 4 Mg/2 Ml Inj IV Q8H PRN Nausea And Vomiting Oxymetazoline HCl 2 spray 08/23/21 21:59 08/24/21 04:56 Oxymetazoline 0.05% Nasal [place] NS 2 spray Q12H PRN Administration Nasal Congestion Pantoprazole Sodium 40 mg 08/18/21 07:30 08/24/21 10:29 Pantoprazole 40 Mg Tab PO 40 mg QDAC ROSINA Administration Sodium Chloride 10 ml 08/15/21 10:00 08/23/21 22:26 Sodium Chloride 0.9% 10 Ml Flush Syringe IV 10 ml BID ROSINA Administration Sodium Chloride 10 ml 08/15/21 06:09 Sodium Chloride 0.9% 10 Ml Flush Syringe IV PRN PRN LINE FLUSH
[2021-08-24] MEDS ORDERED: predniSONE 20 MG TAB PO SCH (22:00)
[2021-08-25 05:11] LABS: Hematocrit 30.1 % (35.5-45.6); Mean Corpuscular HGB Conc 33 % (32-34); Mean Corpuscular Volume 105 fl (84-94); Red Blood Count 2.87 M/mm3 (3.65-5.03)
[2021-08-25 05:12] LABS: Red Cell Distribution Width 33.4 % (13.2-15.2)
[2021-08-25 05:13] LABS: Platelet Count 240 K/mm3 (140-440)
[2021-08-25 05:32] LABS: Blood Urea Nitrogen 25 mg/dL (9-20); Calcium 8.3 mg/dL (8.4-10.2); Hemolysis Index 7
[2021-08-25 05:33] LABS: BUN/Creatinine Ratio 42
[2021-08-25 06:15] LABS: Anisocytosis 3+; Basophils % (Manual) 0 % (0.0-1.8); Eosinophils % (Manual) 0 % (0.0-4.3); Total Cells Counted 100
[2021-08-25 06:17] LABS: Macrocytosis 1+; Platelet Estimate Consistent w Auto; Spherocytes 3+
[2021-08-25] MEDS: INSULIN LISPRO 100 UNIT/ML SUB-Q SCH ×4 (07:45→22:49)
[2021-08-25] MEDS: predniSONE 50 MG TAB PO SCH ×2 (10:11→22:49)
[2021-08-25] MEDS: FONDAPARINUX 2.5 MG/0.5 ML INJ SUB-Q SCH (10:12)
[2021-08-25] MEDS: FONDAPARINUX 7.5 MG/0.6 ML INJ SUB-Q SCH (10:12)
[2021-08-25] MEDS: PANTOPRAZOLE 40 MG TAB PO SCH (10:12)
[2021-08-25] MEDS: amLODIPine 10 MG TAB PO SCH (10:13)
--- NOTE | 2021-08-25 13:39 | Progress Note ---
Assessment and Plan Assessment and plan: This is a 55-year-old male with HTN, rheumatoid arthritis, GERD, depression, and hernia who presented to emergency department on 08/15 with complaints of shortness of breath and chest pain with symptoms ongoing for the past 3 weeks, increasing shortness of breath with exertion and pleuritic chest pain, oc casional distention of the abdomen, jaundice and dark urine. Patient stated that he had a fall on his forehead a few days prior to admission feeling weak and dizzy however did not lose consciousness. Upon arrival to the emergency department patient was tachypneic and tachycardic oxygen saturation of 96% on room air. Work-up in the emergency department revealed leukocytosis, severe anemia with a H/H of 3.5/11.3, thrombocytopenia, elevated INR and transaminitis. CXR showed borderline cardiomegaly with possible interstitial pulmonary edema. Patient was admitted to the hospitalist service with severe anemia, leukocytosis and acute liver injury with consults to GI, ID and pulmonology. Hospital Course to Date: 08/15: Patient is on HHFL 40%, 25L. SPO2 above 95. With severe anemia, no s/s of any acute bleeding, administered 2units of PRBCs for now, serial H&H ordered. HEME/ONC consult pending. Worsening lactic acid noted most likely due to acute liver disease, Acetylcysteine gtt intiated per GI recommendation. Will continue to monitor LFTs and coags. Orders placed for UDS and alcohol leve;. Will also check Vitamin B12, folate, and HIV. Patient remains afebrile and hemodynamically stable. per ID leukocytosi is unlikely related to an infectious process and IV abx were discontinued. 08/16: Patient is doing much better this am. Stable on 3L NC this am, no res piratory distress noted, this am CXR improved. LFTs with mild improvement this am, d/w GI give another dose off Acetylcysteine. S/p 4units of PRBCs repeat CBC pending, transfuse if hbg less than 7. Continue to trend LFTs, electrolytes repleted. 08/17: Patient started on Solu-Medrol as his Briseida test was positive, patient complaining of calf pain which is bilateral feet warm to touch and Doppler u ltrasound was ordered which revealed acute peroneal DVT. Hypokalemia repleted. 08/18: We will transfuse 1 unit PRBC per heme-onc orders as hematocrit is less than 23. LFTs have much improved. will transfer to the floor. Dr. Bird placed orders re juan archibald and scd. will perform weekly surveillance US 08/19: H/H stable, improvement in symptomology this AM. AOx3. F/u bm aspirate pathology. Heme recs noted will continue solumedrol 1mg/kg bid. Vascular recommendations noted re: peroneal dvt. JUAN archibald/scd for now, Will continue to monitor with serial US qweekly for dvt propagation. 08/20: Awaiting BM bx results. 08/22; continue current management 08/23; AIHA and ITP on pulse steroids S/p bone marrow biopsy pending report Clotting deficiency due to recent DVT 08/24; continue current management, pending bone marrow biopsy 08/25; pulse dose steroids completed, started on oral tapering dose of prednisone per hematology Assessment and plan: This is a 55-year-old male with HTN, RA, GERD, depression, hernia admitted with severe anemia, leukocytosis and acute liver injury Heme: Severe microcytic anemia, thrombocytopenia, l Left lower extremity peroneal DVT, autoimmune hemolytic anemia, leukocytosis -Presented with a hemoglobin of 3.5 Received total 7 units of PRBC most recent hemoglobin is 8.2 Monitor closely and transfuse additional PRBC as needed -Vitamin B12 high, folate normal -Hematology/oncology following -Positive Briseida test -Solu-Medrol 1 mg/kg twice daily -Trend CBC -S/p 6 units PRBC -Transfuse hemoglobin less than 7 -hct < 23->one unit prbc given today -Bone marrow biopsy 08/15/2021 -Monitor for signs of bleeding -SCDs to BLE while in bed -Hemoccult positive -Avoid chemical anticoagulation in setting of severe anemia -CT chest revealed no PE, no evidence of pneumonia. -CT abdomen and pelvis revealed no acute intra-abdominal or intrapelvic pathology. -Per vascular surgery: JUAN/SCD with weekly dopplar -Starting fondaparinux (per hematology/oncology) Respiratory: Acute hypoxic respiratory failure Requiring supplemental oxygen on admission Gradually weaned off O2, GI: Acute liver injury, h/o GERD Possible ischemic hepatitis. LFTs in thousands on admission Trending down -CT abdomen without any acute abnormality -Hepatic panel negative - continue Protonix Neuro: h/o depression Stable Cardiac: h/o HTN Closely monitor blood pressures and adjust as needed Continue current antihypertensives ID: Leukemoid reaction, lactic acidosis -Infectious disease consulted, appreciate recommendation -COVID-19 PCR negative -f/u blood culture -Monitor WBC and temperature curve -CT chest revealed no PE, no evidence of pneumonia. -CT abdomen and pelvis revealed no acute intra-abdominal or intrapelvic pathology. -monitor off abx Metabolic: Hypokalemia Resolved, closely monitor electrolytes Endo: Hyperglycemia/partly due to steroids Accu-Chek sliding scale coverage ADA diet Check hemoglobin A1c #Obesity; BMI 39.4 Dietary modification, exercise as tolerated, Weight reduction when patient is medically stable Weight loss counseling Exercise counseling - Counseled patient on the importance of weight loss, incorporating exercise, and dietary changes (lean meats, fresh fruits and vegetables, and water intake). Patient expresses understanding. #Advanced care planning -Disease education conducted, care plan discussed, diagnoses discussed, prognosis discussed, and patient acknowledges understanding with care plan -Time: +30 min PT; home health PT upon discharge Consults and recommendations noted and appreciated Closely monitor patient and adjust management as needed Plan of care reviewed with the patient and his nurse History Interval history: I have seen and examined the patient at the bedside Patient's chart and medications reviewed No new events reported by the nursing staff Patient feels better complains of generalized weakness High-dose pulse steroids transitioned Vital signs reviewed to oral prednisone by mine surveyor Hospitalist Physical - Constitutional Vitals: Temp Pulse Resp BP Pulse Ox 98.6 F 78 18 108/49 98 08/25/21 11:29 08/25/21 11:29 08/25/21 11:29 08/25/21 11:29 08/25/21 11:29 General appearance: Present: no acute distress, well-nourished, obese - EENT Eyes: Present: PERRL, EOM intact - Neck Neck: Present: supple, normal ROM - Respiratory Respiratory effort: normal Respiratory: bilateral: diminished, negative: rales, rhonchi, wheezing - Cardiovascular Rhythm: regular Heart Sounds: Present: S1 & S2 - Extremities Extremities: no ischemia, No edema - Abdominal General gastrointestinal: soft, non-tender, non-distended, normal bowel sounds - Integumentary Integumentary: Present: clear, warm - Psychiatric Psychiatric: appropriate mood/affect, cooperative - Neurologic Neurologic: moves all extremities HEART Score - HEART Score Troponin: Troponin T 0.016 ng/mL (0.00-0.029) 08/15/21 06:00 Results - Labs CBC & Chem 7: 08/25/21 04:24 08/25/21 04:24 Labs: Laboratory Last Values WBC 16.0 K/mm3 (4.5-11.0) H 08/25/21 04:24 RBC 2.87 M/mm3 (3.65-5.03) L 08/25/21 04:24 Hgb 10.0 gm/dl (11.8-15.2) L 08/25/21 04:24 Hct 30.1 % (35.5-45.6) L 08/25/21 04:24 MCV 105 fl (84-94) H 08/25/21 04:24 MCH 35 pg (28-32) H 08/25/21 04:24 MCHC 33 % (32-34) 08/25/21 04:24 RDW 33.4 % (13.2-15.2) H 08/25/21 04:24 Plt Count 240 K/mm3 (140-440) 08/25/21 04:24 [place] % (Auto) 6.0 % (0.0-7.3) 08/23/21 05:00 Eos % (Auto) 0.0 % (0.0-4.3) 08/23/21 05:00 Lymph # (Auto) Fisheries Officer 08/15/21 04:01 [place] # (Auto) 1.1 K/mm3 (0.0-0.8) H 08/23/21 05:00 Eos # (Auto) 0.0 K/mm3 (0.0-0.4) 08/23/21 05:00 Baso # (Auto) 0.1 K/mm3 (0.0-0.1) 08/23/21 05:00 Add Manual Diff Complete 08/25/21 04:24 Total Counted 100 08/25/21 04:24 Seg Neutrophils % 87.0 % (40.0-70.0) H 08/23/21 05:00 Seg Neuts % (Manual) 86.0 % (40.0-70.0) H 08/25/21 04:24 Band Neutrophils % 0 % 08/25/21 04:24 Lymphocytes % (Manual) 10.0 % (13.4-35.0) L 08/25/21 04:24 Reactive Lymphs % (Man) 0 % 08/25/21 04:24 Monocytes % (Manual) 4.0 % (0.0-7.3) 08/25/21 04:24 Eosinophils % (Manual) 0 % (0.0-4.3) 08/25/21 04:24 Basophils % (Manual) 0 % (0.0-1.8) 08/25/21 04:24 Metamyelocytes % 0 % 08/25/21 04:24 Myelocytes % 0 % 08/25/21 04:24 Promyelocytes % 0 % 08/25/21 04:24 Blast Cells % 0 % 08/25/21 04:24 Nucleated RBC % 7.0 % (0.0-0.9) H 08/25/21 04:24 Seg Neutrophils # 16.1 K/mm3 (1.8-7.7) H 08/23/21 05:00 Seg Neutrophils # Man 13.8 K/mm3 (1.8-7.7) H 08/25/21 04:24 Band Neutrophils # 0.0 K/mm3 08/25/21 04:24 Lymphocytes # (Manual) 1.6 K/mm3 (1.2-5.4) 08/25/21 04:24 Abs React Lymphs (Man) 0.0 K/mm3 08/25/21 04:24 Monocytes # (Manual) 0.6 K/mm3 (0.0-0.8) 08/25/21 04:24 Eosinophils # (Manual) 0.0 K/mm3 (0.0-0.4) 08/25/21 04:24 Basophils # (Manual) 0.0 K/mm3 (0.0-0.1) 08/25/21 04:24 Metamyelocytes # 0.0 K/mm3 08/25/21 04:24 Myelocytes # 0.0 K/mm3 08/25/21 04:24 Promyelocytes # 0.0 K/mm3 08/25/21 04:24 Blast Cells # 0.0 K/mm3 08/25/21 04:24 Pathologist Review 08/15/21 04:01 WBC Morphology Not Reportable 08/25/21 04:24 Hypersegmented Neuts Not Reportable 08/25/21 04:24 Hyposegmented Neuts Not Reportable 08/25/21 04:24 Hypogranular Neuts Not Reportable 08/25/21 04:24 Smudge Cells Not Reportable 08/25/21 04:24 Toxic Granulation Not Reportable 08/25/21 04:24 Toxic Vacuolation Not Reportable 08/25/21 04:24 Dohle Bodies Not Reportable 08/25/21 04:24 Pelger-Huet Anomaly Not Reportable 08/25/21 04:24 Elise Rods Not Reportable 08/25/21 04:24 Platelet Estimate Consistent w auto 08/25/21 04:24 Clumped Platelets Not Reportable 08/25/21 04:24 Plt Clumps, EDTA Not Reportable 08/25/21 04:24 Large Platelets Not Reportable 08/25/21 04:24 Giant Platelets Not Reportable 08/25/21 04:24 Platelet Satelliting Not Reportable 08/25/21 04:24 Plt Morphology Comment Not Reportable 08/25/21 04:24 RBC Morphology Not Reportable 08/25/21 04:24 Dimorphic RBCs Not Reportable 08/25/21 04:24 Polychromasia Few 08/25/21 04:24 Hypochromasia Not Reportable 08/25/21 04:24 Poikilocytosis Not Reportable 08/25/21 04:24 Anisocytosis 3+ 08/25/21 04:24 Microcytosis Not Reportable 08/25/21 04:24 Macrocytosis 1+ 08/25/21 04:24 Spherocytes 3+ 08/25/21 04:24 Pappenheimer Bodies Not Reportable 08/25/21 04:24 Sickle Cells Not Reportable 08/25/21 04:24 Target Cells Not Reportable 08/25/21 04:24 Tear Drop Cells Not Reportable 08/25/21 04:24 Ovalocytes Not Reportable 08/25/21 04:24 Stomatocytes Few 08/15/21 04:01 Helmet Cells Not Reportable 08/25/21 04:24 [place]-Drew Bodies Not Reportable 08/25/21 04:24 [place] Rings Not Reportable 08/25/21 04:24 [place] Cells Not Reportable 08/25/21 04:24 Bite Cells Not Reportable 08/25/21 04:24 Crenated Cell Not Reportable 08/25/21 04:24 Elliptocytes Not Reportable 08/25/21 04:24 Acanthocytes (Spur) Not Reportable 08/25/21 04:24 Rouleaux Not Reportable 08/25/21 04:24 Hemoglobin C Crystals Not Reportable 08/25/21 04:24 Schistocytes Not Reportable 08/25/21 04:24 Malaria parasites Not Reportable 08/25/21 04:24 Percent Retic 22.28 % (0.78-2.58) H 08/22/21 05:23 Yassine Bodies Not Reportable 08/25/21 04:24 Hem Pathologist Commnt No 08/25/21 04:24 PT 17.8 Sec. (12.2-14.9) H 08/17/21 04:47 INR 1.31 (0.87-1.13) H 08/17/21 04:47 APTT 27.6 Sec. (24.2-36.6) 08/17/21 04:47 Fibrinogen 446 mg/dl (211-480) 08/18/21 04:20 D-Dimer > 234 ng/mlDDU (0-234) H 08/15/21 04:01 Sodium 134 mmol/L (137-145) L 08/25/21 04:24 Potassium 4.3 mmol/L (3.6-5.0) 08/25/21 04:24 Chloride 99.7 mmol/L (98-107) 08/25/21 04:24 Carbon Dioxide 20 mmol/L (22-30) L 08/25/21 04:24 Anion Gap 19 mmol/L 08/25/21 04:24 BUN 25 mg/dL (9-20) H 08/25/21 04:24 Creatinine 0.6 mg/dL (0.8-1.3) L 08/25/21 04:24 Estimated GFR > 60 ml/min 08/25/21 04:24 BUN/Creatinine Ratio 42 % 08/25/21 04:24 Glucose 207 mg/dL (75-100) H 08/25/21 04:24 POC Glucose 133 mg/dL (70-105) H 08/25/21 07:50 Hemoglobin A1c 4.7 % (4-6) 08/25/21 04:24 Lactic Acid 2.10 mmol/L (0.7-2.0) H* 08/19/21 07:19 Calcium 8.3 mg/dL (8.4-10.2) L 08/25/21 04:24 Phosphorus 2.90 mg/dL (2.5-4.5) 08/19/21 07:19 Magnesium 2.10 mg/dL (1.7-2.3) 08/23/21 05:00 Total Bilirubin 2.30 mg/dL (0.1-1.2) H 08/24/21 04:07 Direct Bilirubin 0.7 mg/dL (0-0.2) H 08/24/21 04:07 Indirect Bilirubin 1.6 mg/dL 08/24/21 04:07 AST 31 units/L (5-40) 08/24/21 04:07 ALT 155 units/L (7-56) H 08/24/21 04:07 Alkaline Phosphatase 79 units/L (35-129) 08/24/21 04:07 Lactate Dehydrogenase 933 units/L (91-180) H 08/24/21 04:07 Troponin T 0.016 ng/mL (0.00-0.029) 08/15/21 06:00 Serum Total Protein 7.9 g/dL (6.1-8.1) 08/18/21 04:20 Total Protein 7.7 g/dL (6.3-8.2) 08/24/21 04:07 Albumin 3.3 g/dL (3.9-5) L 08/24/21 04:07 Albumin/Globulin Ratio 0.8 % 08/24/21 04:07 Tpkyi-7-Pmnemxmyv 0.6 g/dL (0.2-0.3) H 08/18/21 04:20 Pfitg-2-Vozyowjly 0.6 g/dL (0.5-0.9) 08/18/21 04:20 Beta Globulins 0.6 g/dL (0.2-0.5) H 08/18/21 04:20 Gamma Globulins 2.5 g/dL (0.8-1.7) H 08/18/21 04:20 Abnorm Protein Band 1 see below 08/18/21 04:20 PEP Interpretation see below H 08/18/21 04:20 Vitamin B12 > 2000 pg/mL (211-911) H 08/15/21 22:34 Folate 17.11 ng/mL (7.3-26.0) 08/15/21 22:34 Procalcitonin 1.15 ng/mL (<0.15) 08/18/21 12:49 Urine Opiates Screen Negative 08/15/21 12:30 Urine Methadone Screen Negative 08/15/21 12:30 Acetaminophen 5.0 ug/mL (10.0-30.0) L 08/15/21 07:00 Ur Barbiturates Screen Negative 08/15/21 12:30 Ur Phencyclidine Scrn Negative 08/15/21 12:30 Ur Amphetamines Screen Negative 08/15/21 12:30 U Benzodiazepines Scrn Negative 08/15/21 12:30 Urine Cocaine Screen Negative 08/15/21 12:30 U Marijuana (THC) Screen Negative 08/15/21 12:30 Drugs of Abuse Note Disclamer 08/15/21 12:30 Plasma/Serum Alcohol < 0.01 % (0-0.07) 08/15/21 22:34 BRITTNEY Screen Positive (Negative) H 08/16/21 14:49 Mitochondria M2 Ab <=20.0 U (<=20.0) 08/16/21 14:49 Cardiolipid IgG Ab <2.0 GPL-U/mL (<20.0) 08/19/21 07:19 Cardiolipid IgA Ab <2.0 APL-U/mL (<20.0) 08/19/21 07:19 Cardiolipid IgM Ab <2.0 MPL-U/mL (<20.0) 08/19/21 07:19 Coronavirus (PCR) Negative (Negative) 08/15/21 Unknown Hepatitis A IgM Ab Non-reactive (NonReactive) 08/15/21 06:44 Hep Bs Antigen Non-reactive (Negative) 08/15/21 06:44 Hep B Core IgM Ab Non-reactive (NonReactive) 08/15/21 06:44 Hepatitis C Antibody Non-reactive (NonReactive) 08/15/21 06:44 HIV 1&2 Antibody Rapid Non react (Non React) 08/15/21 22:34 HIV P24 Antigen Non react (Non React) 08/15/21 22:34 Blood Type O POSITIVE 08/18/21 13:06 Antibody Screen Negative 08/18/21 13:06 PARRISH Antibody Screen Negative 08/15/21 05:37 Direct Antiglob Test Positive 08/17/21 12:00 GIO (IgG-AHG) Positive 08/17/21 12:00 GIO, Poly Interpret Positive 08/17/21 12:00 GIO, Anti-C3 Negative 08/17/21 12:00 Crossmatch See Detail 08/18/21 13:06 Gomez/IV: Voiding Method Urinal Active Medications - Current Medications Current Medications: Generic Name Dose Route Start Last Admin Trade Name Freq PRN Reason Stop Dose Admin Albuterol 2.5 mg 08/17/21 09:42 08/17/21 10:06 Albuterol 2.5 Mg/3 Ml Nebu IH 2.5 mg Q4HRT PRN Administration Shortness Of Breath Amlodipine Besylate 10 mg 08/19/21 10:00 08/25/21 10:13 Amlodipine 10 Mg Tab PO 10 mg QDAY ROSINA Administration Dextrose 50 ml 08/18/21 18:18 Dextrose 50% In Water (25gm) 50 Ml Syringe IV Q30MIN PRN Hypoglycemia Protocol Fondaparinux 2.5 mg 08/21/21 12:00 08/25/21 10:12 Fondaparinux 2.5 Mg/0.5 Ml Inj SUB-Q 2.5 mg DAILY ROSINA Administration Fondaparinux 7.5 mg 08/21/21 12:00 08/25/21 10:12 Fondaparinux 7.5 Mg/0.6 Ml Inj SUB-Q 7.5 mg DAILY ROSINA Administration Guaifenesin 10 ml 08/23/21 22:00 08/24/21 20:17 Guaifenesin Dm 200/20 Mg Oral Liqd 10 Ml PO 10 ml Q4H PRN Administration Cough Insulin Human Lispro 0 unit 08/18/21 22:00 08/25/21 07:45 Insulin Lispro 100 Unit/Ml SUB-Q Not Given ACHS ROSINA Protocol Magnesium Hydroxide 30 ml 08/15/21 06:09 08/23/21 06:16 Magnesium Hydroxide (Mom) Oral Liqd Udc PO 30 ml Q4H PRN Administration Constipation Morphine Sulfate 2 mg 08/15/21 06:09 08/19/21 11:04 Morphine 2 Mg/1 Ml Inj IV 2 mg Q4H PRN Administration Pain, Moderate (4-6) Morphine Sulfate 4 mg 08/15/21 06:09 Morphine 4 Mg/1 Ml Inj IV Q4H PRN Pain , Severe (7-10) Ondansetron HCl 4 mg 08/15/21 06:09 Ondansetron 4 Mg/2 Ml Inj IV Q8H PRN Nausea And Vomiting Oxymetazoline HCl 2 spray 08/23/21 21:59 08/24/21 04:56 Oxymetazoline 0.05% Nasal [place] NS 08/26/21 21:58 2 spray Q12H PRN Administration Nasal Congestion Pantoprazole Sodium 40 mg 08/18/21 07:30 08/25/21 10:12 Pantoprazole 40 Mg Tab PO 40 mg QDAC ROSINA Administration Prednisone 50 mg 08/25/21 10:00 08/25/21 10:11 Prednisone 50 Mg Tab PO 08/26/21 22:01 50 mg BID ROSINA Administration Prednisone 40 mg 08/27/21 10:00 Prednisone 20 Mg Tab PO 08/28/21 22:01 BID ROSINA Prednisone 30 mg 08/29/21 10:00 Prednisone 10 Mg Tab PO 08/30/21 22:01 BID ROSINA Prednisone 25 mg 08/31/21 10:00 Prednisone 10 Mg Tab PO 09/01/21 22:01 BID ROSINA Prednisone 20 mg 09/02/21 10:00 Prednisone 20 Mg Tab PO 09/03/21 22:01 BID ROSINA Prednisone 15 mg 09/04/21 10:00 Prednisone 5 Mg Tab PO 09/05/21 22:01 BID ROSINA Prednisone 10 mg 09/06/21 10:00 Prednisone 10 Mg Tab PO 09/06/21 22:01 BID ROSINA Prednisone 5 mg 09/07/21 10:00 Prednisone 5 Mg Tab PO 09/07/21 22:01 BID ROSINA Sodium Chloride 10 ml 08/15/21 10:00 08/25/21 10:13 Sodium Chloride 0.9% 10 Ml Flush Syringe IV 10 ml BID ROSINA Administration Sodium Chloride 10 ml 08/15/21 06:09 Sodium Chloride 0.9% 10 Ml Flush Syringe IV PRN PRN LINE FLUSH Nutrition/Malnutrition Assess - Dietary Evaluation Nutrition/Malnutrition Findings: Nutrition Notes Start: 08/23/21 17:54 Freq: Status: Active Protocol: Document 08/23/21 17:54 LISSETTE (Rec: 08/23/21 18:15 LISSETTE [id number]) Nutrition Notes Need for Assessment generated from: LOS Initial or Follow up Assessment Current Diagnosis Hypertension,Respiratory Failure Other Pertinent Diagnosis Autoimmune Hemolytic Anemia, Microcytic Anemia, DVT, Acute Liver Injury... Current Diet Cardiac Diet (since B 08/15). Labs/Tests 08/23: Na 133, CO2 19, BUN 22, Crea 0.6, Glu 268. Pertinent Medications 08/23: Insulin, others nutritionally unremarkable. Height 6 ft 1 in Weight 135.5 kg [place] Body Weight (kg) 83.63 BMI 39.4 Intake Prior to Admission Good Weight change and time frame Pt denies having loss body weight [employer]. Weight Status Obese Subjective/Other Information RD consult for LOS assessment. Pt's PO intake of meals has been Good (100%), according to ADL notes. Pt to be discharge home with family once cleared clinically . Percent of energy/protein needs met: Prescribed Cardiac Diet provides for energy/protein needs (2,230 Kcal/85 g) during LOS. Burn Absent Trauma Absent GI Symptoms None Food Allergy No Skin Integrity/Comment Assessment WNL. Current % PO Good (75-100%) Minimum of two criteria No #1 Nutrition Diagnosis No nutrition diagnosis at this time Nutrition Intervention Revisit per MD consult or patient Sign Off request: Additional Comments Continue monitoring food tolerance, %PO intake of meals , and BM.
--- NOTE | 2021-08-25 13:46 | Progress Note ---
Assessment and Plan Acute Liver Injury (? Tylenol OD vs AIH vs Ischemic Hepatitis) Jaundice Acute DVT Severe Macrocytic Anemia Thrombocytopenia Acute Hypoxemic Respiratory Failure Acute Pulmonary Edema vs Aspiration Pneumonia Hypokalemia Leukocytosis Lactic Acidosis Hypertension History of Rheumatoid Arthritis - doing better overall, will see prn at this point - no new issues today, continue care as below; - follow repeat lower extremity dopplers (pending) - follow bone marrow aspirate Path report - PRBC transfusions for serum Hb < 7.0 g/dl - continue Solumedrol re: thrombocytopenia - DVT treatment per vascular / hematology team (Holding full anticoagulation in light of Anemia and thrombocytopenia / coagulopathy) - follow autoimmune serologies re: AIH - s/p empiric Mucomyst course for possible tylenol OD - continue accuchecks with glycemic control per SSI for target blood glucose < 180 mg/dL - supplemental oxygen for target O2 sat's > 90% acutely - Aspiration precautions - bronchodilators with pulmonary hygiene per RT - fall precautions - avoid nephrotoxins, renally dose all medications - avoid benzodiazepine's, reduce the possibility of delirium - AB's per ID rec's (none acutely and follow clinically / WBC) - prn analgesia per pain score - Maintenance of sleep-wake cycle, avoid delirium - G.I. & VTE prophylaxis (Pantoprazole and SCD's) - PT/OT/ROM exercises - continue mobility protocols for pressure ulcer prophylaxis - Monitor hemodynamics closely - continue other care per attending / other consultants - discharge planning ongoing concurrently COVID SPECIFIC INTERVENTIONS - COVID-19 PCR negative .... Re-evaluate in am & prn Subjective Date of service: 08/25/21 Principal diagnosis: Ac. Liver Injury; Anemia; Thrombocytopenia; AHRF; Pulm Edema; Met. Acidosis Interval history: Patient is seen today for: Acute Liver Injury; Jaundice; Anemia; Thrombocytopenia; Acute Hypoxemic Respiratory Failure; Pulm Edema vs Aspiration Pneumonia; Lactic Acidosis; Hypertension; History of Rheumatoid Arthritis Seen and examined at bedside; 24hour events reviewed; nursing and respiratory care staff consulted; no adverse overnight events reported to me; resting in bed; no new issues respiratory-serna; steroid taper started; good response to therapy and thrombocytopenia has resolved Objective Vital Signs - 12hr 08/25/21 08/25/21 08/25/21 04:34 07:00 08:04 Temperature 98.3 F 98.3 F Pulse Rate 78 76 Respiratory 18 18 Rate Blood Pressure 133/66 109/58 O2 Sat by Pulse 99 98 97 Oximetry 08/25/21 08/25/21 09:16 11:29 Temperature 98.6 F Pulse Rate 78 Respiratory 18 Rate Blood Pressure 108/49 O2 Sat by Pulse 98 98 Oximetry Constitutional: no acute distress, other (middle aged obese male with normal respiratory effort at rest) Eyes: non-icteric ENT: oropharynx moist Neck: supple, other (large circumference) Effort: normal Ascultation: Bilateral: clear, diminished breath sounds Percussion: Bilateral: not dull Cardiovascular: regular rate and rhythm Gastrointestinal: normoactive bowel sounds, soft, non-tender, non-distended (protuberant) Integumentary: normal, other (no ecchymosis noted) Extremities: no cyanosis, no edema, pulses normal, no ischemia or petechiae Neurologic: non-focal exam (grossly), pupils equal and round, CN II-XII normal, motor strength normal and Psychiatric: mood appropriate, affect normal CBC and BMP: 08/25/21 04:24 08/25/21 04:24 ABG, PT/INR, D-dimer: PT/INR, D-dimer PT 17.8 Sec. (12.2-14.9) H 08/17/21 04:47 INR 1.31 (0.87-1.13) H 08/17/21 04:47 D-Dimer > 234 ng/mlDDU (0-234) H 08/15/21 04:01 Abnormal lab findings: Abnormal Labs 08/15/21 08/15/21 08/15/21 04:01 04:01 04:01 WBC 34.5 H RBC 0.84 L Hgb 3.5 L* Hct 11.3 L* MCV 134 H MCH 41 H MCHC 31 L RDW 30.4 H Plt Count 115 L [place] % (Auto) 8.3 H [place] # (Auto) Seg Neutrophils % 77.5 H Seg Neuts % (Manual) Lymphocytes % (Manual) Monocytes % (Manual) 8.5 H Nucleated RBC % 55.0 H Seg Neutrophils # Seg Neutrophils # Man 20.2 H Lymphocytes # (Manual) 9.1 H Monocytes # (Manual) 2.9 H Percent Retic PT 20.9 H INR 1.59 H D-Dimer > 234 H Sodium Potassium Carbon Dioxide 17 L BUN 40 H Creatinine 0.7 L Glucose 145 H POC Glucose Lactic Acid Calcium Magnesium Total Bilirubin 13.40 H Direct Bilirubin AST 1665 H ALT 1615 H Lactate Dehydrogenase Total Protein 8.4 H Albumin 3.7 L Achwy-5-Ktmwbjbvu Beta Globulins Gamma Globulins PEP Interpretation Vitamin B12 Acetaminophen BRITTNEY Screen Crossmatch 08/15/21 08/15/21 08/15/21 05:37 06:44 06:44 WBC RBC Hgb Hct MCV MCH MCHC RDW Plt Count [place] % (Auto) [place] # (Auto) Seg Neutrophils % Seg Neuts % (Manual) Lymphocytes % (Manual) Monocytes % (Manual) Nucleated RBC % Seg Neutrophils # Seg Neutrophils # Man Lymphocytes # (Manual) Monocytes # (Manual) Percent Retic PT INR D-Dimer Sodium Potassium Carbon Dioxide BUN Creatinine Glucose POC Glucose Lactic Acid 7.30 H* Calcium Magnesium Total Bilirubin Direct Bilirubin AST ALT Lactate Dehydrogenase 4126 H Total Protein Albumin Ifbcp-4-Qkpulanjf Beta Globulins Gamma Globulins PEP Interpretation Vitamin B12 Acetaminophen BRITTNEY Screen Crossmatch See Detail 08/15/21 08/15/21 08/15/21 07:00 09:29 22:34 WBC RBC Hgb Hct MCV MCH MCHC RDW Plt Count [place] % (Auto) [place] # (Auto) Seg Neutrophils % Seg Neuts % (Manual) Lymphocytes % (Manual) Monocytes % (Manual) Nucleated RBC % Seg Neutrophils # Seg Neutrophils # Man Lymphocytes # (Manual) Monocytes # (Manual) Percent Retic PT INR D-Dimer Sodium Potassium Carbon Dioxide BUN Creatinine Glucose POC Glucose Lactic Acid 8.70 H* 2.30 H* Calcium Magnesium Total Bilirubin Direct Bilirubin AST ALT Lactate Dehydrogenase Total Protein Albumin Guxtb-3-Nrvacnggk Beta Globulins Gamma Globulins PEP Interpretation Vitamin B12 Acetaminophen 5.0 L BRITTNEY Screen Crossmatch 08/15/21 08/15/21 08/16/21 22:34 22:34 00:08 WBC RBC Hgb 6.0 L Hct 17.3 L* D MCV MCH MCHC RDW Plt Count [place] % (Auto) [place] # (Auto) Seg Neutrophils % Seg Neuts % (Manual) Lymphocytes % (Manual) Monocytes % (Manual) Nucleated RBC % Seg Neutrophils # Seg Neutrophils # Man Lymphocytes # (Manual) Monocytes # (Manual) Percent Retic PT INR D-Dimer Sodium Potassium Carbon Dioxide BUN Creatinine Glucose POC Glucose 144 H Lactic Acid Calcium Magnesium Total Bilirubin Direct Bilirubin AST ALT Lactate Dehydrogenase Total Protein Albumin Wgaxx-6-Zkiphqlwp Beta Globulins Gamma Globulins PEP Interpretation Vitamin B12 > 2000 H Acetaminophen BRITTNEY Screen Crossmatch 08/16/21 08/16/21 08/16/21 04:30 04:30 04:30 WBC 30.7 H RBC 1.86 L Hgb 6.3 L Hct 19.2 L* MCV 103 H MCH 34 H MCHC RDW 24.8 H Plt Count 77 L [place] % (Auto) [place] # (Auto) Seg Neutrophils % Seg Neuts % (Manual) Lymphocytes % (Manual) Monocytes % (Manual) Nucleated RBC % Seg Neutrophils # Seg Neutrophils # Man Lymphocytes # (Manual) Monocytes # (Manual) Percent Retic PT INR D-Dimer Sodium Potassium 3.0 L D Carbon Dioxide 19 L BUN 55 H Creatinine Glucose 167 H POC Glucose Lactic Acid Calcium 8.1 L Magnesium Total Bilirubin 10.20 H Direct Bilirubin 2.6 H AST 958 H ALT 1328 H Lactate Dehydrogenase Total Protein Albumin 3.3 L Cfpva-2-Qzbdllqgl Beta Globulins Gamma Globulins PEP Interpretation Vitamin B12 Acetaminophen BRITTNEY Screen Crossmatch 08/16/21 08/16/21 08/16/21 04:30 04:30 12:09 WBC RBC Hgb Hct MCV MCH MCHC RDW Plt Count [place] % (Auto) [place] # (Auto) Seg Neutrophils % Seg Neuts % (Manual) Lymphocytes % (Manual) Monocytes % (Manual) Nucleated RBC % Seg Neutrophils # Seg Neutrophils # Man Lymphocytes # (Manual) Monocytes # (Manual) Percent Retic PT 19.5 H INR 1.46 H D-Dimer Sodium Potassium Carbon Dioxide BUN Creatinine Glucose POC Glucose Lactic Acid 2.10 H* 2.10 H* Calcium Magnesium Total Bilirubin Direct Bilirubin AST ALT Lactate Dehydrogenase Total Protein Albumin Ugdux-9-Bwbtiepjt Beta Globulins Gamma Globulins PEP Interpretation Vitamin B12 Acetaminophen BRITTNEY Screen Crossmatch 08/16/21 08/16/21 08/16/21 12:09 14:49 14:49 WBC 26.2 H RBC 2.11 L Hgb 7.1 L Hct 21.8 L MCV 103 H MCH 34 H MCHC RDW 22.9 H Plt Count 66 L [place] % (Auto) [place] # (Auto) Seg Neutrophils % Seg Neuts % (Manual) Lymphocytes % (Manual) Monocytes % (Manual) Nucleated RBC % Seg Neutrophils # Seg Neutrophils # Man Lymphocytes # (Manual) Monocytes # (Manual) Percent Retic PT INR D-Dimer Sodium Potassium 3.4 L Carbon Dioxide BUN Creatinine Glucose POC Glucose Lactic Acid Calcium Magnesium Total Bilirubin Direct Bilirubin AST ALT Lactate Dehydrogenase Total Protein Albumin Ricas-0-Vmnrfxvkj Beta Globulins Gamma Globulins PEP Interpretation Vitamin B12 Acetaminophen BRITTNEY Screen Positive H Crossmatch 08/16/21 08/17/21 08/17/21 20:10 00:06 04:47 WBC RBC Hgb 6.6 L Hct 20.2 L MCV MCH MCHC RDW Plt Count [place] % (Auto) [place] # (Auto) Seg Neutrophils % Seg Neuts % (Manual) Lymphocytes % (Manual) Monocytes % (Manual) Nucleated RBC % Seg Neutrophils # Seg Neutrophils # Man Lymphocytes # (Manual) Monocytes # (Manual) Percent Retic PT 17.8 H INR 1.31 H D-Dimer Sodium Potassium Carbon Dioxide BUN Creatinine Glucose POC Glucose 127 H Lactic Acid Calcium Magnesium Total Bilirubin Direct Bilirubin AST ALT Lactate Dehydrogenase Total Protein Albumin Fegtt-1-Zfcjnsbwb Beta Globulins Gamma Globulins PEP Interpretation Vitamin B12 Acetaminophen BRITTNEY Screen Crossmatch 08/17/21 08/17/21 08/17/21 04:47 04:47 11:57 WBC 24.3 H RBC 2.05 L Hgb 6.6 L 7.4 L Hct 20.5 L 22.8 L MCV 100 H MCH MCHC RDW 22.8 H Plt Count 46 L [place] % (Auto) [place] # (Auto) Seg Neutrophils % Seg Neuts % (Manual) Lymphocytes % (Manual) Monocytes % (Manual) 8.0 H Nucleated RBC % 136.0 H Seg Neutrophils # Seg Neutrophils # Man 15.1 H Lymphocytes # (Manual) 6.1 H Monocytes # (Manual) 1.9 H Percent Retic PT INR D-Dimer Sodium Potassium 3.4 L Carbon Dioxide 18 L BUN 32 H Creatinine 0.7 L Glucose 150 H POC Glucose Lactic Acid Calcium 7.8 L Magnesium 3.10 H Total Bilirubin 7.70 H Direct Bilirubin 1.9 H AST 410 H ALT 937 H Lactate Dehydrogenase Total Protein Albumin 3.1 L Ouguq-8-Nttpavmhi Beta Globulins Gamma Globulins PEP Interpretation Vitamin B12 Acetaminophen BRITTNEY Screen Crossmatch 08/17/21 08/17/21 08/18/21 17:15 23:22 04:20 WBC RBC Hgb Hct MCV MCH MCHC RDW Plt Count [place] % (Auto) [place] # (Auto) Seg Neutrophils % Seg Neuts % (Manual) Lymphocytes % (Manual) Monocytes % (Manual) Nucleated RBC % Seg Neutrophils # Seg Neutrophils # Man Lymphocytes # (Manual) Monocytes # (Manual) Percent Retic PT INR D-Dimer Sodium Potassium Carbon Dioxide 19 L BUN 26 H Creatinine 0.7 L Glucose 141 H POC Glucose 275 H 214 H Lactic Acid Calcium 8.1 L Magnesium Total Bilirubin 7.50 H Direct Bilirubin 2.3 H AST 216 H ALT 685 H Lactate Dehydrogenase Total Protein Albumin 3.3 L Zties-5-Dfnsergqp Beta Globulins Gamma Globulins PEP Interpretation Vitamin B12 Acetaminophen BRITTNEY Screen Crossmatch 08/18/21 08/18/21 08/18/21 04:20 04:20 04:20 WBC 23.6 H RBC 2.21 L Hgb 7.1 L Hct 22.0 L MCV 100 H MCH MCHC RDW 19.3 H Plt Count 44 L [place] % (Auto) [place] # (Auto) Seg Neutrophils % Seg Neuts % (Manual) 74.0 H Lymphocytes % (Manual) Monocytes % (Manual) Nucleated RBC % 237.0 H Seg Neutrophils # Seg Neutrophils # Man 17.5 H Lymphocytes # (Manual) Monocytes # (Manual) 1.7 H Percent Retic 9.38 H PT INR D-Dimer Sodium Potassium Carbon Dioxide BUN Creatinine Glucose POC Glucose Lactic Acid Calcium Magnesium Total Bilirubin Direct Bilirubin AST ALT Lactate Dehydrogenase 3057 H Total Protein Albumin 3.4 L Cicix-1-Fnhllmbzy 0.6 H Beta Globulins 0.6 H Gamma Globulins 2.5 H PEP Interpretation see below H Vitamin B12 Acetaminophen BRITTNEY Screen Crossmatch 08/18/21 08/18/21 08/18/21 05:54 12:11 12:49 WBC RBC Hgb Hct MCV MCH MCHC RDW Plt Count [place] % (Auto) [place] # (Auto) Seg Neutrophils % Seg Neuts % (Manual) Lymphocytes % (Manual) Monocytes % (Manual) Nucleated RBC % Seg Neutrophils # Seg Neutrophils # Man Lymphocytes # (Manual) Monocytes # (Manual) Percent Retic PT INR D-Dimer Sodium Potassium Carbon Dioxide BUN Creatinine Glucose POC Glucose 158 H 210 H Lactic Acid 3.60 H* Calcium Magnesium Total Bilirubin Direct Bilirubin AST ALT Lactate Dehydrogenase Total Protein Albumin Uhpbx-9-Otgbfrqqf Beta Globulins Gamma Globulins PEP Interpretation Vitamin B12 Acetaminophen BRITTNEY Screen Crossmatch 08/18/21 08/18/21 08/18/21 13:06 17:03 20:55 WBC RBC Hgb Hct MCV MCH MCHC RDW Plt Count [place] % (Auto) [place] # (Auto) Seg Neutrophils % Seg Neuts % (Manual) Lymphocytes % (Manual) Monocytes % (Manual) Nucleated RBC % Seg Neutrophils # Seg Neutrophils # Man Lymphocytes # (Manual) Monocytes # (Manual) Percent Retic PT INR D-Dimer Sodium Potassium Carbon Dioxide BUN Creatinine Glucose POC Glucose 200 H 200 H Lactic Acid Calcium Magnesium Total Bilirubin Direct Bilirubin AST ALT Lactate Dehydrogenase Total Protein Albumin Hzusf-6-Gszykglij Beta Globulins Gamma Globulins PEP Interpretation Vitamin B12 Acetaminophen BRITTNEY Screen Crossmatch See Detail 08/18/21 08/19/21 08/19/21 23:06 07:19 07:19 WBC 22.3 H RBC 2.48 L Hgb 8.0 L Hct 23.9 L MCV 96 H MCH MCHC RDW 18.0 H Plt Count 66 L [place] % (Auto) [place] # (Auto) Seg Neutrophils % Seg Neuts % (Manual) Lymphocytes % (Manual) Monocytes % (Manual) Nucleated RBC % Seg Neutrophils # Seg Neutrophils # Man Lymphocytes # (Manual) Monocytes # (Manual) Percent Retic PT INR D-Dimer Sodium 136 L Potassium Carbon Dioxide 21 L BUN 27 H Creatinine 0.7 L Glucose 150 H POC Glucose Lactic Acid 2.60 H* Calcium 8.3 L Magnesium 3.00 H Total Bilirubin 5.30 H Direct Bilirubin AST 84 H ALT 475 H Lactate Dehydrogenase Total Protein Albumin 3.4 L Pvtso-2-Xryvarutv Beta Globulins Gamma Globulins PEP Interpretation Vitamin B12 Acetaminophen BRITTNEY Screen Crossmatch 08/19/21 08/19/21 08/19/21 07:19 07:22 11:15 WBC RBC Hgb Hct MCV MCH MCHC RDW Plt Count [place] % (Auto) [place] # (Auto) Seg Neutrophils % Seg Neuts % (Manual) Lymphocytes % (Manual) Monocytes % (Manual) Nucleated RBC % Seg Neutrophils # Seg Neutrophils # Man Lymphocytes # (Manual) Monocytes # (Manual) Percent Retic PT INR D-Dimer Sodium Potassium Carbon Dioxide BUN Creatinine Glucose POC Glucose 125 H 176 H Lactic Acid 2.10 H* Calcium Magnesium Total Bilirubin Direct Bilirubin AST ALT Lactate Dehydrogenase Total Protein Albumin Oclqo-7-Vlkaqhort Beta Globulins Gamma Globulins PEP Interpretation Vitamin B12 Acetaminophen BRITTNEY Screen Crossmatch 08/19/21 08/19/21 08/20/21 16:55 21:10 05:30 WBC 21.2 H RBC 2.64 L Hgb 8.2 L Hct 25.4 L MCV 96 H MCH MCHC RDW 17.5 H Plt Count 105 L [place] % (Auto) [place] # (Auto) Seg Neutrophils % Seg Neuts % (Manual) Lymphocytes % (Manual) Monocytes % (Manual) Nucleated RBC % Seg Neutrophils # Seg Neutrophils # Man Lymphocytes # (Manual) Monocytes # (Manual) Percent Retic PT INR D-Dimer Sodium Potassium Carbon Dioxide BUN Creatinine Glucose POC Glucose 236 H 217 H Lactic Acid Calcium Magnesium Total Bilirubin Direct Bilirubin AST ALT Lactate Dehydrogenase Total Protein Albumin Prqhm-9-Lgszqtrqb Beta Globulins Gamma Globulins PEP Interpretation Vitamin B12 Acetaminophen BRITTNEY Screen Crossmatch 08/20/21 08/20/21 08/20/21 07:28 11:24 16:36 WBC RBC Hgb Hct MCV MCH MCHC RDW Plt Count [place] % (Auto) [place] # (Auto) Seg Neutrophils % Seg Neuts % (Manual) Lymphocytes % (Manual) Monocytes % (Manual) Nucleated RBC % Seg Neutrophils # Seg Neutrophils # Man Lymphocytes # (Manual) Monocytes # (Manual) Percent Retic PT INR D-Dimer Sodium Potassium Carbon Dioxide BUN Creatinine Glucose POC Glucose 140 H 140 H 165 H Lactic Acid Calcium Magnesium Total Bilirubin Direct Bilirubin AST ALT Lactate Dehydrogenase Total Protein Albumin Lflbh-2-Wkldchluk Beta Globulins Gamma Globulins PEP Interpretation Vitamin B12 Acetaminophen BRITTNEY Screen Crossmatch 08/20/21 08/21/21 08/21/21 21:21 07:32 11:28 WBC RBC Hgb Hct MCV MCH MCHC RDW Plt Count [place] % (Auto) [place] # (Auto) Seg Neutrophils % Seg Neuts % (Manual) Lymphocytes % (Manual) Monocytes % (Manual) Nucleated RBC % Seg Neutrophils # Seg Neutrophils # Man Lymphocytes # (Manual) Monocytes # (Manual) Percent Retic PT INR D-Dimer Sodium Potassium Carbon Dioxide BUN Creatinine Glucose POC Glucose 250 H 178 H 195 H Lactic Acid Calcium Magnesium Total Bilirubin Direct Bilirubin AST ALT Lactate Dehydrogenase Total Protein Albumin Kvmih-0-Jordgdrln Beta Globulins Gamma Globulins PEP Interpretation Vitamin B12 Acetaminophen BRITTNEY Screen Crossmatch 08/21/21 08/21/21 08/22/21 16:40 21:23 05:23 WBC RBC Hgb Hct MCV MCH MCHC RDW Plt Count [place] % (Auto) [place] # (Auto) Seg Neutrophils % Seg Neuts % (Manual) Lymphocytes % (Manual) Monocytes % (Manual) Nucleated RBC % Seg Neutrophils # Seg Neutrophils # Man Lymphocytes # (Manual) Monocytes # (Manual) Percent Retic 22.28 H PT INR D-Dimer Sodium Potassium Carbon Dioxide BUN Creatinine Glucose POC Glucose 463 H 243 H Lactic Acid Calcium Magnesium Total Bilirubin Direct Bilirubin AST ALT Lactate Dehydrogenase Total Protein Albumin Waots-3-Fxtemzkvy Beta Globulins Gamma Globulins PEP Interpretation Vitamin B12 Acetaminophen BRITTNEY Screen Crossmatch 08/22/21 08/22/21 08/22/21 05:23 07:14 11:32 WBC RBC Hgb Hct MCV MCH MCHC RDW Plt Count [place] % (Auto) [place] # (Auto) Seg Neutrophils % Seg Neuts % (Manual) Lymphocytes % (Manual) Monocytes % (Manual) Nucleated RBC % Seg Neutrophils # Seg Neutrophils # Man Lymphocytes # (Manual) Monocytes # (Manual) Percent Retic PT INR D-Dimer Sodium Potassium Carbon Dioxide BUN Creatinine Glucose POC Glucose 167 H 172 H Lactic Acid Calcium Magnesium Total Bilirubin Direct Bilirubin AST ALT Lactate Dehydrogenase 1358 H Total Protein Albumin Fgqsa-7-Riijxzipf Beta Globulins Gamma Globulins PEP Interpretation Vitamin B12 Acetaminophen BRITTNEY Screen Crossmatch 08/22/21 08/22/21 08/23/21 15:45 20:39 05:00 WBC 17.0 H RBC 2.89 L Hgb 9.8 L Hct 29.7 L MCV 103 H MCH 34 H MCHC RDW 32.1 H Plt Count [place] % (Auto) [place] # (Auto) 1.1 H Seg Neutrophils % 87.0 H Seg Neuts % (Manual) 85.0 H Lymphocytes % (Manual) 7.0 L Monocytes % (Manual) Nucleated RBC % 6.0 H Seg Neutrophils # 16.1 H Seg Neutrophils # Man 14.5 H Lymphocytes # (Manual) Monocytes # (Manual) Percent Retic PT INR D-Dimer Sodium Potassium Carbon Dioxide BUN Creatinine Glucose POC Glucose 225 H 169 H Lactic Acid Calcium Magnesium Total Bilirubin Direct Bilirubin AST ALT Lactate Dehydrogenase Total Protein Albumin Qtxyv-9-Zkgkqbgoo Beta Globulins Gamma Globulins PEP Interpretation Vitamin B12 Acetaminophen BRITTNEY Screen Crossmatch 08/23/21 08/23/21 08/23/21 05:00 07:25 11:34 WBC RBC Hgb Hct MCV MCH MCHC RDW Plt Count [place] % (Auto) [place] # (Auto) Seg Neutrophils % Seg Neuts % (Manual) Lymphocytes % (Manual) Monocytes % (Manual) Nucleated RBC % Seg Neutrophils # Seg Neutrophils # Man Lymphocytes # (Manual) Monocytes # (Manual) Percent Retic PT INR D-Dimer Sodium 133 L Potassium Carbon Dioxide 19 L BUN 22 H Creatinine 0.6 L Glucose 268 H POC Glucose 160 H 161 H Lactic Acid Calcium Magnesium Total Bilirubin 2.50 H Direct Bilirubin AST 52 H ALT 188 H Lactate Dehydrogenase Total Protein Albumin 3.2 L Zewyh-9-Heeksekwv Beta Globulins Gamma Globulins PEP Interpretation Vitamin B12 Acetaminophen BRITTNEY Screen Crossmatch 08/23/21 08/23/21 08/24/21 17:20 20:51 04:07 WBC RBC Hgb Hct MCV MCH MCHC RDW Plt Count [place] % (Auto) [place] # (Auto) Seg Neutrophils % Seg Neuts % (Manual) Lymphocytes % (Manual) Monocytes % (Manual) Nucleated RBC % Seg Neutrophils # Seg Neutrophils # Man Lymphocytes # (Manual) Monocytes # (Manual) Percent Retic PT INR D-Dimer Sodium Potassium Carbon Dioxide BUN Creatinine Glucose POC Glucose 159 H 179 H Lactic Acid Calcium Magnesium Total Bilirubin 2.30 H Direct Bilirubin 0.7 H AST ALT 155 H Lactate Dehydrogenase 933 H Total Protein Albumin 3.3 L Pewtp-4-Wxqojubwr Beta Globulins Gamma Globulins PEP Interpretation Vitamin B12 Acetaminophen BRITTNEY Screen Crossmatch 08/24/21 08/24/21 08/24/21 07:53 10:58 11:23 WBC 17.7 H RBC 3.00 L Hgb 10.3 L Hct 31.5 L MCV 105 H MCH 34 H MCHC RDW 33.4 H Plt Count [place] % (Auto) [place] # (Auto) Seg Neutrophils % Seg Neuts % (Manual) Lymphocytes % (Manual) Monocytes % (Manual) Nucleated RBC % Seg Neutrophils # Seg Neutrophils # Man Lymphocytes # (Manual) Monocytes # (Manual) Percent Retic PT INR D-Dimer Sodium Potassium Carbon Dioxide BUN Creatinine Glucose POC Glucose 210 H 136 H Lactic Acid Calcium Magnesium Total Bilirubin Direct Bilirubin AST ALT Lactate Dehydrogenase Total Protein Albumin Typky-6-Dsxhkkjkx Beta Globulins Gamma Globulins PEP Interpretation Vitamin B12 Acetaminophen BRITTNEY Screen Crossmatch 08/24/21 08/24/21 08/25/21 15:27 21:38 04:24 WBC 16.0 H RBC 2.87 L Hgb 10.0 L Hct 30.1 L MCV 105 H MCH 35 H MCHC RDW 33.4 H Plt Count [place] % (Auto) [place] # (Auto) Seg Neutrophils % Seg Neuts % (Manual) 86.0 H Lymphocytes % (Manual) 10.0 L Monocytes % (Manual) Nucleated RBC % 7.0 H Seg Neutrophils # Seg Neutrophils # Man 13.8 H Lymphocytes # (Manual) Monocytes # (Manual) Percent Retic PT INR D-Dimer Sodium Potassium Carbon Dioxide BUN Creatinine Glucose POC Glucose 220 H 229 H Lactic Acid Calcium Magnesium Total Bilirubin Direct Bilirubin AST ALT Lactate Dehydrogenase Total Protein Albumin Wzxki-1-Cygnqcola Beta Globulins Gamma Globulins PEP Interpretation Vitamin B12 Acetaminophen BRITTNEY Screen Crossmatch 08/25/21 08/25/21 04:24 07:50 WBC RBC Hgb Hct MCV MCH MCHC RDW Plt Count [place] % (Auto) [place] # (Auto) Seg Neutrophils % Seg Neuts % (Manual) Lymphocytes % (Manual) Monocytes % (Manual) Nucleated RBC % Seg Neutrophils # Seg Neutrophils # Man Lymphocytes # (Manual) Monocytes # (Manual) Percent Retic PT INR D-Dimer Sodium 134 L Potassium Carbon Dioxide 20 L BUN 25 H Creatinine 0.6 L Glucose 207 H POC Glucose 133 H Lactic Acid Calcium 8.3 L Magnesium Total Bilirubin Direct Bilirubin AST ALT Lactate Dehydrogenase Total Protein Albumin Lokky-2-Euibqyrhq Beta Globulins Gamma Globulins PEP Interpretation Vitamin B12 Acetaminophen BRITTNEY Screen Crossmatch Allied health notes reviewed: nursing
[2021-08-25] MEDS: guaiFENesin DM 200/20 MG ORAL LIQD 10 ML PO PRN (22:49)
[2021-08-26] MEDS: INSULIN LISPRO 100 UNIT/ML SUB-Q SCH ×4 (07:50→21:57)
[2021-08-26] MEDS: PANTOPRAZOLE 40 MG TAB PO SCH (07:50)
[2021-08-26 08:44] LABS: Hemoglobin A2 Prime SEE SCANNED RESULTS; Hemoglobin E SEE SCANNED RESULTS; Hemoglobin G SEE SCANNED RESULTS; Hemoglobin Lepore SEE SCANNED RESULTS; Hemoglobin O-Arab SEE SCANNED RESULTS
[2021-08-26 08:45] LABS: Hemoglobin Barts SEE SCANNED RESULTS; IEF Confirm SEE SCANNED RESULTS; Interpretation SEE SCANNED RESULTS; Sickle Solubility Test SEE SCANNED RESULTS
[2021-08-26 09:18] LABS: Albumin 3.3 g/dL (3.9-5); Bilirubin,Direct 0.7 mg/dL (0-0.2)
[2021-08-26] MEDS: predniSONE 50 MG TAB PO SCH ×2 (10:08→21:01)
[2021-08-26] MEDS: FONDAPARINUX 7.5 MG/0.6 ML INJ SUB-Q SCH (10:08)
[2021-08-26] MEDS: FONDAPARINUX 2.5 MG/0.5 ML INJ SUB-Q SCH (10:08)
[2021-08-26] MEDS: amLODIPine 10 MG TAB PO SCH (10:09)
[2021-08-26] MEDS: guaiFENesin DM 200/20 MG ORAL LIQD 10 ML PO PRN (10:09)
--- NOTE | 2021-08-26 13:49 | Hem/Onc Progress Note ---
Subjective Date of service: 08/26/21 Interval history: Heme progress note Televisit via [facility] CPT 31861 Dx autoimmune hemolytic anemia 55YO man with RA, found to have severe anemia, low plt count, L leg DVT on arixtra 10mg daily no reports of bleeding s/p BMBx to r/o heme malignancy, 08/17/21 on steroid pulse Feels better today, denies leg pain DATA REVIEW BELOW cardiolipin Ab neg LDh and liver enz high recently IMP: AIHA and ITP, on steroid pulse recent Elevated LDH attrib to liver injury and AIHA r/o heme malignancy-->s/p BMBx 08/17/21 presumed clotting tendency, s/p recent DVT PLAN: Arixtra 10mg transition to Xarelto 20mg daily Continue oral prednisone 80mg daily or 1mg/kg, then 2 wk taper Pending bmbx final results Laboratory Last Values WBC 16.0 K/mm3 (4.5-11.0) H 08/25/21 04:24 RBC 2.87 M/mm3 (3.65-5.03) L 08/25/21 04:24 Hgb 10.0 gm/dl (11.8-15.2) L 08/25/21 04:24 Hgb Comment See scanned results 08/18/21 04:20 Hct 30.1 % (35.5-45.6) L 08/25/21 04:24 MCV 105 fl (84-94) H 08/25/21 04:24 MCH 35 pg (28-32) H 08/25/21 04:24 MCHC 33 % (32-34) 08/25/21 04:24 RDW 33.4 % (13.2-15.2) H 08/25/21 04:24 Plt Count 240 K/mm3 (140-440) 08/25/21 04:24 [place] % (Auto) 6.0 % (0.0-7.3) 08/23/21 05:00 Eos % (Auto) 0.0 % (0.0-4.3) 08/23/21 05:00 Lymph # (Auto) 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 Operator 08/15/21 04:01 [place] # (Auto) 1.1 K/mm3 (0.0-0.8) H 08/23/21 05:00 Eos # (Auto) 0.0 K/mm3 (0.0-0.4) 08/23/21 05:00 Baso # (Auto) 0.1 K/mm3 (0.0-0.1) 08/23/21 05:00 Add Manual Diff Complete 08/25/21 04:24 Total Counted 100 08/25/21 04:24 Seg Neutrophils % 87.0 % (40.0-70.0) H 08/23/21 05:00 Seg Neuts % (Manual) 86.0 % (40.0-70.0) H 08/25/21 04:24 Band Neutrophils % 0 % 08/25/21 04:24 Lymphocytes % (Manual) 10.0 % (13.4-35.0) L 08/25/21 04:24 Reactive Lymphs % (Man) 0 % 08/25/21 04:24 Monocytes % (Manual) 4.0 % (0.0-7.3) 08/25/21 04:24 Eosinophils % (Manual) 0 % (0.0-4.3) 08/25/21 04:24 Basophils % (Manual) 0 % (0.0-1.8) 08/25/21 04:24 Metamyelocytes % 0 % 08/25/21 04:24 Myelocytes % 0 % 08/25/21 04:24 Promyelocytes % 0 % 08/25/21 04:24 Blast Cells % 0 % 08/25/21 04:24 Nucleated RBC % 7.0 % (0.0-0.9) H 08/25/21 04:24 Seg Neutrophils # 16.1 K/mm3 (1.8-7.7) H 08/23/21 05:00 Seg Neutrophils # Man 13.8 K/mm3 (1.8-7.7) H 08/25/21 04:24 Band Neutrophils # 0.0 K/mm3 08/25/21 04:24 Lymphocytes # (Manual) 1.6 K/mm3 (1.2-5.4) 08/25/21 04:24 Abs React Lymphs (Man) 0.0 K/mm3 08/25/21 04:24 Monocytes # (Manual) 0.6 K/mm3 (0.0-0.8) 08/25/21 04:24 Eosinophils # (Manual) 0.0 K/mm3 (0.0-0.4) 08/25/21 04:24 Basophils # (Manual) 0.0 K/mm3 (0.0-0.1) 08/25/21 04:24 Metamyelocytes # 0.0 K/mm3 08/25/21 04:24 Myelocytes # 0.0 K/mm3 08/25/21 04:24 Promyelocytes # 0.0 K/mm3 08/25/21 04:24 Blast Cells # 0.0 K/mm3 08/25/21 04:24 Pathologist Review 08/15/21 04:01 WBC Morphology Not Reportable 08/25/21 04:24 Hypersegmented Neuts Not Reportable 08/25/21 04:24 Hyposegmented Neuts Not Reportable 08/25/21 04:24 Hypogranular Neuts Not Reportable 08/25/21 04:24 Smudge Cells Not Reportable 08/25/21 04:24 Toxic Granulation Not Reportable 08/25/21 04:24 Toxic Vacuolation Not Reportable 08/25/21 04:24 Dohle Bodies Not Reportable 08/25/21 04:24 Pelger-Huet Anomaly Not Reportable 08/25/21 04:24 Elise Rods Not Reportable 08/25/21 04:24 Platelet Estimate Consistent w auto 08/25/21 04:24 Clumped Platelets Not Reportable 08/25/21 04:24 Plt Clumps, EDTA Not Reportable 08/25/21 04:24 Large Platelets Not Reportable 08/25/21 04:24 Giant Platelets Not Reportable 08/25/21 04:24 Platelet Satelliting Not Reportable 08/25/21 04:24 Plt Morphology Comment Not Reportable 08/25/21 04:24 RBC Morphology Not Reportable 08/25/21 04:24 Dimorphic RBCs Not Reportable 08/25/21 04:24 Polychromasia Few 08/25/21 04:24 Hypochromasia Not Reportable 08/25/21 04:24 Poikilocytosis Not Reportable 08/25/21 04:24 Anisocytosis 3+ 08/25/21 04:24 Microcytosis Not Reportable 08/25/21 04:24 Macrocytosis 1+ 08/25/21 04:24 Spherocytes 3+ 08/25/21 04:24 Pappenheimer Bodies Not Reportable 08/25/21 04:24 Sickle Cells Not Reportable 08/25/21 04:24 Target Cells Not Reportable 08/25/21 04:24 Tear Drop Cells Not Reportable 08/25/21 04:24 Ovalocytes Not Reportable 08/25/21 04:24 Stomatocytes Few 08/15/21 04:01 Helmet Cells Not Reportable 08/25/21 04:24 [place]aya Bodies Not Reportable 08/25/21 04:24 [place] Rings Not Reportable 08/25/21 04:24 [place] Cells Not Reportable 08/25/21 04:24 Bite Cells Not Reportable 08/25/21 04:24 Crenated Cell Not Reportable 08/25/21 04:24 Elliptocytes Not Reportable 08/25/21 04:24 Acanthocytes (Spur) Not Reportable 08/25/21 04:24 Rouleaux Not Reportable 08/25/21 04:24 Hemoglobin C Crystals Not Reportable 08/25/21 04:24 Schistocytes Not Reportable 08/25/21 04:24 Malaria parasites Not Reportable 08/25/21 04:24 Percent Retic 22.28 % (0.78-2.58) H 08/22/21 05:23 Sickle Cell Solubility See scanned results 08/18/21 04:20 Hemoglobin A See scanned results 08/18/21 04:20 Hemoglobin A2 See scanned results 08/18/21 04:20 Hemoglobin A2 Prime See scanned results 08/18/21 04:20 Hemoglobin C See scanned results 08/18/21 04:20 Hemoglobin D See scanned results 08/18/21 04:20 Hemoglobin E See scanned results 08/18/21 04:20 Hgb F Diffential Stain See scanned results 08/18/21 04:20 Hemoglobin F Quant See scanned results 08/18/21 04:20 Hemoglobin G See scanned results 08/18/21 04:20 Hemoglobin S See scanned results 08/18/21 04:20 Hemoglobin [place] See scanned results 08/18/21 04:20 Hemoglobin [place] See scanned results 08/18/21 04:20 Hemoglobin Eva See scanned results 08/18/21 04:20 Variant Hemoglobin See scanned results 08/18/21 04:20 Abnorm Hgb IEF Confirm See scanned results 08/18/21 04:20 Hemoglobin Interpret See scanned results 08/18/21 04:20 Hemoglobinopathy Note See scanned results 08/18/21 04:20 Yassine Bodies Not Reportable 08/25/21 04:24 Hem Pathologist Commnt No 08/25/21 04:24 PT 17.8 Sec. (12.2-14.9) H 08/17/21 04:47 INR 1.31 (0.87-1.13) H 08/17/21 04:47 APTT 27.6 Sec. (24.2-36.6) 08/17/21 04:47 Fibrinogen 446 mg/dl (211-480) 08/18/21 04:20 D-Dimer > 234 ng/mlDDU (0-234) H 08/15/21 04:01 Sodium 134 mmol/L (137-145) L 08/25/21 04:24 Potassium 4.3 mmol/L (3.6-5.0) 08/25/21 04:24 Chloride 99.7 mmol/L (98-107) 08/25/21 04:24 Carbon Dioxide 20 mmol/L (22-30) L 08/25/21 04:24 Anion Gap 19 mmol/L 08/25/21 04:24 BUN 25 mg/dL (9-20) H 08/25/21 04:24 Creatinine 0.6 mg/dL (0.8-1.3) L 08/25/21 04:24 Estimated GFR > 60 ml/min 08/25/21 04:24 BUN/Creatinine Ratio 42 % 08/25/21 04:24 Glucose 207 mg/dL (75-100) H 08/25/21 04:24 POC Glucose 178 mg/dL (70-105) H 08/25/21 20:47 Hemoglobin A1c 4.7 % (4-6) 08/25/21 04:24 Lactic Acid 2.10 mmol/L (0.7-2.0) H* 08/19/21 07:19 Calcium 8.3 mg/dL (8.4-10.2) L 08/25/21 04:24 Phosphorus 2.90 mg/dL (2.5-4.5) 08/19/21 07:19 Magnesium 2.10 mg/dL (1.7-2.3) 08/23/21 05:00 Total Bilirubin 1.90 mg/dL (0.1-1.2) H 08/26/21 08:35 Direct Bilirubin 0.7 mg/dL (0-0.2) H 08/26/21 08:35 Indirect Bilirubin 1.2 mg/dL 08/26/21 08:35 AST 30 units/L (5-40) 08/26/21 08:35 ALT 107 units/L (7-56) H 08/26/21 08:35 Alkaline Phosphatase 85 units/L (35-129) 08/26/21 08:35 Lactate Dehydrogenase 933 units/L (91-180) H 08/24/21 04:07 Troponin T 0.016 ng/mL (0.00-0.029) 08/15/21 06:00 Serum Total Protein 7.9 g/dL (6.1-8.1) 08/18/21 04:20 Total Protein 6.9 g/dL (6.3-8.2) 08/26/21 08:35 Albumin 3.3 g/dL (3.9-5) L 08/26/21 08:35 Albumin/Globulin Ratio 0.9 % 08/26/21 08:35 Xkytc-3-Yzftnzxbs 0.6 g/dL (0.2-0.3) H 08/18/21 04:20 Eebct-8-Jfaxocvtu 0.6 g/dL (0.5-0.9) 08/18/21 04:20 Beta Globulins 0.6 g/dL (0.2-0.5) H 08/18/21 04:20 Gamma Globulins 2.5 g/dL (0.8-1.7) H 08/18/21 04:20 Abnorm Protein Band 1 see below 08/18/21 04:20 PEP Interpretation see below H 08/18/21 04:20 Vitamin B12 > 2000 pg/mL (211-911) H 08/15/21 22:34 Folate 17.11 ng/mL (7.3-26.0) 08/15/21 22:34 Procalcitonin 1.15 ng/mL (<0.15) 08/18/21 12:49 Urine Opiates Screen Negative 08/15/21 12:30 Urine Methadone Screen Negative 08/15/21 12:30 Acetaminophen 5.0 ug/mL (10.0-30.0) L 08/15/21 07:00 Ur Barbiturates Screen Negative 08/15/21 12:30 Ur Phencyclidine Scrn Negative 08/15/21 12:30 Ur Amphetamines Screen Negative 08/15/21 12:30 U Benzodiazepines Scrn Negative 08/15/21 12:30 Urine Cocaine Screen Negative 08/15/21 12:30 U Marijuana (THC) Screen Negative 08/15/21 12:30 Drugs of Abuse Note Disclamer 08/15/21 12:30 Plasma/Serum Alcohol < 0.01 % (0-0.07) 08/15/21 22:34 BRITTNEY Screen Positive (Negative) H 08/16/21 14:49 Sm (Vazquez) Antibody See scanned results 08/16/21 14:49 Mitochondria M2 Ab <=20.0 U (<=20.0) 08/16/21 14:49 Cardiolipid IgG Ab <2.0 GPL-U/mL (<20.0) 08/19/21 07:19 Cardiolipid IgA Ab <2.0 APL-U/mL (<20.0) 08/19/21 07:19 Cardiolipid IgM Ab <2.0 MPL-U/mL (<20.0) 08/19/21 07:19 Coronavirus (PCR) Negative (Negative) 08/15/21 Unknown Hepatitis A IgM Ab Non-reactive (NonReactive) 08/15/21 06:44 Hep Bs Antigen Non-reactive (Negative) 08/15/21 06:44 Hep B Core IgM Ab Non-reactive (NonReactive) 08/15/21 06:44 Hepatitis C Antibody Non-reactive (NonReactive) 08/15/21 06:44 HIV 1&2 Antibody Rapid Non react (Non React) 08/15/21 22:34 HIV P24 Antigen Non react (Non React) 08/15/21 22:34 Blood Type O POSITIVE 08/18/21 13:06 Antibody Screen Negative 08/18/21 13:06 PARRISH Antibody Screen Negative 08/15/21 05:37 Direct Antiglob Test Positive 08/17/21 12:00 GIO (IgG-AHG) Positive 08/17/21 12:00 GIO, Poly Interpret Positive 08/17/21 12:00 GIO, Anti-C3 Negative 08/17/21 12:00 Crossmatch See Detail 08/18/21 13:06 Objective - Constitutional Vitals: Last Vital Signs Temp 98.3 F 08/26/21 08:25 Pulse 80 08/26/21 10:09 Resp 20 08/26/21 08:25 BP 128/70 08/26/21 10:09 Pulse Ox 99 08/26/21 08:32 - Labs Lab Results: Laboratory Results - last 24 hr 08/16/21 08/18/21 08/25/21 14:49 04:20 11:27 Hgb Comment See scanned results Sickle Cell Solubility See scanned results Hemoglobin A See scanned results Hemoglobin A2 See scanned results Hemoglobin A2 Prime See scanned results Hemoglobin C See scanned results Hemoglobin D See scanned results Hemoglobin E See scanned results Hgb F Diffential Stain See scanned results Hemoglobin F Quant See scanned results Hemoglobin G See scanned results Hemoglobin S See scanned results Hemoglobin [place] See scanned results Hemoglobin [place] See scanned results Hemoglobin Eva See scanned results Variant Hemoglobin See scanned results Abnorm Hgb IEF Confirm See scanned results Hemoglobin Interpret See scanned results Hemoglobinopathy Note See scanned results POC Glucose 121 H Total Bilirubin Direct Bilirubin Indirect Bilirubin AST ALT Alkaline Phosphatase Total Protein Albumin Albumin/Globulin Ratio Sm Ciaran) Antibody See scanned results 08/25/21 08/25/21 08/26/21 15:52 20:47 08:35 Hgb Comment Sickle Cell Solubility Hemoglobin A Hemoglobin A2 Hemoglobin A2 Prime Hemoglobin C Hemoglobin D Hemoglobin E Hgb F Diffential Stain Hemoglobin F Quant Hemoglobin G Hemoglobin S Hemoglobin [place] Hemoglobin [place] Hemoglobin Eva Variant Hemoglobin Abnorm Hgb IEF Confirm Hemoglobin Interpret Hemoglobinopathy Note POC Glucose 185 H 178 H Total Bilirubin 1.90 H Direct Bilirubin 0.7 H Indirect Bilirubin 1.2 AST 30 ALT 107 H Alkaline Phosphatase 85 Total Protein 6.9 Albumin 3.3 L Albumin/Globulin Ratio 0.9 Sm (George) Antibody Medications & Allergies - Medications Allergies/Adverse Reactions: Allergies atenolol Allergy (Verified 08/15/21 01:34) Unknown quetiapine fumarate [From Seroquel] Adverse Reaction (Verified 08/15/21 01:33) Unknown Home Medications: Home Medications Medication Instructions Recorded Confirmed Last Taken Type Esomeprazole Magnesium [Nexium 20 mg PO DAILY 08/15/21 08/15/21 Unknown History 24Hr] Sulindac 200 mg PO BID 08/15/21 08/15/21 08/14/21 History predniSONE [Deltasone] 5 mg PO TID 08/15/21 08/15/21 08/14/21 History 5 mg Active Medications: Generic Name Dose Route Start Last Admin Trade Name Freq PRN Reason Stop Dose Admin Albuterol 2.5 mg 08/17/21 09:42 08/17/21 10:06 Albuterol 2.5 Mg/3 Ml Nebu IH 2.5 mg Q4HRT PRN Administration Shortness Of Breath Amlodipine Besylate 10 mg 08/19/21 10:00 08/26/21 10:09 Amlodipine 10 Mg Tab PO 10 mg QDAY ROSINA Administration Dextrose 50 ml 08/18/21 18:18 Dextrose 50% In Water (25gm) 50 Ml Syringe IV Q30MIN PRN Hypoglycemia Protocol Fondaparinux 2.5 mg 08/21/21 12:00 08/26/21 10:08 Fondaparinux 2.5 Mg/0.5 Ml Inj SUB-Q 2.5 mg DAILY ROSINA Administration Fondaparinux 7.5 mg 08/21/21 12:00 08/26/21 10:08 Fondaparinux 7.5 Mg/0.6 Ml Inj SUB-Q 7.5 mg DAILY ROSINA Administration Guaifenesin 10 ml 08/23/21 22:00 08/26/21 10:09 Guaifenesin Dm 200/20 Mg Oral Liqd 10 Ml PO 10 ml Q4H PRN Administration Cough Insulin Human Lispro 0 unit 08/18/21 22:00 08/26/21 07:50 Insulin Lispro 100 Unit/Ml SUB-Q 1 unit ACHS ROSINA Administration Protocol Magnesium Hydroxide 30 ml 08/15/21 06:09 08/23/21 06:16 Magnesium Hydroxide (Mom) Oral Liqd Udc PO 30 ml Q4H PRN Administration Constipation Morphine Sulfate 2 mg 08/15/21 06:09 08/19/21 11:04 Morphine 2 Mg/1 Ml Inj IV 2 mg Q4H PRN Administration Pain, Moderate (4-6) Morphine Sulfate 4 mg 08/15/21 06:09 Morphine 4 Mg/1 Ml Inj IV Q4H PRN Pain , Severe (7-10) Ondansetron HCl 4 mg 08/15/21 06:09 Ondansetron 4 Mg/2 Ml Inj IV Q8H PRN Nausea And Vomiting Oxymetazoline HCl 2 spray 08/23/21 21:59 08/24/21 04:56 Oxymetazoline 0.05% Nasal Warriors Mark NS 08/26/21 21:58 2 spray Q12H PRN Administration Nasal Congestion Pantoprazole Sodium 40 mg 08/18/21 07:30 08/26/21 07:50 Pantoprazole 40 Mg Tab PO 40 mg QDAC ROSINA Administration Prednisone 50 mg 08/25/21 10:00 08/26/21 10:08 Prednisone 50 Mg Tab PO 08/26/21 22:01 50 mg BID ROSINA Administration Prednisone 40 mg 08/27/21 10:00 Prednisone 20 Mg Tab PO 08/28/21 22:01 BID ROSINA Prednisone 30 mg 08/29/21 10:00 Prednisone 10 Mg Tab PO 08/30/21 22:01 BID ROSINA Prednisone 25 mg 08/31/21 10:00 Prednisone 10 Mg Tab PO 09/01/21 22:01 BID ROSINA Prednisone 20 mg 09/02/21 10:00 Prednisone 20 Mg Tab PO 09/03/21 22:01 BID ROSINA Prednisone 15 mg 09/04/21 10:00 Prednisone 5 Mg Tab PO 09/05/21 22:01 BID ROSINA Prednisone 10 mg 09/06/21 10:00 Prednisone 10 Mg Tab PO 09/06/21 22:01 BID ROSINA Prednisone 5 mg 09/07/21 10:00 Prednisone 5 Mg Tab PO 09/07/21 22:01 BID ROSINA Sodium Chloride 10 ml 08/15/21 10:00 08/26/21 10:09 Sodium Chloride 0.9% 10 Ml Flush Syringe IV 10 ml BID ROSINA Administration Sodium Chloride 10 ml 08/15/21 06:09 Sodium Chloride 0.9% 10 Ml Flush Syringe IV PRN PRN LINE FLUSH
--- NOTE | 2021-08-26 16:24 | Progress Note ---
Assessment and Plan This is a 55-year-old male with HTN, rheumatoid arthritis, GERD, depression, and hernia who presented to emergency department on 08/15 with complaints of shortness of breath and chest pain with symptoms ongoing for the past 3 weeks, increasing shortness of breath with exertion and pleuritic chest pain, occasional distention of the abdomen, jaundice and dark urine. Patient stated that he had a fall on his forehead a few days prior to admission feeling weak and dizzy however did not lose consciousness. Upon arrival to the emergency de partment patient was tachypneic and tachycardic oxygen saturation of 96% on room air. Work-up in the emergency department revealed leukocytosis, severe anemia with a H/H of 3.5/11.3, thrombocytopenia, elevated INR and transaminitis. CXR showed borderline cardiomegaly with possible interstitial pulmonary edema. Patient was admitted to the hospitalist service with severe anemia, leukocytosis and acute liver injury with consults to GI, ID and pulmonology. Hospital Course to Date: 08/15: Patient is on HHFL 40%, 25L. SPO2 above 95. With severe anemia, no s/s of any acute bleeding, administered 2units of PRBCs for now, serial H&H ordered. HEME/ONC consult pending. Worsening lactic acid noted most likely due to acute liver disease, Acetylcysteine gtt intiated per GI recommendation. Will continue to monitor LFTs and coags. Orders placed for UDS and alcohol leve;. Will also check Vitamin B12, folate, and HIV. Patient remains afebrile and hemodynamically stable. per ID leukocytosi is unlikely related to an infectious process and IV abx were discontinued. 08/16: Patient is doing much better this am. Stable on 3L NC this am, no respiratory distress noted, this am CXR improved. LFTs with mild improvement this am, d/w GI give another dose off Acetylcysteine. S/p 4units of PRBCs repeat CBC pending, transfuse if hbg less than 7. Continue to trend LFTs, electrolytes repleted. 08/17: Patient started on Solu-Medrol as his Briseida test was positive, patient complaining of calf pain which is bilateral feet warm to touch and Doppler ultrasound was ordered which revealed acute peroneal DVT. Hypokalemia repleted. 08/18: We will transfuse 1 unit PRBC per heme-onc orders as hematocrit is less than 23. LFTs have much improved. will transfer to the floor. Dr. Bird placed orders re juan archibald and scd. will perform weekly surveillance US 08/19: H/H stable, improvement in symptomology this AM. AOx3. F/u bm aspirate pathology. Heme recs noted will continue solumedrol 1mg/kg bid. Vascular recommendations noted re: peroneal dvt. JUAN archibald/scd for now, Will continue to monitor with serial US qweekly for dvt propagation. 08/20: Awaiting BM bx results. 08/22; continue current management 08/23; AIHA and ITP on pulse steroids S/p bone marrow biopsy pending report Clotting deficiency due to recent DVT 08/24; continue current management, pending bone marrow biopsy 08/25; pulse dose steroids completed, started on oral tapering dose of prednisone per hematology 08/26: plan to taper steroid and transition to xarelto. iF CLINICALLY STABLE POSSIBLE DC IN the morning. --Assessment and plan: Severe microcytic anemia, thrombocytopenia, l Left lower extremity peroneal DVT, autoimmune hemolytic anemia, leukocytosis -Presented with a hemoglobin of 3.5 Received total 7 units of PRBC , h/h now stable Monitor closely and transfuse additional PRBC as needed -Vitamin B12 high, folate normal -Hematology/oncology following -Positive Briseida test -s/p Solu-Medrol 1 mg/kg twice daily, now on tapering dose of steroid -Trend CBC -Bone marrow biopsy 08/17/2021 -Monitor for signs of bleeding -SCDs to BLE while in bed -Hemoccult positive -CT chest revealed no PE, no evidence of pneumonia. -CT abdomen and pelvis revealed no acute intra-abdominal or intrapelvic pathology. -Per vascular surgery: JUAN/SCD with weekly dopplar -Starting fondaparinux (per hematology/oncology) Acute hypoxic respiratory failure Requiring supplemental oxygen on admission Gradually weaned off O2, Acute liver injury, h/o GERD Possible ischemic hepatitis. LFTs in thousands on admission Trending down -CT abdomen without any acute abnormality -Hepatic panel negative - continue Protonix h/o depression, Stable h/o HTN Closely monitor blood pressures and adjust as needed Continue current antihypertensives Leukemoid reaction, lactic acidosis -Infectious disease consulted, appreciate recommendation -COVID-19 PCR negative -f/u blood culture -Monitor WBC and temperature curve -CT chest revealed no PE, no evidence of pneumonia. -CT abdomen and pelvis revealed no acute intra-abdominal or intrapelvic pathology. -monitor off abx Hypokalemia Resolved, closely monitor electrolytes Hyperglycemia/partly due to steroids Accu-Chek sliding scale coverage ADA diet Check hemoglobin A1c #Obesity; BMI 39.4 Dietary modification, exercise as tolerated, Weight reduction when patient is medically stable Weight loss counseling Exercise counseling - Counseled patient on the importance of weight loss, incorporating exercise, and dietary changes (lean meats, fresh fruits and vegetables, and water intake). Patient expresses understanding. #Advanced care planning -Disease education conducted, care plan discussed, diagnoses discussed, prognosis discussed, and patient acknowledges understanding with care plan -Time: +30 min PT; home health PT upon discharge Consults and recommendations noted and appreciated Closely monitor patient and adjust management as needed Plan of care reviewed with the patient and his nurse Subjective Date of service: 08/26/21 Principal diagnosis: Ac. Liver Injury; Anemia; Thrombocytopenia; AHRF; Pulm Edema; Met. Acidosis Interval history: Patient seen and examined. Medical records and medication list reviewed. No acute event overnight noted by the RN. Patient denies any chest pain or difficulty breathing. Patient is tolerating diet. Discussed plan of care at bedside with patient. Discussed with plan of care with pad machine feeder Objective - Exam Narrative Exam: GENERAL: well-developed and well-nourished obese AAM lying on bed appeared to be in no discomfort. HEENT: Normocephalic. Atraumatic. No conjunctival congestion or icterus. Patient has moist mucous membranes. NECK: Supple. Trachea midline. CHEST/LUNGS: Clear to auscultated bilaterally, breathing nonlabored. No wheezes crackles or rhonchi. HEART/CARDIOVASCULAR: Regular in rate and rhythm. S1 and S2 positive. ABDOMEN: Abdomen is soft, nontender. Patient has normal bowel sounds. SKIN: There is no rash. Warm and dry. NEURO: No focal motor deficit. Follows command. MUSCULOSKELETAL: No joint effusion or tenderness. EXTRIMITY: No edema, no cyanosis or clubbing. PSYCH: Cooperative. - Constitutional Vitals: Vital Signs - 12hr 08/26/21 08/26/21 08/26/21 07:00 08:25 08:32 Temperature 98.3 F Pulse Rate 80 Pulse Rate [ 78 From Monitor] Respiratory 20 Rate Blood Pressure 128/70 O2 Sat by Pulse 99 97 99 Oximetry 08/26/21 10:09 Temperature Pulse Rate 80 Pulse Rate [ From Monitor] Respiratory Rate Blood Pressure 128/70 O2 Sat by Pulse Oximetry - Labs CBC & Chem 7: 08/25/21 04:24 08/25/21 04:24 Labs: Abnormal lab results 08/25/21 08/25/21 08/26/21 Range/Units 15:52 20:47 08:35 POC Glucose 185 H 178 H (70-105) mg/dL Total Bilirubin 1.90 H (0.1-1.2) mg/dL Direct Bilirubin 0.7 H (0-0.2) mg/dL ALT 107 H (7-56) units/L Albumin 3.3 L (3.9-5) g/dL HEART Score - HEART Score Troponin: Troponin T 0.016 ng/mL (0.00-0.029) 08/15/21 06:00
[2021-08-27] MEDS: PANTOPRAZOLE 40 MG TAB PO SCH (08:30)
[2021-08-27] MEDS: INSULIN LISPRO 100 UNIT/ML SUB-Q SCH ×2 (08:30→13:03)
[2021-08-27] MEDS ORDERED: predniSONE 20 MG TAB PO SCH (10:00)
[2021-08-27] MEDS: amLODIPine 10 MG TAB PO SCH (10:17)
[2021-08-27] MEDS: FONDAPARINUX 7.5 MG/0.6 ML INJ SUB-Q SCH (10:21)
[2021-08-27] MEDS: FONDAPARINUX 2.5 MG/0.5 ML INJ SUB-Q SCH (10:21)
--- NOTE | 2021-08-27 13:12 | Discharge Summary ---
Providers - Providers Date of Admission: 08/15/21 06:09 Date of discharge: 08/27/21 Attending physician: CAROLYN BOWEN 08/15/21 06:09 Consult to Physician [CONS] Routine Comment: spoke with the doctor/ stew Consulting Provider: SERGO TRIANA Physician Instructions: Reason For Exam: ANEMIA-SYMPTOMATIC 08/15/21 06:17 Consult to Physician [CONS] Routine Comment: dr. bautista o/c/ stew Consulting Provider: ESTRELLA CARR Physician Instructions: Reason For Exam: JAUNDICE,ANEMIA, ELEVATED LIVER ENZYMES 08/15/21 08:01 Consult to Physician [CONS] Routine Comment: Consulting Provider: ANY CHESTER Physician Instructions: Reason For Exam: symptomatic anemia, respiratory distress Consult to Physician [CONS] Routine Comment: Consulting Provider: MASON MALDONADO Physician Instructions: Reason For Exam: lactic acidosis sirs, elevated wbc 08/17/21 15:48 Occupational Therapy Evaluate and Treat [CONS] Routine Comment: Reason For Exam: Debility Physical Therapy Evaluation and Treat [CONS] Routine Comment: Reason For Exam: Debility 08/18/21 12:39 Consult to Physician [CONS] Routine Comment: Consulting Provider: EVAN BECK Physician Instructions: Reason For Exam: dvt, unable to anticoagulate Primary care physician: LUCAS RICO Hospitalization Condition: Stable Pertinent studies: Chest x-ray, chest CTA, abdomen pelvis CT, abdominal ultrasound, chest x-ray, lower extremity Doppler study Hospital course: This is a 55-year-old male with HTN, rheumatoid arthritis, GERD, depression, and hernia who presented to emergency department on 08/15 with complaints of shortness of breath and chest pain with symptoms ongoing for the past 3 weeks, increasing shortness of breath with exertion and pleuritic chest pain, occasional distention of the abdomen, jaundice and dark urine. Patient stated that he had a fall on his forehead a few days prior to admission feeling weak and dizzy however did not lose consciousness. Upon arrival to the emergency department patient was tachypneic and tachycardic oxygen saturation of 96% on room air. Work-up in the emergency department revealed leukocytosis, severe anemia with a H/H of 3.5/11.3, thrombocytopenia, elevated INR and transaminitis. CXR showed borderline cardiomegaly with possible interstitial pulmonary edema. Patient was admitted to the hospitalist service with severe anemia, leukocytosis and acute liver injury with consults to GI, ID and pulmonology. Hospital Course to Date: 08/15: Patient is on HHFL 40%, 25L. SPO2 above 95. With severe anemia, no s/s of any acute bleeding, administered 2units of PRBCs for now, serial H&H ordered. HEME/ONC consult pending. Worsening lactic acid noted most likely due to acute liver disease, Acetylcysteine gtt intiated per GI recommendation. Will continue to monitor LFTs and coags. Orders placed for UDS and alcohol leve;. Will also check Vitamin B12, folate, and HIV. Patient remains afebrile and hemodynamically stable. per ID leukocytosi is unlikely related to an infectious process and IV abx were discontinued. 08/16: Patient is doing much better this am. Stable on 3L NC this am, no respiratory distress noted, this am CXR improved. LFTs with mild improvement this am, d/w GI give another dose off Acetylcysteine. S/p 4units of PRBCs repeat CBC pending, transfuse if hbg less than 7. Continue to trend LFTs, electrolytes repleted. 08/17: Patient started on Solu-Medrol as his Briseida test was positive, patient complaining of calf pain which is bilateral feet warm to touch and Doppler ultrasound was ordered which revealed acute peroneal DVT. Hypokalemia repleted. 08/18: We will transfuse 1 unit PRBC per heme-onc orders as hematocrit is less than 23. LFTs have much improved. will transfer to the floor. Dr. Beck placed orders re juan archibald and scd. will perform weekly surveillance US 08/19: H/H stable, improvement in symptomology this AM. AOx3. F/u bm aspirate pathology. Heme recs noted will continue solumedrol 1mg/kg bid. Vascular recommendations noted re: peroneal dvt. JUAN archibald/scd for now, Will continue to monitor with serial US qweekly for dvt propagation. 08/20: Awaiting BM bx results. 08/22; continue current management 08/23; AIHA and ITP on pulse steroids S/p bone marrow biopsy pending report Clotting deficiency due to recent DVT 08/24; continue current management, pending bone marrow biopsy 08/25; pulse dose steroids completed, started on oral tapering dose of prednisone per hematology 08/26: plan to taper steroid and transition to xarelto. iF CLINICALLY STABLE POSSIBLE DC IN the morning. 08/27: Changed to xarelto, plan to dc home with tapering dose of steroid. patient will f/u with artificial inseminator as outpt. But xarelto not covered by his insurance, so changed to eliquis. Disposition: 01 HOME / SELF CARE / HOMELESS Final Discharge Diagnosis (Prints w/discharge instructions): Severe microcytic anemia,. thrombocytopenia, l. Left lower extremity peroneal DVT,. autoimmune hemolytic anemia,. leukocytosis/Leukemoid reaction, lactic acidosis. Acute hypoxic respiratory failure. resolved. Acute liver injury,. h/o GERD. h/o depression,. h/o HTN. Hypokalemia. Hyperglycemia/partly due to steroids. Obesity; BMI 39.4 Time spent for discharge: 34 minutes Core Measure Documentation - Palliative Care Palliative Care/ Comfort Measures: Not Applicable - Core Measures Any of the following diagnoses?: none Exam - Physical Exam Narrative exam: GENERAL: well-developed and well-nourished obese AAM lying on bed appeared to be in no discomfort. HEENT: Normocephalic. Atraumatic. No conjunctival congestion or icterus. Patient has moist mucous membranes. NECK: Supple. Trachea midline. CHEST/LUNGS: Clear to auscultated bilaterally, breathing nonlabored. No wheezes crackles or rhonchi. HEART/CARDIOVASCULAR: Regular in rate and rhythm. S1 and S2 positive. ABDOMEN: Abdomen is soft, nontender. Patient has normal bowel sounds. SKIN: There is no rash. Warm and dry. NEURO: No focal motor deficit. Follows command. MUSCULOSKELETAL: No joint effusion or tenderness. EXTRIMITY: No edema, no cyanosis or clubbing. PSYCH: Cooperative. - Constitutional Vitals: Temp Pulse Resp BP Pulse Ox 98.5 F 75 20 124/70 98 08/27/21 11:00 08/27/21 11:00 08/27/21 11:00 08/27/21 11:08/27/21 11:00 Plan Activity: advance as tolerated Weight Bearing Status: Weight Bear as Tolerated Diet: low fat, low salt Additional Instructions: f/u with Dr Kirkpatrick in one week. Repeat CBC in one week. Please take Predsinone 40mg BID for 2 days, then 30mg BID for 2 days, then 25mg BID for 2 days, then 20mg BID for 2 days, then 15mg BID for 2 days, then 10mg BID for 2 days, then 5 mg BID for one day then stop. Follow up with: LUCAS RICO MD [Primary Care Provider] - 3-5 Days PAVEL KIRKPATRICK MD [Staff Physician] - 7 Days Prescriptions: amLODIPine 10 mg PO QDAY #30 tablet predniSONE [Deltasone] 40 mg PO BID #3 tablet predniSONE [Deltasone] 20 mg PO BID #4 tablet predniSONE [Deltasone] 15 mg PO BID #4 tablet predniSONE [Deltasone] 5 mg PO BID #2 tablet Apixaban [Eliquis starter pack] 5 mg PO BID #60 Esomeprazole Magnesium [Nexium 24Hr] 20 mg PO DAILY #30 predniSONE 30 mg PO BID #4 tablet predniSONE 25 mg PO BID #4 tablet predniSONE 10 mg PO BID #4 tablet
[2021-08-27 14:57] LABS: Hemoglobin 9.9 gm/dl (11.8-15.2); Mean Corpuscular HGB Conc 33 % (32-34); Mean Corpuscular Volume 110 fl (84-94); Platelet Count 475 K/mm3 (140-440); Red Blood Count 2.74 M/mm3 (3.65-5.03)
[2021-08-27 15:03] LABS: Red Cell Distribution Width 32.4 % (13.2-15.2)
[2021-08-27 15:07] LABS: INR 1.07 (0.87-1.13); Partial Thromboplastin Time 24.6 Sec. (24.2-36.6)
[2021-08-27] MEDS ORDERED: RIVAROXABAN 20 MG TAB PO SCH (17:00)
[2021-08-27 20:54] VITALS: BP 145/86
[2021-08-29] MEDS ORDERED: predniSONE 10 MG TAB PO SCH (10:00)
[2021-08-31] MEDS ORDERED: predniSONE 10 MG TAB PO SCH (10:00)
[2021-09-02] MEDS ORDERED: predniSONE 20 MG TAB PO SCH (10:00)
[2021-09-04] MEDS ORDERED: predniSONE 5 MG TAB PO SCH (10:00)
[2021-09-06] MEDS ORDERED: predniSONE 10 MG TAB PO SCH (10:00)
[2021-09-07] MEDS ORDERED: predniSONE 5 MG TAB PO SCH (10:00)
== END 2021-08-27 23:00 | disposition home health service (06) | DRG 441 ==
LOC: ED 01:29 → CC1 06:09 → 4A 08-18 16:59
PROVIDERS: ADMIT Internal Medicine Geriatric Medicine; ATTEND Internal Medicine
PROC: 30233N1 Transfusion of Nonautologous Red Blood Cells into Peripheral Vein, Percutaneous Approach (ICD-10-PCS; principal; 2021-08-15)
DX: K72.00 Acute and subacute hepatic failure without coma (principal); J96.01 Acute respiratory failure with hypoxia; I82.452 Acute embolism and thrombosis of left peroneal vein; D59.9 Acquired hemolytic anemia, unspecified; E87.6 Hypokalemia; D72.823 Leukemoid reaction; Z20.822 Contact with and (suspected) exposure to COVID-19; F32.9 Major depressive disorder, single episode, unspecified; K21.9 Gastro-esophageal reflux disease without esophagitis; M06.9 Rheumatoid arthritis, unspecified; I10 Essential (primary) hypertension; D64.9 Anemia, unspecified; D69.6 Thrombocytopenia, unspecified; E66.9 Obesity, unspecified; Z68.39 Body mass index [BMI] 39.0-39.9, adult; Z88.8 Allergy status to other drugs, medicaments and biological substances
CPT/HCPCS: 36415; 38222; 71045; 71275; 74178; 76700; 80048; 80053; 80074; 80076; 80307; 80320; 82140; 82270; 82565; 82607; 82747; 82962; 83036; 83520; 83615; 83735; 84100; 84132; 84145; 84165; 84484; 85007; 85014; 85018; 85025; 85027; 85045; 85097; 85379; 85384; 85610; 85730; 86038; 86147; 86235; 86334; 86850; 86880; 86900; 86901; 86920; 87040; 87806; 88161; 88305; 88311; 88313; 93005; 93970; 94640; 94760; G0378; J3490; J7060; Q9967; C9113; G0480; J0132; J1170; J1652; J1815; J1940; J2060; J2270; J2405; J2930; J7040; J7070; J7512; P9016; U0003